=== PATIENT | male | born 1980 | race Caucasian/White ===

== ENCOUNTER 2020-01-06 05:14 | Observation (INO) | payer OTHER ==
[2020-01-06] MEDS ORDERED: Zofran 4 MG/2 ML VIAL IV ONE ×2 (05:24→06:33)
[2020-01-06] MEDS ORDERED: MORPHINE SULFATE 4 MG INJ IV ONE (05:24)
[2020-01-06] MEDS ORDERED: Sodium Chloride 0.9% 1000 ML 1,000 ML IV STA ×2 (05:24→07:45)
--- NOTE | 2020-01-06 05:29 | ERPHSYRPT ---
- History of Present Illness Historian: patient Exam Limitations: no limitations Timing/Duration: day(s) (2) Activities at Onset: rest Quality: cramping, dullness, sharpness Abdominal Pain Onset Location: RUQ, epigastric, periumbilical Pain Radiation: no radiation Severity of Pain-Max: moderate Severity of Pain-Current: moderate Modifying Factors: Improves With: movement Associated Symptoms: heartburn, nausea, vomiting, No diarrhea, No fever/chills Previous symptoms: no prior history <RICA DE GUZMAN - Last Filed: 01/06/20 07:03> <DRISS LOVETT - Last Filed: 01/06/20 08:53> - History of Present Illness Time Seen by Provider: 01/06/20 05:20 Physician History: 39 years old with history of diabetes mellitus, hypertension, hyperlipidemia presented in the ER with chief complaint of epigastric/upper abdominal pain for the last 2 days with multiple episodes of nonprojectile, nonbilious vomiting. He is not able to hold anything down. Patient reports moderate intensity dull to sharp cramping pain in the upper abdomen from umbilicus to epigastric area, aggravated with movements and partial relief with putting a fist and pressurizing epigastric area. Denies any fever or chills. No diarrhea. Denies any sick contact. Denies any history of gallstones. (RICA DE GUZMAN) Allergies/Adverse Reactions: codeine Allergy (Verified 01/06/20 06:10) diphenhydramine [From Benadryl] Allergy (Verified 01/06/20 06:10) pseudoephedrine [From Actifed] Allergy (Verified 01/06/20 06:10) triprolidine [From Actifed] Allergy (Verified 01/06/20 06:10) - Review of Systems Constitutional: Fatigue Eyes: No Symptoms Ears, Nose, & Throat: No Symptoms Respiratory: No Symptoms Cardiac: No Symptoms Abdominal/Gastrointestinal: Abdominal Pain, Nausea, Vomiting Genitourinary Symptoms: No Symptoms Musculoskeletal: No Symptoms Skin: No Symptoms Neurological: No Symptoms Psychological: No Symptoms Endocrine: No Symptoms Hematologic/Lymphatic: No Symptoms Immunological/Allergic: No Symptoms <RICA DE GUZMAN - Last Filed: 01/06/20 07:03> - Physical Exam General Appearance: no apparent distress, alert Eye Exam: eyes nml inspection Ears, Nose, Throat Exam: normal ENT inspection, pharyngeal erythema Neck Exam: normal inspection, non-tender, supple, full range of motion Respiratory Exam: normal breath sounds, lungs clear Cardiovascular Exam: normal heart sounds, tachycardia Gastrointestinal/Abdomen Exam: soft, tenderness (Epigastric and periumbilical area), guarding, No distention, No mass Extremity Exam: normal inspection Neurologic Exam: alert, oriented x 3, cooperative Skin Exam: normal color, warm SpO2 Interpretation: normal O2 Delivery: Room Air <RICA DE GUZMAN - Last Filed: 01/06/20 07:03> - Nursing Vital Signs Nursing Vital Signs: Initial Vital Signs Temperature 97.7 F 01/06/20 05:54 Pulse Rate 103 H 01/06/20 05:54 Respiratory Rate 20 01/06/20 05:54 Blood Pressure 150/107 01/06/20 05:54 O2 Sat by Pulse Oximetry 98 01/06/20 05:54 Pain Scale Pain Intensity 0 - Course Nursing assessment & vital signs reviewed: Yes EKG Interpreted by Me: RATE (rate 88), Sinus Rhythm, NORMAL AXIS, NORMAL INTERVALS - CT Exams Abdomen/Pelvis CT Interpretation: Tele-radiologist Report (CT scan reveals right lower lobe calcified granuloma, mild diffuse fatty liver, a few hepatic and splenic calcified granulomas, bilateral renal cortical cysts.) <DRISS LOVETT - Last Filed: 01/06/20 08:53> Ordered Tests: Active Orders 24 hr Category Date Time Status EKG-ER Only STAT Care 01/06/20 08:10 Active IV Insertion STAT Care 01/06/20 05:24 Active Isolation, Initiate & Maintain Q12H Care 01/06/20 06:08 Active ABDOMEN AND PELVIS W CONTRAST [CT] Stat Exams 01/06/20 05:25 Completed AMYLASE Stat Lab 01/06/20 05:56 Completed BLOOD CULTURE Stat Lab 01/06/20 08:18 Received CBC W DIFF Stat Lab 01/06/20 05:56 Completed CMP Stat Lab 01/06/20 05:56 Completed CULTURE,URINE Stat Lab 01/06/20 06:20 Received LIPASE Stat Lab 01/06/20 05:56 Completed MAGNESIUM Stat Lab 01/06/20 06:00 Completed TROPONIN Q3H Lab 01/06/20 07:30 Completed TROPONIN Q3H Lab 01/06/20 10:30 Ordered TROPONIN Q3H Lab 01/06/20 13:30 Ordered TROPONIN Q3H Lab 01/06/20 16:30 Ordered TROPONIN Q3H Lab 01/06/20 19:30 Ordered UA W/RFX UR CULTURE Stat Lab 01/06/20 06:20 Completed VENOUS BLOOD GAS Stat Lab 01/06/20 08:19 Completed Transfer Order Routine Transfer 01/06/20 Ordered Medication Summary Discontinued Medications Generic Name Dose Route Start Last Admin Trade Name Freq PRN Reason Stop Dose Admin Sodium Chloride 1,000 mls @ 999 mls/hr 01/06/20 05:24 01/06/20 07:59 Sodium Chloride 0.9% 1000 Ml IV 01/06/20 06:24 Infused .Q1H1M STA Infusion Sodium Chloride Confirm 01/06/20 06:19 Sodium Chloride 0.9% 1000 Ml Administered 01/06/20 06:20 Dose 1,000 mls @ ud .ROUTE .STK-MED ONE Ceftriaxone Sodium/Dextrose 1 g in 50 mls @ 100 mls/hr 01/06/20 07:35 08:43 Rocephin 1 Gm-D5w 50 Ml Bag IV 01/06/20 08:04 Infused STAT STA Infusion Sodium Chloride 1,000 mls @ 999 mls/hr 01/06/20 07:45 01/06/20 07:57 Sodium Chloride 0.9% 1000 Ml IV 01/06/20 08:45 999 mls/hr .Q1H1M STA Administration Sodium Chloride Confirm 01/06/20 07:56 Sodium Chloride 0.9% 1000 Ml Administered 01/06/20 07:57 Dose 1,000 mls @ ud .ROUTE .STK-MED ONE Ceftriaxone Sodium/Dextrose Confirm 01/06/20 07:57 Rocephin 1 Gm-D5w 50 Ml Bag Administered 01/06/20 07:58 Dose 1 g in 50 mls @ ud IV .STK-MED ONE Morphine Sulfate 4 mg 01/06/20 05:24 01/06/20 06:22 Morphine Sulfate 4 Mg Inj IV 01/06/20 05:25 4 mg STAT ONE Administration Morphine Sulfate Confirm 01/06/20 06:19 Morphine Sulfate 4 Mg Inj Administered 01/06/20 06:20 Dose 4 mg .ROUTE .STK-MED ONE Ondansetron HCl 4 mg 01/06/20 05:24 01/06/20 06:23 Zofran 4 Mg/2 Ml Vial IV 01/06/20 05:25 4 mg STAT ONE Administration Ondansetron HCl Confirm 01/06/20 06:19 Zofran 4 Mg/2 Ml Vial Administered 01/06/20 06:20 Dose 4 mg .ROUTE .STK-MED ONE Ondansetron HCl 4 mg 01/06/20 06:33 01/06/20 06:35 Zofran 4 Mg/2 Ml Vial IV 01/06/20 06:34 4 mg STAT ONE Administration Ondansetron HCl Confirm 01/06/20 06:34 Zofran 4 Mg/2 Ml Vial Administered 01/06/20 06:35 Dose 4 mg .ROUTE .STK-MED ONE Lab/Rad Data: Laboratory Result Diagrams 01/06/20 05:56 01/06/20 05:56 Laboratory Results 01/06/20 01/06/20 01/06/20 Range/Units 08:19 07:30 06:20 WBC (4.0-10.5) K/mm3 RBC (4.1-5.6) M/mm3 Hgb (12.5-18.0) gm/dl Hct (42-50) % MCV (78-100) fl MCH (26-32) pg MCHC (32-36) g/dl RDW (11.5-14.0) % Plt Count (150-450) K/mm3 MPV (7.5-11.0) fl Gran % (36.0-66.0) % Eos # (Auto) (0-0.5) Absolute Lymphs (auto) (1.0-4.6) Absolute Monos (auto) (0.0-1.3) Lymphocytes % (24.0-44.0) % Monocytes % (0.0-12.0) % Eosinophils % (0.00-5.0) % Basophils % (0.0-0.4) % Absolute Granulocytes (1.4-6.9) Basophils # (0-0.4) pO2/FiO2 Ratio 21.0 % VBG pH 7.41 (7.32-7.42) VBG pCO2 at Pat Temp 43 (42-55) mm/Hg VBG pO2 at Pat Temp 30 (25-40) mm/Hg VBG HCO3 27.3 (22-28) meq/L VBG O2 Sat (Alessandra) 59.1 L (95-100) VBG Base Excess 2.2 H (-2.0-2.0) VBG Hemoglobin 17.0 VBG Carboxyhemoglobin 1.9 (0.0-6.9) % T HGB POC Potassium 3.7 (3.5-5.1) Sodium (137-145) mmol/L Potassium (3.5-5.1) mmol/L Chloride (98-107) mmol/L Carbon Dioxide (22-30) mmol/L Anion Gap (5-15) MEQ/L BUN (9-20) mg/dL Creatinine (0.66-1.25) mg/dL Estimated GFR ML/MIN Glucose (74-106) mg/dL Calcium (8.4-10.2) mg/dL Magnesium (1.6-2.3) mg/dL Total Bilirubin (0.2-1.3) mg/dL AST (17-59) U/L ALT (0-50) U/L Alkaline Phosphatase (38-126) U/L Troponin I < 0.012 (0.000-0.034) ng/mL Serum Total Protein (6.3-8.2) g/dL Albumin (3.5-5.0) g/dL Amylase (30-110) U/L Lipase (23-300) U/L Urine Color YELLOW (YELLOW) Urine Appearance SLIGHTLY CLOUDY (CLEAR) Urine pH 5.0 (5-6) Ur Specific [place] 1.040 (1.005-1.025) Urine Protein 30 (Negative) Urine Ketones MODERATE (NEGATIVE) Urine Blood NEGATIVE (0-5) [place]/ul Urine Nitrite NEGATIVE (NEGATIVE) Urine Bilirubin NEGATIVE (NEGATIVE) Urine Urobilinogen NEGATIVE (0-1) mg/dL Ur Leukocyte Esterase MODERATE (NEGATIVE) Urine WBC (Auto) 51-100 (0-5) /HPF Urine RBC (Auto) 16-25 (0-2) /HPF U Epithel Cells (Auto) FEW (FEW) /HPF Urine Bacteria (Auto) NONE (NEGATIVE) /HPF Urine Mucus (Auto) SLIGHT (NEGATIVE) /HPF Urine Sperm (Auto) PRESENT (NEGATIVE) /HPF Urine Culture Reflexed YES (NO) Urine Glucose >=500 (NEGATIVE) mg/dL 01/06/20 01/06/20 01/06/20 Range/Units 06:00 05:56 05:56 WBC 13.5 H (4.0-10.5) K/mm3 RBC 5.88 H (4.1-5.6) M/mm3 Hgb 17.2 (12.5-18.0) gm/dl Hct 48.2 (42-50) % MCV 82.0 (78-100) fl MCH 29.3 (26-32) pg MCHC 35.7 (32-36) g/dl RDW 13.5 (11.5-14.0) % Plt Count 343 (150-450) K/mm3 MPV 10.9 (7.5-11.0) fl Gran % 56.4 (36.0-66.0) % Eos # (Auto) 0.10 (0-0.5) Absolute Lymphs (auto) 4.61 H (1.0-4.6) Absolute Monos (auto) 1.16 (0.0-1.3) Lymphocytes % 34.2 (24.0-44.0) % Monocytes % 8.6 (0.0-12.0) % Eosinophils % 0.7 (0.00-5.0) % Basophils % 0.1 (0.0-0.4) % Absolute Granulocytes 7.60 H (1.4-6.9) Basophils # 0.02 (0-0.4) pO2/FiO2 Ratio % VBG pH (7.32-7.42) VBG pCO2 at Pat Temp (42-55) mm/Hg VBG pO2 at Pat Temp (25-40) mm/Hg VBG HCO3 (22-28) meq/L VBG O2 Sat (Alessandra) (95-100) VBG Base Excess (-2.0-2.0) VBG Hemoglobin VBG Carboxyhemoglobin (0.0-6.9) % T HGB POC Potassium (3.5-5.1) Sodium 133 L (137-145) mmol/L Potassium 3.7 (3.5-5.1) mmol/L Chloride 95 L (98-107) mmol/L Carbon Dioxide 20 L (22-30) mmol/L Anion Gap 21.6 H (5-15) MEQ/L BUN 10 (9-20) mg/dL Creatinine 0.63 L (0.66-1.25) mg/dL Estimated GFR > 60.0 ML/MIN Glucose 311 H (74-106) mg/dL Calcium 9.6 (8.4-10.2) mg/dL Magnesium 1.9 (1.6-2.3) mg/dL Total Bilirubin 1.00 (0.2-1.3) mg/dL AST 27 (17-59) U/L ALT 34 (0-50) U/L Alkaline Phosphatase 150 H (38-126) U/L Troponin I (0.000-0.034) ng/mL Serum Total Protein 8.4 H (6.3-8.2) g/dL Albumin 4.7 (3.5-5.0) g/dL Amylase 56 (30-110) U/L Lipase 133 (23-300) U/L Urine Color (YELLOW) Urine Appearance (CLEAR) Urine pH (5-6) Ur Specific [place] (1.005-1.025) Urine Protein (Negative) Urine Ketones (NEGATIVE) Urine Blood (0-5) [place]/ul Urine Nitrite (NEGATIVE) Urine Bilirubin (NEGATIVE) Urine Urobilinogen (0-1) mg/dL Ur Leukocyte Esterase (NEGATIVE) Urine WBC (Auto) (0-5) /HPF Urine RBC (Auto) (0-2) /HPF U Epithel Cells (Auto) (FEW) /HPF Urine Bacteria (Auto) (NEGATIVE) /HPF Urine Mucus (Auto) (NEGATIVE) /HPF Urine Sperm (Auto) (NEGATIVE) /HPF Urine Culture Reflexed (NO) Urine Glucose (NEGATIVE) mg/dL <RICA DE GUZMAN - Last Filed: 01/06/20 07:03> - Progress Discussed with : Yesica Will see patient in: hospital (observation) Counseled pt/family regarding: lab results, diagnosis, rad results <DRISS LOVETT - Last Filed: 01/06/20 08:53> - Progress Progress Note: 01/06/20 07:03 Work-up is pending and care is transfer to Dr. Lovett due to shift change (RICA DE GUZMAN) 01/06/20 08:[address] Lovett at approximately [address] Lovett advised to follow- up on pending work-up. Labs resulted. UA resulted. Patient has a urinary tract infection. Patient also has hyperglycemia with an anion gap of 21. Diagnosis is DKA. Ketonuria present as well. CT abdomen pelvis resulted. No acute pathology. EKG was normal sinus rhythm. ABG revealed essentially within normal limits. Magnesium within normal limits. Case discussed with Dr. Carreon who accepts admission to observation. We will treat patient with IV fluid hydration and reassess glucose and anion gap. Patient does appear somewhat dehydrated on physical exam. Plan of care discussed with patient. He agrees to admission to [facility] for further evaluation and treatment. (DRISS LOVETT) <RICA DE GUZMAN - Last Filed: 01/06/20 07:03> - Departure Departure Disposition: In-patient Admission, Observation Critical Care Time: Yes Critical Care Time(excluding separately billable procedures): Critical 75-104 mins <DRISS LOVETT - Last Filed: 01/06/20 08:53> - Departure Clinical Impression: UTI (urinary tract infection), DKA (diabetic ketoacidoses), Leukocytosis, High anion gap metabolic acidosis, Hyperglycemia, Ketonuria, Abdominal pain, Lung granuloma, Fatty liver, Granuloma of liver, Renal cyst, Granulomatous disease, chronic Condition: Stable Referrals: BOBBY NEWTON [Primary Care Provider] -
[2020-01-06 06:08] LABS: BASOPHIL % 0.1 % (0.0-0.4); Basophil (Absolute #) 0.02 (0-0.4); Eosinophil % 0.7 % (0.00-5.0); Hematocrit 48.2 % (42-50); Hemoglobin 17.2 gm/dl (12.5-18.0); Lymphocyte (Absolute #) 4.61 (1.0-4.6); Lymphocytes % 34.2 % (24.0-44.0); Mean Corpuscular Hemoglobin 29.3 pg (26-32); Mean Corpuscular Hgb Concent. 35.7 g/dl (32-36); Mean Platelet Volume 10.9 fl (7.5-11.0); Monocyte (Absolute #) 1.16 (0.0-1.3); Monocytes % 8.6 % (0.0-12.0); Neutrophil % 56.4 % (36.0-66.0); Platelet Count 343 K/mm3 (150-450); Red Blood Count 5.88 M/mm3 (4.1-5.6); Red Cell Distribution Width 13.5 % (11.5-14.0); White Blood Count 13.5 K/mm3 (4.0-10.5)
[2020-01-06 06:13] LABS: ALBUMIN 4.7 g/dL (3.5-5.0); ALKALINE PHOSPHATASE 150 U/L (38-126); AMYLASE 56 U/L (30-110); ANION GAP 21.6 MEQ/L (5-15); BLOOD UREA NITROGEN 10 mg/dL (9-20); CHLORIDE 95 mmol/L (98-107); Calcium 9.6 mg/dL (8.4-10.2); Carbon Dioxide 20 mmol/L (22-30); Creatinine 1 0.63 mg/dL (0.66-1.25); Glucose 311 mg/dL (74-106); LIPASE 133 U/L (23-300); Potassium 3.7 mmol/L (3.5-5.1); SGOT/AST 27 U/L (17-59); SGPT/ALT 34 U/L (0-50); SODIUM 133 mmol/L (137-145); Total Protein 8.4 g/dL (6.3-8.2)
[2020-01-06] MEDS ORDERED: Zofran 4 MG/2 ML VIAL ONE ×2 (06:19→06:34)
[2020-01-06] MEDS ORDERED: MORPHINE SULFATE 4 MG INJ ONE (06:19)
[2020-01-06] MEDS ORDERED: Sodium Chloride 0.9% 1000 ML 1,000 ML ONE ×2 (06:19→07:56)
[2020-01-06 06:24] LABS: Appearance SLIGHTLY CLOUDY (CLEAR); Bilirubin NEGATIVE (NEGATIVE); Blood NEGATIVE Ery/ul (0-5); Epithelial Cells FEW /HPF (FEW); Glucose >=500 mg/dL (NEGATIVE); Ketones MODERATE (NEGATIVE); Leukocyte Esterase MODERATE (NEGATIVE); Mucus SLIGHT /HPF (NEGATIVE); Nitrite NEGATIVE (NEGATIVE); Protein,Urine Dip 30 (Negative); Urobilinogen NEGATIVE mg/dL (0-1); WBC 51-100 /HPF (0-5)
[2020-01-06 06:25] LABS: Sperm PRESENT /HPF (NEGATIVE)
[2020-01-06] MEDS ORDERED: ROCEPHIN 1 Gm-D5w 50 ml Bag** 1 G/50 ML IVPB IV STA (07:35)
[2020-01-06] MEDS ORDERED: ROCEPHIN 1 Gm-D5w 50 ml Bag** 1 G/50 ML IVPB IV ONE (07:57)
[2020-01-06 08:24] LABS: VBG BASE EXCESS 2.2 (-2.0-2.0); VBG CARBOXYHEMOGLOBIN 1.9 % T HGB (0.0-6.9); VBG HCO3- 27.3 meq/L (22-28); VBG O2 SATURATION 59.1 (95-100); VBG POTASSIUM 3.7 (3.5-5.1); VBG pH 7.41 (7.32-7.42)
--- NOTE | 2020-01-06 08:26 | XRAY ---
Indication: Epigastric pain. Multiple contiguous axial images obtained through the abdomen and pelvis using 80 cc Isovue 370 contrast only. Comparison: None Lung bases demonstrates right lower lobe calcified granuloma. No infiltrate or effusion. Heart is not enlarged. Noncontrasted stomach and bowel loops appear nonobstructed. Normal appendix. No free fluid/air. Mild diffuse fatty liver measuring 22.3 cm in greatest dimension. A few hepatic/splenic calcified granulomas. Both kidneys enhance and excrete with 1.2 cm left mid and 1.5 cm right mid renal cortical cysts. Remaining liver, gallbladder, pancreas, spleen, adrenal glands, kidneys, ureters, bladder, and aorta appear unremarkable. No pathologic retroperitoneal lymphadenopathy. Osseous structures intact with mild degenerative changes throughout the thoracolumbar spine. No ventral or inguinal hernias. Impression: 1. Bilateral renal cysts, fatty hepatomegaly, and evidence for old granulomatous disease. 2. Remaining CT abdomen/pelvis with contrast exam is negative.
[2020-01-06] MEDS ORDERED: MORPHINE SULFATE 2 MG INJ IV PRN (09:40)
[2020-01-06] MEDS: Sodium Chloride 0.9% 1000 ML 1,000 ML IV SCH ×2 (10:34→20:07)
[2020-01-06] MEDS: Zofran 4 MG/2 ML VIAL IV PRN ×2 (10:46→20:07)
--- NOTE | 2020-01-06 16:22 | PCM.BN ---
Brief Admission Note - Admission Note Brief Admisson Note: Patient admitted @ 01/06/20 09:22 to [facility] SURG. Medication List reviewed and reconciled.Patient is asking for a sleeper.He will have a full eval tomorrow morning but is comfortable for now.
[2020-01-06] MEDS: HUMALOG SQ SCH (18:19)
[2020-01-06] MEDS: HUMALOG SQ PRN (20:27)
[2020-01-06] MEDS: Lantus Insulin SQ SCH (21:21)
[2020-01-06] MEDS: Bactroban OINTMENT TOP SCH (21:22)
[2020-01-06] MEDS ORDERED: NON-FORMULARY ITEM (Insulin Lispro 18 UNIT) SQ SCH ×2 (22:00)
[2020-01-06] MEDS ORDERED: INSULIN GLARGINE HUM REC ANLOG 30 UNIT SQ SCH (22:00)
[2020-01-06] MEDS ORDERED: xanAX 0.25 MG PO SCH (22:00)
[2020-01-06] MEDS ORDERED: MUPIROCIN CALCIUM 15 GM TP SCH (22:00)
[2020-01-07] MEDS: HUMALOG SQ PRN (03:50)
[2020-01-07 05:16] LABS: Absolute Neutrophil Ct (ANC) 6.13 (1.4-6.9); BASOPHIL % 0.2 % (0.0-0.4); Basophil (Absolute #) 0.02 (0-0.4); Eosinophil % 1.1 % (0.00-5.0); Eosinophil (Absolute #) 0.13 (0-0.5); Hematocrit 47.4 % (42-50); Hemoglobin 16.4 gm/dl (12.5-18.0); Lymphocyte (Absolute #) 4.14 (1.0-4.6); Lymphocytes % 36.2 % (24.0-44.0); Mean Cell Volume 84.2 fl (78-100); Mean Corpuscular Hemoglobin 29.1 pg (26-32); Mean Corpuscular Hgb Concent. 34.6 g/dl (32-36); Mean Platelet Volume 10.2 fl (7.5-11.0); Monocyte (Absolute #) 1.02 (0.0-1.3); Monocytes % 8.9 % (0.0-12.0); Neutrophil % 53.6 % (36.0-66.0); Platelet Count 261 K/mm3 (150-450); Red Blood Count 5.63 M/mm3 (4.1-5.6); Red Cell Distribution Width 13.3 % (11.5-14.0); White Blood Count 11.4 K/mm3 (4.0-10.5)
[2020-01-07 05:33] LABS: AMYLASE 59 U/L (30-110); LIPASE 445 U/L (23-300)
[2020-01-07 05:41] LABS: ALBUMIN 4.3 g/dL (3.5-5.0); ALKALINE PHOSPHATASE 109 U/L (38-126); ANION GAP 15.4 MEQ/L (5-15); BLOOD UREA NITROGEN 6 mg/dL (9-20); CHLORIDE 100 mmol/L (98-107); Calcium 9.1 mg/dL (8.4-10.2); Carbon Dioxide 23 mmol/L (22-30); Creatinine 1 0.55 mg/dL (0.66-1.25); Glucose 242 mg/dL (74-106); Potassium 3.8 mmol/L (3.5-5.1); SGOT/AST 21 U/L (17-59); SGPT/ALT 28 U/L (0-50); SODIUM 134 mmol/L (137-145); Total Protein 7.4 g/dL (6.3-8.2)
[2020-01-07] MEDS: Sodium Chloride 0.9% 1000 ML 1,000 ML IV SCH (05:57)
[2020-01-07 06:08] LABS: TROPONIN < 0.012 ng/mL (0.000-0.034)
[2020-01-07] MEDS ORDERED: HUMALOG SQ ONE (07:30)
[2020-01-07 07:31] VITALS: O2SAT 98
[2020-01-07] MEDS ORDERED: ARIPIPRAZOLE 5 MG PO SCH (10:00)
[2020-01-07] MEDS ORDERED: Abilify 10 MG PO SCH (10:00)
[2020-01-07] MEDS ORDERED: NON-FORMULARY ITEM (Atorvastatin Calcium 10 MG) PO SCH (10:00)
[2020-01-07] MEDS ORDERED: Effexor XR 75 MG PO SCH (10:00)
[2020-01-07] MEDS ORDERED: Zestril 10 MG PO SCH (10:00)
[2020-01-07] MEDS: Zofran 4 MG/2 ML VIAL IV PRN (11:08)
[2020-01-07] MEDS: Lantus Insulin SQ SCH (11:10)
[2020-01-07] MEDS: Bactroban OINTMENT TOP SCH ×2 (11:24→15:33)
--- NOTE | 2020-01-07 11:27 | XRAY ---
Indication: Upper abdominal pain. Pancreatitis. Two-dimensional abdominal sonogram performed. Comparison: None Visualized portions of the liver demonstrates fatty echogenicity without focal solid/cystic mass or ascites. Gallbladder normally distended without gallstones, wall thickening, or pericholecystic fluid. Common bile duct measures 3 mm. Remaining visualized pancreas and spleen sonographically unremarkable. Visualized aorta and IVC normal in course and caliber. Right kidney measures 12.1 cm and the left measures 13.2 cm in length. No focal solid/cystic renal mass or hydronephrosis. Cortical medullary differentiation preserved without cortical thinning. Impression: 1. Fatty liver. 2. Remaining abdominal sonogram is negative.
[2020-01-07] MEDS: HUMALOG SQ SCH ×2 (12:39→17:30)
[2020-01-07 16:45] VITALS: BP 137/86; PULSE 83
--- NOTE | 2020-01-07 17:18 | PCM.SSS ---
History of Present Illness - Chief Complaint Chief Complaint: UTI History of Present Illness: Mr.LIFFORD MUELLER is a 39 year old male . He is feeling much better today. Had renal and liver/GB and pancreas Us today that were all wnl. Patients amylase and lipase have come down overnight and pain is gone except if he is reclining he starts with LUQ pain and vomits - 2 spells today with yellow liquid the green liquid. He has had jello and fluids today. No BM today. - Review of Systems Eyes: No Symptoms Ears, Nose, & Throat: No Symptoms Respiratory: No Symptoms Cardiac: No Symptoms Abdominal/Gastrointestinal: Abdominal Pain, Nausea, Vomiting Genitourinary Symptoms: No Symptoms Musculoskeletal: No Symptoms Skin: No Symptoms Neurological: No Symptoms Psychological: Anxiety (controlled on Effexor,sees Dr Newton for this) Endocrine: Other (DM2 followed by Dr Cruz,started Victoza about 6 months ago) Hematologic/Lymphatic: No Symptoms Medications & Allergies Home Medications: Home Medication List ARIPiprazole [Abilify Mycite] 5 mg PO DAILY 01/06/20 [History Confirmed 01/06/20 ] Atorvastatin Calcium [Lipitor 20MG Tablet] 10 mg PO DAILY 01/06/20 [History Confirmed 01/06/20] Fenofibrate,Micronized 145 mg* [Tricor 145 MG] 145 mg PO DAILY 01/06/20 [ History Confirmed 01/06/20] Insulin Glargine,Hum.rec.anlog [Basaglar Kwikpen U-100] 30 units SQ BID [History Confirmed 01/06/20] Insulin Lispro [Humalog] 18 unit SQ TID 01/06/20 [History Confirmed 01/06/20] Lisinopril 10 mg [Zestril 10 MG] 10 mg PO DAILY 01/06/20 [History Confirmed 01/06/20] Mupirocin Calcium [Mupirocin] 15 gm TP TID 01/06/20 [History Confirmed 01/06/20] Venlafaxine HCl ER 75 mg [Effexor XR 75 MG] 75 mg PO DAILY 01/06/20 [ History Confirmed 01/06/20] Allergies/Adverse Reactions: Allergies Allergy/AdvReac Type Severity Reaction Status Date / Time codeine Allergy Verified 01/06/20 06:10 diphenhydramine Allergy Verified 01/06/20 06:10 [From Benadryl] pseudoephedrine Allergy Verified 01/06/20 06:10 [From Actifed] triprolidine [From Actifed] Allergy Verified 01/06/20 06:10 - Past Medical History Past Medical History: Yes Neurological History: No Pertinent History ENT History: No Pertinent History Cardiac History: Coronary Artery Disease, High Cholesterol, Hypertension Respiratory History: No Pertinent History Endocrine Medical History: Diabetes Type II Musculoskelatal History: No Pertinent History GI Medical History: Hemorrhoids, Ulcer, Other History: No Pertinent History, Dialysis Pyscho-Social History: Anxiety, Depression Male Reproductive Disorders: No Pertinent History Comment: 2014 Gastritis - Past Surgical History Past Surgical History: Yes Neuro Surgical History: No Pertinent History Cardiac History: Cardiac Catheterization Respiratory Surgery: No Pertinent History GI Surgical History: Hemorrhoidectomy, Rectal Surgery Genitourinary Surgical Hx: No Pertinent History Musculskeletal Surgical Hx: No Pertinent History Male Surgical History: No Pertinent History Other Surgical History: 2020 Heart Cath (blockage x 2) - Social History Smoking Status: Current every day smoker How long have you smoked: 28 yrs Exposure to second hand smoke: Yes Alcohol: None Drug Use: none - Physical Exam Vital Signs: Vital Signs - 24 hr Temp Pulse Resp BP Pulse Ox 01/07/20 16:00 97.9 F 83 14 137/86 01/07/20 12:00 97.6 F 85 20 128/86 01/07/20 08:00 97.6 F 92 H 20 154/86 98 01/07/20 07:30 98 01/07/20 04:00 98.4 F 83 15 147/96 99 01/06/20 23:45 98.4 F 94 H 16 132/89 98 01/06/20 21:06 98 01/06/20 20:10 98.5 F 97 H 15 148/91 98 General Appearance: no apparent distress Neurologic Exam: alert, oriented x 3, cooperative, normal mood/affect Eye Exam: PERRL/EOMI Ears, Nose, Throat Exam: normal ENT inspection, moist mucous membranes Neck Exam: normal inspection, other (thyroid not tender or enlarged) Cardiovascular Exam: regular rate/rhythm Gastrointestinal/Abdomen Exam: soft, normal bowel sounds, tenderness (LUQ) Rectal Exam: deferred Back Exam: other (no CVA tenderness) Extremity Exam: normal inspection Skin Exam: normal color, warm, dry Results - Labs Lab/Micro Results: Accuchecks Date 01/07/20 Date 01/07/20 Date 01/06/20 Time 16:00 Time 12:00 Time 19:00 Accucheck Value: 205 Accucheck Value: 215 Accucheck Value: 244 Accucheck Value: 235 Accucheck Value: 176 Accucheck Value: 264 Lab Results-Last 24 Hours 01/06/20 01/07/20 01/07/20 Range/Units 19:35 04:40 04:40 WBC 11.4 H (4.0-10.5) K/mm3 RBC 5.63 H (4.1-5.6) M/mm3 Hgb 16.4 (12.5-18.0) gm/dl Hct 47.4 (42-50) % MCV 84.2 (78-100) fl MCH 29.1 (26-32) pg MCHC 34.6 (32-36) g/dl RDW 13.3 (11.5-14.0) % Plt Count 261 (150-450) K/mm3 MPV 10.2 (7.5-11.0) fl Gran % 53.6 (36.0-66.0) % Eos # (Auto) 0.13 (0-0.5) Absolute Lymphs (auto) 4.14 (1.0-4.6) Absolute Monos (auto) 1.02 (0.0-1.3) Lymphocytes % 36.2 (24.0-44.0) % Monocytes % 8.9 (0.0-12.0) % Eosinophils % 1.1 (0.00-5.0) % Basophils % 0.2 (0.0-0.4) % Absolute Granulocytes 6.13 (1.4-6.9) Basophils # 0.02 (0-0.4) Sodium 134 L (137-145) mmol/L Potassium 3.8 (3.5-5.1) mmol/L Chloride 100 (98-107) mmol/L Carbon Dioxide 23 (22-30) mmol/L Anion Gap 15.4 H (5-15) MEQ/L BUN 6 L (9-20) mg/dL Creatinine 0.55 L (0.66-1.25) mg/dL Estimated GFR > 60.0 ML/MIN Glucose 242 H (74-106) mg/dL Calcium 9.1 (8.4-10.2) mg/dL Total Bilirubin 1.10 (0.2-1.3) mg/dL AST 21 (17-59) U/L ALT 28 (0-50) U/L Alkaline Phosphatase 109 (38-126) U/L Troponin I < 0.012 < 0.012 (0.000-0.034) ng/mL Serum Total Protein 7.4 (6.3-8.2) g/dL Albumin 4.3 (3.5-5.0) g/dL Amylase (30-110) U/L Lipase (23-300) U/L 01/07/20 Range/Units 04:40 WBC (4.0-10.5) K/mm3 RBC (4.1-5.6) M/mm3 Hgb (12.5-18.0) gm/dl Hct (42-50) % MCV (78-100) fl MCH (26-32) pg MCHC (32-36) g/dl RDW (11.5-14.0) % Plt Count (150-450) K/mm3 MPV (7.5-11.0) fl Gran % (36.0-66.0) % Eos # (Auto) (0-0.5) Absolute Lymphs (auto) (1.0-4.6) Absolute Monos (auto) (0.0-1.3) Lymphocytes % (24.0-44.0) % Monocytes % (0.0-12.0) % Eosinophils % (0.00-5.0) % Basophils % (0.0-0.4) % Absolute Granulocytes (1.4-6.9) Basophils # (0-0.4) Sodium (137-145) mmol/L Potassium (3.5-5.1) mmol/L Chloride (98-107) mmol/L Carbon Dioxide (22-30) mmol/L Anion Gap (5-15) MEQ/L BUN (9-20) mg/dL Creatinine (0.66-1.25) mg/dL Estimated GFR ML/MIN Glucose (74-106) mg/dL Calcium (8.4-10.2) mg/dL Total Bilirubin (0.2-1.3) mg/dL AST (17-59) U/L ALT (0-50) U/L Alkaline Phosphatase (38-126) U/L Troponin I (0.000-0.034) ng/mL Serum Total Protein (6.3-8.2) g/dL Albumin (3.5-5.0) g/dL Amylase 59 (30-110) U/L Lipase 445 H (23-300) U/L Microbiology 01/06/20 06:20 Urine Culture - Final Clean Catch Midstream NO GROWTH Accuchecks Date 01/07/20 Date 01/07/20 Date 01/06/20 Time 16:00 Time 12:00 Time 19:00 Accucheck Value: 205 Accucheck Value: 215 Accucheck Value: 244 Accucheck Value: 235 Accucheck Value: 176 Accucheck Value: 264 - Radiology Impressions Radiology Exams & Impressions: Radiology Procedures Category Date Time Status ABDOMEN AND PELVIS W CONTRAST [CT] Stat Exams 01/06/20 05:25 Completed UPPER ABDOMEN [US] Routine Exams 01/07/20 11:04 Completed Assessment/Plan (1) Pancreatitis, acute Current Visit: Yes Status: Acute Assessment & Plan: GB liver and pancreas US were wnl,may be due to Victoza that has been discontinued and patient to see his [employer] about this. Code(s): K85.90 - ACUTE PANCREATITIS WITHOUT NECROSIS OR INFECTION, UNSP (2) High anion gap metabolic acidosis Current Visit: Yes Status: Resolved Code(s): E87.2 - ACIDOSIS (3) Leukocytosis Current Visit: Yes Status: Acute Assessment & Plan: improved,afebrile-follow with PCP Code(s): D72.829 - ELEVATED WHITE BLOOD CELL COUNT, UNSPECIFIED (4) UTI (urinary tract infection) Current Visit: Yes Status: Resolved Assessment & Plan: asymptomatic,follow with PCP Code(s): N39.0 - URINARY TRACT INFECTION, SITE NOT SPECIFIED (5) DM2 (diabetes mellitus, type 2) Current Visit: Yes Status: Chronic Qualifiers: Diabetes mellitus halfway insulin use: with contact person use Assessment & Plan: follow with [facility] Hospital Summary - Hospital Course Hospital Course: Patient is a 39 yr old male with IDDM2,HTN ,Hyperlipidemia and depression/ anxiety followed by Dr Newton PCP and Dr Cruz [employer]. He presented to ER with upper-mid abdominal pain and N/V. Diagnosed UTI and hyperglycemia with anion gap =21. CT abd pelvis showed fatty liver . He was admitted for IV hydration and IV Rocephin and clear liquid diet. His labs on the floor showed elevated amylase and lipase that improved overnight. US upper abd and kidneys was WNL -no Gallstones or biliary dilation. Patient will be discharged to follow up with his PCP and [employer] . He was told to stop Victoza and modify diet low fat,bland . - Vitals & Intake/Output Vital Signs: Vital Signs Temperature 97.9 F 01/07/20 16:00 Pulse Rate 83 01/07/20 16:00 Respiratory Rate 14 01/07/20 16:00 Blood Pressure 137/86 01/07/20 16:00 O2 Sat by Pulse Oximetry 98 01/07/20 08:00 Intake & Output: Intake & Output 01/05/20 01/06/20 01/07/20 01/08/20 11:59 11:59 11:59 11:59 Intake Total 3416 Output Total 800 600 Balance 2616 -600 Weight 110.9 kg - Lab Result Diagrams: 01/07/20 04:40 01/07/20 04:40 Lab Results-Last 24 Hrs: Accuchecks Date 01/07/20 Date 01/07/20 Date 01/06/20 Time 16:00 Time 12:00 Time 19:00 Accucheck Value: 205 Accucheck Value: 215 Accucheck Value: 244 Accucheck Value: 235 Accucheck Value: 176 Accucheck Value: 264 Lab Results-Last 24 Hours 01/06/20 01/07/20 01/07/20 Range/Units 19:35 04:40 04:40 WBC 11.4 H (4.0-10.5) K/mm3 RBC 5.63 H (4.1-5.6) M/mm3 Hgb 16.4 (12.5-18.0) gm/dl Hct 47.4 (42-50) % MCV 84.2 (78-100) fl MCH 29.1 (26-32) pg MCHC 34.6 (32-36) g/dl RDW 13.3 (11.5-14.0) % Plt Count 261 (150-450) K/mm3 MPV 10.2 (7.5-11.0) fl Gran % 53.6 (36.0-66.0) % Eos # (Auto) 0.13 (0-0.5) Absolute Lymphs (auto) 4.14 (1.0-4.6) Absolute Monos (auto) 1.02 (0.0-1.3) Lymphocytes % 36.2 (24.0-44.0) % Monocytes % 8.9 (0.0-12.0) % Eosinophils % 1.1 (0.00-5.0) % Basophils % 0.2 (0.0-0.4) % Absolute Granulocytes 6.13 (1.4-6.9) Basophils # 0.02 (0-0.4) Sodium 134 L (137-145) mmol/L Potassium 3.8 (3.5-5.1) mmol/L Chloride 100 (98-107) mmol/L Carbon Dioxide 23 (22-30) mmol/L Anion Gap 15.4 H (5-15) MEQ/L BUN 6 L (9-20) mg/dL Creatinine 0.55 L (0.66-1.25) mg/dL Estimated GFR > 60.0 ML/MIN Glucose 242 H (74-106) mg/dL Calcium 9.1 (8.4-10.2) mg/dL Total Bilirubin 1.10 (0.2-1.3) mg/dL AST 21 (17-59) U/L ALT 28 (0-50) U/L Alkaline Phosphatase 109 (38-126) U/L Troponin I < 0.012 < 0.012 (0.000-0.034) ng/mL Serum Total Protein 7.4 (6.3-8.2) g/dL Albumin 4.3 (3.5-5.0) g/dL Amylase (30-110) U/L Lipase (23-300) U/L 01/07/20 Range/Units 04:40 WBC (4.0-10.5) K/mm3 RBC (4.1-5.6) M/mm3 Hgb (12.5-18.0) gm/dl Hct (42-50) % MCV (78-100) fl MCH (26-32) pg MCHC (32-36) g/dl RDW (11.5-14.0) % Plt Count (150-450) K/mm3 MPV (7.5-11.0) fl Gran % (36.0-66.0) % Eos # (Auto) (0-0.5) Absolute Lymphs (auto) (1.0-4.6) Absolute Monos (auto) (0.0-1.3) Lymphocytes % (24.0-44.0) % Monocytes % (0.0-12.0) % Eosinophils % (0.00-5.0) % Basophils % (0.0-0.4) % Absolute Granulocytes (1.4-6.9) Basophils # (0-0.4) Sodium (137-145) mmol/L Potassium (3.5-5.1) mmol/L Chloride (98-107) mmol/L Carbon Dioxide (22-30) mmol/L Anion Gap (5-15) MEQ/L BUN (9-20) mg/dL Creatinine (0.66-1.25) mg/dL Estimated GFR ML/MIN Glucose (74-106) mg/dL Calcium (8.4-10.2) mg/dL Total Bilirubin (0.2-1.3) mg/dL AST (17-59) U/L ALT (0-50) U/L Alkaline Phosphatase (38-126) U/L Troponin I (0.000-0.034) ng/mL Serum Total Protein (6.3-8.2) g/dL Albumin (3.5-5.0) g/dL Amylase 59 (30-110) U/L Lipase 445 H (23-300) U/L Micro Results-Entire Visit: Microbiology 01/06/20 06:20 Urine Culture - Final Clean Catch Midstream NO GROWTH Accuchecks Date 01/07/20 Date 01/07/20 Date 01/06/20 Time 16:00 Time 12:00 Time 19:00 Accucheck Value: 205 Accucheck Value: 215 Accucheck Value: 244 Accucheck Value: 235 Accucheck Value: 176 Accucheck Value: 264 - Radiology Exams Ordered Rad Exams-Entire Visit: Radiology Procedures Category Date Time Status ABDOMEN AND PELVIS W CONTRAST [CT] Stat Exams 01/06/20 05:25 Completed UPPER ABDOMEN [US] Routine Exams 01/07/20 11:04 Completed - Procedures and Test Procedures and Tests throughout Hospitalization: Therapy Orders & Screens 01/06/20 11:46 Smoking Cessation Education ONCE Comment: Diagnosis: UTI Smoking Status: Current every day smoker How long have you smoked: 28 yrs Approximately how many cigarettes per day: 10 Do you dip or chew tobacco: No - Discharge Disposition: Home, Self-Care Condition: Stable Prescriptions: Continue Atorvastatin Calcium [Lipitor 20MG Tablet] 10 mg PO DAILY Insulin Lispro [Humalog] 18 unit SQ TID Fenofibrate,Micronized 145 mg* [Tricor 145 MG] 145 mg PO DAILY Mupirocin Calcium [Mupirocin] 15 gm TP TID Lisinopril 10 mg [Zestril 10 MG] 10 mg PO DAILY Venlafaxine HCl ER 75 mg [Effexor XR 75 MG] 75 mg PO DAILY ARIPiprazole [Abilify Mycite] 5 mg PO DAILY Insulin Glargine,Hum.rec.anlog [Basaglar Kwikpen U-100] 30 units SQ BID Discontinued Liraglutide [Victoza 2-Yamil] 0.1 ml SQ DAILY Instructions: Pancreatitis (DC), [place] Diet Additional Instructions: AVOID SPICY FOODS AND HEAVY MEATS AT THIS TIME DUE TO THE PANCREATITIS. EAT CLEAR LIQUIDS LIKE JELLO AND ADVANCE AT [employer] Follow up with: BOBBY NEWTON [Primary Care Provider] - 01/14/20 9:30 am SAI CRUZ [NON-STAFF PHY W/O PRIVILEGES] - 1 Week (call in a.m. for an appt.)
[2020-01-07] MEDS ORDERED: Zocor 10MG PO SCH (22:00)
== END 2020-01-07 18:15 | disposition home or self-care (01) ==
LOC: ED 05:14 → MED SURG 09:22
PROVIDERS: ADMIT Family Medicine; ATTEND Family Medicine
DX: K85.90 Acute pancreatitis without necrosis or infection, unspecified (principal); N39.0 Urinary tract infection, site not specified; E87.2 Acidosis; E11.65 Type 2 diabetes mellitus with hyperglycemia; I10 Essential (primary) hypertension; F41.9 Anxiety disorder, unspecified; I25.10 Atherosclerotic heart disease of native coronary artery without angina pectoris; D72.829 Elevated white blood cell count, unspecified; E78.5 Hyperlipidemia, unspecified; Z79.899 Other long term (current) drug therapy
CPT/HCPCS: 36415; 74177; 76700; 80053; 81001; 82150; 82805; 82962; 83036; 83690; 83735; 84484; 85025; 87040; 87086; 93005; 93268; 94762; 96360; 96365; 96374; 96375; 96376; 99291; 99292; G0378; 36000; 99285; J0696; J1817; J2270; J2405; A9270-GY

== ENCOUNTER 2020-02-26 08:58 | Emergency (ER) | payer OTHER ==
[2020-02-26] MEDS ORDERED: Sodium Chloride 0.9% 1000 ML 1,000 ML IV STA (09:11)
[2020-02-26] MEDS ORDERED: Zofran 4 MG/2 ML VIAL IV ONE ×2 (09:11→13:03)
[2020-02-26] MEDS ORDERED: TORAdol 30 mg Injection IV ONE (09:14)
[2020-02-26] MEDS ORDERED: Sodium Chloride 0.9% 1000 ML 1,000 ML ONE (09:20)
[2020-02-26] MEDS ORDERED: Zofran 4 MG/2 ML VIAL ONE (09:20)
[2020-02-26] MEDS ORDERED: TORAdol 30 mg Injection ONE (09:20)
--- NOTE | 2020-02-26 09:36 | ERPHSYRPT ---
- History of Present Illness Time Seen by Provider: 02/26/20 09:12 Historian: patient Patient Subjective Stated Complaint: pt to ER with complaints of epigastric pain x 2 days. pt states he isnt supposed to have greasy food, but ate [employer] 2 days ago. pt states he has been sick for 2 days and then felt better yesterday. pt states it started again this morning. N/V. denies fever. Triage Nursing Assessment: A&Ox4. ambulatory. appears to be in pain. pt skin pwd. pt dry heaving. Physician History: Patient is a 38-year-old male presents to our ED with epigastric pain started 2 days ago after eating [employer]. Patient states he has not supposed to eat greasy foods. Pain is been progressive. Patient has history of pancreatitis. Patient states his symptoms are similar. Pain is mild to moderate intensity. No specific worsening or improving factors. No associated fever. Patient admits to nausea vomiting. No diarrhea. No rash. No trauma. Patient still retains his gallbladder per patient. Patient is a diabetic. Patient states he has not been compliant with his diabetic regimen. Patient states he is scheduled to receive a insulin pump in the next week or so. Patient voices no other complaints at this time. Timing/Duration: day(s) (2 days ago) Activities at Onset: none Quality: aching Abdominal Pain Onset Location: epigastric Pain Radiation: no radiation Severity of Pain-Max: severe Severity of Pain-Current: moderate Modifying Factors: Improves With: palpation Associated Symptoms: nausea, vomiting, No chest pain, No diarrhea, No fever/chills Previous symptoms: same symptoms as today Allergies/Adverse Reactions: codeine Allergy (Verified 02/26/20 09:16) diphenhydramine [From Benadryl] Allergy (Verified 02/26/20 09:16) pseudoephedrine [From Actifed] Allergy (Verified 02/26/20 09:16) triprolidine [From Actifed] Allergy (Verified 02/26/20 09:16) Home Medications: ARIPiprazole [Abilify Mycite] 5 mg PO DAILY 01/06/20 [History] Atorvastatin Calcium [Lipitor 20MG Tablet] 10 mg PO DAILY 01/06/20 [History] Fenofibrate,Micronized 145 mg* [Tricor 145 MG] 145 mg PO DAILY 01/06/20 [History] Insulin Glargine,Hum.rec.anlog [Basaglar Kwikpen U-100] 30 units SQ BID 01/06/20 [History] Insulin Lispro [Humalog] 18 unit SQ TID 01/06/20 [History] Lisinopril 10 mg [Zestril 10 MG] 10 mg PO DAILY 01/06/20 [History] Mupirocin Calcium [Mupirocin] 15 gm TP TID 01/06/20 [History] Venlafaxine HCl ER 75 mg [Effexor XR 75 MG] 75 mg PO DAILY 01/06/20 [History] Hx Tetanus, Diphtheria Vaccination/Date Given: Yes Hx Influenza Vaccination/Date Given: Yes Hx Pneumococcal Vaccination/Date Given: No Immunizations Up to Date: Yes Travel Risk - International Travel Have you traveled outside of the country in past 3 weeks: No - Coronavirus Screening Are you exhibiting any of the following symptoms?: No Close contact with a COVID-19 positive Pt in past 14-21 Days: No - Review of Systems Constitutional: No Symptoms, No Fever, No Chills Eyes: No Symptoms Ears, Nose, & Throat: No Symptoms Respiratory: No Symptoms, No Cough, No Dyspnea Cardiac: No Symptoms, No Chest Pain, No Edema, No Syncope Abdominal/Gastrointestinal: No Symptoms, No Abdominal Pain, No Nausea, No Vomiting, No Diarrhea Genitourinary Symptoms: No Symptoms, No Dysuria Musculoskeletal: No Symptoms, No Back Pain, No Neck Pain Skin: No Symptoms, No Rash Neurological: No Symptoms, No Dizziness, No Focal Weakness, No Sensory Changes Psychological: No Symptoms Endocrine: No Symptoms Hematologic/Lymphatic: No Symptoms Immunological/Allergic: No Symptoms All Other Systems: Reviewed and Negative - Past Medical History Pertinent Past Medical History: Yes Neurological History: No Pertinent History ENT History: No Pertinent History Cardiac History: Coronary Artery Disease, High Cholesterol, Hypertension Respiratory History: No Pertinent History Endocrine Medical History: Diabetes Type II Musculoskeletal History: No Pertinent History GI Medical History: Hemorrhoids, Ulcer, Other History: No Pertinent History, Dialysis Psycho-Social History: Anxiety, Depression Male Reproductive Disorders: No Pertinent History Other Medical History: 2014 Gastritis - Past Surgical History Past Surgical History: Yes Neuro Surgical History: No Pertinent History Cardiac: Cardiac Catheterization Respiratory: No Pertinent History Gastrointestinal: Hemorrhoidectomy, Rectal Surgery Genitourinary: No Pertinent History Musculoskeletal: No Pertinent History Male Surgical History: No Pertinent History Other Surgical History: 2020 Heart Cath (blockage x 2) - Social History Smoking Status: Current every day smoker How long have you smoked: 28 yrs Exposure to second hand smoke: Yes Drug Use: none - Nursing Vital Signs Nursing Vital Signs: Initial Vital Signs Temperature 98.1 F 02/26/20 09:08 Pulse Rate 95 H 02/26/20 09:08 Respiratory Rate 18 02/26/20 09:08 Blood Pressure 159/110 02/26/20 09:08 O2 Sat by Pulse Oximetry 95 02/26/20 09:08 Pain Scale Pain Intensity 8 - Physical Exam General Appearance: no apparent distress, alert Eye Exam: PERRL/EOMI, eyes nml inspection Ears, Nose, Throat Exam: normal ENT inspection, pharynx normal, moist mucous membranes Neck Exam: normal inspection, non-tender, supple, full range of motion Respiratory Exam: normal breath sounds, lungs clear, airway intact, No respiratory distress Cardiovascular Exam: regular rate/rhythm, normal heart sounds, normal peripheral pulses Gastrointestinal/Abdomen Exam: soft, tenderness (Epigastric tenderness to palpation. Overlying soft tissue intact.), No mass, No hernia Rectal Exam: deferred Back Exam: normal inspection, normal range of motion, No CVA tenderness, No vertebral tenderness Extremity Exam: normal inspection, normal range of motion, pelvis stable Neurologic Exam: alert, oriented x 3, cooperative, normal mood/affect, nml cerebellar function, sensation nml, No motor deficits Skin Exam: normal color, warm, dry SpO2 Interpretation: normal SpO2: 95 O2 Delivery: Room Air - Course Nursing assessment & vital signs reviewed: Yes EKG Interpreted by Me: RATE - CT Exams Abdomen CT Interpretation: Tele-radiologist Report (Distal esophageal circumferential wall thickening. Rule out reflux/esophagitis. Stable bilateral renal cysts, fatty hepatomegaly and evidence of old granulomatous disease.) - Radiology Ultrasound Exam Gallbladder Ultrasound: negative (Negative gallbladder ultrasound per technologist verbal report.) Ordered Tests: Active Orders 24 hr Category Date Time Status ACCUCHECK [Accucheck] STAT Care 02/26/20 12:52 Active EKG-ER Only STAT Care 02/26/20 09:11 Active IV Insertion STAT Care 02/26/20 09:11 Active ABDOMEN AND PELVIS W CONTRAST [CT] Stat Exams 02/26/20 09:12 Completed GALLBLADDER [US] Stat Exams 02/26/20 09:12 Completed CBC W DIFF Stat Lab 02/26/20 09:30 Completed CMP Stat Lab 02/26/20 09:30 Completed CULTURE,URINE Stat Lab 02/26/20 12:37 Ordered LIPASE Stat Lab 02/26/20 09:30 Completed TROPONIN Q3H Lab 02/26/20 09:30 Completed TROPONIN Q3H Lab 02/26/20 12:30 Completed TROPONIN Q3H Lab 02/26/20 15:15 Ordered TROPONIN Q3H Lab 02/26/20 18:15 Ordered TROPONIN Q3H Lab 02/26/20 21:15 Ordered UA W/RFX UR CULTURE Stat Lab 02/26/20 12:52 Completed Medication Summary Discontinued Medications Generic Name Dose Route Start Last Admin Trade Name Freq PRN Reason Stop Dose Admin Al Hydrox/Mg Hydrox/Simethicone Confirm 02/26/20 12:46 Maalox Es 30 Ml Unit Dose Administered 02/26/20 12:47 Dose 30 ml .ROUTE .STK-MED ONE Sodium Chloride 1,000 mls @ 999 mls/hr 02/26/20 09:11 02/26/20 10:35 Sodium Chloride 0.9% 1000 Ml IV 02/26/20 10:11 Infused .Q1H1M STA Infusion Sodium Chloride Confirm 02/26/20 09:20 Sodium Chloride 0.9% 1000 Ml Administered 02/26/20 09:21 Dose 1,000 mls @ ud .ROUTE .STK-MED ONE Ketorolac Tromethamine 30 mg 02/26/20 09:14 02/26/20 09:34 Toradol 30 Mg Injection IV 02/26/20 09:15 30 mg STAT ONE Administration Ketorolac Tromethamine Confirm 02/26/20 09:20 Toradol 30 Mg Injection Administered 02/26/20 09:21 Dose 30 mg .ROUTE .STK-MED ONE Lidocaine HCl Confirm 02/26/20 12:45 Xylocaine Hcl Viscous * Administered 02/26/20 12:46 Dose 15 ml .ROUTE .STK-MED ONE Magnesium Hydroxide 45 ml 02/26/20 12:44 02/26/20 12:50 Gi Cocktail 45 Ml (Maalox/Lidocaine) PO 02/26/20 12:45 45 ml STAT ONE Administration Ondansetron HCl 4 mg 02/26/20 09:11 02/26/20 09:34 Zofran 4 Mg/2 Ml Vial IV 02/26/20 09:12 4 mg STAT ONE Administration Ondansetron HCl Confirm 02/26/20 09:20 Zofran 4 Mg/2 Ml Vial Administered 02/26/20 09:21 Dose 4 mg .ROUTE .STK-MED ONE Ondansetron HCl 4 mg 02/26/20 13:03 02/26/20 13:09 Zofran 4 Mg/2 Ml Vial IV 02/26/20 13:04 Not Given STAT ONE Pantoprazole Sodium 40 mg 02/26/20 13:09 Protonix 40 Mg Iv IV 02/26/20 13:10 STAT ONE Lab/Rad Data: Laboratory Result Diagrams 02/26/20 09:30 02/26/20 09:30 Laboratory Results 02/26/20 02/26/20 02/26/20 Range/Units 12:52 12:30 09:30 WBC (4.0-10.5) K/mm3 RBC (4.1-5.6) M/mm3 Hgb (12.5-18.0) gm/dl Hct (42-50) % MCV (78-100) fl MCH (26-32) pg MCHC (32-36) g/dl RDW (11.5-14.0) % Plt Count (150-450) K/mm3 MPV (7.5-11.0) fl Gran % (36.0-66.0) % Eos # (Auto) (0-0.5) Absolute Lymphs (auto) (1.0-4.6) Absolute Monos (auto) (0.0-1.3) Lymphocytes % (24.0-44.0) % Monocytes % (0.0-12.0) % Eosinophils % (0.00-5.0) % Basophils % (0.0-0.4) % Absolute Granulocytes (1.4-6.9) Basophils # (0-0.4) Sodium (137-145) mmol/L Potassium (3.5-5.1) mmol/L Chloride (98-107) mmol/L Carbon Dioxide (22-30) mmol/L Anion Gap (5-15) MEQ/L BUN (9-20) mg/dL Creatinine (0.66-1.25) mg/dL Estimated GFR ML/MIN Glucose (74-106) mg/dL Calcium (8.4-10.2) mg/dL Total Bilirubin (0.2-1.3) mg/dL AST (17-59) U/L ALT (0-50) U/L Alkaline Phosphatase (38-126) U/L Troponin I < 0.012 < 0.012 (0.000-0.034) ng/mL Serum Total Protein (6.3-8.2) g/dL Albumin (3.5-5.0) g/dL Lipase (23-300) U/L Urine Color STRAW (YELLOW) Urine Appearance CLEAR (CLEAR) Urine pH 7.0 (5-6) Ur Specific [place] 1.044 (1.005-1.025) Urine Protein NEGATIVE (Negative) Urine Ketones MODERATE (NEGATIVE) Urine Blood NEGATIVE (0-5) [place]/ul Urine Nitrite NEGATIVE (NEGATIVE) Urine Bilirubin NEGATIVE (NEGATIVE) Urine Urobilinogen NEGATIVE (0-1) mg/dL Ur Leukocyte Esterase NEGATIVE (NEGATIVE) Urine WBC (Auto) 3-5 (0-5) /HPF Urine RBC (Auto) NONE (0-2) /HPF U Epithel Cells (Auto) NONE (FEW) /HPF Urine Bacteria (Auto) NONE (NEGATIVE) /HPF Urine Culture Reflexed ORDERED SEPARATELY (NO) Urine Glucose >=500 (NEGATIVE) mg/dL 02/26/20 02/26/20 Range/Units 09:30 09:30 WBC 12.4 H (4.0-10.5) K/mm3 RBC 6.05 H (4.1-5.6) M/mm3 Hgb 17.4 (12.5-18.0) gm/dl Hct 49.8 (42-50) % MCV 82.3 (78-100) fl MCH 28.8 (26-32) pg MCHC 34.9 (32-36) g/dl RDW 13.2 (11.5-14.0) % Plt Count 298 (150-450) K/mm3 MPV 11.7 H (7.5-11.0) fl Gran % 75.9 H (36.0-66.0) % Eos # (Auto) 0.02 (0-0.5) Absolute Lymphs (auto) 2.36 (1.0-4.6) Absolute Monos (auto) 0.58 (0.0-1.3) Lymphocytes % 19.0 L (24.0-44.0) % Monocytes % 4.7 (0.0-12.0) % Eosinophils % 0.2 (0.00-5.0) % Basophils % 0.2 (0.0-0.4) % Absolute Granulocytes 9.46 H (1.4-6.9) Basophils # 0.02 (0-0.4) Sodium 131 L (137-145) mmol/L Potassium 4.1 (3.5-5.1) mmol/L Chloride 96 L (98-107) mmol/L Carbon Dioxide 21 L (22-30) mmol/L Anion Gap 18.3 H (5-15) MEQ/L BUN 13 (9-20) mg/dL Creatinine 0.67 (0.66-1.25) mg/dL Estimated GFR > 60.0 ML/MIN Glucose 496 H (74-106) mg/dL Calcium 9.8 (8.4-10.2) mg/dL Total Bilirubin 1.30 (0.2-1.3) mg/dL AST 18 (17-59) U/L ALT 26 (0-50) U/L Alkaline Phosphatase 143 H (38-126) U/L Troponin I (0.000-0.034) ng/mL Serum Total Protein 7.6 (6.3-8.2) g/dL Albumin 4.7 (3.5-5.0) g/dL Lipase 109 (23-300) U/L Urine Color (YELLOW) Urine Appearance (CLEAR) Urine pH (5-6) Ur Specific [place] (1.005-1.025) Urine Protein (Negative) Urine Ketones (NEGATIVE) Urine Blood (0-5) [place]/ul Urine Nitrite (NEGATIVE) Urine Bilirubin (NEGATIVE) Urine Urobilinogen (0-1) mg/dL Ur Leukocyte Esterase (NEGATIVE) Urine WBC (Auto) (0-5) /HPF Urine RBC (Auto) (0-2) /HPF U Epithel Cells (Auto) (FEW) /HPF Urine Bacteria (Auto) (NEGATIVE) /HPF Urine Culture Reflexed (NO) Urine Glucose (NEGATIVE) mg/dL - Progress Progress: improved Progress Note: 02/26/20 13:12 Patient reassessed. He feels much better. Pain essentially resolved. Work-up negative for pancreatitis. Lipase within normal limits. Pancreas on CT with contrast is also negative. CT reveals an esophagitis. Patient given a dose of Protonix in our ED. A Protonix prescription was transmitted to patient's pharmacy as well as [facility]. Patient tolerated p.o. Patient states he is ready for discharge. No chest pain or shortness of breath and discharge. Patient glucose elevated. Patient states that his sugars always run in 300 range and he declined further management of his glucose. Glucose was initially 400 and decreased with IV hydration. GI cocktail appears to significantly improve patient's symptoms. 02/26/20 13:14 Counseled pt/family regarding: lab results, diagnosis, need for follow-up, rad results - Departure Departure Disposition: Home Clinical Impression: Hyperglycemia, Lung granuloma, Reflux esophagitis, Fatty liver, Hepatomegaly, Renal cyst Condition: Stable Critical Care Time: No Referrals: BOBBY NEWTON [Primary Care Provider] - Additional Instructions: Discharge/Care Plan ZARINA FATIMA JR PINA was seen on 02/26/20 in the Emergency Room. The patient was counseled regarding Diagnosis,Lab results, Imaging studies, need for follow up and when to return to the Emergency Room. Prescriptions given: Discharge Note I have spoken with the patient and/or caregivers. I have explained the patient's condition, diagnosis and treatment plan based on the information available to me at this time. I have answered the patient's and/or caregiver's questions and addressed any concerns. The patient and/or caregivers have as good understanding of the patient's diagnosis, condition and treatment plan as can be expected at this point. The vital signs have been stable. The patient's condition is stable and appropriate for discharge from the emergency department. The patient will pursue further outpatient evaluation with the primary care physician or other designated or consulting physician as outlined in the discharge instructions. The patient and/or caregivers are agreeable to this plan of care and follow-up instructions have been explained in detail. The patient and/or caregivers have received these instruction. The patient/and or caregivers are aware that any significant change in condition or worsening of symptoms should prompt an immediate return to this or the closest emergency department or call 911. Prescriptions: Ondansetron ODT 4 MG [Zofran Odt 4 mg] 4 mg PO Q6H PRN PRN #10 tab.rapdis PRN Reason: Vomiting PANTOPRAZOLE 40 mg Tablet [Protonix 40MG Tablet] 40 mg PO QAM 14 Days #14 tab
[2020-02-26 10:12] LABS: Absolute Neutrophil Ct (ANC) 9.46 (1.4-6.9); BASOPHIL % 0.2 % (0.0-0.4); Basophil (Absolute #) 0.02 (0-0.4); Eosinophil % 0.2 % (0.00-5.0); Eosinophil (Absolute #) 0.02 (0-0.5); Hematocrit 49.8 % (42-50); Hemoglobin 17.4 gm/dl (12.5-18.0); Lymphocyte (Absolute #) 2.36 (1.0-4.6); Mean Cell Volume 82.3 fl (78-100); Mean Corpuscular Hemoglobin 28.8 pg (26-32); Mean Corpuscular Hgb Concent. 34.9 g/dl (32-36); Mean Platelet Volume 11.7 fl (7.5-11.0); Monocyte (Absolute #) 0.58 (0.0-1.3); Monocytes % 4.7 % (0.0-12.0); Neutrophil % 75.9 % (36.0-66.0); Platelet Count 298 K/mm3 (150-450); Red Blood Count 6.05 M/mm3 (4.1-5.6); Red Cell Distribution Width 13.2 % (11.5-14.0); White Blood Count 12.4 K/mm3 (4.0-10.5)
--- NOTE | 2020-02-26 10:12 | XRAY ---
Indication: Pain. Pancreatitis. Two-dimensional gallbladder sonogram performed. Comparison: January 07, 2020. Visualized portions of the liver remain fatty in echogenicity without focal solid/cystic mass without ascites. Gallbladder normally distended without gallstones, wall thickening, or pericholecystic fluid. Common bile duct measures 3.4 mm. Remaining visualized portions of the pancreas and right kidney appear sonographically unremarkable. Right kidney measures 12.8 cm in length. Impression: Stable fatty liver. Remaining gallbladder sonogram remains negative.
[2020-02-26 10:19] LABS: ALBUMIN 4.7 g/dL (3.5-5.0); ALKALINE PHOSPHATASE 143 U/L (38-126); ANION GAP 18.3 MEQ/L (5-15); BLOOD UREA NITROGEN 13 mg/dL (9-20); CHLORIDE 96 mmol/L (98-107); Calcium 9.8 mg/dL (8.4-10.2); Carbon Dioxide 21 mmol/L (22-30); Creatinine 1 0.67 mg/dL (0.66-1.25); Glucose 496 mg/dL (74-106); LIPASE 109 U/L (23-300); Potassium 4.1 mmol/L (3.5-5.1); SGOT/AST 18 U/L (17-59); SGPT/ALT 26 U/L (0-50); SODIUM 131 mmol/L (137-145); Total Protein 7.6 g/dL (6.3-8.2)
--- NOTE | 2020-02-26 11:20 | XRAY ---
Indication: Abdomen pain. Pancreatitis. Multiple contiguous axial images obtained through the abdomen and pelvis using 80 cc Isovue 370 contrast. Comparison: January 06, 2020. Lung bases demonstrate stable right lower lobe calcified granuloma without infiltrate or effusion. Heart is not enlarged. Distal esophagus again demonstrates mild circumferential wall thickening, possible reflux esophagitis. Noncontrasted stomach and bowel loops appear nonobstructed. Normal appendix. No free fluid/air. Stable 22 cm fatty hepatomegaly, hepatic/splenic calcified granulomas, and bilateral renal cysts. Remaining liver, gallbladder, pancreas, spleen, adrenal glands, kidneys, ureters, bladder, and aorta appear unremarkable. No pathologic retroperitoneal lymphadenopathy. Impression: 1. Distal esophageal circumferential wall thickening. Rule out reflux esophagitis. 2. Stable bilateral renal cysts, fatty hepatomegaly, and evidence for old granulomatous disease.
[2020-02-26] MEDS ORDERED: GI COCKTAIL 45 ML (Maalox/Lidocaine) PO ONE (12:44)
[2020-02-26] MEDS ORDERED: XYLOCAINE HCl Viscous ONE (12:45)
[2020-02-26] MEDS ORDERED: MAALOX ES 30 ML UNIT DOSE ONE (12:46)
[2020-02-26 12:52] LABS: Appearance CLEAR (CLEAR); Bilirubin NEGATIVE (NEGATIVE); Blood NEGATIVE Ery/ul (0-5); Glucose >=500 mg/dL (NEGATIVE); Ketones MODERATE (NEGATIVE); Leukocyte Esterase NEGATIVE (NEGATIVE); Nitrite NEGATIVE (NEGATIVE); Protein,Urine Dip NEGATIVE (Negative); Specific Gravity 1.044 (1.005-1.025); Urobilinogen NEGATIVE mg/dL (0-1)
[2020-02-26] MEDS ORDERED: PROTONIX 40 MG IV IV ONE ×2 (13:09→13:11)
[2020-02-26 13:34] VITALS: BP 152/98; PULSE 72; O2SAT 97
== END 2020-02-26 13:34 | disposition home or self-care (01) ==
LOC: ED 08:58
DX: I10 Essential (primary) hypertension (principal); E78.00 Pure hypercholesterolemia, unspecified; I25.10 Atherosclerotic heart disease of native coronary artery without angina pectoris; F41.9 Anxiety disorder, unspecified; F32.9 Major depressive disorder, single episode, unspecified; Z99.2 Dependence on renal dialysis; Z72.0 Tobacco use; J84.10 Pulmonary fibrosis, unspecified; K21.0 Gastro-esophageal reflux disease with esophagitis
CPT/HCPCS: 36000; 36415; 74177; 76705; 80053; 81001; 82962; 83690; 84484; 85025; 87086; 93005; 96374; 96375; 99284; J1885; J2405; A9270-GY

== ENCOUNTER 2020-03-27 09:57 | Observation (INO) | payer OTHER ==
[2020-03-27] MEDS ORDERED: Sodium Chloride 0.9% 1000 ML 1,000 ML IV STA (09:59)
[2020-03-27] MEDS ORDERED: Hydromorphone 1 mg/ml Ampule IV ONE (09:59)
[2020-03-27] MEDS ORDERED: Zofran 4 MG/2 ML VIAL IV ONE (09:59)
[2020-03-27] MEDS ORDERED: PROTONIX 40 MG IV IV ONE ×2 (09:59→10:03)
[2020-03-27] MEDS ORDERED: FENTANYL 500 MCG/10 ML VIAL IV STA (10:02)
[2020-03-27] MEDS ORDERED: Zofran 4 MG/2 ML VIAL ONE (10:03)
[2020-03-27] MEDS ORDERED: Sodium Chloride 0.9% 1000 ML 1,000 ML ONE (10:04)
[2020-03-27] MEDS ORDERED: Hydromorphone 1 mg/ml Ampule ONE (10:04)
[2020-03-27] MEDS ORDERED: SUBLIMAZE 100 MCG/2 ML ONE (10:08)
[2020-03-27 10:38] LABS: BASOPHIL % 0.2 % (0.0-0.4); Basophil (Absolute #) 0.03 (0-0.4); Eosinophil % 0.4 % (0.00-5.0); Eosinophil (Absolute #) 0.05 (0-0.5); Hematocrit 46.3 % (42-50); Hemoglobin 16.1 gm/dl (12.5-18.0); Lymphocyte (Absolute #) 1.92 (1.0-4.6); Lymphocytes % 14.2 % (24.0-44.0); Mean Cell Volume 82.5 fl (78-100); Mean Corpuscular Hemoglobin 28.7 pg (26-32); Mean Corpuscular Hgb Concent. 34.8 g/dl (32-36); Mean Platelet Volume 11.2 fl (7.5-11.0); Monocyte (Absolute #) 0.56 (0.0-1.3); Monocytes % 4.1 % (0.0-12.0); Neutrophil % 81.1 % (36.0-66.0); Platelet Count 244 K/mm3 (150-450); Red Blood Count 5.61 M/mm3 (4.1-5.6); Red Cell Distribution Width 13.1 % (11.5-14.0); White Blood Count 13.6 K/mm3 (4.0-10.5)
--- NOTE | 2020-03-27 10:47 | XRAY ---
Indication: Pain. Comparison: None Portable chest demonstrates small right lower lobe calcified granuloma. Remaining heart, lungs, and bony thorax normal.
[2020-03-27 10:48] LABS: INR 0.95 (0.8-3.0); PROTIME 10.7 SECONDS (8.83-12.87)
[2020-03-27 10:52] LABS: ALBUMIN 4.2 g/dL (3.5-5.0); ALKALINE PHOSPHATASE 143 U/L (38-126); AMYLASE 44 U/L (30-110); ANION GAP 14.4 MEQ/L (5-15); BLOOD UREA NITROGEN 12 mg/dL (9-20); CHLORIDE 104 mmol/L (98-107); Calcium 9.3 mg/dL (8.4-10.2); Carbon Dioxide 21 mmol/L (22-30); Glucose 388 mg/dL (74-106); LIPASE 128 U/L (23-300); Potassium 3.9 mmol/L (3.5-5.1); SGOT/AST 16 U/L (17-59); SGPT/ALT 22 U/L (0-50); SODIUM 136 mmol/L (137-145); Total Protein 6.9 g/dL (6.3-8.2)
[2020-03-27] MEDS ORDERED: TORAdol 30 mg Injection IV ONE (11:23)
[2020-03-27] MEDS ORDERED: Reglan 10 MG/2 ML IV ONE (11:23)
[2020-03-27] MEDS ORDERED: HUMALOG SQ ONE (11:24)
[2020-03-27] MEDS ORDERED: HUMALOG ONE (11:28)
[2020-03-27] MEDS ORDERED: Reglan 10 MG/2 ML ONE (11:29)
[2020-03-27] MEDS ORDERED: TORAdol 30 mg Injection ONE (11:29)
--- NOTE | 2020-03-27 12:48 | ERPHSYRPT ---
- History of Present Illness Time Seen by Provider: 03/27/20 10:10 Historian: patient Exam Limitations: no limitations Patient Subjective Stated Complaint: pt reports abdominal pain beginning this morning approx 0700. pt states he tried a hot shower with no relief. pt states he has a history of pancreatitis. pt also reports nausea and diaphoresis. Triage Nursing Assessment: pt presents in pain, pt tearful, unable to find position of comfort on cot, pt actively vomiting, emesis is clear, pt skin is diaphoretic, pt afebrile, pupils perrl, resps easy and non labored, radial pulses strong and equal, cap refill < 3 seconds, abd soft, tender to the mid- left upper abdomen, bowel sounds present, normoactivex4. Physician History: Is a insulin-dependent diabetic who has a history of pancreatitis who awoke this morning with epigastric pain unable to ascertain whether goes to the back or not he is had repeated nausea vomiting. He has had similar episodes before to this. He has had ultrasound of his gallbladder in the past and CT scans in the past. Activities at Onset: sleep Quality: sharpness Abdominal Pain Onset Location: epigastric Pain Radiation: epigastric Severity of Pain-Max: moderate Severity of Pain-Current: moderate Modifying Factors: Improves With: nothing Associated Symptoms: nausea, vomiting Previous symptoms: same symptoms as today Allergies/Adverse Reactions: codeine Allergy (Verified 03/27/20 10:08) diphenhydramine [From Benadryl] Allergy (Verified 03/27/20 10:08) pseudoephedrine [From Actifed] Allergy (Verified 03/27/20 10:08) triprolidine [From Actifed] Allergy (Verified 03/27/20 10:08) Home Medications: Atorvastatin Calcium [Lipitor 20MG Tablet] 10 mg PO DAILY 01/06/20 [History] Insulin Glargine,Hum.rec.anlog [Basaglar Kwikpen U-100] 30 units SQ BID 01/06/20 [History] Insulin Lispro [Humalog] 18 unit SQ TID 01/06/20 [History] Lisinopril 10 mg [Zestril 10 MG] 10 mg PO DAILY 01/06/20 [History] Venlafaxine HCl ER 75 mg [Effexor XR 75 MG] 75 mg PO DAILY 01/06/20 [History] Hx Tetanus, Diphtheria Vaccination/Date Given: Yes Hx Influenza Vaccination/Date Given: Yes Hx Pneumococcal Vaccination/Date Given: Yes Immunizations Up to Date: Yes Travel Risk - International Travel Have you traveled outside of the country in past 3 weeks: No - Coronavirus Screening Are you exhibiting any of the following symptoms?: No Close contact with a COVID-19 positive Pt in past 14-21 Days: No - Review of Systems Constitutional: No Fever, No Chills Eyes: No Symptoms Ears, Nose, & Throat: No Symptoms Respiratory: No Cough, No Dyspnea Cardiac: No Chest Pain, No Edema, No Syncope Abdominal/Gastrointestinal: Abdominal Pain, Nausea, Vomiting, No Diarrhea Genitourinary Symptoms: No Dysuria Musculoskeletal: No Back Pain, No Neck Pain Skin: No Rash Neurological: No Dizziness, No Focal Weakness, No Sensory Changes Psychological: No Symptoms Endocrine: No Symptoms All Other Systems: Reviewed and Negative - Past Medical History Pertinent Past Medical History: Yes Neurological History: No Pertinent History ENT History: No Pertinent History Cardiac History: Coronary Artery Disease, High Cholesterol, Hypertension Respiratory History: No Pertinent History Endocrine Medical History: Diabetes Type II Musculoskeletal History: No Pertinent History GI Medical History: Hemorrhoids, Ulcer, Other History: No Pertinent History, Dialysis Psycho-Social History: Anxiety, Depression Male Reproductive Disorders: No Pertinent History Other Medical History: 2015 Gastritis - Past Surgical History Past Surgical History: Yes Neuro Surgical History: No Pertinent History Cardiac: Cardiac Catheterization Respiratory: No Pertinent History Gastrointestinal: Hemorrhoidectomy, Rectal Surgery Genitourinary: No Pertinent History Musculoskeletal: No Pertinent History Male Surgical History: No Pertinent History Other Surgical History: 2020 Heart Cath (blockage x 2) - Social History Smoking Status: Current every day smoker How long have you smoked: 28 yrs Exposure to second hand smoke: No Drug Use: none Patient Lives Alone: No - Nursing Vital Signs Nursing Vital Signs: Initial Vital Signs Temperature 97.8 F 03/27/20 09:58 Pulse Rate 80 03/27/20 09:58 Respiratory Rate 16 03/27/20 09:58 Blood Pressure 164/112 03/27/20 09:58 O2 Sat by Pulse Oximetry 98 03/27/20 09:58 Pain Scale Pain Intensity 7 - Physical Exam General Appearance: moderate distress, alert Eye Exam: PERRL/EOMI, eyes nml inspection Ears, Nose, Throat Exam: normal ENT inspection, pharynx normal, moist mucous membranes Neck Exam: normal inspection, non-tender, supple, full range of motion Respiratory Exam: normal breath sounds, lungs clear, No respiratory distress Cardiovascular Exam: regular rate/rhythm, normal heart sounds Gastrointestinal/Abdomen Exam: soft, tenderness, guarding, No mass, No rebound Back Exam: normal inspection, normal range of motion, No CVA tenderness, No vertebral tenderness Extremity Exam: normal inspection, normal range of motion, pelvis stable Neurologic Exam: alert, oriented x 3, cooperative, normal mood/affect, nml cerebellar function, sensation nml, No motor deficits Skin Exam: normal color, warm, dry SpO2: 98 - Course Nursing assessment & vital signs reviewed: Yes EKG Interpreted by Me: RATE (64), Sinus Rhythm, NORMAL AXIS, NORMAL INTERVALS, NORMAL QRS, NORMAL ST-T Ordered Tests: Active Orders 24 hr Category Date Time Status ACCUCHECK [Accucheck] STAT Care 03/27/20 12:35 Active EKG-ER Only STAT Care 03/27/20 09:59 Active IV Insertion STAT Care 03/27/20 09:59 Active ABDOMEN AND PELVIS W CONTRAST [CT] Stat Exams 03/27/20 09:59 Ordered CHEST 1 VIEW (PORTABLE) Stat Exams 03/27/20 09:59 Completed AMYLASE Stat Lab 03/27/20 10:30 Completed CBC W DIFF Stat Lab 03/27/20 10:30 Completed CMP Stat Lab 03/27/20 10:30 Completed LIPASE Stat Lab 03/27/20 10:30 Completed Lactic Acid Stat Lab 03/27/20 09:59 Completed PROTIME WITH INR Stat Lab 03/27/20 10:30 Completed TROPONIN Q3H Lab 03/27/20 10:30 Completed TROPONIN Q3H Lab 03/27/20 13:00 Ordered TROPONIN Q3H Lab 03/27/20 16:00 Ordered TROPONIN Q3H Lab 03/27/20 19:00 Ordered TROPONIN Q3H Lab 03/27/20 22:00 Ordered UA W/RFX UR CULTURE Stat Lab 03/27/20 11:02 Ordered Medication Summary Discontinued Medications Generic Name Dose Route Start Last Admin Trade Name Freq PRN Reason Stop Dose Admin Fentanyl Citrate 100 mcg 03/27/20 10:02 03/27/20 10:13 Fentanyl 500 Mcg/10 Ml Vial IV 03/27/20 10:03 100 mcg ONCE STA Administration Fentanyl Citrate Confirm 03/27/20 10:08 Sublimaze 100 Mcg/2 Ml Administered 03/27/20 10:09 Dose 100 mcg .ROUTE .STK-MED ONE Hydromorphone HCl 1 mg 03/27/20 09:59 03/27/20 10:24 Hydromorphone 1 Mg/Ml Ampule IV 03/27/20 10:00 Not Given STAT ONE Hydromorphone HCl Confirm 03/27/20 10:04 Hydromorphone 1 Mg/Ml Ampule Administered 03/27/20 10:05 Dose 1 mg .ROUTE .STK-MED ONE Sodium Chloride 1,000 mls @ 999 mls/hr 03/27/20 09:59 03/27/20 11:15 Sodium Chloride 0.9% 1000 Ml IV 03/27/20 10:59 Infused .Q1H1M STA Infusion Sodium Chloride Confirm 03/27/20 10:04 Sodium Chloride 0.9% 1000 Ml Administered 03/27/20 10:05 Dose 1,000 mls @ ud .ROUTE .STK-MED ONE Insulin Human Lispro 10 unit 03/27/20 11:24 03/27/20 11:30 Humalog SQ 03/27/20 11:25 10 unit STAT ONE Administration Insulin Human Lispro Confirm 03/27/20 11:28 Humalog Administered 03/27/20 11:29 Dose 10 unit .ROUTE .STK-MED ONE Ketorolac Tromethamine 30 mg 03/27/20 11:23 03/27/20 11:29 Toradol 30 Mg Injection IV 03/27/20 11:24 30 mg STAT ONE Administration Ketorolac Tromethamine Confirm 03/27/20 11:29 Toradol 30 Mg Injection Administered 03/27/20 11:30 Dose 30 mg .ROUTE .STK-MED ONE Metoclopramide HCl 10 mg 03/27/20 11:23 03/27/20 11:30 Reglan 10 Mg/2 Ml IV 03/27/20 11:24 10 mg STAT ONE Administration Metoclopramide HCl Confirm 03/27/20 11:29 Reglan 10 Mg/2 Ml Administered 03/27/20 11:30 Dose 10 mg .ROUTE .STK-MED ONE Ondansetron HCl 4 mg 03/27/20 09:59 03/27/20 10:06 Zofran 4 Mg/2 Ml Vial IV 03/27/20 10:00 4 mg STAT ONE Administration Ondansetron HCl Confirm 03/27/20 10:03 Zofran 4 Mg/2 Ml Vial Administered 03/27/20 10:04 Dose 4 mg .ROUTE .STK-MED ONE Pantoprazole Sodium 40 mg 03/27/20 09:59 03/27/20 10:07 Protonix 40 Mg Iv IV 03/27/20 10:00 40 mg STAT ONE Administration Pantoprazole Sodium Confirm 03/27/20 10:03 Protonix 40 Mg Iv Administered 03/27/20 10:04 Dose 40 mg IV .STK-MED ONE Lab/Rad Data: Laboratory Result Diagrams 03/27/20 10:30 03/27/20 10:30 Laboratory Results 03/27/20 03/27/20 03/27/20 Range/Units 10:30 10:30 10:30 WBC (4.0-10.5) K/mm3 RBC (4.1-5.6) M/mm3 Hgb (12.5-18.0) gm/dl Hct (42-50) % MCV (78-100) fl MCH (26-32) pg MCHC (32-36) g/dl RDW (11.5-14.0) % Plt Count (150-450) K/mm3 MPV (7.5-11.0) fl Gran % (36.0-66.0) % Eos # (Auto) (0-0.5) Absolute Lymphs (auto) (1.0-4.6) Absolute Monos (auto) (0.0-1.3) Lymphocytes % (24.0-44.0) % Monocytes % (0.0-12.0) % Eosinophils % (0.00-5.0) % Basophils % (0.0-0.4) % Absolute Granulocytes (1.4-6.9) Basophils # (0-0.4) PT 10.7 (8.83-12.87) SECONDS INR 0.95 (0.8-3.0) Sodium 136 L (137-145) mmol/L Potassium 3.9 (3.5-5.1) mmol/L Chloride 104 (98-107) mmol/L Carbon Dioxide 21 L (22-30) mmol/L Anion Gap 14.4 (5-15) MEQ/L BUN 12 (9-20) mg/dL Creatinine 0.50 L (0.66-1.25) mg/dL Estimated GFR > 60.0 ML/MIN Glucose 388 H (74-106) mg/dL Lactic Acid (0.4-2.0) Calcium 9.3 (8.4-10.2) mg/dL Total Bilirubin 0.70 (0.2-1.3) mg/dL AST 16 L (17-59) U/L ALT 22 (0-50) U/L Alkaline Phosphatase 143 H (38-126) U/L Troponin I < 0.012 (0.000-0.034) ng/mL Serum Total Protein 6.9 (6.3-8.2) g/dL Albumin 4.2 (3.5-5.0) g/dL Amylase 44 (30-110) U/L Lipase 128 (23-300) U/L 03/27/20 03/27/20 Range/Units 10:30 09:59 WBC 13.6 H (4.0-10.5) K/mm3 RBC 5.61 H (4.1-5.6) M/mm3 Hgb 16.1 (12.5-18.0) gm/dl Hct 46.3 (42-50) % MCV 82.5 (78-100) fl MCH 28.7 (26-32) pg MCHC 34.8 (32-36) g/dl RDW 13.1 (11.5-14.0) % Plt Count 244 (150-450) K/mm3 MPV 11.2 H (7.5-11.0) fl Gran % 81.1 H (36.0-66.0) % Eos # (Auto) 0.05 (0-0.5) Absolute Lymphs (auto) 1.92 (1.0-4.6) Absolute Monos (auto) 0.56 (0.0-1.3) Lymphocytes % 14.2 L (24.0-44.0) % Monocytes % 4.1 (0.0-12.0) % Eosinophils % 0.4 (0.00-5.0) % Basophils % 0.2 (0.0-0.4) % Absolute Granulocytes 11.00 H (1.4-6.9) Basophils # 0.03 (0-0.4) PT (8.83-12.87) SECONDS INR (0.8-3.0) Sodium (137-145) mmol/L Potassium (3.5-5.1) mmol/L Chloride (98-107) mmol/L Carbon Dioxide (22-30) mmol/L Anion Gap (5-15) MEQ/L BUN (9-20) mg/dL Creatinine (0.66-1.25) mg/dL Estimated GFR ML/MIN Glucose (74-106) mg/dL Lactic Acid 1.4 (0.4-2.0) Calcium (8.4-10.2) mg/dL Total Bilirubin (0.2-1.3) mg/dL AST (17-59) U/L ALT (0-50) U/L Alkaline Phosphatase (38-126) U/L Troponin I (0.000-0.034) ng/mL Serum Total Protein (6.3-8.2) g/dL Albumin (3.5-5.0) g/dL Amylase (30-110) U/L Lipase (23-300) U/L - Progress Progress: improved - Departure Departure Disposition: Observation Clinical Impression: Abdominal pain Condition: Fair Critical Care Time: No Referrals: BOBBY NEWTON [Primary Care Provider] - Instructions: Acute Abdomen (Belly Pain)
[2020-03-27] MEDS ORDERED: Compazine 10 MG/2 ML IV PRN (12:55)
[2020-03-27] MEDS: Sodium Chloride 0.9% 1000 ML 1,000 ML IV SCH ×2 (13:24→21:09)
[2020-03-27 14:11] LABS: Appearance CLEAR (CLEAR); Bilirubin NEGATIVE (NEGATIVE); Blood NEGATIVE Ery/ul (0-5); Glucose >=500 mg/dL (NEGATIVE); Ketones MODERATE (NEGATIVE); Leukocyte Esterase NEGATIVE (NEGATIVE); Mucus SLIGHT /HPF (NEGATIVE); Nitrite NEGATIVE (NEGATIVE); Protein,Urine Dip NEGATIVE (Negative); Specific Gravity 1.035 (1.005-1.025); Urobilinogen NEGATIVE mg/dL (0-1)
[2020-03-27] MEDS: SUBLIMAZE 100 MCG/2 ML IV PRN ×3 (15:09→23:48)
[2020-03-27] MEDS ORDERED: ZOFRAN ODT 4 MG PO PRN (17:25)
[2020-03-27] MEDS: HUMALOG SQ SCH (19:17)
[2020-03-27] MEDS: Zestril 10 MG PO SCH (19:41)
[2020-03-27] MEDS: Effexor XR 75 MG PO SCH (19:42)
[2020-03-27] MEDS: Zocor 10MG PO SCH (19:42)
[2020-03-27] MEDS: Zofran 4 MG/2 ML VIAL IV PRN (19:44)
[2020-03-27] MEDS ORDERED: INSULIN GLARGINE HUM REC ANLOG 30 UNIT SQ SCH (22:00)
[2020-03-27] MEDS ORDERED: INSULIN LISPRO 20 UNIT SQ SCH (22:00)
[2020-03-27] MEDS: Lantus Insulin SQ SCH (23:49)
[2020-03-28] MEDS: Sodium Chloride 0.9% 1000 ML 1,000 ML IV SCH ×2 (05:14→10:06)
[2020-03-28] MEDS: SUBLIMAZE 100 MCG/2 ML IV PRN ×2 (05:52→10:50)
[2020-03-28] MEDS: Zofran 4 MG/2 ML VIAL IV PRN (06:23)
[2020-03-28 06:57] LABS: Absolute Neutrophil Ct (ANC) 6.16 (1.4-6.9); BASOPHIL % 0.2 % (0.0-0.4); Basophil (Absolute #) 0.02 (0-0.4); Hematocrit 43.2 % (42-50); Hemoglobin 14.7 gm/dl (12.5-18.0); Lymphocyte (Absolute #) 3.34 (1.0-4.6); Lymphocytes % 32.4 % (24.0-44.0); Mean Cell Volume 84.2 fl (78-100); Mean Corpuscular Hemoglobin 28.7 pg (26-32); Mean Platelet Volume 11.6 fl (7.5-11.0); Monocyte (Absolute #) 0.68 (0.0-1.3); Monocytes % 6.6 % (0.0-12.0); Neutrophil % 59.8 % (36.0-66.0); Platelet Count 232 K/mm3 (150-450); Red Blood Count 5.13 M/mm3 (4.1-5.6); Red Cell Distribution Width 13.2 % (11.5-14.0); White Blood Count 10.3 K/mm3 (4.0-10.5)
[2020-03-28 07:20] LABS: ALBUMIN 3.7 g/dL (3.5-5.0); ALKALINE PHOSPHATASE 107 U/L (38-126); AMYLASE 46 U/L (30-110); ANION GAP 10.4 MEQ/L (5-15); BLOOD UREA NITROGEN 8 mg/dL (9-20); CHLORIDE 102 mmol/L (98-107); Calcium 8.8 mg/dL (8.4-10.2); Carbon Dioxide 25 mmol/L (22-30); Glucose 241 mg/dL (74-106); LIPASE 82 U/L (23-300); Potassium 3.4 mmol/L (3.5-5.1); SGOT/AST 18 U/L (17-59); SGPT/ALT 19 U/L (0-50); SODIUM 134 mmol/L (137-145); Total Protein 6.4 g/dL (6.3-8.2)
[2020-03-28] MEDS: HUMALOG SQ SCH ×2 (07:55→12:29)
[2020-03-28] MEDS ORDERED: NON-FORMULARY ITEM (Atorvastatin Calcium 10 MG) PO SCH (10:00)
[2020-03-28] MEDS: Effexor XR 75 MG PO SCH (10:54)
[2020-03-28] MEDS: Zestril 10 MG PO SCH (10:55)
[2020-03-28] MEDS: Zocor 10MG PO SCH (10:55)
[2020-03-28] MEDS: Lantus Insulin SQ SCH (10:55)
[2020-03-28 12:14] VITALS: BP 129/78; PULSE 69; O2SAT 94
[2020-03-28] MEDS ORDERED: ROCEPHIN 1 Gm-D5w 50 ml Bag** 1 G/50 ML IVPB IV SCH (13:00)
[2020-03-28] MEDS ORDERED: K-LYTE 25 MEQ PO ONE (13:43)
--- NOTE | 2020-03-28 13:57 | PCM.SSS ---
History of Present Illness - Chief Complaint Chief Complaint: Abdominal Pain History of Present Illness: Mr.LIFFORD MUELLER is a 40 year old male IDDM2,CAD,HTN,Fatty liver,Hyperlipidemia who has Hx pancreatitis with episodic spells of nausea and vomiting and upper abdominal pain. He presented to ER when the pain was not going away. He denies fever. Was Covid tested 2-3 weeks ago and was negative. He is a daily smoker trying to quit because Fiance is . He has a chronic cough . - Review of Systems Constitutional: No Symptoms Eyes: No Symptoms Ears, Nose, & Throat: No Symptoms Respiratory: Cough, Wheezing (smoker ,uses Neb tx at home.) Cardiac: No Symptoms Abdominal/Gastrointestinal: Other (see HPI) Genitourinary Symptoms: No Symptoms Musculoskeletal: No Symptoms Skin: No Symptoms Neurological: No Symptoms Psychological: Depression (patient would like to see a Psychiatrist for mood issues,no suicidal thoughts.) Endocrine: Other (IDDM2 ) Hematologic/Lymphatic: No Symptoms Medications & Allergies Home Medications: Home Medication List Atorvastatin Calcium [Lipitor 20MG Tablet] 10 mg PO DAILY 01/06/20 [History Confirmed 03/27/20] Insulin Glargine,Hum.rec.anlog [Basaglar Kwikpen U-100] 30 units SQ BID 01/06/20 [History Confirmed 03/27/20] Insulin Lispro [Humalog] 20 unit SQ TID 01/06/20 [History Confirmed 03/27/20] Lisinopril 10 mg [Zestril 10 MG] 10 mg PO DAILY 01/06/20 [History Confirm ed 03/27/20] Venlafaxine HCl ER 75 mg [Effexor XR 75 MG] 75 mg PO DAILY 01/06/20 [History Confirmed 03/27/20] Ondansetron ODT 4 MG [Zofran Odt 4 mg] 4 mg PO Q6H PRN PRN #10 tab.rapdis 02/26/20 [Rx Confirmed 03/27/20] Ergocalciferol (Vitamin D2) [Vitamin D2] 50,000 unit PO Q7D 03/27/20 [History Confirmed 03/27/20] Cefdinir 300 mg PO BID #14 capsule 03/28/20 [Rx] Promethazine HCl 25 mg [Phenergan 25 mg] 25 mg PO Q6H #30 tablet 03/28/20 [Rx] Tramadol HCl 50 mg PO TID #20 tablet 03/28/20 [Rx] Allergies/Adverse Reactions: Allergies Allergy/AdvReac Type Severity Reaction Status Date / Time codeine Allergy Verified 03/27/20 10:08 diphenhydramine Allergy Verified 03/27/20 10:08 [From Benadryl] pseudoephedrine Allergy Verified 03/27/20 10:08 [From Actifed] triprolidine [From Actifed] Allergy Verified 03/27/20 10:08 pantoprazole [From Protonix] AdvReac Intermediate Nausea and Verified 03/27/20 15:14 Vomiting - Past Medical History Past Medical History: Yes Neurological History: No Pertinent History ENT History: No Pertinent History Cardiac History: Coronary Artery Disease, High Cholesterol, Hypertension Respiratory History: No Pertinent History Endocrine Medical History: Diabetes Type II Musculoskelatal History: No Pertinent History GI Medical History: Esophageal Disorder, Hemorrhoids, Pancreatitis, Ulcer History: No Pertinent History, Dialysis Pyscho-Social History: Anxiety, Depression Male Reproductive Disorders: No Pertinent History Comment: 2015 Gastritis - Past Surgical History Past Surgical History: Yes Neuro Surgical History: No Pertinent History Cardiac History: Cardiac Catheterization Respiratory Surgery: No Pertinent History GI Surgical History: Hemorrhoidectomy, Rectal Surgery Genitourinary Surgical Hx: No Pertinent History Musculskeletal Surgical Hx: No Pertinent History Male Surgical History: No Pertinent History Other Surgical History: 2020 Heart Cath (blockage x 2) - Social History Smoking Status: Current every day smoker How long have you smoked: "20 years" Exposure to second hand smoke: Yes Alcohol: Rarely Drug Use: none - Physical Exam Vital Signs: Vital Signs - 24 hr Temp Pulse Resp BP Pulse Ox 03/28/20 12:00 98.5 F 69 18 129/78 94 L 03/28/20 08:00 97.6 F 58 L 20 130/93 98 03/28/20 04:00 98.4 F 71 22 158/91 96 03/28/20 00:00 97.9 F 71 16 140/87 98 03/27/20 20:00 97.7 F 75 16 141/73 97 03/27/20 15:43 97.8 F 70 20 138/94 98 03/27/20 14:30 97.8 F 70 20 138/94 98 03/27/20 14:19 97.8 F 70 20 [id number] 98 General Appearance: no apparent distress Neurologic Exam: alert, oriented x 3, cooperative, normal mood/affect Eye Exam: PERRL/EOMI, eyes nml inspection Ears, Nose, Throat Exam: normal ENT inspection Neck Exam: normal inspection Respiratory Exam: rhonchi (scatered), wheezing, other (no dyspnea no productive cough during exam) Gastrointestinal/Abdomen Exam: soft, normal bowel sounds, tenderness (1-2+/4 RUQ and epigastum,no rebound no guarding.) Rectal Exam: not done Back Exam: other (no CVA tenderness) Results - Labs Lab/Micro Results: Accuchecks Date 03/28/20 Date 03/28/20 Date 03/27/20 Time 12:13 Time 07:41 Time 22:56 Accucheck Value: 196 Accucheck Value: 245 Accucheck Value: 283 Accucheck Value: 275 Accucheck Value: 291 Lab Results-Last 24 Hours 03/27/20 03/27/20 03/27/20 Range/Units 11:02 14:30 16:00 WBC (4.0-10.5) K/mm3 RBC (4.1-5.6) M/mm3 Hgb (12.5-18.0) gm/dl Hct (42-50) % MCV (78-100) fl MCH (26-32) pg MCHC (32-36) g/dl RDW (11.5-14.0) % Plt Count (150-450) K/mm3 MPV (7.5-11.0) fl Gran % (36.0-66.0) % Eos # (Auto) (0-0.5) Absolute Lymphs (auto) (1.0-4.6) Absolute Monos (auto) (0.0-1.3) Lymphocytes % (24.0-44.0) % Monocytes % (0.0-12.0) % Eosinophils % (0.00-5.0) % Basophils % (0.0-0.4) % Absolute Granulocytes (1.4-6.9) Basophils # (0-0.4) Sodium (137-145) mmol/L Potassium (3.5-5.1) mmol/L Chloride (98-107) mmol/L Carbon Dioxide (22-30) mmol/L Anion Gap (5-15) MEQ/L BUN (9-20) mg/dL Creatinine (0.66-1.25) mg/dL Estimated GFR ML/MIN Glucose (74-106) mg/dL Lactic Acid (0.4-2.0) Calcium (8.4-10.2) mg/dL Total Bilirubin (0.2-1.3) mg/dL AST (17-59) U/L ALT (0-50) U/L Alkaline Phosphatase (38-126) U/L Troponin I < 0.012 < 0.012 (0.000-0.034) ng/mL Serum Total Protein (6.3-8.2) g/dL Albumin (3.5-5.0) g/dL Amylase (30-110) U/L Lipase (23-300) U/L Urine Color STRAW (YELLOW) Urine Appearance CLEAR (CLEAR) Urine pH 5.0 (5-6) Ur Specific [place] 1.035 (1.005-1.025) Urine Protein NEGATIVE (Negative) Urine Ketones MODERATE (NEGATIVE) Urine Blood NEGATIVE (0-5) [place]/ul Urine Nitrite NEGATIVE (NEGATIVE) Urine Bilirubin NEGATIVE (NEGATIVE) Urine Urobilinogen NEGATIVE (0-1) mg/dL Ur Leukocyte Esterase NEGATIVE (NEGATIVE) Urine WBC (Auto) NONE (0-5) /HPF Urine RBC (Auto) NONE (0-2) /HPF U Epithel Cells (Auto) NONE (FEW) /HPF Urine Bacteria (Auto) NONE (NEGATIVE) /HPF Urine Mucus (Auto) SLIGHT (NEGATIVE) /HPF Urine Culture Reflexed NO (NO) Urine Glucose >=500 (NEGATIVE) mg/dL 03/27/20 03/27/20 03/28/20 Range/Units 19:50 23:03 05:30 WBC (4.0-10.5) K/mm3 RBC (4.1-5.6) M/mm3 Hgb (12.5-18.0) gm/dl Hct (42-50) % MCV (78-100) fl MCH (26-32) pg MCHC (32-36) g/dl RDW (11.5-14.0) % Plt Count (150-450) K/mm3 MPV (7.5-11.0) fl Gran % (36.0-66.0) % Eos # (Auto) (0-0.5) Absolute Lymphs (auto) (1.0-4.6) Absolute Monos (auto) (0.0-1.3) Lymphocytes % (24.0-44.0) % Monocytes % (0.0-12.0) % Eosinophils % (0.00-5.0) % Basophils % (0.0-0.4) % Absolute Granulocytes (1.4-6.9) Basophils # (0-0.4) Sodium (137-145) mmol/L Potassium (3.5-5.1) mmol/L Chloride (98-107) mmol/L Carbon Dioxide (22-30) mmol/L Anion Gap (5-15) MEQ/L BUN (9-20) mg/dL Creatinine (0.66-1.25) mg/dL Estimated GFR ML/MIN Glucose (74-106) mg/dL Lactic Acid 0.9 (0.4-2.0) Calcium (8.4-10.2) mg/dL Total Bilirubin (0.2-1.3) mg/dL AST (17-59) U/L ALT (0-50) U/L Alkaline Phosphatase (38-126) U/L Troponin I < 0.012 < 0.012 (0.000-0.034) ng/mL Serum Total Protein (6.3-8.2) g/dL Albumin (3.5-5.0) g/dL Amylase (30-110) U/L Lipase (23-300) U/L Urine Color (YELLOW) Urine Appearance (CLEAR) Urine pH (5-6) Ur Specific [place] (1.005-1.025) Urine Protein (Negative) Urine Ketones (NEGATIVE) Urine Blood (0-5) [place]/ul Urine Nitrite (NEGATIVE) Urine Bilirubin (NEGATIVE) Urine Urobilinogen (0-1) mg/dL Ur Leukocyte Esterase (NEGATIVE) Urine WBC (Auto) (0-5) /HPF Urine RBC (Auto) (0-2) /HPF U Epithel Cells (Auto) (FEW) /HPF Urine Bacteria (Auto) (NEGATIVE) /HPF Urine Mucus (Auto) (NEGATIVE) /HPF Urine Culture Reflexed (NO) Urine Glucose (NEGATIVE) mg/dL 03/28/20 03/28/20 Range/Units 05:37 05:37 WBC 10.3 (4.0-10.5) K/mm3 RBC 5.13 (4.1-5.6) M/mm3 Hgb 14.7 (12.5-18.0) gm/dl Hct 43.2 (42-50) % MCV 84.2 (78-100) fl MCH 28.7 (26-32) pg MCHC 34.0 (32-36) g/dl RDW 13.2 (11.5-14.0) % Plt Count 232 (150-450) K/mm3 MPV 11.6 H (7.5-11.0) fl Gran % 59.8 (36.0-66.0) % Eos # (Auto) 0.10 (0-0.5) Absolute Lymphs (auto) 3.34 (1.0-4.6) Absolute Monos (auto) 0.68 (0.0-1.3) Lymphocytes % 32.4 (24.0-44.0) % Monocytes % 6.6 (0.0-12.0) % Eosinophils % 1.0 (0.00-5.0) % Basophils % 0.2 (0.0-0.4) % Absolute Granulocytes 6.16 (1.4-6.9) Basophils # 0.02 (0-0.4) Sodium 134 L (137-145) mmol/L Potassium 3.4 L (3.5-5.1) mmol/L Chloride 102 (98-107) mmol/L Carbon Dioxide 25 (22-30) mmol/L Anion Gap 10.4 (5-15) MEQ/L BUN 8 L (9-20) mg/dL Creatinine 0.50 L (0.66-1.25) mg/dL Estimated GFR > 60.0 ML/MIN Glucose 241 H (74-106) mg/dL Lactic Acid (0.4-2.0) Calcium 8.8 (8.4-10.2) mg/dL Total Bilirubin 0.70 (0.2-1.3) mg/dL AST 18 (17-59) U/L ALT 19 (0-50) U/L Alkaline Phosphatase 107 (38-126) U/L Troponin I (0.000-0.034) ng/mL Serum Total Protein 6.4 (6.3-8.2) g/dL Albumin 3.7 (3.5-5.0) g/dL Amylase 46 (30-110) U/L Lipase 82 (23-300) U/L Urine Color (YELLOW) Urine Appearance (CLEAR) Urine pH (5-6) Ur Specific [place] (1.005-1.025) Urine Protein (Negative) Urine Ketones (NEGATIVE) Urine Blood (0-5) [place]/ul Urine Nitrite (NEGATIVE) Urine Bilirubin (NEGATIVE) Urine Urobilinogen (0-1) mg/dL Ur Leukocyte Esterase (NEGATIVE) Urine WBC (Auto) (0-5) /HPF Urine RBC (Auto) (0-2) /HPF U Epithel Cells (Auto) (FEW) /HPF Urine Bacteria (Auto) (NEGATIVE) /HPF Urine Mucus (Auto) (NEGATIVE) /HPF Urine Culture Reflexed (NO) Urine Glucose (NEGATIVE) mg/dL Accuchecks Date 03/28/20 Date 03/28/20 Date 03/27/20 Time 12:13 Time 07:41 Time 22:56 Accucheck Value: 196 Accucheck Value: 245 Accucheck Value: 283 Accucheck Value: 275 Accucheck Value: 291 - Radiology Impressions Radiology Exams & Impressions: Radiology Procedures Category Date Time Status ABDOMEN AND PELVIS W CONTRAST [CT] Urgent Exams 03/28/20 08:15 Taken CHEST 1 VIEW (PORTABLE) Stat Exams 03/27/20 09:59 Completed Assessment/Plan (1) Upper abdominal pain Status: Acute Assessment & Plan: suspect cholycystitis-patient will follow with Dr Newton and Dr Solano. GBUS and CTAbd/pelvis last admit ,reviewed. See all studies. 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 Code(s): Z87.19 - PERSONAL HISTORY OF OTHER DISEASES OF THE DIGESTIVE SYSTEM (5) Fatty liver Status: Chronic Code(s): K76.0 - FATTY (CHANGE OF) LIVER, NOT ELSEWHERE CLASSIFIED (6) CAD (coronary artery disease) Status: Chronic Qualifiers: Associated angina: without angina Assessment & Plan: Hx stent,troponin series negative this admit Code(s): I25.10 - ATHSCL HEART DISEASE OF [place] CORONARY ARTERY W/O [facility] Summary - Hospital Course Hospital Course: Patient was admitted through ER with N/V and upper abd pain which resolverd with IV fluids ,fentanyl and compazine and bowel rest overnight. He was hungry this morning and ate a full lunch without difficulty. His CT abd/pelvis with contrast was remarkable except for GB wall thickening but no cholesterol stones. He is also a daily smoker trying to quit and has a chronic cough .WBC elevated 13,000 on admission,given Rocephin IV. Neg Covid harleen 2-3 weeks ago. - Vitals & Intake/Output Vital Signs: Vital Signs Temperature 98.5 F 03/28/20 12:00 Pulse Rate 69 03/28/20 12:00 Respiratory Rate 18 03/28/20 12:00 Blood Pressure 129/78 03/28/20 12:00 O2 Sat by Pulse Oximetry 94 L 03/28/20 12:00 Intake & Output: Intake & Output 03/26/20 03/27/20 03/28/20 03/29/20 11:59 11:59 11:59 11:59 Intake Total 3203 240 Balance 3203 240 Weight 105.5 kg 104.8 kg - Lab Result Diagrams: 03/28/20 05:37 03/28/20 05:37 Lab Results-Last 24 Hrs: Accuchecks Date 03/28/20 Date 03/28/20 Date 03/27/20 Time 12:13 Time 07:41 Time 22:56 Accucheck Value: 196 Accucheck Value: 245 Accucheck Value: 283 Accucheck Value: 275 Accucheck Value: 291 Lab Results-Last 24 Hours 03/27/20 03/27/20 03/27/20 Range/Units 11:02 14:30 16:00 WBC (4.0-10.5) K/mm3 RBC (4.1-5.6) M/mm3 Hgb (12.5-18.0) gm/dl Hct (42-50) % MCV (78-100) fl MCH (26-32) pg MCHC (32-36) g/dl RDW (11.5-14.0) % Plt Count (150-450) K/mm3 MPV (7.5-11.0) fl Gran % (36.0-66.0) % Eos # (Auto) (0-0.5) Absolute Lymphs (auto) (1.0-4.6) Absolute Monos (auto) (0.0-1.3) Lymphocytes % (24.0-44.0) % Monocytes % (0.0-12.0) % Eosinophils % (0.00-5.0) % Basophils % (0.0-0.4) % Absolute Granulocytes (1.4-6.9) Basophils # (0-0.4) Sodium (137-145) mmol/L Potassium (3.5-5.1) mmol/L Chloride (98-107) mmol/L Carbon Dioxide (22-30) mmol/L Anion Gap (5-15) MEQ/L BUN (9-20) mg/dL Creatinine (0.66-1.25) mg/dL Estimated GFR ML/MIN Glucose (74-106) mg/dL Lactic Acid (0.4-2.0) Calcium (8.4-10.2) mg/dL Total Bilirubin (0.2-1.3) mg/dL AST (17-59) U/L ALT (0-50) U/L Alkaline Phosphatase (38-126) U/L Troponin I < 0.012 < 0.012 (0.000-0.034) ng/mL Serum Total Protein (6.3-8.2) g/dL Albumin (3.5-5.0) g/dL Amylase (30-110) U/L Lipase (23-300) U/L Urine Color STRAW (YELLOW) Urine Appearance CLEAR (CLEAR) Urine pH 5.0 (5-6) Ur Specific [place] 1.035 (1.005-1.025) Urine Protein NEGATIVE (Negative) Urine Ketones MODERATE (NEGATIVE) Urine Blood NEGATIVE (0-5) [place]/ul Urine Nitrite NEGATIVE (NEGATIVE) Urine Bilirubin NEGATIVE (NEGATIVE) Urine Urobilinogen NEGATIVE (0-1) mg/dL Ur Leukocyte Esterase NEGATIVE (NEGATIVE) Urine WBC (Auto) NONE (0-5) /HPF Urine RBC (Auto) NONE (0-2) /HPF U Epithel Cells (Auto) NONE (FEW) /HPF Urine Bacteria (Auto) NONE (NEGATIVE) /HPF Urine Mucus (Auto) SLIGHT (NEGATIVE) /HPF Urine Culture Reflexed NO (NO) Urine Glucose >=500 (NEGATIVE) mg/dL 03/27/20 03/27/20 03/28/20 Range/Units 19:50 23:03 05:30 WBC (4.0-10.5) K/mm3 RBC (4.1-5.6) M/mm3 Hgb (12.5-18.0) gm/dl Hct (42-50) % MCV (78-100) fl MCH (26-32) pg MCHC (32-36) g/dl RDW (11.5-14.0) % Plt Count (150-450) K/mm3 MPV (7.5-11.0) fl Gran % (36.0-66.0) % Eos # (Auto) (0-0.5) Absolute Lymphs (auto) (1.0-4.6) Absolute Monos (auto) (0.0-1.3) Lymphocytes % (24.0-44.0) % Monocytes % (0.0-12.0) % Eosinophils % (0.00-5.0) % Basophils % (0.0-0.4) % Absolute Granulocytes (1.4-6.9) Basophils # (0-0.4) Sodium (137-145) mmol/L Potassium (3.5-5.1) mmol/L Chloride (98-107) mmol/L Carbon Dioxide (22-30) mmol/L Anion Gap (5-15) MEQ/L BUN (9-20) mg/dL Creatinine (0.66-1.25) mg/dL Estimated GFR ML/MIN Glucose (74-106) mg/dL Lactic Acid 0.9 (0.4-2.0) Calcium (8.4-10.2) mg/dL Total Bilirubin (0.2-1.3) mg/dL AST (17-59) U/L ALT (0-50) U/L Alkaline Phosphatase (38-126) U/L Troponin I < 0.012 < 0.012 (0.000-0.034) ng/mL Serum Total Protein (6.3-8.2) g/dL Albumin (3.5-5.0) g/dL Amylase (30-110) U/L Lipase (23-300) U/L Urine Color (YELLOW) Urine Appearance (CLEAR) Urine pH (5-6) Ur Specific [place] (1.005-1.025) Urine Protein (Negative) Urine Ketones (NEGATIVE) Urine Blood (0-5) [place]/ul Urine Nitrite (NEGATIVE) Urine Bilirubin (NEGATIVE) Urine Urobilinogen (0-1) mg/dL Ur Leukocyte Esterase (NEGATIVE) Urine WBC (Auto) (0-5) /HPF Urine RBC (Auto) (0-2) /HPF U Epithel Cells (Auto) (FEW) /HPF Urine Bacteria (Auto) (NEGATIVE) /HPF Urine Mucus (Auto) (NEGATIVE) /HPF Urine Culture Reflexed (NO) Urine Glucose (NEGATIVE) mg/dL 03/28/20 03/28/20 Range/Units 05:37 05:37 WBC 10.3 (4.0-10.5) K/mm3 RBC 5.13 (4.1-5.6) M/mm3 Hgb 14.7 (12.5-18.0) gm/dl Hct 43.2 (42-50) % MCV 84.2 (78-100) fl MCH 28.7 (26-32) pg MCHC 34.0 (32-36) g/dl RDW 13.2 (11.5-14.0) % Plt Count 232 (150-450) K/mm3 MPV 11.6 H (7.5-11.0) fl Gran % 59.8 (36.0-66.0) % Eos # (Auto) 0.10 (0-0.5) Absolute Lymphs (auto) 3.34 (1.0-4.6) Absolute Monos (auto) 0.68 (0.0-1.3) Lymphocytes % 32.4 (24.0-44.0) % Monocytes % 6.6 (0.0-12.0) % Eosinophils % 1.0 (0.00-5.0) % Basophils % 0.2 (0.0-0.4) % Absolute Granulocytes 6.16 (1.4-6.9) Basophils # 0.02 (0-0.4) Sodium 134 L (137-145) mmol/L Potassium 3.4 L (3.5-5.1) mmol/L Chloride 102 (98-107) mmol/L Carbon Dioxide 25 (22-30) mmol/L Anion Gap 10.4 (5-15) MEQ/L BUN 8 L (9-20) mg/dL Creatinine 0.50 L (0.66-1.25) mg/dL Estimated GFR > 60.0 ML/MIN Glucose 241 H (74-106) mg/dL Lactic Acid (0.4-2.0) Calcium 8.8 (8.4-10.2) mg/dL Total Bilirubin 0.70 (0.2-1.3) mg/dL AST 18 (17-59) U/L ALT 19 (0-50) U/L Alkaline Phosphatase 107 (38-126) U/L Troponin I (0.000-0.034) ng/mL Serum Total Protein 6.4 (6.3-8.2) g/dL Albumin 3.7 (3.5-5.0) g/dL Amylase 46 (30-110) U/L Lipase 82 (23-300) U/L Urine Color (YELLOW) Urine Appearance (CLEAR) Urine pH (5-6) Ur Specific [place] (1.005-1.025) Urine Protein (Negative) Urine Ketones (NEGATIVE) Urine Blood (0-5) [place]/ul Urine Nitrite (NEGATIVE) Urine Bilirubin (NEGATIVE) Urine Urobilinogen (0-1) mg/dL Ur Leukocyte Esterase (NEGATIVE) Urine WBC (Auto) (0-5) /HPF Urine RBC (Auto) (0-2) /HPF U Epithel Cells (Auto) (FEW) /HPF Urine Bacteria (Auto) (NEGATIVE) /HPF Urine Mucus (Auto) (NEGATIVE) /HPF Urine Culture Reflexed (NO) Urine Glucose (NEGATIVE) mg/dL Micro Results-Entire Visit: Accuchecks Date 03/28/20 Date 03/28/20 Date 03/27/20 Time 12:13 Time 07:41 Time 22:56 Accucheck Value: 196 Accucheck Value: 245 Accucheck Value: 283 Accucheck Value: 275 Accucheck Value: 291 - Radiology Exams Ordered Rad Exams-Entire Visit: Radiology Procedures Category Date Time Status ABDOMEN AND PELVIS W CONTRAST [CT] Urgent Exams 03/28/20 08:15 Taken CHEST 1 VIEW (PORTABLE) Stat Exams 03/27/20 09:59 Completed - Procedures and Test Procedures and Tests throughout Hospitalization: Therapy Orders & Screens 03/27/20 15:06 Smoking Cessation Education ONCE Comment: Diagnosis: Abdominal Pain Smoking Status: Current every day smoker How long have you smoked: "20 years" Have you smoked in the past 12 months: Yes Approximately how many cigarettes per day: 10 Do you dip or chew tobacco: No - Discharge Disposition: Home, Self-Care Condition: Fair Prescriptions: New Cefdinir 300 mg PO BID #14 capsule Promethazine HCl 25 mg [Phenergan 25 mg] 25 mg PO Q6H #30 tablet Tramadol HCl 50 mg PO TID #20 tablet No Action Atorvastatin Calcium [Lipitor 20MG Tablet] 10 mg PO DAILY Insulin Lispro [Humalog] 20 unit SQ TID Lisinopril 10 mg [Zestril 10 MG] 10 mg PO DAILY Venlafaxine HCl ER 75 mg [Effexor XR 75 MG] 75 mg PO DAILY Insulin Glargine,Hum.rec.anlog [Basaglar Kwikpen U-100] 30 units SQ BID Ondansetron ODT 4 MG [Zofran Odt 4 mg] 4 mg PO Q6H PRN PRN #10 tab.rapd is PRN Reason: Vomiting Ergocalciferol (Vitamin D2) [Vitamin D2] 50,000 unit PO Q7D Follow up with: BOBBY NEWTON [Primary Care Provider] - Call for Appointment MARCELLE BLACKBURN [NON-STAFF PHY W/O PRIVILEGES] - Call for Appointment SHANTEL SOLANO MD [ASSOCIATE STAFF] - Call for Appointment JOSÉ LUIS BUENO MD [NON-STAFF PHY W/O PRIVILEGES] - Call for Appointment
--- NOTE | 2020-03-28 19:15 | XRAY ---
Indication: Right upper quadrant pain. Multiple contiguous axial images obtained through the abdomen and pelvis using 100 cc Isovue 370 contrast only. Comparison: February 26, 2020. Lung bases remain clear again with incidental right lower lobe calcified granuloma. Heart is not enlarged. Noncontrasted stomach and bowel loops appear nonobstructed. Normal appendix. No free fluid/air. Stable fatty 22 cm hepatomegaly, hepatic/splenic calcified granulomas, and bilateral renal cysts. Remaining liver, gallbladder, pancreas, spleen, adrenal glands, kidneys, ureters, bladder, and aorta appear unremarkable. No pathologic retroperitoneal lymphadenopathy. Osseous structures intact. No ventral or inguinal hernias. Impression: 1. Stable fatty hepatomegaly, bilateral renal cysts, and old granulomatous disease. 2. Remaining CT abdomen/pelvis with contrast exam is negative. Comment: Preliminary interpretation was made by [facility]. No critical discrepancy.
[2020-03-29] MEDS ORDERED: ROCEPHIN 1 Gm-D5w 50 ml Bag** 1 G/50 ML IVPB IV SCH (10:00)
[2020-03-30] MEDS ORDERED: VITAMIN D2 PO SCH (10:00)
== END 2020-03-28 14:50 | disposition home or self-care (01) ==
LOC: ED 09:57 → MED SURG 13:43
PROVIDERS: ADMIT Family Medicine; ATTEND Family Medicine
DX: R10.10 Upper abdominal pain, unspecified (principal); I10 Essential (primary) hypertension; E78.5 Hyperlipidemia, unspecified; K76.0 Fatty (change of) liver, not elsewhere classified; E11.9 Type 2 diabetes mellitus without complications; E78.00 Pure hypercholesterolemia, unspecified; R05 Cough; I25.10 Atherosclerotic heart disease of native coronary artery without angina pectoris; D72.829 Elevated white blood cell count, unspecified; Z87.19 Personal history of other diseases of the digestive system; Z79.899 Other long term (current) drug therapy; F17.200 Nicotine dependence, unspecified, uncomplicated
CPT/HCPCS: 36000; 36415; 71045; 74177; 80053; 81001; 82150; 82962; 83605; 83690; 84484; 85025; 85610; 93005; 96360; 96372; 96374; 96375; 99285; G0378; J0696; J1170; J1817; J1885; J2405; J3010; A9270-GY

== ENCOUNTER 2020-04-28 05:59 | Day surgery (SDC) | payer OTHER ==
[~2020-04-28 05:59] MED LIST: DIPRIVAN 200 MG/20 ML IV ONE; Ketamine HCl 50 MG/ML ONE
[2020-04-28] MEDS ORDERED: Lactated Ringers 1,000 ML IV SCH (06:30)
[2020-04-28] MEDS ORDERED: Lantus Insulin ONE (07:32)
[2020-04-28] MEDS ORDERED: Lantus Insulin SQ SCH (07:45)
--- NOTE | 2020-04-28 08:53 | OP ---
SURGERY DATE/TIME: 04/28/2020 08 PREOPERATIVE DIAGNOSIS: Epigastric pain and diabetes mellitus type I. POSTOPERATIVE DIAGNOSES: 1) Diabetic gastroparesis. 2) Mild to moderate gastritis. PROCEDURE: Esophagogastroduodenoscopy with cold forceps biopsy. SURGEON: Dr. Luna. ANESTHESIA: Medications were given by the anesthesia department. BRIEF HISTORY: The patient is a 40 year old white male patient who presents now for endoscopic evaluation. The patient reports that over the past several months he has been having epigastric pain which has been worse over the past couple of months. He has been taking proton pump inhibitor medication and Zofran for nausea. The patient is known to be a poorly controlled diabetic. He has not received his insulin pump and does not use his insulin properly. The patient was described the risks of the procedure including risk of perforation, phlebitis, untoward reaction to medication, bleeding and missed lesions. The patient verbalized his understanding and desired to have the procedure performed. DESCRIPTION OF PROCEDURE: The patient was given the medications by the anesthesia department. He had continuous pulse oximetry, ECG monitoring, intermittent blood pressure monitoring and tidal CO2 monitoring during the examination. He was placed in the left lateral decubitus position. A bite block was placed and the flexible Olympus gastroscope was used to intubate the oropharynx. A view of the larynx obtained and was normal. The scope was easily passed in the esophagus which was normal throughout its length. The stomach was entered where the stomach was approximately [facility] full of pasty material. The scope was passed along the greater curvature of the stomach to the antrum. The pylorus encountered and intubated. The duodenum inspected and found to be normal. The scope is withdrawn towards the stomach. A retroflex view was obtained of the lesser curvature, fundus and cardia regions of the stomach and these appeared to be essentially normal. The scope was then redirected towards the gastric antrum where biopsies were obtained to rule out the presence of Helicobacter pylori-type organisms. The scope was then removed from the patient who tolerated the procedure well and was sent back to outpatient recovery in good condition.
[2020-04-28 09:59] VITALS: PULSE 89; O2SAT 95
[2020-04-28 10:00] VITALS: BP 141/93
== END 2020-04-28 09:45 | disposition home or self-care (01) ==
LOC: SDC 05:59
PROVIDERS: ATTEND Family Medicine
DX: E10.43 Type 1 diabetes mellitus with diabetic autonomic (poly)neuropathy (principal); K31.84 Gastroparesis; K29.70 Gastritis, unspecified, without bleeding; Z79.899 Other long term (current) drug therapy
CPT/HCPCS: 82962; J2704; A9270-GY

== ENCOUNTER 2020-05-23 14:03 | Emergency (ER) | payer OTHER ==
[2020-05-23] MEDS ORDERED: SUBLIMAZE 100 MCG/2 ML IV ONE (14:16)
[2020-05-23] MEDS ORDERED: Reglan 10 MG/2 ML IV ONE (14:16)
[2020-05-23] MEDS ORDERED: Sodium Chloride 0.9% 1000 ML 1,000 ML IV STA (14:16)
[2020-05-23] MEDS ORDERED: Pepcid 20 MG VIAL IV ONE ×2 (14:16→14:21)
[2020-05-23] MEDS ORDERED: PROTONIX 40 MG IV IV ONE (14:16)
--- NOTE | 2020-05-23 14:20 | ERPHSYRPT ---
- History of Present Illness Time Seen by Provider: 05/23/20 14:18 Historian: patient Patient Subjective Stated Complaint: Pt began having RUQ pain yesterday and vomiting and has vomited approx 9 times today, severe abdominal pain Triage Nursing Assessment: Pt brought to the ER by EMS, vomiting, moaning in pain, cold, hypertensive, hx of pancreatitis, states that he has some abdominal infection and is taking medicine from it and Dr. Luna is his doctor Physician History: RUQ pain yesterday and vomiting and has vomited approx 9 times today, severe abdominal pain 40-year-old male came to the emergency room with complaining of right upper quadrant pain started yesterday associated with nausea vomiting today. Patient has a history of diabetes. Patient has abdominal pain off and on for last to 3 months patient has undergone extensive work-up which showed that patient has fatty liver with liver size is 22 cm as well as patient has mild to moderate gastritis and diabetic gastroparesis. Timing/Duration: week(s) Quality: burning, fullness Abdominal Pain Onset Location: RUQ, epigastric, periumbilical Pain Radiation: no radiation Severity of Pain-Max: moderate Severity of Pain-Current: moderate Modifying Factors: Improves With: nothing Previous symptoms: same symptoms as today Allergies/Adverse Reactions: codeine Allergy (Severe, Verified 05/23/20 14:14) Nausea and Vomiting "severe vomiting for hours" pseudoephedrine [From Actifed] Allergy (Severe, Verified 05/23/20 14:14) Fainting " almost . went out cold and really hard to wake me up" triprolidine [From Actifed] Allergy (Severe, Verified 05/23/20 14:14) Fainting "about " diphenhydramine [From Benadryl] Adverse Reaction (Severe, Verified 05/23/20 14:14) Fainting "knocked me out and couldn't get me awake hardly" pantoprazole [From Protonix] Adverse Reaction (Intermediate, Verified 05/23/20 14:14) Nausea and Vomiting Home Medications: Atorvastatin Calcium [Lipitor 20MG Tablet] 10 mg PO DAILY 01/06/20 [History] Insulin Glargine,Hum.rec.anlog [Basaglar Kwikpen U-100] 30 units SQ BID 01/06/20 [History] Insulin Lispro [Humalog] 20 unit SQ TID 01/06/20 [History] Lisinopril 10 mg [Zestril 10 MG] 10 mg PO DAILY 01/06/20 [History] Venlafaxine HCl ER 75 mg [Effexor XR 75 MG] 75 mg PO DAILY 01/06/20 [History] Ergocalciferol (Vitamin D2) [Vitamin D2] 50,000 unit PO Q7D 03/27/20 [History] Promethazine HCl 25 mg [Phenergan 25 mg] 25 mg PO BID 04/21/20 [History] Hx Tetanus, Diphtheria Vaccination/Date Given: Yes Hx Influenza Vaccination/Date Given: Yes Hx Pneumococcal Vaccination/Date Given: Yes Travel Risk - International Travel Have you traveled outside of the country in past 3 weeks: No - Coronavirus Screening Are you exhibiting any of the following symptoms?: No Close contact with a COVID-19 positive Pt in past 14-21 Days: No - Review of Systems Constitutional: No Fever, No Chills Eyes: No Symptoms Ears, Nose, & Throat: No Symptoms Respiratory: No Cough, No Dyspnea Cardiac: No Chest Pain, No Edema, No Syncope Abdominal/Gastrointestinal: Abdominal Pain, Vomiting, No Nausea, No Diarrhea Genitourinary Symptoms: No Dysuria Musculoskeletal: No Back Pain, No Neck Pain Skin: No Rash Neurological: No Dizziness, No Focal Weakness, No Sensory Changes Psychological: No Symptoms Endocrine: No Symptoms All Other Systems: Reviewed and Negative - Past Medical History Pertinent Past Medical History: Yes Neurological History: No Pertinent History ENT History: No Pertinent History Cardiac History: Coronary Artery Disease, High Cholesterol, Hypertension Respiratory History: No Pertinent History Endocrine Medical History: Diabetes Type II Musculoskeletal History: No Pertinent History GI Medical History: Esophageal Disorder, Hemorrhoids, Pancreatitis, Ulcer History: Other Psycho-Social History: Depression Male Reproductive Disorders: No Pertinent History Other Medical History: 2015 Gastritis, kidney infection - Past Surgical History Past Surgical History: Yes Neuro Surgical History: No Pertinent History Cardiac: Cardiac Catheterization Respiratory: No Pertinent History Gastrointestinal: Hemorrhoidectomy, Rectal Surgery Genitourinary: No Pertinent History Musculoskeletal: No Pertinent History Male Surgical History: No Pertinent History Other Surgical History: 2020 Heart Cath (blockage x 2) - Social History Smoking Status: Current every day smoker How long have you smoked: 29 years Exposure to second hand smoke: Yes Drug Use: none Patient Lives Alone: No - Nursing Vital Signs Nursing Vital Signs: Initial Vital Signs Temperature 96.2 F 05/23/20 14:04 Pulse Rate 77 05/23/20 14:04 Blood Pressure 148/84 05/23/20 14:04 O2 Sat by Pulse Oximetry 100 05/23/20 14:04 Pain Scale Pain Intensity 8 - Physical Exam General Appearance: no apparent distress, alert Eye Exam: PERRL/EOMI, eyes nml inspection Ears, Nose, Throat Exam: normal ENT inspection, pharynx normal, moist mucous membranes Neck Exam: normal inspection, non-tender, supple, full range of motion Respiratory Exam: normal breath sounds, lungs clear, No respiratory distress Cardiovascular Exam: regular rate/rhythm, normal heart sounds Gastrointestinal/Abdomen Exam: soft, No tenderness, No mass Back Exam: normal inspection, normal range of motion, No CVA tenderness, No vertebral tenderness Extremity Exam: normal inspection, normal range of motion, pelvis stable Neurologic Exam: alert, oriented x 3, cooperative, normal mood/affect, nml cerebellar function, sensation nml, No motor deficits Skin Exam: normal color, warm, dry SpO2: 100 - Course Nursing assessment & vital signs reviewed: Yes Ordered Tests: Active Orders 24 hr Category Date Time Status IV Insertion STAT Care 05/23/20 14:20 Active AMYLASE Stat Lab 05/23/20 14:16 Completed CBC W DIFF Stat Lab 05/23/20 14:16 Completed CMP Stat Lab 05/23/20 14:16 Completed LIPASE Stat Lab 05/23/20 14:16 Completed Lactic Acid Stat Lab 05/23/20 14:45 Completed Medication Summary Generic Name Dose Route Start Last Admin Trade Name Freq PRN Reason Stop Dose Admin Sodium Chloride 1,000 mls @ 999 mls/hr 05/23/20 14:16 05/23/20 14:27 Sodium Chloride 0.9% 1000 Ml IV 05/23/20 15:16 999 mls/hr .Q1H1M STA Administration Discontinued Medications Generic Name Dose Route Start Last Admin Trade Name Freq PRN Reason Stop Dose Admin Famotidine 20 mg 05/23/20 14:16 05/23/20 14:26 Pepcid 20 Mg Vial IV 05/23/20 14:17 20 mg STAT ONE Administration Famotidine Confirm 05/23/20 14:21 Pepcid 20 Mg Vial Administered 05/23/20 14:22 Dose 20 mg IV .STK-MED ONE Fentanyl Citrate 50 mcg 05/23/20 14:16 05/23/20 14:26 Sublimaze 100 Mcg/2 Ml IV 05/23/20 14:17 50 mcg STAT ONE Administration Fentanyl Citrate Confirm 05/23/20 14:22 Sublimaze 100 Mcg/2 Ml Administered 05/23/20 14:23 Dose 100 mcg .ROUTE .STK-MED ONE Sodium Chloride Confirm 05/23/20 14:23 Sodium Chloride 0.9% 1000 Ml Administered 05/23/20 14:24 Dose 1,000 mls @ ud .ROUTE .STK-MED ONE Metoclopramide HCl 10 mg 05/23/20 14:16 05/23/20 14:26 Reglan 10 Mg/2 Ml IV 05/23/20 14:17 10 mg STAT ONE Administration Metoclopramide HCl Confirm 05/23/20 14:23 Reglan 10 Mg/2 Ml Administered 05/23/20 14:24 Dose 10 mg .ROUTE .STK-MED ONE Pantoprazole Sodium 40 mg 05/23/20 14:16 05/23/20 14:21 Protonix 40 Mg Iv IV 05/23/20 14:17 Not Given STAT ONE Lab/Rad Data: Laboratory Result Diagrams 05/23/20 14:16 05/23/20 14:16 Laboratory Results 05/23/20 05/23/20 05/23/20 Range/Units 14:45 14:16 14:16 WBC 14.9 H (4.0-10.5) K/mm3 RBC 5.41 (4.1-5.6) M/mm3 Hgb 15.8 (12.5-18.0) gm/dl Hct 44.8 (42-50) % MCV 82.8 (78-100) fl MCH 29.2 (26-32) pg MCHC 35.3 (32-36) g/dl RDW 13.3 (11.5-14.0) % Plt Count 234 (150-450) K/mm3 MPV 11.2 H (7.5-11.0) fl Gran % 82.6 H (36.0-66.0) % Eos # (Auto) 0.05 (0-0.5) Absolute Lymphs (auto) 1.92 (1.0-4.6) Absolute Monos (auto) 0.59 (0.0-1.3) Lymphocytes % 12.9 L (24.0-44.0) % Monocytes % 4.0 (0.0-12.0) % Eosinophils % 0.3 (0.00-5.0) % Basophils % 0.2 (0.0-0.4) % Absolute Granulocytes 12.28 H (1.4-6.9) Basophils # 0.03 (0-0.4) Sodium 133 L (137-145) mmol/L Potassium 4.2 (3.5-5.1) mmol/L Chloride 98 (98-107) mmol/L Carbon Dioxide 23 (22-30) mmol/L Anion Gap 15.7 H (5-15) MEQ/L BUN 9 (9-20) mg/dL Creatinine 0.59 L (0.66-1.25) mg/dL Estimated GFR > 60.0 ML/MIN Glucose 389 H (74-106) mg/dL Lactic Acid 1.9 (0.4-2.0) Calcium 9.8 (8.4-10.2) mg/dL Total Bilirubin 1.10 (0.2-1.3) mg/dL AST 20 (17-59) U/L ALT 32 (0-50) U/L Alkaline Phosphatase 171 H (38-126) U/L Serum Total Protein 7.7 (6.3-8.2) g/dL Albumin 4.7 (3.5-5.0) g/dL Amylase 47 (30-110) U/L Lipase 98 (23-300) U/L - Progress Progress: improved Counseled pt/family regarding: lab results, diagnosis, need for follow-up - Departure Departure Disposition: Home Clinical Impression: Diabetic gastroparesis Abdominal pain Qualifiers: Abdominal location: upper abdomen, unspecified Qualified Code(s): R10.10 - Upper abdominal pain, unspecified Condition: Stable Critical Care Time: No Referrals: BOBBY LUNA [Primary Care Provider] - Instructions: Gastroparesis (Delayed Gastric Emptying) (DC) Additional Instructions: Discharge/Care Plan ZARINA FATIMA JR was seen on 05/23/20 in the Emergency Room. The patient was counseled regarding Diagnosis,Lab results, Imaging studies, need for follow up and when to return to the Emergency Room. Prescriptions given: Discharge Note I have spoken with the patient and/or caregivers. I have explained the patient's condition, diagnosis and treatment plan based on the information available to me at this time. I have answered the patient's and/or caregiver's questions and addressed any concerns. The patient and/or caregivers have as good understanding of the patient's diagnosis, condition and treatment plan as can be expected at this point. The vital signs have been stable. The patient's condition is stable and appropriate for discharge from the emergency department. The patient will pursue further outpatient evaluation with the primary care physician or other designated or consulting physician as outlined in the discharge instructions. The patient and/or caregivers are agreeable to this plan of care and follow-up instructions have been explained in detail. The patient and/or caregivers have received these instruction. The patient/and or caregivers are aware that any significant change in condition or worsening of symptoms should prompt an immediate return to this or the closest emergency department or call 911. Prescriptions: Metoclopramide HCl 10 mg [Reglan 10 MG] 10 mg PO ACHS #60 tablet
[2020-05-23] MEDS ORDERED: SUBLIMAZE 100 MCG/2 ML ONE (14:22)
[2020-05-23] MEDS ORDERED: Sodium Chloride 0.9% 1000 ML 1,000 ML ONE (14:23)
[2020-05-23] MEDS ORDERED: Reglan 10 MG/2 ML ONE (14:23)
[2020-05-23 14:32] LABS: Absolute Neutrophil Ct (ANC) 12.28 (1.4-6.9); BASOPHIL % 0.2 % (0.0-0.4); Basophil (Absolute #) 0.03 (0-0.4); Eosinophil % 0.3 % (0.00-5.0); Eosinophil (Absolute #) 0.05 (0-0.5); Hematocrit 44.8 % (42-50); Hemoglobin 15.8 gm/dl (12.5-18.0); Lymphocyte (Absolute #) 1.92 (1.0-4.6); Lymphocytes % 12.9 % (24.0-44.0); Mean Cell Volume 82.8 fl (78-100); Mean Corpuscular Hemoglobin 29.2 pg (26-32); Mean Corpuscular Hgb Concent. 35.3 g/dl (32-36); Mean Platelet Volume 11.2 fl (7.5-11.0); Monocyte (Absolute #) 0.59 (0.0-1.3); Neutrophil % 82.6 % (36.0-66.0); Platelet Count 234 K/mm3 (150-450); Red Blood Count 5.41 M/mm3 (4.1-5.6); Red Cell Distribution Width 13.3 % (11.5-14.0); White Blood Count 14.9 K/mm3 (4.0-10.5)
[2020-05-23 14:50] LABS: ALBUMIN 4.7 g/dL (3.5-5.0); ALKALINE PHOSPHATASE 171 U/L (38-126); AMYLASE 47 U/L (30-110); ANION GAP 15.7 MEQ/L (5-15); BLOOD UREA NITROGEN 9 mg/dL (9-20); CHLORIDE 98 mmol/L (98-107); Calcium 9.8 mg/dL (8.4-10.2); Carbon Dioxide 23 mmol/L (22-30); Creatinine 1 0.59 mg/dL (0.66-1.25); EST GLOMERULAR FILTRATION RATE > 60.0 ML/MIN; Glucose 389 mg/dL (74-106); LIPASE 98 U/L (23-300); Potassium 4.2 mmol/L (3.5-5.1); SGOT/AST 20 U/L (17-59); SGPT/ALT 32 U/L (0-50); SODIUM 133 mmol/L (137-145); Total Protein 7.7 g/dL (6.3-8.2)
[2020-05-23 15:11] VITALS: BP 127/93; PULSE 57; O2SAT 99
== END 2020-05-23 16:20 | disposition home or self-care (01) ==
LOC: ED 14:03
DX: E11.43 Type 2 diabetes mellitus with diabetic autonomic (poly)neuropathy (principal); K31.84 Gastroparesis; R10.10 Upper abdominal pain, unspecified; I10 Essential (primary) hypertension; I25.10 Atherosclerotic heart disease of native coronary artery without angina pectoris; E78.00 Pure hypercholesterolemia, unspecified
CPT/HCPCS: 36000; 36415; 80053; 82150; 83605; 83690; 85025; 96360; 96374; 96375; 99284; J3010

== ENCOUNTER 2020-05-25 09:28 | Observation (INO) | payer OTHER ==
--- NOTE | 2020-05-25 09:58 | ERPHSYRPT ---
- History of Present Illness Time Seen by Provider: 05/25/20 09:55 Historian: patient Exam Limitations: no limitations Patient Subjective Stated Complaint: Pt states "I was supposed to go to Dr. Viveros today. I have a rare infection in my abdomen and he has been trying to treat it and nothing is getting better. I cannot sleep and the pain is killing me." Triage Nursing Assessment: Pt presented alert and oriented X 3, skin pwd. pt ambulates with an upright steady gait, able to speak in clear full sentences pt in no apparent respiratory distress. pt stated he has had scopes and antibiotics and nothing is working. Physician History: This is a 40-year-old diabetic gentleman with history of pancreatitis and hypertension as well as smoker of cigarettes who presents with epigastric and right upper quadrant abdominal pain. Is been present for 2 to 3 weeks. Patient was seen approximately [address] Luna and underwent an upper endoscopy with biopsy. Patient was diagnosed with Heliobacter pylori. He was given prescriptions for amoxicillin and clarithromycin. Patient was approximately a week and a half into treatment when his pain suddenly worsened 2 days ago. Patient was seen in this emergency department and diagnosed with diabetic gastroparesis. He was given a prescription for Reglan. In the last 48 hours, the patient's nausea vomiting and pain have recurred. Patient had an appointment with Dr. Luna this morning. He called the office and told him that he was vomiting multiple times. They told him to come to the emergency department for evaluation. Timing/Duration: constant, worse Activities at Onset: none Quality: cramping, stabbing Abdominal Pain Onset Location: RUQ, epigastric Pain Radiation: no radiation Severity of Pain-Max: moderate Severity of Pain-Current: moderate Modifying Factors: Improves With: vomiting Associated Symptoms: nausea, vomiting, No chest pain, No shortness of breath Previous symptoms: same symptoms as today, recently seen, recently treated Allergies/Adverse Reactions: codeine Allergy (Severe, Verified 05/23/20 14:14) Nausea and Vomiting "severe vomiting for hours" pseudoephedrine [From Actifed] Allergy (Severe, Verified 05/23/20 14:14) Fainting " almost . went out cold and really hard to wake me up" triprolidine [From Actifed] Allergy (Severe, Verified 05/23/20 14:14) Fainting "about " diphenhydramine [From Benadryl] Adverse Reaction (Severe, Verified 05/23/20 14:14) Fainting "knocked me out and couldn't get me awake hardly" pantoprazole [From Protonix] Adverse Reaction (Intermediate, Verified 05/23/20 14:14) Nausea and Vomiting Home Medications: Atorvastatin Calcium [Lipitor 20MG Tablet] 10 mg PO DAILY 01/06/20 [History] Insulin Glargine,Hum.rec.anlog [Basaglar Kwikpen U-100] 30 units SQ BID 01/06/20 [History] Insulin Lispro [Humalog] 20 unit SQ TID 01/06/20 [History] Lisinopril 10 mg [Zestril 10 MG] 10 mg PO DAILY 01/06/20 [History] Venlafaxine HCl ER 75 mg [Effexor XR 75 MG] 75 mg PO DAILY 01/06/20 [History] Ergocalciferol (Vitamin D2) [Vitamin D2] 50,000 unit PO Q7D 03/27/20 [History] Promethazine HCl 25 mg [Phenergan 25 mg] 25 mg PO BID 04/21/20 [History] Hx Tetanus, Diphtheria Vaccination/Date Given: Yes Hx Influenza Vaccination/Date Given: Yes Hx Pneumococcal Vaccination/Date Given: Yes Immunizations Up to Date: Yes Travel Risk - International Travel Have you traveled outside of the country in past 3 weeks: No - Coronavirus Screening Are you exhibiting any of the following symptoms?: No Close contact with a COVID-19 positive Pt in past 14-21 Days: No - Review of Systems Constitutional: No Symptoms Eyes: No Symptoms Ears, Nose, & Throat: No Symptoms Respiratory: No Symptoms Cardiac: No Symptoms Abdominal/Gastrointestinal: Abdominal Pain, Nausea, Vomiting Genitourinary Symptoms: No Symptoms Musculoskeletal: No Symptoms Skin: No Symptoms Neurological: No Symptoms Psychological: No Symptoms Endocrine: No Symptoms Hematologic/Lymphatic: No Symptoms Immunological/Allergic: No Symptoms All Other Systems: Reviewed and Negative - Past Medical History Pertinent Past Medical History: Yes Neurological History: No Pertinent History ENT History: No Pertinent History Cardiac History: Coronary Artery Disease, High Cholesterol, Hypertension Respiratory History: No Pertinent History Endocrine Medical History: Diabetes Type II Musculoskeletal History: No Pertinent History GI Medical History: Esophageal Disorder, Hemorrhoids, Pancreatitis, Ulcer History: Other Psycho-Social History: Depression Male Reproductive Disorders: No Pertinent History Other Medical History: 2015 Gastritis, kidney infection - Past Surgical History Past Surgical History: Yes Neuro Surgical History: No Pertinent History Cardiac: Cardiac Catheterization Respiratory: No Pertinent History Gastrointestinal: Hemorrhoidectomy, Rectal Surgery Genitourinary: No Pertinent History Musculoskeletal: No Pertinent History Male Surgical History: No Pertinent History Other Surgical History: 2020 Heart Cath (blockage x 2) - Social History Smoking Status: Current every day smoker How long have you smoked: 29 years Exposure to second hand smoke: Yes Drug Use: none Patient Lives Alone: No - Nursing Vital Signs Nursing Vital Signs: Initial Vital Signs Temperature 98.5 F 05/25/20 09:38 Pulse Rate 84 05/25/20 09:38 Respiratory Rate 22 05/25/20 09:38 Blood Pressure 153/109 05/25/20 09:38 O2 Sat by Pulse Oximetry 98 05/25/20 09:38 Pain Scale Pain Intensity 6 - Physical Exam General Appearance: moderate distress, alert, anxiety Eye Exam: PERRL/EOMI, eyes nml inspection Ears, Nose, Throat Exam: normal ENT inspection, moist mucous membranes Neck Exam: normal inspection, non-tender, supple, full range of motion Respiratory Exam: normal breath sounds, lungs clear, airway intact, No chest tenderness, No respiratory distress Cardiovascular Exam: regular rate/rhythm, normal heart sounds, normal peripheral pulses Gastrointestinal/Abdomen Exam: soft, normal bowel sounds, tenderness (Right upper quadrant and epigastric), guarding, No rebound Rectal Exam: not done Back Exam: normal inspection, normal range of motion, No CVA tenderness, No vertebral tenderness Extremity Exam: normal inspection, normal range of motion, pelvis stable Neurologic Exam: alert, oriented x 3, 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, 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, normal mood/affect, nml cerebellar function, nml station & gait, sensation nml Skin Exam: normal color, warm, dry Lymphatic Exam: No adenopathy SpO2 Interpretation: normal SpO2: 98 O2 Delivery: Room Air - Course Nursing assessment & vital signs reviewed: Yes Ordered Tests: Active Orders 24 hr Category Date Time Status IV Insertion STAT Care 05/25/20 10:06 Active ABDOMEN AND PELVIS W/0 CONTRAS [CT] Stat Exams 05/25/20 10:07 Completed AMYLASE Stat Lab 05/25/20 10:06 Completed CBC W DIFF Stat Lab 05/25/20 10:06 Completed CMP Stat Lab 05/25/20 10:06 Completed LIPASE Stat Lab 05/25/20 10:06 Completed Lactic Acid Stat Lab 05/25/20 10:12 Completed UA W/RFX UR CULTURE Stat Lab 05/25/20 10:24 Completed Transfer Order Routine Transfer 05/25/20 Ordered Medication Summary Generic Name Dose Route Start Last Admin Trade Name Freq PRN Reason Stop Dose Admin Sodium Chloride 1,000 mls @ 999 mls/hr 05/25/20 11:12 Sodium Chloride 0.9% 1000 Ml IV 05/25/20 12:12 .Q1H1M STA Discontinued Medications Generic Name Dose Route Start Last Admin Trade Name Freq PRN Reason Stop Dose Admin Hydromorphone HCl 1 mg 05/25/20 10:06 05/25/20 10:12 Hydromorphone 1 Mg/Ml Injection IV 05/25/20 10:07 1 mg STAT ONE Administration Hydromorphone HCl Confirm 05/25/20 10:10 Hydromorphone 1 Mg/Ml Injection Administered 05/25/20 10:11 Dose 1 mg .ROUTE .STK-MED ONE Sodium Chloride 1,000 mls @ 999 mls/hr 05/25/20 10:06 05/25/20 10:12 Sodium Chloride 0.9% 1000 Ml IV 05/25/20 11:06 999 mls/hr .Q1H1M STA Administration Sodium Chloride Confirm 05/25/20 10:11 Sodium Chloride 0.9% 1000 Ml Administered 05/25/20 10:12 Dose 1,000 mls @ ud .ROUTE .STK-MED ONE Insulin Human Regular 6 unit 05/25/20 11:26 Humulin R IV 05/25/20 11:27 STAT ONE Ondansetron HCl 4 mg 05/25/20 10:06 05/25/20 10:12 Zofran 4 Mg/2 Ml Vial IV 05/25/20 10:07 4 mg STAT ONE Administration Ondansetron HCl Confirm 05/25/20 10:10 Zofran 4 Mg/2 Ml Vial Administered 05/25/20 10:11 Dose 4 mg .ROUTE .STK-MED ONE Pantoprazole Sodium 40 mg 05/25/20 10:06 05/25/20 10:11 Protonix 40 Mg Iv IV 05/25/20 10:07 Not Given STAT ONE Lab/Rad Data: Laboratory Result Diagrams 05/25/20 10:06 05/25/20 10:06 Laboratory Results 05/25/20 05/25/20 05/25/20 Range/Units 10:24 10:12 10:06 WBC (4.0-10.5) K/mm3 RBC (4.1-5.6) M/mm3 Hgb (12.5-18.0) gm/dl Hct (42-50) % MCV (78-100) fl MCH (26-32) pg MCHC (32-36) g/dl RDW (11.5-14.0) % Plt Count (150-450) K/mm3 MPV (7.5-11.0) fl Gran % (36.0-66.0) % Eos # (Auto) (0-0.5) Absolute Lymphs (auto) (1.0-4.6) Absolute Monos (auto) (0.0-1.3) Lymphocytes % (24.0-44.0) % Monocytes % (0.0-12.0) % Eosinophils % (0.00-5.0) % Basophils % (0.0-0.4) % Absolute Granulocytes (1.4-6.9) Basophils # (0-0.4) Sodium 132 L (137-145) mmol/L Potassium 4.0 (3.5-5.1) mmol/L Chloride 96 L (98-107) mmol/L Carbon Dioxide 20 L (22-30) mmol/L Anion Gap 19.4 H (5-15) MEQ/L BUN 9 (9-20) mg/dL Creatinine 0.51 L (0.66-1.25) mg/dL Estimated GFR > 60.0 ML/MIN Glucose 372 H (74-106) mg/dL Lactic Acid 1.5 (0.4-2.0) Calcium 9.8 (8.4-10.2) mg/dL Total Bilirubin 1.10 (0.2-1.3) mg/dL AST 19 (17-59) U/L ALT 27 (0-50) U/L Alkaline Phosphatase 156 H (38-126) U/L Serum Total Protein 7.8 (6.3-8.2) g/dL Albumin 4.8 (3.5-5.0) g/dL Amylase 54 (30-110) U/L Lipase 98 (23-300) U/L Urine Color YELLOW (YELLOW) Urine Appearance CLEAR (CLEAR) Urine pH 5.0 (5-6) Ur Specific [place] 1.037 (1.005-1.025) Urine Protein 30 (Negative) Urine Ketones MODERATE (NEGATIVE) Urine Blood NEGATIVE (0-5) [place]/ul Urine Nitrite NEGATIVE (NEGATIVE) Urine Bilirubin NEGATIVE (NEGATIVE) Urine Urobilinogen NEGATIVE (0-1) mg/dL Ur Leukocyte Esterase NEGATIVE (NEGATIVE) Urine WBC (Auto) 0-2 (0-5) /HPF Urine RBC (Auto) 0-2 (0-2) /HPF U Epithel Cells (Auto) FEW (FEW) /HPF Urine Bacteria (Auto) FEW (NEGATIVE) /HPF Urine Culture Reflexed NO (NO) Urine Glucose >=500 (NEGATIVE) mg/dL 05/25/20 Range/Units 10:06 WBC 15.6 H (4.0-10.5) K/mm3 RBC 5.45 (4.1-5.6) M/mm3 Hgb 15.9 (12.5-18.0) gm/dl Hct 45.5 (42-50) % MCV 83.5 (78-100) fl MCH 29.2 (26-32) pg MCHC 34.9 (32-36) g/dl RDW 13.4 (11.5-14.0) % Plt Count 266 (150-450) K/mm3 MPV 11.1 H (7.5-11.0) fl Gran % 84.6 H (36.0-66.0) % Eos # (Auto) 0.01 (0-0.5) Absolute Lymphs (auto) 1.77 (1.0-4.6) Absolute Monos (auto) 0.59 (0.0-1.3) Lymphocytes % 11.3 L (24.0-44.0) % Monocytes % 3.8 (0.0-12.0) % Eosinophils % 0.1 (0.00-5.0) % Basophils % 0.2 (0.0-0.4) % Absolute Granulocytes 13.23 H (1.4-6.9) Basophils # 0.03 (0-0.4) Sodium (137-145) mmol/L Potassium (3.5-5.1) mmol/L Chloride (98-107) mmol/L Carbon Dioxide (22-30) mmol/L Anion Gap (5-15) MEQ/L BUN (9-20) mg/dL Creatinine (0.66-1.25) mg/dL Estimated GFR ML/MIN Glucose (74-106) mg/dL Lactic Acid (0.4-2.0) Calcium (8.4-10.2) mg/dL Total Bilirubin (0.2-1.3) mg/dL AST (17-59) U/L ALT (0-50) U/L Alkaline Phosphatase (38-126) U/L Serum Total Protein (6.3-8.2) g/dL Albumin (3.5-5.0) g/dL Amylase (30-110) U/L Lipase (23-300) U/L Urine Color (YELLOW) Urine Appearance (CLEAR) Urine pH (5-6) Ur Specific [place] (1.005-1.025) Urine Protein (Negative) Urine Ketones (NEGATIVE) Urine Blood (0-5) [place]/ul Urine Nitrite (NEGATIVE) Urine Bilirubin (NEGATIVE) Urine Urobilinogen (0-1) mg/dL Ur Leukocyte Esterase (NEGATIVE) Urine WBC (Auto) (0-5) /HPF Urine RBC (Auto) (0-2) /HPF U Epithel Cells (Auto) (FEW) /HPF Urine Bacteria (Auto) (NEGATIVE) /HPF Urine Culture Reflexed (NO) Urine Glucose (NEGATIVE) mg/dL - Progress Progress: improved, pain not gone completely, re-examined Progress Note: 05/25/20 11:17 CAT scan of the abdomen and pelvis reveals no acute intra-abdominal abnormalities. Medical decision making: This patient has had intractable vomiting and intractable upper abdominal pain. Patient is dehydrated and has at least early DKA. We will bring him in the hospital give him IV hydration. We will monitor and control his blood sugar. I spoke with Dr. Luna, his primary care provider. He agrees with admitting this patient into the hospital. Discussed with : Tio Counseled pt/family regarding: lab results, diagnosis, rad results - Departure Departure Disposition: In-patient Admission Clinical Impression: DKA (diabetic ketoacidoses), Intractable vomiting, Intractable abdominal pain Condition: Stable Critical Care Time: Yes Critical Care Time(excluding separately billable procedures): Critical 30-74 mins Referrals: BOBBY LUNA [Primary Care Provider] -
[2020-05-25] MEDS ORDERED: Zofran 4 MG/2 ML VIAL IV ONE (10:06)
[2020-05-25] MEDS ORDERED: Sodium Chloride 0.9% 1000 ML 1,000 ML IV STA ×2 (10:06→11:12)
[2020-05-25] MEDS ORDERED: PROTONIX 40 MG IV IV ONE (10:06)
[2020-05-25] MEDS ORDERED: Hydromorphone 1 mg/ml Injection IV ONE (10:06)
[2020-05-25] MEDS ORDERED: Zofran 4 MG/2 ML VIAL ONE (10:10)
[2020-05-25] MEDS ORDERED: Hydromorphone 1 mg/ml Injection ONE (10:10)
[2020-05-25] MEDS ORDERED: Sodium Chloride 0.9% 1000 ML 1,000 ML ONE ×2 (10:11→11:43)
[2020-05-25 10:19] LABS: Absolute Neutrophil Ct (ANC) 13.23 (1.4-6.9); BASOPHIL % 0.2 % (0.0-0.4); Basophil (Absolute #) 0.03 (0-0.4); Eosinophil % 0.1 % (0.00-5.0); Eosinophil (Absolute #) 0.01 (0-0.5); Hematocrit 45.5 % (42-50); Hemoglobin 15.9 gm/dl (12.5-18.0); Lymphocyte (Absolute #) 1.77 (1.0-4.6); Lymphocytes % 11.3 % (24.0-44.0); Mean Cell Volume 83.5 fl (78-100); Mean Corpuscular Hemoglobin 29.2 pg (26-32); Mean Corpuscular Hgb Concent. 34.9 g/dl (32-36); Mean Platelet Volume 11.1 fl (7.5-11.0); Monocyte (Absolute #) 0.59 (0.0-1.3); Monocytes % 3.8 % (0.0-12.0); Neutrophil % 84.6 % (36.0-66.0); Platelet Count 266 K/mm3 (150-450); Red Blood Count 5.45 M/mm3 (4.1-5.6); Red Cell Distribution Width 13.4 % (11.5-14.0); White Blood Count 15.6 K/mm3 (4.0-10.5)
[2020-05-25 10:25] LABS: ALBUMIN 4.8 g/dL (3.5-5.0); ALKALINE PHOSPHATASE 156 U/L (38-126); AMYLASE 54 U/L (30-110); ANION GAP 19.4 MEQ/L (5-15); BLOOD UREA NITROGEN 9 mg/dL (9-20); CHLORIDE 96 mmol/L (98-107); Calcium 9.8 mg/dL (8.4-10.2); Carbon Dioxide 20 mmol/L (22-30); Creatinine 1 0.51 mg/dL (0.66-1.25); EST GLOMERULAR FILTRATION RATE > 60.0 ML/MIN; Glucose 372 mg/dL (74-106); LIPASE 98 U/L (23-300); SGOT/AST 19 U/L (17-59); SGPT/ALT 27 U/L (0-50); SODIUM 132 mmol/L (137-145); Total Protein 7.8 g/dL (6.3-8.2)
[2020-05-25 10:39] LABS: Appearance CLEAR (CLEAR); Bilirubin NEGATIVE (NEGATIVE); Blood NEGATIVE Ery/ul (0-5); Glucose >=500 mg/dL (NEGATIVE); Ketones MODERATE (NEGATIVE); Leukocyte Esterase NEGATIVE (NEGATIVE); Nitrite NEGATIVE (NEGATIVE); Protein,Urine Dip 30 (Negative); Specific Gravity 1.037 (1.005-1.025); Urobilinogen NEGATIVE mg/dL (0-1)
[2020-05-25 10:46] LABS: Bacteria FEW /HPF (NEGATIVE); Epithelial Cells FEW /HPF (FEW); RBC 0-2 /HPF (0-2); WBC 0-2 /HPF (0-5)
--- NOTE | 2020-05-25 10:57 | XRAY ---
Indication: Right upper quadrant/epigastric pain 3 months. Normal HIDA scan April 09, 2020. Multiple contiguous axial images obtained through the abdomen and pelvis without contrast as ordered. Comparison: March 28, 2020. Lung bases remain clear with again incidental right lower lobe calcified granuloma. Heart is not enlarged. Noncontrasted stomach and bowel loops remain nonobstructed. Normal appendix. No free fluid/air. Stable 21.6 cm fatty hepatomegaly, hepatic/splenic calcified granulomas, and small bilateral renal cysts. Remaining liver, gallbladder, pancreas, spleen, adrenal glands, kidneys, ureters, bladder, and aorta appear unremarkable for noncontrast exam. Osseous structures intact. Impression: 1. Stable fatty hepatomegaly, bilateral renal cysts, and old granulomatous disease. 2. Remaining CT abdomen/pelvis without contrast exam is negative.
[2020-05-25] MEDS ORDERED: HUMULIN R IV ONE (11:26)
[2020-05-25] MEDS ORDERED: HUMULIN R ONE (11:43)
[2020-05-25] MEDS ORDERED: TYLENOL 325 MG PO PRN (12:34)
[2020-05-25] MEDS ORDERED: Hydromorphone 1 mg/ml Injection IV PRN (12:34)
[2020-05-25] MEDS ORDERED: FLUZONE QUAD 2020-2021 SYRINGE IM ONE (12:46)
[2020-05-25] MEDS: Sodium Chloride 0.9% 1000 ML 1,000 ML IV SCH ×2 (13:33→20:21)
[2020-05-25] MEDS: HUMULIN R SQ PRN ×3 (14:13→20:22)
[2020-05-25] MEDS: Hydromorphone 1 mg/ml Injection IV PRN ×2 (15:51→20:42)
[2020-05-25] MEDS: Phenergan 25 MG INJ IV PRN ×2 (15:58→20:30)
[2020-05-25] MEDS ORDERED: ZOFRAN ODT 4 MG PO PRN (16:25)
[2020-05-25] MEDS: Pepcid 20 MG VIAL IV SCH (20:21)
[2020-05-26] MEDS: Phenergan 25 MG INJ IV PRN ×6 (01:35→23:09)
[2020-05-26] MEDS: Hydromorphone 1 mg/ml Injection IV PRN ×6 (01:35→23:05)
[2020-05-26] MEDS: Zofran 4 MG/2 ML VIAL IV PRN ×2 (04:09→19:47)
[2020-05-26] MEDS: HUMULIN R SQ PRN ×3 (04:09→21:01)
[2020-05-26 05:16] LABS: Absolute Neutrophil Ct (ANC) 12.78 (1.4-6.9); BASOPHIL % 0.1 % (0.0-0.4); Basophil (Absolute #) 0.02 (0-0.4); Eosinophil % 0.3 % (0.00-5.0); Eosinophil (Absolute #) 0.05 (0-0.5); Hematocrit 41.6 % (42-50); Hemoglobin 14.2 gm/dl (12.5-18.0); Lymphocyte (Absolute #) 2.38 (1.0-4.6); Lymphocytes % 14.7 % (24.0-44.0); Mean Corpuscular Hemoglobin 29.3 pg (26-32); Mean Corpuscular Hgb Concent. 34.1 g/dl (32-36); Mean Platelet Volume 10.8 fl (7.5-11.0); Monocyte (Absolute #) 0.94 (0.0-1.3); Monocytes % 5.8 % (0.0-12.0); Neutrophil % 79.1 % (36.0-66.0); Platelet Count 218 K/mm3 (150-450); Red Blood Count 4.84 M/mm3 (4.1-5.6); Red Cell Distribution Width 13.5 % (11.5-14.0); White Blood Count 16.2 K/mm3 (4.0-10.5)
[2020-05-26 05:30] LABS: ALBUMIN 3.8 g/dL (3.5-5.0); ALKALINE PHOSPHATASE 113 U/L (38-126); ANION GAP 11.9 MEQ/L (5-15); BLOOD UREA NITROGEN 7 mg/dL (9-20); CHLORIDE 100 mmol/L (98-107); Calcium 8.7 mg/dL (8.4-10.2); Carbon Dioxide 24 mmol/L (22-30); Creatinine 1 0.51 mg/dL (0.66-1.25); EST GLOMERULAR FILTRATION RATE > 60.0 ML/MIN; Glucose 271 mg/dL (74-106); Potassium 3.6 mmol/L (3.5-5.1); SGOT/AST 17 U/L (17-59); SGPT/ALT 20 U/L (0-50); SODIUM 132 mmol/L (137-145); Total Protein 6.2 g/dL (6.3-8.2)
[2020-05-26] MEDS: Sodium Chloride 0.9% 1000 ML 1,000 ML IV SCH ×3 (06:10→23:31)
[2020-05-26] MEDS: Pepcid 20 MG VIAL IV SCH ×2 (09:55→21:01)
[2020-05-26] MEDS ORDERED: Effexor XR 75 MG PO SCH (10:00)
[2020-05-26] MEDS ORDERED: FLUZONE QUAD 2020-2021 SYRINGE IM ONE (10:00)
[2020-05-26] MEDS ORDERED: NON-FORMULARY ITEM (Atorvastatin Calcium 10 MG) PO SCH (10:00)
[2020-05-26] MEDS ORDERED: Zestril 10 MG PO SCH (10:00)
--- NOTE | 2020-05-26 11:02 | HP ---
CHIEF COMPLAINT: Abdominal pain, nausea and vomiting. HISTORY OF PRESENT ILLNESS: The patient is a 40 year old white male patient who has been having problems with epigastric pain. He had upper scope done approximately two weeks ago at which time biopsies confirmed him to have Helicobacter pylori gastritis. The patient was started on amoxicillin and Biaxin as well as Protonix b.i.d. He reports initially over the first couple of days he felt great but then he began having problems afterwards. He reported the first day he took Biaxin without eating and had some abdominal crampy pains which is similar to what he is having now. The patient was seen in the emergency room and admitted to the hospital for control of the nausea and vomiting, IV rehydration and monitoring of his sugars. PAST MEDICAL/SURGICAL HISTORY: Significant for diabetes mellitus for which he is on insulin. MEDICATIONS: He takes insulin, atorvastatin 20 mg a day, vitamin D, Lisinopril 10 mg a day for hypertension, venlafaxine 75 mg daily for depression and anxiety. ALLERGIES: CODEINE. ACTOFED. BENADRYL. PROTONIX WHICH HE IS TAKING NOW. PHYSICAL EXAMINATION: The patient's vital signs on admission showed his temperature 98.5F, pulse 84, respiratory rate 22, blood pressure 153/109. O2 saturation 98%. HEENT: Normocephalic, atraumatic. Pupils equal round reactive to light. Extraocular movements intact. Oropharynx is pink and moist. NECK: Supple without lymphadenopathy, thyromegaly or JVD. CHEST: Clear to auscultation. HEART: Regular rate and rhythm. ABDOMEN: Tender diffusely. He is sitting up with emesis bag in hand. EXTREMITIES: Without cyanosis, clubbing or edema. NEUROLOGIC: The patient is alert and oriented x3, conversant and pleasant. LAB DATA AND TESTS: His urine shows glucose greater than 500 but was otherwise negative. His glucose was 372, BUN 9, creatinine 0.51, sodium 132, potassium normal. Liver enzymes were normal. Amylase and lipase were normal. White count was elevated at 15,600, hemoglobin 15.9, PLT count 266,000, granulocytes 84.6%. Lactic acid 1.5. CT scan abdomen and pelvis showed no acute findings. ASSESSMENT: A patient with nausea and vomiting concerning for reaction to Biaxin. He is also Helicobacter pylori positive as well and probable diabetic gastroparesis. The patient has been admitted for IV fluids, anti-emetics and pain management if needed. We will hold his Biaxin for the future and we will check his allergies to Protonix if indeed it is likely positive then we will put him on omeprazole which has been on as an outpatient and tolerated well.
[2020-05-26] MEDS ORDERED: Zocor 10MG PO SCH (22:00)
[2020-05-27] MEDS: Zofran 4 MG/2 ML VIAL IV PRN (03:54)
[2020-05-27] MEDS: Hydromorphone 1 mg/ml Injection IV PRN ×2 (03:54→08:38)
[2020-05-27 05:15] LABS: Absolute Neutrophil Ct (ANC) 5.26 (1.4-6.9); BASOPHIL % 0.2 % (0.0-0.4); Basophil (Absolute #) 0.02 (0-0.4); Eosinophil % 0.8 % (0.00-5.0); Eosinophil (Absolute #) 0.07 (0-0.5); Hematocrit 40.1 % (42-50); Hemoglobin 13.8 gm/dl (12.5-18.0); Lymphocytes % 30.5 % (24.0-44.0); Mean Cell Volume 85.3 fl (78-100); Mean Corpuscular Hemoglobin 29.4 pg (26-32); Mean Corpuscular Hgb Concent. 34.4 g/dl (32-36); Mean Platelet Volume 10.5 fl (7.5-11.0); Neutrophil % 59.5 % (36.0-66.0); Platelet Count 218 K/mm3 (150-450); White Blood Count 8.9 K/mm3 (4.0-10.5)
[2020-05-27] MEDS: Sodium Chloride 0.9% 1000 ML 1,000 ML IV SCH (05:39)
[2020-05-27 05:42] LABS: ALBUMIN 3.6 g/dL (3.5-5.0); ALKALINE PHOSPHATASE 107 U/L (38-126); ANION GAP 9.4 MEQ/L (5-15); BLOOD UREA NITROGEN 5 mg/dL (9-20); CHLORIDE 100 mmol/L (98-107); Calcium 8.9 mg/dL (8.4-10.2); Carbon Dioxide 27 mmol/L (22-30); EST GLOMERULAR FILTRATION RATE > 60.0 ML/MIN; Glucose 230 mg/dL (74-106); Potassium 3.4 mmol/L (3.5-5.1); SGOT/AST 13 U/L (17-59); SGPT/ALT 17 U/L (0-50); SODIUM 133 mmol/L (137-145)
[2020-05-27 07:35] VITALS: BP 137/85; PULSE 61; O2SAT 93
[2020-05-27] MEDS: Phenergan 25 MG INJ IV PRN (08:38)
--- NOTE | 2020-05-27 09:53 | DS ---
DISCHARGE DIAGNOSES: 1) NAUSEA, VOMITING, ABDOMINAL PAIN. 2) HELICOBACTER PYLORI GASTRITIS. 3) DIABETIC GASTROPARESIS. HOSPITAL COURSE: The patient is a 40 year old white male patient who presented to the emergency room with persistent nausea and vomiting. He was seen initially in the emergency room and admitted to the hospital for the above problems with intractable vomiting. He was given IV fluids, IV emetics with Zofran. He was given Dilaudid 1 mg for pain. This did not control the vomiting well enough so we changed therefore with Phenergan which did a better job for the patient over the next two days. The patient showed slow improvement. He last had a vomiting episode last evening. He is able to keep liquids down at this time. He is felt to be ready for discharge home. He was instructed to no longer take Biaxin as that was the thought for reason to have the problem although he was unable to complete his treatment for the Helicobacter pylori gastritis. The patient's sugar on the day of discharge was 230 fasting. BUN 5, creatinine 0.5. Electrolytes are somewhat low. Liver enzymes were normal. His CBC was normal. The patient had an A1C during his stay which was 12.10. The patient had previously had Tyler zaida but apparently his insurance would not refill it for him. He has been high on his sugars although he is taking insulin he has not been able to keep up with the sugars being elevated. The patient had CT scan abdomen and pelvis while he was here showed fatty hepatomegaly. Remainder of CT abdomen and pelvis was negative. DISCHARGE PLANS: The patient will discharge home with Dilaudid 2 mg tablet to take on every six hours PRN basis for pain and Phenergan 25 mg tablets also for nausea every four hours PRN. He will have a follow up appointment in the office next week. He is to return to the hospital if he has any further problems in the interim.
[2020-06-01] MEDS ORDERED: VITAMIN D2 PO SCH (10:00)
== END 2020-05-27 09:51 | disposition home or self-care (01) ==
LOC: ED 09:28 → MED SURG 12:22
PROVIDERS: ADMIT Family Medicine; ATTEND Family Medicine
DX: R10.9 Unspecified abdominal pain (principal); R11.2 Nausea with vomiting, unspecified; E86.0 Dehydration; K29.70 Gastritis, unspecified, without bleeding; E11.43 Type 2 diabetes mellitus with diabetic autonomic (poly)neuropathy; K31.84 Gastroparesis; Z79.899 Other long term (current) drug therapy
CPT/HCPCS: 36415; 74176; 80053; 81001; 82150; 82962; 83036; 83605; 83690; 85025; 96360; 96361; 96374; 96375; 99291; G0008; G0378; 90686; 99285; J1170; J1815; J2405; J2550; A9270-GY

== ENCOUNTER 2020-06-26 07:59 | Emergency (ER) | payer OTHER ==
[2020-06-26] MEDS ORDERED: Sodium Chloride 0.9% 1000 ML 1,000 ML IV STA ×3 (08:17→10:52)
[2020-06-26] MEDS ORDERED: Zofran 4 MG/2 ML VIAL IV ONE ×2 (08:17→10:16)
[2020-06-26] MEDS ORDERED: Zofran 4 MG/2 ML VIAL ONE ×2 (08:29→10:17)
[2020-06-26] MEDS ORDERED: Sodium Chloride 0.9% 1000 ML 1,000 ML ONE ×3 (08:29→10:54)
--- NOTE | 2020-06-26 08:49 | ERPHSYRPT ---
- History of Present Illness Time Seen by Provider: 06/26/20 08:10 Historian: patient Exam Limitations: no limitations Patient Subjective Stated Complaint: abd pain Triage Nursing Assessment: pt to ED c/o abd pain, NV chronically x 6 months that has gotten worse in last 2 days. reports mulitple episodes emesis but deneis diarrhea. also reports new contact with COVID + person who lives with him. deneis SOB or fevers. afebrile on arrival. pt rates 7/10 paihn and is thrashing in bed in pain. reports appt scheduled for Jul 07 with GI specialist for initial appt. Physician History: 40 yo wm w epigastric pain x 6 months. Pain is rated 7/10 on scale and is described as sharp. He has had N/V wo diarrhea/fever/melena/h ematochezia/dysuria/hematuria. Pt states that he has had EGD/Colonoscopy/US/HIDA scan but has had no surgeries on his abdomen. Timing/Duration: other (6 months) Activities at Onset: rest Quality: sharpness Abdominal Pain Onset Location: epigastric Pain Radiation: no radiation Severity of Pain-Max: severe Severity of Pain-Current: severe Modifying Factors: Improves With: nothing Associated Symptoms: loss of appetite, nausea, vomiting, No back, No chest pain, No diaphoresis, No diarrhea, No fever/chills, No fatigue, No headache, No heartburn, No neck pain, No rash, No shortness of breath, No syncope, No testicular pain, No weakness Previous symptoms: same symptoms as today Allergies/Adverse Reactions: codeine Allergy (Severe, Verified 06/26/20 08:11) Nausea and Vomiting "severe vomiting for hours" pseudoephedrine [From Actifed] Allergy (Severe, Verified 06/26/20 08:11) Fainting " almost . went out cold and really hard to wake me up" triprolidine [From Actifed] Allergy (Severe, Verified 06/26/20 08:11) Fainting "about " diphenhydramine [From Benadryl] Adverse Reaction (Severe, Verified 06/26/20 08:11) Fainting "knocked me out and couldn't get me awake hardly" pantoprazole [From Protonix] Adverse Reaction (Intermediate, Verified 06/26/20 08:11) Nausea and Vomiting Home Medications: Atorvastatin Calcium [Lipitor 20MG Tablet] 10 mg PO DAILY 01/06/20 [History] Insulin Glargine,Hum.rec.anlog [Basaglar Kwikpen U-100] 30 units SQ BID 01/06/20 [History] Insulin Lispro [Humalog] 20 unit SQ TID 01/06/20 [History] Lisinopril 10 mg [Zestril 10 MG] 10 mg PO DAILY 01/06/20 [History] Venlafaxine HCl ER 75 mg [Effexor XR 75 MG] 75 mg PO DAILY 01/06/20 [History] Ergocalciferol (Vitamin D2) [Vitamin D2] 50,000 unit PO Q7D 03/27/20 [History] Promethazine HCl 25 mg [Phenergan 25 mg] 25 mg PO BID 04/21/20 [History] Omeprazole 40 mg PO DAILY 05/25/20 [History] Hx Tetanus, Diphtheria Vaccination/Date Given: Yes Hx Influenza Vaccination/Date Given: Yes Hx Pneumococcal Vaccination/Date Given: No Immunizations Up to Date: Yes Travel Risk - International Travel Have you traveled outside of the country in past 3 weeks: No - Coronavirus Screening Are you exhibiting any of the following symptoms?: Yes Symptoms: Cough: New Onset, Vomiting/Diarrhea Close contact with a COVID-19 positive Pt in past 14-21 Days: Yes - Review of Systems Constitutional: No Symptoms Eyes: No Symptoms Ears, Nose, & Throat: No Symptoms Respiratory: No Symptoms Cardiac: No Symptoms Abdominal/Gastrointestinal: Abdominal Pain, Nausea, Vomiting, No Diarrhea, No Constipation, No Hematemesis, No Hematochezia, No Melena, No Dysphagia, No Appetite Changes Genitourinary Symptoms: No Symptoms Musculoskeletal: No Symptoms Skin: No Symptoms Neurological: No Symptoms Psychological: No Symptoms Endocrine: No Symptoms Hematologic/Lymphatic: No Symptoms Immunological/Allergic: No Symptoms - Past Medical History Pertinent Past Medical History: Yes Neurological History: No Pertinent History ENT History: No Pertinent History Cardiac History: Coronary Artery Disease, High Cholesterol, Hypertension Respiratory History: No Pertinent History Endocrine Medical History: Diabetes Type II Musculoskeletal History: No Pertinent History GI Medical History: Esophageal Disorder, Hemorrhoids, Pancreatitis, Ulcer History: Other Psycho-Social History: Depression Male Reproductive Disorders: No Pertinent History Other Medical History: 2015 Gastritis, kidney infection - Past Surgical History Past Surgical History: Yes Neuro Surgical History: No Pertinent History Cardiac: Cardiac Catheterization Respiratory: No Pertinent History Gastrointestinal: Hemorrhoidectomy, Rectal Surgery Genitourinary: No Pertinent History Musculoskeletal: No Pertinent History Male Surgical History: No Pertinent History Other Surgical History: 2019 Heart Cath (blockage x 2) - Social History Smoking Status: Current every day smoker How long have you smoked: years Exposure to second hand smoke: Yes Drug Use: none Patient Lives Alone: No Significant Family History: no pertinent family hx - Nursing Vital Signs Nursing Vital Signs: Initial Vital Signs Temperature 97.8 F 06/26/20 08:01 Pulse Rate 71 06/26/20 08:01 Respiratory Rate 20 06/26/20 08:01 Blood Pressure 156/117 06/26/20 08:01 O2 Sat by Pulse Oximetry 100 06/26/20 08:01 Pain Scale Pain Intensity 2 - Physical Exam General Appearance: no apparent distress Eye Exam: PERRL/EOMI, eyes nml inspection Ears, Nose, Throat Exam: normal ENT inspection, TMs normal, pharynx normal, marisabel st mucous membranes Neck Exam: normal inspection, non-tender, No meningismus, No mass, No Brudzinski, No Kernig's Respiratory Exam: normal breath sounds, lungs clear, airway intact, No chest tenderness, No respiratory distress Cardiovascular Exam: regular rate/rhythm, normal heart sounds, normal peripheral pulses, No murmur Gastrointestinal/Abdomen Exam: soft, normal bowel sounds, tenderness (Subxyphoid TTP w guarding) Extremity Exam: normal inspection, normal range of motion Neurologic Exam: alert, oriented x 3, cooperative, guard sergeant II-XII nml as tested, normal mood/affect, sensation nml, No motor deficits, No sensory deficit Skin Exam: normal color, warm, dry, No rash Lymphatic Exam: No adenopathy SpO2 Interpretation: normal SpO2: 100 O2 Delivery: Room Air - Course Nursing assessment & vital signs reviewed: Yes - CT Exams Abdomen/Pelvis CT Interpretation: Discussed w/radiologist (HERNANDEZ/Small hiatal hernia) Ordered Tests: Active Orders 24 hr Category Date Time Status ABDOMEN AND PELVIS W CONTRAST [CT] Stat Exams 06/26/20 09:09 Completed AMYLASE Stat Lab 06/26/20 08:05 Completed BMP Stat Lab 06/26/20 11:40 Completed CBC W DIFF Stat Lab 06/26/20 08:05 Completed CMP Stat Lab 06/26/20 08:05 Completed LIPASE Stat Lab 06/26/20 08:05 Completed POCT GLUCOSE Stat Lab 06/26/20 10:30 Completed TROPONIN Q3H Lab 06/26/20 08:45 Completed UA W/RFX UR CULTURE Stat Lab 06/26/20 10:07 Completed Urine Triage Profile Stat Lab 06/26/20 10:07 Completed Medication Summary Discontinued Medications Generic Name Dose Route Start Last Admin Trade Name Juan José PRN Reason Stop Dose Admin Sodium Chloride 1,000 mls @ 999 mls/hr 06/26/20 08:17 06/26/20 10:39 Sodium Chloride 0.9% 1000 Ml IV 06/26/20 09:17 Infused .Q1H1M STA Infusion Sodium Chloride Confirm 06/26/20 08:29 Sodium Chloride 0.9% 1000 Ml Administered 06/26/20 08:30 Dose 1,000 mls @ ud .ROUTE .STK-MED ONE Sodium Chloride 1,000 mls @ 999 mls/hr 06/26/20 09:08 06/26/20 10:53 Sodium Chloride 0.9% 1000 Ml IV 06/26/20 10:08 Infused .Q1H1M STA Infusion Sodium Chloride Confirm 06/26/20 09:42 Sodium Chloride 0.9% 1000 Ml Administered 06/26/20 09:43 Dose 1,000 mls @ ud .ROUTE .STK-MED ONE Sodium Chloride 1,000 mls @ 999 mls/hr 06/26/20 10:52 06/26/20 10:56 Sodium Chloride 0.9% 1000 Ml IV 06/26/20 11:52 999 mls/hr .Q1H1M STA Administration Sodium Chloride Confirm 06/26/20 10:54 Sodium Chloride 0.9% 1000 Ml Administered 06/26/20 10:55 Dose 1,000 mls @ ud .ROUTE .STK-MED ONE Insulin Human Regular 10 unit 06/26/20 09:08 06/26/20 10:10 Humulin R SQ 06/26/20 09:09 10 unit STAT ONE Administration Insulin Human Regular Confirm 06/26/20 09:42 Humulin R Administered 06/26/20 09:43 Dose 10 unit .ROUTE .STK-MED ONE Ketorolac Tromethamine 15 mg 06/26/20 09:10 06/26/20 09:40 Toradol 30 Mg Injection IV 06/26/20 09:11 15 mg STAT ONE Administration Ketorolac Tromethamine Confirm 06/26/20 09:37 Toradol 30 Mg Injection Administered 06/26/20 09:38 Dose 30 mg .ROUTE .STK-MED ONE Ondansetron HCl 4 mg 06/26/20 08:17 06/26/20 08:31 Zofran 4 Mg/2 Ml Vial IV 06/26/20 08:18 4 mg STAT ONE Administration Ondansetron HCl Confirm 06/26/20 08:29 Zofran 4 Mg/2 Ml Vial Administered 06/26/20 08:30 Dose 4 mg .ROUTE .STK-MED ONE Ondansetron HCl 4 mg 06/26/20 10:16 06/26/20 10:18 Zofran 4 Mg/2 Ml Vial IV 06/26/20 10:17 4 mg STAT ONE Administration Ondansetron HCl Confirm 06/26/20 10:17 Zofran 4 Mg/2 Ml Vial Administered 06/26/20 10:18 Dose 4 mg .ROUTE .STK-MED ONE Promethazine HCl 25 mg 06/26/20 11:58 06/26/20 12:02 Phenergan 25 Mg Inj IM 06/26/20 11:59 25 mg STAT ONE Administration Promethazine HCl Confirm 06/26/20 11:59 Phenergan 25 Mg Inj Administered 06/26/20 12:00 Dose 25 mg .ROUTE .STK-MED ONE Lab/Rad Data: Laboratory Result Diagrams 06/26/20 08:05 06/26/20 11:40 Laboratory Results 06/26/20 06/26/20 06/26/20 Range/Units 11:40 10:30 10:07 WBC (4.0-10.5) K/mm3 RBC (4.1-5.6) M/mm3 Hgb (12.5-18.0) gm/dl Hct (42-50) % MCV (78-100) fl MCH (26-32) pg MCHC (32-36) g/dl RDW (11.5-14.0) % Plt Count (150-450) K/mm3 MPV (7.5-11.0) fl Gran % (36.0-66.0) % Eos # (Auto) (0-0.5) Absolute Lymphs (auto) (1.0-4.6) Absolute Monos (auto) (0.0-1.3) Lymphocytes % (24.0-44.0) % Monocytes % (0.0-12.0) % Eosinophils % (0.00-5.0) % Basophils % (0.0-0.4) % Absolute Granulocytes (1.4-6.9) Basophils # (0-0.4) Sodium 134 L (137-145) mmol/L Potassium 3.9 (3.5-5.1) mmol/L Chloride 105 (98-107) mmol/L Carbon Dioxide 20 L (22-30) mmol/L Anion Gap 12.2 (5-15) MEQ/L BUN 6 L (9-20) mg/dL Creatinine 0.37 L (0.66-1.25) mg/dL Estimated GFR > 60.0 ML/MIN Glucose 253 H (74-106) mg/dL POC Glucometer 272 H (74 to 106) mg/dL Calcium 8.2 L D (8.4-10.2) mg/dL Total Bilirubin (0.2-1.3) mg/dL AST (17-59) U/L ALT (0-50) U/L Alkaline Phosphatase (38-126) U/L Troponin I (0.000-0.034) ng/mL Serum Total Protein (6.3-8.2) g/dL Albumin (3.5-5.0) g/dL Amylase (30-110) U/L Lipase (23-300) U/L Urine Color (YELLOW) Urine Appearance (CLEAR) Urine pH (5-6) Ur Specific [place] [facility] (1.005-1.025) Urine Protein (Negative) Urine Ketones (NEGATIVE) Urine Blood (0-5) [place]/ul Urine Nitrite (NEGATIVE) Urine Bilirubin (NEGATIVE) Urine Urobilinogen (0-1) mg/dL Ur Leukocyte Esterase (NEGATIVE) Urine WBC (Auto) (0-5) /HPF Urine RBC (Auto) (0-2) /HPF U Epithel Cells (Auto) (FEW) /HPF Urine Bacteria (Auto) (NEGATIVE) /HPF Urine Mucus (Auto) (NEGATIVE) /HPF Urine Culture Reflexed (NO) Urine Glucose (NEGATIVE) mg/dL Urine Opiates Level NEGATIVE (NEGATIVE) Ur Methadone NEGATIVE (NEGATIVE) Urine Barbiturates NEGATIVE (NEGATIVE) Ur Phencyclidine (PCP) NEGATIVE (NEGATIVE) Urine Amphetamine NEGATIVE (NEGATIVE) U Benzodiazepine Level NEGATIVE (NEGATIVE) Urine Cocaine NEGATIVE (NEGATIVE) Urine Marijuana (THC) NEGATIVE (NEGATIVE) 06/26/20 06/26/20 06/26/20 Range/Units 10:07 08:45 08:05 WBC (4.0-10.5) K/mm3 RBC (4.1-5.6) M/mm3 Hgb (12.5-18.0) gm/dl Hct (42-50) % MCV (78-100) fl MCH (26-32) pg MCHC (32-36) g/dl RDW (11.5-14.0) % Plt Count (150-450) K/mm3 MPV (7.5-11.0) fl Gran % (36.0-66.0) % Eos # (Auto) (0-0.5) Absolute Lymphs (auto) (1.0-4.6) Absolute Monos (auto) (0.0-1.3) Lymphocytes % (24.0-44.0) % Monocytes % (0.0-12.0) % Eosinophils % (0.00-5.0) % Basophils % (0.0-0.4) % Absolute Granulocytes (1.4-6.9) Basophils # (0-0.4) Sodium 134 L (137-145) mmol/L Potassium 4.0 (3.5-5.1) mmol/L Chloride 98 (98-107) mmol/L Carbon Dioxide 23 (22-30) mmol/L Anion Gap 16.3 H (5-15) MEQ/L BUN 7 L (9-20) mg/dL Creatinine 0.48 L (0.66-1.25) mg/dL Estimated GFR > 60.0 ML/MIN Glucose 401 H (74-106) mg/dL POC Glucometer (74 to 106) mg/dL Calcium 9.9 (8.4-10.2) mg/dL Total Bilirubin 0.80 (0.2-1.3) mg/dL AST 22 (17-59) U/L ALT 37 (0-50) U/L Alkaline Phosphatase 172 H (38-126) U/L Troponin I < 0.012 (0.000-0.034) ng/mL Serum Total Protein 7.7 (6.3-8.2) g/dL Albumin 4.7 (3.5-5.0) g/dL Amylase 54 (30-110) U/L Lipase 126 (23-300) U/L Urine Color STRAW (YELLOW) Urine Appearance CLEAR (CLEAR) Urine pH 6.0 (5-6) Ur Specific [facility] 1.044 (1.005-1.025) Urine Protein NEGATIVE (Negative) Urine Ketones MODERATE (NEGATIVE) Urine Blood NEGATIVE (0-5) [place]/ul Urine Nitrite NEGATIVE (NEGATIVE) Urine Bilirubin NEGATIVE (NEGATIVE) Urine Urobilinogen NEGATIVE (0-1) mg/dL Ur Leukocyte Esterase NEGATIVE (NEGATIVE) Urine WBC (Auto) 0-2 (0-5) /HPF Urine RBC (Auto) NONE (0-2) /HPF U Epithel Cells (Auto) NONE (FEW) /HPF Urine Bacteria (Auto) NONE SEEN (NEGATIVE) /HPF Urine Mucus (Auto) SLIGHT (NEGATIVE) /HPF Urine Culture Reflexed NO (NO) Urine Glucose >=500 (NEGATIVE) mg/dL Urine Opiates Level (NEGATIVE) Ur Methadone (NEGATIVE) Urine Barbiturates (NEGATIVE) Ur Phencyclidine (PCP) (NEGATIVE) Urine Amphetamine (NEGATIVE) U Benzodiazepine Level (NEGATIVE) Urine Cocaine (NEGATIVE) Urine Marijuana (THC) (NEGATIVE) 06/26/20 Range/Units 08:05 WBC 11.3 H (4.0-10.5) K/mm3 RBC 5.84 H (4.1-5.6) M/mm3 Hgb 17.0 (12.5-18.0) gm/dl Hct 48.6 (42-50) % MCV 83.2 (78-100) fl MCH 29.1 (26-32) pg MCHC 35.0 (32-36) g/dl RDW 13.0 (11.5-14.0) % Plt Count 262 (150-450) K/mm3 MPV 11.5 H (7.5-11.0) fl Gran % 80.8 H (36.0-66.0) % Eos # (Auto) 0.05 (0-0.5) Absolute Lymphs (auto) 1.57 (1.0-4.6) Absolute Monos (auto) 0.52 (0.0-1.3) Lymphocytes % 14.0 L (24.0-44.0) % Monocytes % 4.6 (0.0-12.0) % Eosinophils % 0.4 (0.00-5.0) % Basophils % 0.2 (0.0-0.4) % Absolute Granulocytes 9.09 H (1.4-6.9) Basophils # 0.02 (0-0.4) Sodium (137-145) mmol/L Potassium (3.5-5.1) mmol/L Chloride (98-107) mmol/L Carbon Dioxide (22-30) mmol/L Anion Gap (5-15) MEQ/L BUN (9-20) mg/dL Creatinine (0.66-1.25) mg/dL Estimated GFR ML/MIN Glucose (74-106) mg/dL POC Glucometer (74 to 106) mg/dL Calcium (8.4-10.2) mg/dL Total Bilirubin (0.2-1.3) mg/dL AST (17-59) U/L ALT (0-50) U/L Alkaline Phosphatase (38-126) U/L Troponin I (0.000-0.034) ng/mL Serum Total Protein (6.3-8.2) g/dL Albumin (3.5-5.0) g/dL Amylase (30-110) U/L Lipase (23-300) U/L Urine Color (YELLOW) Urine Appearance (CLEAR) Urine pH (5-6) Ur Specific [facility] (1.005-1.025) Urine Protein (Negative) Urine Ketones (NEGATIVE) Urine Blood (0-5) [place]/ul Urine Nitrite (NEGATIVE) Urine Bilirubin (NEGATIVE) Urine Urobilinogen (0-1) mg/dL Ur Leukocyte Esterase (NEGATIVE) Urine WBC (Auto) (0-5) /HPF Urine RBC (Auto) (0-2) /HPF U Epithel Cells (Auto) (FEW) /HPF Urine Bacteria (Auto) (NEGATIVE) /HPF Urine Mucus (Auto) (NEGATIVE) /HPF Urine Culture Reflexed (NO) Urine Glucose (NEGATIVE) mg/dL Urine Opiates Level (NEGATIVE) Ur Methadone (NEGATIVE) Urine Barbiturates (NEGATIVE) Ur Phencyclidine (PCP) (NEGATIVE) Urine Amphetamine (NEGATIVE) U Benzodiazepine Level (NEGATIVE) Urine Cocaine (NEGATIVE) Urine Marijuana (THC) (NEGATIVE) - Progress Progress: unchanged Progress Note: 06/26/20 09:41 1L NS bolus/4mg Zofran IV w improvement in nausea. Pain persists, so 15mg Toradol ordered. Glucose >400, so second liter NS ordered, along w 10units SQ Regular insulin 06/26/20 10:17 Pt states pain improved after Toradol, but nausea returning. 06/26/20 10:33 Reviewed US/HIDA scan-HERNANDEZ/EF82% 06/26/20 12:20 Pt given 3L NS bolus w improvement in anion gap/Decrease in glucose/Phenergan given for nausea before DC 06/26/20 12:26 - Departure Departure Disposition: Home Clinical Impression: Chronic abdominal pain, Nausea & vomiting Condition: Stable Critical Care Time: No Referrals: BOBBY NEWTON [Primary Care Provider] - Instructions: Acute Abdomen (Belly Pain), Adult (DC), Nausea and Vomiting, Adult (DC) Additional Instructions: Fluids Zofran for nausea/vomiting Bentyl for pain Follow up with your family MD in 1-2 days Return to ER for increasing pain or temperature greater than 100.5 Prescriptions: Dicyclomine HCl 20 mg [Bentyl 20 mg] 20 mg PO Q6HPRN PRN #15 tablet PRN Reason: Nausea/Vomiting Ondansetron ODT 4 MG [Zofran Odt 4 mg] 4 mg PO Q6H PRN PRN #10 tab.rapdis PRN Reason: Nausea/Vomiting
[2020-06-26 08:51] LABS: ALBUMIN 4.7 g/dL (3.5-5.0); ALKALINE PHOSPHATASE 172 U/L (38-126); AMYLASE 54 U/L (30-110); ANION GAP 16.3 MEQ/L (5-15); BLOOD UREA NITROGEN 7 mg/dL (9-20); CHLORIDE 98 mmol/L (98-107); Calcium 9.9 mg/dL (8.4-10.2); Carbon Dioxide 23 mmol/L (22-30); Creatinine 1 0.48 mg/dL (0.66-1.25); EST GLOMERULAR FILTRATION RATE > 60.0 ML/MIN; Glucose 401 mg/dL (74-106); LIPASE 126 U/L (23-300); SGOT/AST 22 U/L (17-59); SGPT/ALT 37 U/L (0-50); SODIUM 134 mmol/L (137-145); Total Protein 7.7 g/dL (6.3-8.2)
[2020-06-26 09:01] LABS: Absolute Neutrophil Ct (ANC) 9.09 (1.4-6.9); BASOPHIL % 0.2 % (0.0-0.4); Basophil (Absolute #) 0.02 (0-0.4); Eosinophil % 0.4 % (0.00-5.0); Eosinophil (Absolute #) 0.05 (0-0.5); Hematocrit 48.6 % (42-50); Lymphocyte (Absolute #) 1.57 (1.0-4.6); Mean Cell Volume 83.2 fl (78-100); Mean Corpuscular Hemoglobin 29.1 pg (26-32); Mean Platelet Volume 11.5 fl (7.5-11.0); Monocyte (Absolute #) 0.52 (0.0-1.3); Monocytes % 4.6 % (0.0-12.0); Neutrophil % 80.8 % (36.0-66.0); Platelet Count 262 K/mm3 (150-450); Red Blood Count 5.84 M/mm3 (4.1-5.6); White Blood Count 11.3 K/mm3 (4.0-10.5)
[2020-06-26] MEDS ORDERED: HUMULIN R SQ ONE (09:08)
[2020-06-26] MEDS ORDERED: TORAdol 30 mg Injection IV ONE (09:10)
[2020-06-26] MEDS ORDERED: TORAdol 30 mg Injection ONE (09:37)
[2020-06-26] MEDS ORDERED: HUMULIN R ONE (09:42)
--- NOTE | 2020-06-26 10:27 | XRAY ---
Indication: Abdomen pain 6 months. Nausea and vomiting. Suspect Covid 19. Multiple contiguous axial images obtained through the abdomen and pelvis using 80 cc Isovue 370 contrast. Comparison: May 25, 2020. Lung bases remain clear with again incidental right lower lobe calcified granuloma. Heart is not enlarged. New small hiatal hernia. Noncontrasted stomach and bowel loops remain nonobstructed again with normal appendix. No free fluid/air. Stable 21.6 cm fatty hepatomegaly, hepatic/splenic calcified granulomas, and small bilateral renal cysts. Remaining liver, gallbladder, pancreas, spleen, adrenal glands, kidneys, ureters, and bladder appear unremarkable. No pathologic retroperitoneal lymphadenopathy. Osseous structures intact. Impression: 1. New small hiatal hernia. 2. Stable fatty hepatomegaly, bilateral renal cysts, and old granulomas disease.
[2020-06-26 10:32] LABS: Appearance CLEAR (CLEAR); Bilirubin NEGATIVE (NEGATIVE); Blood NEGATIVE Ery/ul (0-5); Glucose >=500 mg/dL (NEGATIVE); Ketones MODERATE (NEGATIVE); Leukocyte Esterase NEGATIVE (NEGATIVE); Mucus SLIGHT /HPF (NEGATIVE); Nitrite NEGATIVE (NEGATIVE); Protein,Urine Dip NEGATIVE (Negative); Specific Gravity 1.044 (1.005-1.025); Urobilinogen NEGATIVE mg/dL (0-1); WBC 0-2 /HPF (0-5)
[2020-06-26 10:38] LABS: Bacteria NONE SEEN /HPF (NEGATIVE)
[2020-06-26 10:47] LABS: Amphetamine,Urine NEGATIVE (NEGATIVE); Barbiturate,Urine NEGATIVE (NEGATIVE); Benzodiazepine,Urine NEGATIVE (NEGATIVE); Cocaine,Urine NEGATIVE (NEGATIVE); Methadone,Urine NEGATIVE (NEGATIVE); Opiate,Urine NEGATIVE (NEGATIVE); PCP,Urine NEGATIVE (NEGATIVE); THC,Urine NEGATIVE (NEGATIVE)
[2020-06-26] MEDS ORDERED: Phenergan 25 MG INJ IM ONE (11:58)
[2020-06-26] MEDS ORDERED: Phenergan 25 MG INJ ONE (11:59)
[2020-06-26 12:00] LABS: ANION GAP 12.2 MEQ/L (5-15); BLOOD UREA NITROGEN 6 mg/dL (9-20); CHLORIDE 105 mmol/L (98-107); Calcium 8.2 mg/dL (8.4-10.2); Carbon Dioxide 20 mmol/L (22-30); Creatinine 1 0.37 mg/dL (0.66-1.25); EST GLOMERULAR FILTRATION RATE > 60.0 ML/MIN; Glucose 253 mg/dL (74-106); Potassium 3.9 mmol/L (3.5-5.1); SODIUM 134 mmol/L (137-145)
[2020-06-26 13:16] VITALS: BP 154/84; PULSE 96
[2020-06-26 19:04] VITALS: O2SAT 100
== END 2020-06-26 13:15 | disposition home or self-care (01) ==
LOC: ED 07:59
DX: R10.13 Epigastric pain (principal); R11.2 Nausea with vomiting, unspecified; R63.0 Anorexia; E11.9 Type 2 diabetes mellitus without complications; R19.7 Diarrhea, unspecified; I10 Essential (primary) hypertension; I25.10 Atherosclerotic heart disease of native coronary artery without angina pectoris; E78.00 Pure hypercholesterolemia, unspecified; Z79.899 Other long term (current) drug therapy; Z79.4 Long term (current) use of insulin; Z20.828 Contact with and (suspected) exposure to other viral communicable diseases
CPT/HCPCS: 36000; 36415; 74177; 80048; 80053; 80307; 81001; 82150; 82947; 83690; 84484; 85025; 96360; 96361; 96372; 96374; 96375; 96376; 99285; J1815; J1885; J2405; J2550

== ENCOUNTER 2020-07-20 09:15 | Emergency (ER) | payer OTHER ==
--- NOTE | 2020-07-20 09:25 | ERPHSYRPT ---
- History of Present Illness Time Seen by Provider: 07/20/20 09:24 Historian: patient Exam Limitations: no limitations Physician History: This is a 40-year-old diabetic white male patient of Dr. Luna and Dr. 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 Patient woke up roughly 4-5 o'clock this morning with pain in his left chest. He describes as sharp and radiating into his back. His chest pain has improved but not completely gone. He has no coronary artery disease history. There is some cardiac valve in the past. He has associated nausea. He has had upper stomach issues for the last several months. Patient states that he did not eat anything last night but did drink some water which gave him nausea. He did taste blood last night. However he did not have hematemesis or hemoptysis. He has not noticed any blood in his bowel movements or urine. Timing/Duration: today Activities at Onset: none Quality: sharpness, stabbing Location: other (Left anterior chest) Chest Pain Radiation: back Severity of Pain-Max: moderate Severity of Pain-Current: mild Modifying Factors: Improves With: nothing Associated Symptoms: nausea Nitro Today/Relief: no nitro taken today Aspirin Treatment Today: no aspirin today Allergies/Adverse Reactions: codeine Allergy (Severe, Verified 07/20/20 09:31) Nausea and Vomiting "severe vomiting for hours" pseudoephedrine [From Actifed] Allergy (Severe, Verified 07/20/20 09:31) Fainting " almost . went out cold and really hard to wake me up" triprolidine [From Actifed] Allergy (Severe, Verified 07/20/20 09:31) Fainting "about " diphenhydramine [From Benadryl] Adverse Reaction (Severe, Verified 07/20/20 09:31) Fainting "knocked me out and couldn't get me awake hardly" pantoprazole [From Protonix] Adverse Reaction (Intermediate, Verified 07/20/20 09:31) Nausea and Vomiting Home Medications: Atorvastatin Calcium [Lipitor 20MG Tablet] 10 mg PO DAILY 01/06/20 [History] Insulin Glargine,Hum.rec.anlog [Basaglar Kwikpen U-100] 30 units SQ BID 01/06/20 [History] Insulin Lispro [Humalog] 20 unit SQ TID 01/06/20 [History] Lisinopril 10 mg [Zestril 10 MG] 10 mg PO DAILY 01/06/20 [History] Venlafaxine HCl ER 75 mg [Effexor XR 75 MG] 75 mg PO DAILY 01/06/20 [History] Ergocalciferol (Vitamin D2) [Vitamin D2] 50,000 unit PO Q7D 03/27/20 [History] Hx Tetanus, Diphtheria Vaccination/Date Given: Yes Hx Influenza Vaccination/Date Given: Yes Hx Pneumococcal Vaccination/Date Given: No Travel Risk - International Travel Have you traveled outside of the country in past 3 weeks: No - Coronavirus Screening Are you exhibiting any of the following symptoms?: No Close contact with a COVID-19 positive Pt in past 14-21 Days: No - Review of Systems Constitutional: No Symptoms Eyes: No Symptoms Ears, Nose, & Throat: No Symptoms Respiratory: No Symptoms Cardiac: Chest Pain Abdominal/Gastrointestinal: Abdominal Pain (Epigastric), Nausea Genitourinary Symptoms: No Symptoms Musculoskeletal: No Symptoms Skin: No Symptoms Neurological: No Symptoms Psychological: No Symptoms Endocrine: No Symptoms Hematologic/Lymphatic: No Symptoms Immunological/Allergic: No Symptoms All Other Systems: Reviewed and Negative - Past Medical History Pertinent Past Medical History: Yes Neurological History: No Pertinent History ENT History: No Pertinent History Cardiac History: Coronary Artery Disease, High Cholesterol, Hypertension Respiratory History: No Pertinent History Endocrine Medical History: Diabetes Type II Musculoskeletal History: No Pertinent History GI Medical History: Esophageal Disorder, Hemorrhoids, Pancreatitis, Ulcer History: Other Psycho-Social History: Depression Male Reproductive Disorders: No Pertinent History Other Medical History: 2015 Gastritis, kidney infection - Past Surgical History Past Surgical History: Yes Neuro Surgical History: No Pertinent History Cardiac: Cardiac Catheterization Respiratory: No Pertinent History Gastrointestinal: Hemorrhoidectomy, Rectal Surgery Genitourinary: No Pertinent History Musculoskeletal: No Pertinent History Male Surgical History: No Pertinent History Other Surgical History: 2020 Heart Cath (blockage x 2) - Social History Smoking Status: Current every day smoker How long have you smoked: years Exposure to second hand smoke: Yes Drug Use: none Patient Lives Alone: No Significant Family History: no pertinent family hx - Nursing Vital Signs Nursing Vital Signs: Initial Vital Signs Temperature 98.4 F 07/20/20 09:19 Pulse Rate 92 H 07/20/20 09:19 Respiratory Rate 20 11/30/20 09:19 Blood Pressure 164/102 07/20/20 09:19 O2 Sat by Pulse Oximetry 99 07/20/20 09:19 Pain Scale Pain Intensity 4 - Physical Exam General Appearance: no apparent distress, alert, anxiety Eye Exam: PERRL/EOMI, eyes nml inspection Ears, Nose, Throat Exam: normal ENT inspection, moist mucous membranes Neck Exam: normal inspection, non-tender, supple, full range of motion Respiratory Exam: normal breath sounds, chest tenderness, lungs clear, airway intact, No respiratory distress Cardiovascular Exam: regular rate/rhythm, normal heart sounds, normal peripheral pulses Gastrointestinal/Abdomen Exam: soft, normal bowel sounds, tenderness (Epigastric), guarding (Mild), No rebound Rectal Exam: not done Back Exam: normal inspection, normal range of motion, CVA tenderness Extremity Exam: normal inspection, normal range of motion, pelvis stable Neurologic Exam: alert, oriented x 3, 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 There are no changes from a comparison EKG dated 03/27/2020) Ordered Tests: Active Orders 24 hr Category Date Time Status EKG-ER Only STAT Care 07/20/20 09:53 Active IV Insertion STAT Care 07/20/20 09:53 Active ABDOMEN AND PELVIS W/0 CONTRAS [CT] Stat Exams 07/20/20 09:54 Completed CHEST 1 VIEW (PORTABLE) Stat Exams 07/20/20 09:54 Completed AMYLASE Stat Lab 07/20/20 10:21 Completed CBC W DIFF Stat Lab 07/20/20 10:21 Completed CMP Stat Lab 07/20/20 10:21 Completed CULTURE,URINE Stat Lab 07/20/20 11:23 Received D-DIMER QUANTITATIVE Stat Lab 07/20/20 10:21 Completed LIPASE Stat Lab 07/20/20 10:21 Completed Lactic Acid Stat Lab 07/20/20 09:57 Completed TROPONIN Q3H Lab 07/20/20 10:21 Completed TROPONIN Q3H Lab 07/20/20 13:00 Ordered TROPONIN Q3H Lab 07/20/20 16:00 Ordered TROPONIN Q3H Lab 07/20/20 19:00 Ordered TROPONIN Q3H Lab 07/20/20 22:00 Ordered UA W/RFX UR CULTURE Stat Lab 07/20/20 11:23 Completed Medication Summary Discontinued Medications Generic Name Dose Route Start Last Admin Trade Name Freq PRN Reason Stop Dose Admin Famotidine 20 mg 07/20/20 09:53 07/20/20 10:01 Pepcid 20 Mg Vial IV 07/20/20 09:54 20 mg STAT ONE Administration Famotidine Confirm 07/20/20 09:58 Pepcid 20 Mg Vial Administered 07/20/20 09:59 Dose 20 mg IV .STK-MED ONE Sodium Chloride 1,000 mls @ 999 mls/hr 07/20/20 09:53 07/20/20 11:14 Sodium Chloride 0.9% 1000 Ml IV 07/20/20 10:53 Infused .Q1H1M STA Infusion Sodium Chloride Confirm 07/20/20 09:59 Sodium Chloride 0.9% 1000 Ml Administered 07/20/20 10:00 Dose 1,000 mls @ ud .ROUTE .STK-MED ONE Morphine Sulfate 4 mg 07/20/20 09:53 07/20/20 10:01 Morphine Sulfate 4 Mg Inj IV 07/20/20 09:54 4 mg STAT ONE Administration Morphine Sulfate Confirm 07/20/20 09:59 Morphine Sulfate 4 Mg Inj Administered 07/20/20 10:00 Dose 4 mg .ROUTE .STK-MED ONE Ondansetron HCl 4 mg 07/20/20 09:53 07/20/20 10:00 Zofran 4 Mg/2 Ml Vial IV 07/20/20 09:54 4 mg STAT ONE Administration Ondansetron HCl Confirm 07/20/20 09:58 Zofran 4 Mg/2 Ml Vial Administered 07/20/20 09:59 Dose 4 mg .ROUTE .STK-MED ONE Lab/Rad Data: Laboratory Result Diagrams 07/20/20 10:21 07/20/20 10:21 Laboratory Results 11/30/20 11/30/20 11/30/20 Range/Units 11:23 10:21 10:21 WBC (4.0-10.5) K/mm3 RBC (4.1-5.6) M/mm3 Hgb (12.5-18.0) gm/dl Hct (42-50) % MCV (78-100) fl MCH (26-32) pg MCHC (32-36) g/dl RDW (11.5-14.0) % Plt Count (150-450) K/mm3 MPV (7.5-11.0) fl Gran % (36.0-66.0) % Eos # (Auto) (0-0.5) Absolute Lymphs (auto) (1.0-4.6) Absolute Monos (auto) (0.0-1.3) Lymphocytes % (24.0-44.0) % Monocytes % (0.0-12.0) % Eosinophils % (0.00-5.0) % Basophils % (0.0-0.4) % Absolute Granulocytes (1.4-6.9) Basophils # (0-0.4) D-Dimer < 215 L (215-500) ng/mL Sodium (137-145) mmol/L Potassium (3.5-5.1) mmol/L Chloride (98-107) mmol/L Carbon Dioxide (22-30) mmol/L Anion Gap (5-15) MEQ/L BUN (9-20) mg/dL Creatinine (0.66-1.25) mg/dL Estimated GFR ML/MIN Glucose (74-106) mg/dL Lactic Acid (0.4-2.0) Calcium (8.4-10.2) mg/dL Total Bilirubin (0.2-1.3) mg/dL AST (17-59) U/L ALT (0-50) U/L Alkaline Phosphatase (38-126) U/L Troponin I < 0.012 (0.000-0.034) ng/mL Serum Total Protein (6.3-8.2) g/dL Albumin (3.5-5.0) g/dL Amylase (30-110) U/L Lipase (23-300) U/L Urine Color YELLOW (YELLOW) Urine Appearance SLIGHTLY CLOUDY (CLEAR) Urine pH 8.0 (5-6) Ur Specific [place] 1.035 (1.005-1.025) Urine Protein NEGATIVE (Negative) Urine Ketones SMALL (NEGATIVE) Urine Blood MODERATE (0-5) [place]/ul Urine Nitrite NEGATIVE (NEGATIVE) Urine Bilirubin NEGATIVE (NEGATIVE) Urine Urobilinogen NEGATIVE (0-1) mg/dL Ur Leukocyte Esterase NEGATIVE (NEGATIVE) Urine WBC (Auto) 6-10 (0-5) /HPF Urine RBC (Auto) 51-100 (0-2) /HPF U Epithel Cells (Auto) NONE (FEW) /HPF Urine Bacteria (Auto) FEW (NEGATIVE) /HPF Urine Mucus (Auto) SLIGHT (NEGATIVE) /HPF Urine Culture Reflexed YES (NO) Urine Glucose >=500 (NEGATIVE) mg/dL 07/20/20 07/20/20 07/20/20 Range/Units 10:21 10:21 09:57 WBC 10.0 (4.0-10.5) K/mm3 RBC 5.22 (4.1-5.6) M/mm3 Hgb 15.4 (12.5-18.0) gm/dl Hct 43.4 (42-50) % MCV 83.1 (78-100) fl MCH 29.5 (26-32) pg MCHC 35.5 (32-36) g/dl RDW 12.6 (11.5-14.0) % Plt Count 254 (150-450) K/mm3 MPV 11.2 H (7.5-11.0) fl Gran % 65.2 (36.0-66.0) % Eos # (Auto) 0.06 (0-0.5) Absolute Lymphs (auto) 2.75 (1.0-4.6) Absolute Monos (auto) 0.67 (0.0-1.3) Lymphocytes % 27.4 (24.0-44.0) % Monocytes % 6.7 (0.0-12.0) % Eosinophils % 0.6 (0.00-5.0) % Basophils % 0.1 (0.0-0.4) % Absolute Granulocytes 6.54 (1.4-6.9) Basophils # 0.01 (0-0.4) D-Dimer (215-500) ng/mL Sodium 134 L (137-145) mmol/L Potassium 3.7 (3.5-5.1) mmol/L Chloride 101 (98-107) mmol/L Carbon Dioxide 24 (22-30) mmol/L Anion Gap 12.9 (5-15) MEQ/L BUN 11 (9-20) mg/dL Creatinine 0.52 L (0.66-1.25) mg/dL Estimated GFR > 60.0 ML/MIN Glucose 330 H (74-106) mg/dL Lactic Acid 1.6 (0.4-2.0) Calcium 9.7 (8.4-10.2) mg/dL Total Bilirubin 0.70 (0.2-1.3) mg/dL AST 17 (17-59) U/L ALT 24 (0-50) U/L Alkaline Phosphatase 131 H (38-126) U/L Troponin I (0.000-0.034) ng/mL Serum Total Protein 7.3 (6.3-8.2) g/dL Albumin 4.4 (3.5-5.0) g/dL Amylase 49 (30-110) U/L Lipase 109 (23-300) U/L Urine Color (YELLOW) Urine Appearance (CLEAR) Urine pH (5-6) Ur Specific [place] (1.005-1.025) Urine Protein (Negative) Urine Ketones (NEGATIVE) Urine Blood (0-5) [place]/ul Urine Nitrite (NEGATIVE) Urine Bilirubin (NEGATIVE) Urine Urobilinogen (0-1) mg/dL Ur Leukocyte Esterase (NEGATIVE) Urine WBC (Auto) (0-5) /HPF Urine RBC (Auto) (0-2) /HPF U Epithel Cells (Auto) (FEW) /HPF Urine Bacteria (Auto) (NEGATIVE) /HPF Urine Mucus (Auto) (NEGATIVE) /HPF Urine Culture Reflexed (NO) Urine Glucose (NEGATIVE) mg/dL - Progress Progress: improved, re-examined Air Movement: good Progress Note: 07/20/20 10:36 Chest x-ray shows no acute cardiopulmonary process. Noncontrast CT scan of the abdomen and pelvis shows no new/acute intra-abdominal findings. 07/20/20 11:55 Medical decision making: This patient does not have chest pain at this time. His complaint is epigastric discomfort which has improved. His CAT scan does not have any acute emergent findings neither does his chest x-ray. The patient states Bentyl is helpful for him and he only has a few tablets left. He also states his Reglan helps him. Patient can take Pepcid and we will prescribe him Bentyl prescription as well as a prescription for Pepcid. He is to follow-up with his primary care physician and he will request a referral to a tool engineer. - Departure Departure Disposition: Home Clinical Impression: Non-cardiac chest pain, Epigastric abdominal pain Condition: Stable Critical Care Time: No Referrals: BOBBY LUNA [Primary Care Provider] - Additional Instructions: Avoid fatty greasy spicy foods. Call your primary care doctor today to make arrangements for follow-up appointment. Request a referral to a tool engineer if indicated. Request a further evaluation of your gallbladder if indicated. Continue your medication as prescribed. Prescriptions: Dicyclomine HCl 20 mg [Bentyl 20 mg] 20 mg PO QID #28 tablet Famotidine 20 mg [Pepcid 20 MG] 20 mg PO DAILY #10 tablet Ondansetron HCl [Zofran] 4 mg PO TID PRN #10 tablet PRN Reason: Nausea/Vomiting
[2020-07-20] MEDS ORDERED: Sodium Chloride 0.9% 1000 ML 1,000 ML IV STA (09:53)
[2020-07-20] MEDS ORDERED: MORPHINE SULFATE 4 MG INJ IV ONE (09:53)
[2020-07-20] MEDS ORDERED: Zofran 4 MG/2 ML VIAL IV ONE (09:53)
[2020-07-20] MEDS ORDERED: Pepcid 20 MG VIAL IV ONE ×2 (09:53→09:58)
[2020-07-20] MEDS ORDERED: Zofran 4 MG/2 ML VIAL ONE (09:58)
[2020-07-20] MEDS ORDERED: Sodium Chloride 0.9% 1000 ML 1,000 ML ONE (09:59)
[2020-07-20] MEDS ORDERED: MORPHINE SULFATE 4 MG INJ ONE (09:59)
[2020-07-20 10:26] LABS: Absolute Neutrophil Ct (ANC) 6.54 (1.4-6.9); BASOPHIL % 0.1 % (0.0-0.4); Basophil (Absolute #) 0.01 (0-0.4); Eosinophil % 0.6 % (0.00-5.0); Eosinophil (Absolute #) 0.06 (0-0.5); Hematocrit 43.4 % (42-50); Hemoglobin 15.4 gm/dl (12.5-18.0); Lymphocyte (Absolute #) 2.75 (1.0-4.6); Lymphocytes % 27.4 % (24.0-44.0); Mean Cell Volume 83.1 fl (78-100); Mean Corpuscular Hemoglobin 29.5 pg (26-32); Mean Corpuscular Hgb Concent. 35.5 g/dl (32-36); Mean Platelet Volume 11.2 fl (7.5-11.0); Monocyte (Absolute #) 0.67 (0.0-1.3); Monocytes % 6.7 % (0.0-12.0); Neutrophil % 65.2 % (36.0-66.0); Platelet Count 254 K/mm3 (150-450); Red Blood Count 5.22 M/mm3 (4.1-5.6); Red Cell Distribution Width 12.6 % (11.5-14.0)
--- NOTE | 2020-07-20 10:26 | XRAY ---
Indication: Chest pain. Comparison: March 27, 2020. Portable chest continues to demonstrate normal heart, lungs, and bony thorax with incidental right lower lobe calcified granuloma.
--- NOTE | 2020-07-20 10:30 | XRAY ---
Indication: Epigastric pain. Multiple contiguous axial images obtained through the abdomen and pelvis without contrast as ordered. Comparison: Multiple priors, most recent June 26, 2020. Lung bases remain clear with again incidental right lower lobe calcified granuloma. Heart is not enlarged. Stable small hiatal hernia. Noncontrasted stomach and bowel loops remain nonobstructed. Normal appendix. No free fluid/air. Stable 22.9 cm fatty hepatomegaly, hepatic/splenic calcified granulomas, and small bilateral renal cysts. Remaining liver, gallbladder, pancreas, spleen, adrenal glands, kidneys, ureters, bladder, and aorta appear unremarkable for noncontrast exam. Osseous structures intact. Impression: Stable small hiatal hernia, fatty hepatomegaly, bilateral renal cysts, and old granulomatous disease. No new/acute findings on this noncontrast exam.
[2020-07-20 10:36] LABS: ALBUMIN 4.4 g/dL (3.5-5.0); ALKALINE PHOSPHATASE 131 U/L (38-126); AMYLASE 49 U/L (30-110); ANION GAP 12.9 MEQ/L (5-15); BLOOD UREA NITROGEN 11 mg/dL (9-20); CHLORIDE 101 mmol/L (98-107); Calcium 9.7 mg/dL (8.4-10.2); Carbon Dioxide 24 mmol/L (22-30); Creatinine 1 0.52 mg/dL (0.66-1.25); EST GLOMERULAR FILTRATION RATE > 60.0 ML/MIN; Glucose 330 mg/dL (74-106); LIPASE 109 U/L (23-300); Potassium 3.7 mmol/L (3.5-5.1); SGOT/AST 17 U/L (17-59); SGPT/ALT 24 U/L (0-50); SODIUM 134 mmol/L (137-145); Total Protein 7.3 g/dL (6.3-8.2)
[2020-07-20 11:41] LABS: Appearance SLIGHTLY CLOUDY (CLEAR); Bacteria FEW /HPF (NEGATIVE); Bilirubin NEGATIVE (NEGATIVE); Blood MODERATE Ery/ul (0-5); Glucose >=500 mg/dL (NEGATIVE); Ketones SMALL (NEGATIVE); Leukocyte Esterase NEGATIVE (NEGATIVE); Mucus SLIGHT /HPF (NEGATIVE); Nitrite NEGATIVE (NEGATIVE); Protein,Urine Dip NEGATIVE (Negative); RBC 51-100 /HPF (0-2); Specific Gravity 1.035 (1.005-1.025); Urobilinogen NEGATIVE mg/dL (0-1)
[2020-07-20 12:05] VITALS: BP 133/90; PULSE 86; O2SAT 98
== END 2020-07-20 12:19 | disposition home or self-care (01) ==
LOC: ED 09:15
DX: R07.89 Other chest pain (principal); R10.13 Epigastric pain
CPT/HCPCS: 36000; 36415; 71045; 74176; 80053; 81001; 82150; 83605; 83690; 84484; 85025; 85379; 87086; 93005; 96374; 96375; 99284; U0003; J2270; J2405

== ENCOUNTER 2020-07-26 11:27 | Emergency (ER) | payer OTHER ==
[2020-07-26] MEDS ORDERED: Zofran 4 MG/2 ML VIAL ONE ×2 (11:53→14:32)
[2020-07-26] MEDS ORDERED: Zofran 4 MG/2 ML VIAL IV ONE ×3 (11:58→14:30)
[2020-07-26] MEDS ORDERED: Sodium Chloride 0.9% 1000 ML 1,000 ML IV STA (12:06)
[2020-07-26] MEDS ORDERED: MORPHINE SULFATE 4 MG INJ IV ONE (12:08)
[2020-07-26] MEDS ORDERED: Sodium Chloride 0.9% 1000 ML 1,000 ML ONE (12:12)
[2020-07-26] MEDS ORDERED: MORPHINE SULFATE 4 MG INJ ONE (12:12)
[2020-07-26 12:21] LABS: Lactic Acid 1.7 (0.4-2.0); VBG BASE EXCESS -0.9 (-2.0-2.0); VBG CARBOXYHEMOGLOBIN 3.6 % T HGB (0.0-6.9); VBG HCO3- 20.4 meq/L (22-28); VBG HEMOGLOBIN 16.3; VBG O2 SATURATION 97.7 (95-100); VBG POTASSIUM 4.4 (3.5-5.1); VBG pH 7.52 (7.32-7.42)
[2020-07-26 12:37] LABS: Absolute Neutrophil Ct (ANC) 12.38 (1.4-6.9); BASOPHIL % 0.1 % (0.0-0.4); Basophil (Absolute #) 0.02 (0-0.4); Eosinophil % 0.1 % (0.00-5.0); Eosinophil (Absolute #) 0.02 (0-0.5); Hematocrit 45.1 % (42-50); Hemoglobin 15.9 gm/dl (12.5-18.0); Lymphocyte (Absolute #) 1.43 (1.0-4.6); Lymphocytes % 10.1 % (24.0-44.0); Mean Cell Volume 83.4 fl (78-100); Mean Corpuscular Hemoglobin 29.4 pg (26-32); Mean Corpuscular Hgb Concent. 35.3 g/dl (32-36); Mean Platelet Volume 11.6 fl (7.5-11.0); Monocyte (Absolute #) 0.34 (0.0-1.3); Monocytes % 2.4 % (0.0-12.0); Neutrophil % 87.3 % (36.0-66.0); Platelet Count 268 K/mm3 (150-450); Red Blood Count 5.41 M/mm3 (4.1-5.6); Red Cell Distribution Width 12.7 % (11.5-14.0); White Blood Count 14.2 K/mm3 (4.0-10.5)
[2020-07-26 12:40] LABS: Appearance CLEAR (CLEAR); Bilirubin NEGATIVE (NEGATIVE); Blood NEGATIVE Ery/ul (0-5); Glucose >=500 mg/dL (NEGATIVE); Ketones MODERATE (NEGATIVE); Leukocyte Esterase NEGATIVE (NEGATIVE); Nitrite NEGATIVE (NEGATIVE); Protein,Urine Dip NEGATIVE (Negative); Specific Gravity 1.036 (1.005-1.025); Urobilinogen NEGATIVE mg/dL (0-1)
[2020-07-26 12:41] LABS: AMYLASE < 30 U/L (30-110); LIPASE 117 U/L (23-300)
[2020-07-26 13:23] LABS: ALBUMIN 4.6 g/dL (3.5-5.0); ALKALINE PHOSPHATASE 136 U/L (38-126); ANION GAP 15.5 MEQ/L (5-15); BLOOD UREA NITROGEN 12 mg/dL (9-20); CHLORIDE 104 mmol/L (98-107); Calcium 9.8 mg/dL (8.4-10.2); Carbon Dioxide 20 mmol/L (22-30); Creatinine 1 0.51 mg/dL (0.66-1.25); EST GLOMERULAR FILTRATION RATE > 60.0 ML/MIN; Glucose 388 mg/dL (74-106); Potassium 4.2 mmol/L (3.5-5.1); SGOT/AST 19 U/L (17-59); SGPT/ALT 24 U/L (0-50); SODIUM 136 mmol/L (137-145); Total Protein 7.4 g/dL (6.3-8.2)
--- NOTE | 2020-07-26 13:25 | ERPHSYRPT ---
- History of Present Illness Time Seen by Provider: 07/26/20 11:41 Historian: patient, EMS Exam Limitations: no limitations Patient Subjective Stated Complaint: Vomiting Triage Nursing Assessment: Patient brought back to ED via EMS and transferred to bed per self. Patient A+O X3. Patient's skin pale and diaphorectic. Patient states he is having abdominal pain constant, sharp pain 7/10 and N/V that has gotten worse this am. Patient states he has been dealing with abdominal pain, N/V for the past 8 months and comes to hospital when pain gets too bad. Abdomen soft and round with BS X 4. Physician History: 40 years old male with history of type 2 diabetes mellitus, chronic upper abdominal pain with recent endoscopy showing H. pylori presented in the ER with sudden onset upper abdominal pain upon waking up associated with nausea and multiple episodes of nonprojectile, nonbilious vomiting with no hematemesis. Pain is moderate to severe intensity sharp in nature, aggravated with cramping and vomiting and no significant relieving factors. Patient reports symptoms similar to previous episodes. Denies any fever or chills. He has been taking Reglan and Bentyl at home but his pain does not seem to very well controlled. Patient is diabetic with poorly controlled blood sugar which usually stays in 300s. Timing/Duration: today, sudden, worse Activities at Onset: rest Quality: sharpness Abdominal Pain Onset Location: RUQ, LUQ, epigastric Pain Radiation: no radiation Severity of Pain-Max: moderate Severity of Pain-Current: moderate Modifying Factors: Worsens With: palpation, vomiting Associated Symptoms: nausea, vomiting, No back, No chest pain, No fever/chills, No headache, No shortness of breath Previous symptoms: same symptoms as today Allergies/Adverse Reactions: codeine Allergy (Severe, Verified 07/26/20 11:32) Nausea and Vomiting "severe vomiting for hours" pseudoephedrine [From Actifed] Allergy (Severe, Verified 07/26/20 11:32) Fainting " almost . went out cold and really hard to wake me up" triprolidine [From Actifed] Allergy (Severe, Verified 07/26/20 11:32) Fainting "about " diphenhydramine [From Benadryl] Adverse Reaction (Severe, Verified 07/26/20 11:32) Fainting "knocked me out and couldn't get me awake hardly" Home Medications: Atorvastatin Calcium [Lipitor 20MG Tablet] 10 mg PO DAILY 01/06/20 [History] Insulin Glargine,Hum.rec.anlog [Basaglar Kwikpen U-100] 30 units SQ BID 01/06/20 [History] Insulin Lispro [Humalog] 20 unit SQ TID 01/06/20 [History] Lisinopril 10 mg [Zestril 10 MG] 10 mg PO DAILY 01/06/20 [History] Venlafaxine HCl ER 75 mg [Effexor XR 75 MG] 75 mg PO DAILY 01/06/20 [History] Ergocalciferol (Vitamin D2) [Vitamin D] 50,000 unit PO SA 07/26/20 [History] Metoclopramide HCl 10 mg PO ACHS 07/26/20 [History] Ondansetron HCl [Zofran] 4 mg PO TIDPRN PRN 07/26/20 [History] Hx Tetanus, Diphtheria Vaccination/Date Given: Yes Hx Influenza Vaccination/Date Given: Yes Hx Pneumococcal Vaccination/Date Given: No Immunizations Up to Date: Yes Travel Risk - International Travel Have you traveled outside of the country in past 3 weeks: No - Coronavirus Screening Are you exhibiting any of the following symptoms?: No Symptoms: Vomiting/Diarrhea Close contact with a COVID-19 positive Pt in past 14-21 Days: No - Review of Systems Constitutional: Fatigue Eyes: No Symptoms Ears, Nose, & Throat: No Symptoms Respiratory: No Symptoms Cardiac: No Symptoms Abdominal/Gastrointestinal: Abdominal Pain, Nausea, Vomiting Genitourinary Symptoms: No Symptoms Musculoskeletal: No Symptoms Skin: No Symptoms Neurological: No Symptoms Psychological: No Symptoms Endocrine: No Symptoms Hematologic/Lymphatic: No Symptoms Immunological/Allergic: No Symptoms - Past Medical History Pertinent Past Medical History: Yes Neurological History: No Pertinent History ENT History: No Pertinent History Cardiac History: Coronary Artery Disease, High Cholesterol, Hypertension Respiratory History: No Pertinent History Endocrine Medical History: Diabetes Type II Musculoskeletal History: No Pertinent History GI Medical History: Esophageal Disorder, Hemorrhoids, Pancreatitis, Ulcer History: Other Psycho-Social History: Depression Male Reproductive Disorders: No Pertinent History Other Medical History: 2015 Gastritis, kidney infection - Past Surgical History Past Surgical History: Yes Neuro Surgical History: No Pertinent History Cardiac: Cardiac Catheterization Respiratory: No Pertinent History Gastrointestinal: Hemorrhoidectomy, Rectal Surgery Genitourinary: No Pertinent History Musculoskeletal: No Pertinent History Male Surgical History: No Pertinent History Other Surgical History: 2020 Heart Cath (blockage x 2) - Social History Smoking Status: Current every day smoker How long have you smoked: years Exposure to second hand smoke: Yes Drug Use: none Patient Lives Alone: No Significant Family History: no pertinent family hx - Nursing Vital Signs Nursing Vital Signs: Initial Vital Signs Temperature 98.3 F 07/26/20 11:32 Pulse Rate 61 07/26/20 11:32 Respiratory Rate 18 07/26/20 11:32 Blood Pressure 176/98 07/26/20 11:32 O2 Sat by Pulse Oximetry 100 07/26/20 11:32 Pain Scale Pain Intensity 0 - Physical Exam General Appearance: no apparent distress, alert Eye Exam: PERRL/EOMI, eyes nml inspection Ears, Nose, Throat Exam: normal ENT inspection, TMs normal, pharyngeal erythema Neck Exam: normal inspection, supple, full range of motion Respiratory Exam: normal breath sounds, lungs clear Cardiovascular Exam: regular rate/rhythm, normal heart sounds Gastrointestinal/Abdomen Exam: soft, normal bowel sounds, tenderness (Upper abdomen. 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 Skin Exam: normal color SpO2 Interpretation: normal SpO2: 96 O2 Delivery: Room Air - Course EKG Interpreted by Me: RATE (57), Sinus Pete, NORMAL AXIS, NORMAL INTERVALS, NORMAL QRS Ordered Tests: Medication Summary Discontinued Medications Generic Name Dose Route Start Last Admin Trade Name Freq PRN Reason Stop Dose Admin Amoxicillin 1,000 mg 07/27/20 10:00 07/27/20 21:00 Amoxil 500 Mg PO 08/05/20 22:01 1,000 mg BID NARESH Administration Dicyclomine HCl 20 mg 07/26/20 19:41 Bentyl 20 Mg PO 08/25/20 19:40 QID PRN PRN spasms Famotidine 20 mg 07/27/20 10:00 07/27/20 08:37 Pepcid 20 Mg PO 08/26/20 09:59 20 mg DAILY NARESH Administration Gabapentin 300 mg 07/27/20 10:30 07/27/20 21:00 Neurontin 300 Mg PO 08/26/20 10:29 300 mg TID NARESH Administration Sodium Chloride 1,000 mls @ 999 mls/hr 07/26/20 12:06 07/26/20 13:29 Sodium Chloride 0.9% 1000 Ml IV 07/26/20 13:06 Infused .Q1H1M STA Infusion Sodium Chloride Confirm 07/26/20 12:12 Sodium Chloride 0.9% 1000 Ml Administered 07/26/20 12:13 Dose 1,000 mls @ ud .ROUTE .STK-MED ONE Sodium Chloride 1,000 mls @ 125 mls/hr 07/26/20 17:12 07/28/20 02:02 Sodium Chloride 0.9% 1000 Ml IV 08/25/20 17:11 125 mls/hr .Q8H NARESH Administration Levofloxacin/Dextrose 500 mg in 100 mls @ 100 mls/hr 07/27/20 11:00 07/27/20 12:57 Levofloxacin 500mg/100ml D5w IV 08/05/20 10:59 100 mls/hr DAILY NARESH Administration Insulin Glargine 33 unit 07/26/20 22:00 07/27/20 21:01 Lantus Insulin SQ 08/25/20 21:59 Not Given BID NARESH Insulin Human Lispro 0 unit 07/26/20 17:12 Humalog SQ 08/25/20 17:11 UD PRN HYPERGLYCEMIA Insulin Human Lispro 0 unit 07/26/20 19:36 07/27/20 17:04 Humalog SQ 08/25/20 19:35 3 unit UD PRN Administration HYPERGLYCEMIA Insulin Human Lispro 10 unit 07/27/20 08:00 07/28/20 08:46 Humalog SQ 08/26/20 07:59 10 unit TIDWM NARESH Administration Insulin Human Regular 8 unit 07/26/20 13:42 07/26/20 14:04 Humulin R IV 07/26/20 13:43 8 unit STAT ONE Administration Insulin Human Regular Confirm 07/26/20 14:03 Humulin R Administered 07/26/20 14:04 Dose 8 unit .ROUTE .STK-MED ONE Lisinopril 10 mg 07/27/20 10:00 07/27/20 08:37 Zestril 10 Mg PO 08/26/20 09:59 10 mg DAILY NARESH Administration Metoclopramide HCl 10 mg 07/26/20 14:29 07/26/20 14:34 Reglan 10 Mg/2 Ml IV 07/26/20 14:30 10 mg STAT ONE Administration Metoclopramide HCl Confirm 07/26/20 14:32 Reglan 10 Mg/2 Ml Administered 07/26/20 14:33 Dose 10 mg .ROUTE .STK-MED ONE Morphine Sulfate 4 mg 07/26/20 12:08 07/26/20 12:13 Morphine Sulfate 4 Mg Inj IV 07/26/20 12:09 4 mg STAT ONE Administration Morphine Sulfate Confirm 07/26/20 12:12 Morphine Sulfate 4 Mg Inj Administered 07/26/20 12:13 Dose 4 mg .ROUTE .STK-MED ONE Ondansetron HCl Confirm 07/26/20 11:53 Zofran 4 Mg/2 Ml Vial Administered 07/26/20 11:54 Dose 4 mg .ROUTE .STK-MED ONE Ondansetron HCl 4 mg 07/26/20 11:58 07/26/20 11:59 Zofran 4 Mg/2 Ml Vial IV 07/26/20 11:59 4 mg STAT ONE Administration Ondansetron HCl 4 mg 07/26/20 12:06 07/26/20 12:12 Zofran 4 Mg/2 Ml Vial IV 07/26/20 12:07 Not Given STAT ONE Ondansetron HCl 4 mg 07/26/20 14:30 07/26/20 14:33 Zofran 4 Mg/2 Ml Vial IV 07/26/20 14:31 4 mg STAT ONE Administration Ondansetron HCl Confirm 07/26/20 14:32 Zofran 4 Mg/2 Ml Vial Administered 07/26/20 14:33 Dose 4 mg .ROUTE .STK-MED ONE Ondansetron HCl 4 mg 07/26/20 17:12 07/27/20 08:48 Zofran 4 Mg/2 Ml Vial IV 08/25/20 17:11 4 mg Q6H PRN PRN Administration NAUSEA/VOMITING Ondansetron HCl 4 mg 07/27/20 10:15 07/28/20 05:13 Zofran 4 Mg/2 Ml Vial IV 08/25/20 17:11 4 mg Q4H/PRN PRN Administration NAUSEA/VOMITING Pantoprazole Sodium 40 mg 07/27/20 10:00 07/27/20 08:38 Protonix 40 Mg Iv IV 08/26/20 09:59 40 mg Q24H10 NARESH Administration Pantoprazole Sodium 40 mg 07/27/20 22:00 07/27/20 21:00 Protonix 40 Mg Iv IV 08/05/20 22:01 40 mg BID NARESH Administration Simvastatin 10 mg 07/27/20 10:00 07/27/20 08:37 Zocor 10mg PO 08/26/20 09:59 10 mg DAILY NARESH Administration Venlafaxine HCl 75 mg 07/27/20 10:00 07/27/20 08:37 Effexor Xr 75 Mg PO 08/26/20 09:59 75 mg DAILY NARESH Administration Lab/Rad Data: Laboratory Result Diagrams 07/26/20 12:15 07/26/20 12:15 Laboratory Results 07/26/20 07/26/20 07/26/20 Range/Units 16:43 15:28 12:15 WBC (4.0-10.5) K/mm3 RBC (4.1-5.6) M/mm3 Hgb (12.5-18.0) gm/dl Hct (42-50) % MCV (78-100) fl MCH (26-32) pg MCHC (32-36) g/dl RDW (11.5-14.0) % Plt Count (150-450) K/mm3 MPV (7.5-11.0) fl Gran % (36.0-66.0) % Eos # (Auto) (0-0.5) Absolute Lymphs (auto) (1.0-4.6) Absolute Monos (auto) (0.0-1.3) Lymphocytes % (24.0-44.0) % Monocytes % (0.0-12.0) % Eosinophils % (0.00-5.0) % Basophils % (0.0-0.4) % Absolute Granulocytes (1.4-6.9) Basophils # (0-0.4) pO2/FiO2 Ratio % VBG pH (7.32-7.42) VBG pCO2 at Pat Temp (42-55) mm/Hg VBG pO2 at Pat Temp (25-40) mm/Hg VBG HCO3 (22-28) meq/L VBG O2 Sat (Alessandra) (95-100) VBG Base Excess (-2.0-2.0) VBG Hemoglobin VBG Carboxyhemoglobin (0.0-6.9) % T HGB POC Potassium (3.5-5.1) Sodium (137-145) mmol/L Potassium (3.5-5.1) mmol/L Chloride (98-107) mmol/L Carbon Dioxide (22-30) mmol/L Anion Gap (5-15) MEQ/L BUN (9-20) mg/dL Creatinine (0.66-1.25) mg/dL Estimated GFR ML/MIN Glucose (74-106) mg/dL POC Glucometer 280 H (74 to 106) mg/dL Lactic Acid (0.4-2.0) Calcium (8.4-10.2) mg/dL Magnesium (1.6-2.3) mg/dL Total Bilirubin (0.2-1.3) mg/dL AST (17-59) U/L ALT (0-50) U/L Alkaline Phosphatase (38-126) U/L Serum Total Protein (6.3-8.2) g/dL Albumin (3.5-5.0) g/dL Amylase < 30 L (30-110) U/L Lipase 117 (23-300) U/L 25-OH Vitamin D Total (30-100) ng/mL Urine Color (YELLOW) Urine Appearance (CLEAR) Urine pH (5-6) Ur Specific [place]ph[place] (1.005-1.025) Urine Protein (Negative) Urine Ketones (NEGATIVE) Urine Blood (0-5) [place]/ul Urine Nitrite (NEGATIVE) Urine Bilirubin (NEGATIVE) Urine Urobilinogen (0-1) mg/dL Ur Leukocyte Esterase (NEGATIVE) Urine WBC (Auto) (0-5) /HPF Urine RBC (Auto) (0-2) /HPF U Epithel Cells (Auto) (FEW) /HPF Urine Bacteria (Auto) (NEGATIVE) /HPF Urine Culture Reflexed (NO) Urine Glucose (NEGATIVE) mg/dL SARS-CoV-2 (PCR) NEGATIVE (NEGATIVE) Group A Strep Antibody (NEGATIVE) 07/26/20 07/26/20 07/26/20 Range/Units 12:15 12:15 12:15 WBC (4.0-10.5) K/mm3 RBC (4.1-5.6) M/mm3 Hgb (12.5-18.0) gm/dl Hct (42-50) % MCV (78-100) fl MCH (26-32) pg MCHC (32-36) g/dl RDW (11.5-14.0) % Plt Count (150-450) K/mm3 MPV (7.5-11.0) fl Gran % (36.0-66.0) % Eos # (Auto) (0-0.5) Absolute Lymphs (auto) (1.0-4.6) Absolute Monos (auto) (0.0-1.3) Lymphocytes % (24.0-44.0) % Monocytes % (0.0-12.0) % Eosinophils % (0.00-5.0) % Basophils % (0.0-0.4) % Absolute Granulocytes (1.4-6.9) Basophils # (0-0.4) pO2/FiO2 Ratio % VBG pH (7.32-7.42) VBG pCO2 at Pat Temp (42-55) mm/Hg VBG pO2 at Pat Temp (25-40) mm/Hg VBG HCO3 (22-28) meq/L VBG O2 Sat (Alessandra) (95-100) VBG Base Excess (-2.0-2.0) VBG Hemoglobin VBG Carboxyhemoglobin (0.0-6.9) % T HGB POC Potassium (3.5-5.1) Sodium 136 L (137-145) mmol/L Potassium 4.2 (3.5-5.1) mmol/L Chloride 104 (98-107) mmol/L Carbon Dioxide 20 L (22-30) mmol/L Anion Gap 15.5 H (5-15) MEQ/L BUN 12 (9-20) mg/dL Creatinine 0.51 L (0.66-1.25) mg/dL Estimated GFR > 60.0 ML/MIN Glucose 388 H (74-106) mg/dL POC Glucometer (74 to 106) mg/dL Lactic Acid (0.4-2.0) Calcium 9.8 (8.4-10.2) mg/dL Magnesium 2.0 (1.6-2.3) mg/dL Total Bilirubin 0.80 (0.2-1.3) mg/dL AST 19 (17-59) U/L ALT 24 (0-50) U/L Alkaline Phosphatase 136 H (38-126) U/L Serum Total Protein 7.4 (6.3-8.2) g/dL Albumin 4.6 (3.5-5.0) g/dL Amylase (30-110) U/L Lipase (23-300) U/L 25-OH Vitamin D Total (30-100) ng/mL Urine Color YELLOW (YELLOW) Urine Appearance CLEAR (CLEAR) Urine pH 7.0 (5-6) Ur Specific [place] 1.036 (1.005-1.025) Urine Protein NEGATIVE (Negative) Urine Ketones MODERATE (NEGATIVE) Urine Blood NEGATIVE (0-5) [place]/ul Urine Nitrite NEGATIVE (NEGATIVE) Urine Bilirubin NEGATIVE (NEGATIVE) Urine Urobilinogen NEGATIVE (0-1) mg/dL Ur Leukocyte Esterase NEGATIVE (NEGATIVE) Urine WBC (Auto) NONE (0-5) /HPF Urine RBC (Auto) NONE (0-2) /HPF U Epithel Cells (Auto) NONE (FEW) /HPF Urine Bacteria (Auto) NONE (NEGATIVE) /HPF Urine Culture Reflexed NO (NO) Urine Glucose >=500 (NEGATIVE) mg/dL SARS-CoV-2 (PCR) (NEGATIVE) Group A Strep Antibody NOT DETECTED (NEGATIVE) 07/26/20 07/26/20 07/26/20 Range/Units 12:15 12:06 11:31 WBC 14.2 H (4.0-10.5) K/mm3 RBC 5.41 (4.1-5.6) M/mm3 Hgb 15.9 (12.5-18.0) gm/dl Hct 45.1 (42-50) % MCV 83.4 (78-100) fl MCH 29.4 (26-32) pg MCHC 35.3 (32-36) g/dl RDW 12.7 (11.5-14.0) % Plt Count 268 (150-450) K/mm3 MPV 11.6 H (7.5-11.0) fl Gran % 87.3 H (36.0-66.0) % Eos # (Auto) 0.02 (0-0.5) Absolute Lymphs (auto) 1.43 (1.0-4.6) Absolute Monos (auto) 0.34 (0.0-1.3) Lymphocytes % 10.1 L (24.0-44.0) % Monocytes % 2.4 (0.0-12.0) % Eosinophils % 0.1 (0.00-5.0) % Basophils % 0.1 (0.0-0.4) % Absolute Granulocytes 12.38 H (1.4-6.9) Basophils # 0.02 (0-0.4) pO2/FiO2 Ratio 21.0 % VBG pH 7.52 H (7.32-7.42) VBG pCO2 at Pat Temp 25 L (42-55) mm/Hg VBG pO2 at Pat Temp 81 H (25-40) mm/Hg VBG HCO3 20.4 L (22-28) meq/L VBG O2 Sat (Alessandra) 97.7 (95-100) VBG Base Excess -0.9 (-2.0-2.0) VBG Hemoglobin 16.3 VBG Carboxyhemoglobin 3.6 (0.0-6.9) % T HGB POC Potassium 4.4 (3.5-5.1) Sodium (137-145) mmol/L Potassium (3.5-5.1) mmol/L Chloride (98-107) mmol/L Carbon Dioxide (22-30) mmol/L Anion Gap (5-15) MEQ/L BUN (9-20) mg/dL Creatinine (0.66-1.25) mg/dL Estimated GFR ML/MIN Glucose (74-106) mg/dL POC Glucometer 352 H (74 to 106) mg/dL Lactic Acid 1.7 (0.4-2.0) Calcium (8.4-10.2) mg/dL Magnesium (1.6-2.3) mg/dL Total Bilirubin (0.2-1.3) mg/dL AST (17-59) U/L ALT (0-50) U/L Alkaline Phosphatase (38-126) U/L Serum Total Protein (6.3-8.2) g/dL Albumin (3.5-5.0) g/dL Amylase (30-110) U/L Lipase (23-300) U/L 25-OH Vitamin D Total (30-100) ng/mL Urine Color (YELLOW) Urine Appearance (CLEAR) Urine pH (5-6) Ur Specific [place] (1.005-1.025) Urine Protein (Negative) Urine Ketones (NEGATIVE) Urine Blood (0-5) [place]/ul Urine Nitrite (NEGATIVE) Urine Bilirubin (NEGATIVE) Urine Urobilinogen (0-1) mg/dL Ur Leukocyte Esterase (NEGATIVE) Urine WBC (Auto) (0-5) /HPF Urine RBC (Auto) (0-2) /HPF U Epithel Cells (Auto) (FEW) /HPF Urine Bacteria (Auto) (NEGATIVE) /HPF Urine Culture Reflexed (NO) Urine Glucose (NEGATIVE) mg/dL SARS-CoV-2 (PCR) (NEGATIVE) Group A Strep Antibody (NEGATIVE) 07/26/20 Range/Units 04:30 WBC (4.0-10.5) K/mm3 RBC (4.1-5.6) M/mm3 Hgb (12.5-18.0) gm/dl Hct (42-50) % MCV (78-100) fl MCH (26-32) pg MCHC (32-36) g/dl RDW (11.5-14.0) % Plt Count (150-450) K/mm3 MPV (7.5-11.0) fl Gran % (36.0-66.0) % Eos # (Auto) (0-0.5) Absolute Lymphs (auto) (1.0-4.6) Absolute Monos (auto) (0.0-1.3) Lymphocytes % (24.0-44.0) % Monocytes % (0.0-12.0) % Eosinophils % (0.00-5.0) % Basophils % (0.0-0.4) % Absolute Granulocytes (1.4-6.9) Basophils # (0-0.4) pO2/FiO2 Ratio % VBG pH (7.32-7.42) VBG pCO2 at Pat Temp (42-55) mm/Hg VBG pO2 at Pat Temp (25-40) mm/Hg VBG HCO3 (22-28) meq/L VBG O2 Sat (Alessandra) (95-100) VBG Base Excess (-2.0-2.0) VBG Hemoglobin VBG Carboxyhemoglobin (0.0-6.9) % T HGB POC Potassium (3.5-5.1) Sodium (137-145) mmol/L Potassium (3.5-5.1) mmol/L Chloride (98-107) mmol/L Carbon Dioxide (22-30) mmol/L Anion Gap (5-15) MEQ/L BUN (9-20) mg/dL Creatinine (0.66-1.25) mg/dL Estimated GFR ML/MIN Glucose (74-106) mg/dL POC Glucometer (74 to 106) mg/dL Lactic Acid (0.4-2.0) Calcium (8.4-10.2) mg/dL Magnesium (1.6-2.3) mg/dL Total Bilirubin (0.2-1.3) mg/dL AST (17-59) U/L ALT (0-50) U/L Alkaline Phosphatase (38-126) U/L Serum Total Protein (6.3-8.2) g/dL Albumin (3.5-5.0) g/dL Amylase (30-110) U/L Lipase (23-300) U/L 25-OH Vitamin D Total 24.1 L (30-100) ng/mL Urine Color (YELLOW) Urine Appearance (CLEAR) Urine pH (5-6) Ur Specific [place] (1.005-1.025) Urine Protein (Negative) Urine Ketones (NEGATIVE) Urine Blood (0-5) [place]/ul Urine Nitrite (NEGATIVE) Urine Bilirubin (NEGATIVE) Urine Urobilinogen (0-1) mg/dL Ur Leukocyte Esterase (NEGATIVE) Urine WBC (Auto) (0-5) /HPF Urine RBC (Auto) (0-2) /HPF U Epithel Cells (Auto) (FEW) /HPF Urine Bacteria (Auto) (NEGATIVE) /HPF Urine Culture Reflexed (NO) Urine Glucose (NEGATIVE) mg/dL SARS-CoV-2 (PCR) (NEGATIVE) Group A Strep Antibody (NEGATIVE) - Progress Progress: improved, pain not gone completely, re-examined Progress Note: 07/26/20 40 years old type II diabetic is evaluated for wanting an upper abdominal pain. Patient does have history of type 2 diabetes mellitus with chronic abdominal pain and occasional vomiting. I believe patient has some element of gastroparesis. Work-up showed white count of 14, normal lactate and pH of 7.5/alkalosis with some dehydration with a gap of 15.5 and bicarb of 20 and some ketones in urine. I believe patient is not in DKA and his symptoms are more secondary to intractable nausea vomiting causing dehydration. He is given fluid bolus along with antiemetics and pain medication, on reevaluation feeling better but still have multiple episodes of vomiting while in the ER. I have given him insulin here and I have obtained CT abdomen pelvis with contrast which is negative for any acute findings. Patient discussed with Dr. Carreon and is being admitted for observation for hydration and better control of blood sugar Discussed with Dr.: Yesica Will see patient in: hospital (observation) Counseled pt/family regarding: lab results, diagnosis, rad results - Departure Departure Disposition: Observation Clinical Impression: Intractable nausea and vomiting, Upper abdominal pain, Hyperglycemia Condition: Stable Critical Care Time: Yes Critical Care Time(excluding separately billable procedures): Critical 30-74 mins
[2020-07-26] MEDS ORDERED: HUMULIN R IV ONE (13:42)
[2020-07-26] MEDS ORDERED: HUMULIN R ONE (14:03)
[2020-07-26] MEDS ORDERED: Reglan 10 MG/2 ML IV ONE (14:29)
[2020-07-26] MEDS ORDERED: Reglan 10 MG/2 ML ONE (14:32)
[2020-07-26] MEDS ORDERED: HUMALOG SQ PRN (17:12)
--- NOTE | 2020-07-26 19:02 | XRAY ---
Indication: Upper abdomen pain and vomiting. History of pancreatitis. Multiple contiguous axial images obtained through the abdomen and pelvis using 80 cc Isovue 370 contrast only. Comparison: Numerous priors, most recent July 20, 2020. Lung bases remain clear with stable right lower lobe calcified granuloma. Heart is not enlarged. Noncontrasted stomach and bowel loops remain nonobstructed. Normal appendix. No free fluid/air. There is now mild diffuse scattered colonic fecal debris throughout. No free fluid/air. Stable 22 cm fatty hepatomegaly, hepatic/splenic calcified granulomas, and small bilateral renal cysts. Remaining liver, gallbladder, pancreas, spleen, adrenal glands, kidneys, ureters, bladder, and aorta are unremarkable. Impression: 1. New diffuse fecal stasis. 2. Stable fatty hepatomegaly, bilateral renal cysts, and old granulomatous disease. Comment: Preliminary interpretation was made by [facility]. No critical discrepancy.
[2020-07-26] MEDS ORDERED: BENTYL 20 MG PO PRN (19:41)
[2020-07-26] MEDS: Zofran 4 MG/2 ML VIAL IV PRN (20:11)
[2020-07-26] MEDS: HUMALOG SQ PRN (21:50)
[2020-07-26] MEDS: Lantus Insulin SQ SCH (21:51)
[2020-07-27] MEDS: Zofran 4 MG/2 ML VIAL IV PRN ×5 (01:40→23:57)
[2020-07-27] MEDS: Sodium Chloride 0.9% 1000 ML 1,000 ML IV SCH ×2 (04:05→18:14)
[2020-07-27 05:20] LABS: Absolute Neutrophil Ct (ANC) 10.07 (1.4-6.9); BASOPHIL % 0.2 % (0.0-0.4); Basophil (Absolute #) 0.03 (0-0.4); Eosinophil % 0.4 % (0.00-5.0); Eosinophil (Absolute #) 0.05 (0-0.5); Hematocrit 40.8 % (42-50); Hemoglobin 13.9 gm/dl (12.5-18.0); Lymphocyte (Absolute #) 2.69 (1.0-4.6); Lymphocytes % 19.6 % (24.0-44.0); Mean Cell Volume 86.1 fl (78-100); Mean Corpuscular Hemoglobin 29.3 pg (26-32); Mean Corpuscular Hgb Concent. 34.1 g/dl (32-36); Mean Platelet Volume 10.9 fl (7.5-11.0); Monocytes % 6.6 % (0.0-12.0); Neutrophil % 73.2 % (36.0-66.0); Platelet Count 239 K/mm3 (150-450); Red Blood Count 4.74 M/mm3 (4.1-5.6); Red Cell Distribution Width 12.9 % (11.5-14.0); White Blood Count 13.7 K/mm3 (4.0-10.5)
[2020-07-27 05:43] LABS: ALKALINE PHOSPHATASE 108 U/L (38-126); ANION GAP 12.8 MEQ/L (5-15); BLOOD UREA NITROGEN 13 mg/dL (9-20); CHLORIDE 103 mmol/L (98-107); Carbon Dioxide 24 mmol/L (22-30); Creatinine 1 0.59 mg/dL (0.66-1.25); EST GLOMERULAR FILTRATION RATE > 60.0 ML/MIN; Glucose 301 mg/dL (74-106); Potassium 3.6 mmol/L (3.5-5.1); SGOT/AST 16 U/L (17-59); SGPT/ALT 20 U/L (0-50); SODIUM 136 mmol/L (137-145); Total Protein 6.6 g/dL (6.3-8.2)
[2020-07-27] MEDS: HUMALOG SQ SCH ×3 (08:38→17:03)
[2020-07-27] MEDS: Lantus Insulin SQ SCH ×2 (08:41→21:01)
[2020-07-27] MEDS ORDERED: Zocor 10MG PO SCH (10:00)
[2020-07-27] MEDS ORDERED: Zestril 10 MG PO SCH (10:00)
[2020-07-27] MEDS ORDERED: NON-FORMULARY ITEM (Atorvastatin Calcium 10 MG) PO SCH (10:00)
[2020-07-27] MEDS ORDERED: Pepcid 20 MG PO SCH (10:00)
[2020-07-27] MEDS ORDERED: Effexor XR 75 MG PO SCH (10:00)
[2020-07-27] MEDS ORDERED: PROTONIX 40 MG IV IV SCH ×2 (10:00→22:00)
[2020-07-27] MEDS: NEURONTIN 300 MG PO SCH ×3 (10:13→21:00)
[2020-07-27] MEDS: AMOXIL 500 MG PO SCH ×2 (10:13→21:00)
[2020-07-27] MEDS ORDERED: Levofloxacin 500MG/100ML D5W 500 MG/100 ML BAG IV SCH (11:00)
[2020-07-27] MEDS: HUMALOG SQ PRN ×2 (12:57→17:04)
--- NOTE | 2020-07-27 15:14 | CONS ---
CONSULT DATE: 07/27/2020 HISTORY: The patient is a 40 year old gentleman with prior history of pancreatitis in the past. He has epigastric pain, nauseas and vomiting. He basically told me that he had an upper endoscopy a week ago and had Helicobacter pylori and treated with some antibiotics but did not help. He had prior gastric emptying the stomach was normal. HIDA scan normal. Ejection fraction 82%. He had ultrasound previously that did not show any stones. PAST MEDICAL HISTORY: He has got diabetes, heart disease, hypertension and pancreatitis. He had kidney attacks in the past. PAST SURGICAL HISTORY: He denied any prior upper abdominal surgery. Hemorrhoid procedure in the past. Cardiac cath in the past. Endoscopy in the past. HOME MEDICATIONS: Lipitor, insulin Glargine, insulin Lispro, Lisinopril, venlafaxine, metoclopramide. ALLERGIES: CODEINE. PSEUDOEPHEDRINE. TRIPROLIDINE. DIPHENHYDRAMINE. FAMILY HISTORY: Diabetes. He denies any family history of inflammatory bowel disease. SOCIAL HISTORY: History of smoking. REVIEW OF SYSTEMS: Fourteen systems reviewed per admission assessment. No chest pain or palpitations other systems negative or noncontributory as above and per preadmission questionnaire. PHYSICAL EXAMINATION: GENERAL: He is afebrile, yesterday temperature 98.3F, pulse 61 and blood pressure 176/98. No acute distress. HEENT: Sclera nonicteric. NECK: No JVD. CHEST: Equal excursion, nonlabored breathing. CVS: Regular rate and rhythm. ABDOMEN: Soft, some tenderness in epigastrium. No peritoneal signs. No palpable hernia in the upper abdomen. EXTREMITIES: No cyanosis. NEURO: Alert, moving extremities symmetrically. SKIN: Tattoos. PSYCH: Appropriate mood and affect. LAB DATA AND TESTS: His COVID test was negative. His liver function tests were unremarkable. Amylase and lipase were okay. IMPRESSION: Epigastric upper abdominal pain unclear etiology. He had a normal gallbladder ultrasound in the recent past. He had HIDA scan 82%, normal. He had a normal gastric emptying. He said he had endoscopy by Dr. Luna a week ago with Helicobacter pylori according to the records back in April. CT scan showed fecal stasis otherwise no acute findings. Epigastric pain, nausea and vomiting unclear etiology. Again as above, he had normal HIDA. Normal gallbladder ultrasound. He did have history of Helicobacter pylori in the past. He claimed to have upper endoscopy a week ago but later it looks like that was back in April. Unclear whether the etiology of his symptoms could be related to gastritis, ulcer disease, could be related to some chronic pancreatitis disease versus biliary colic. Will check with Dr. Luna if he needs to be scoped and if he wants re-evaluate the patient with upper endoscopy to see if he has got worsening gastritis or peptic ulcer disease. If not, then he would need consideration of endoscopic ultrasound evaluation to look at his pancreas more closely to see if truly does have some chronic pancreas changes and to evaluate his gallbladder to see if there is any wall thickening or other etiology that might account for some of his pain. He understands. The nursing staff will check with Dr. Luna as this is his patient. If he thinks he does need to have upper endoscopy later today I could do it if needed. Otherwise, will await nursing staff to check on him. If he does not need another endoscopy then would recommend endoscopic ultrasound at some point.
[2020-07-28] MEDS: Sodium Chloride 0.9% 1000 ML 1,000 ML IV SCH (02:02)
[2020-07-28] MEDS: Zofran 4 MG/2 ML VIAL IV PRN (05:13)
[2020-07-28] MEDS: HUMALOG SQ SCH (08:46)
[2020-07-28 09:09] VITALS: BP 144/87; PULSE 81
--- NOTE | 2020-07-31 14:59 | SSS ---
DISCHARGE DIAGNOSES: 1) ABDOMINAL PAIN. 2) DIABETIC NEUROPATHY. 3) VOMITING. 4) DEHYDRATION. HISTORY: The patient is a 41 year old white male patient with long history of diabetes. He had seen Dr. Calhoun in [place] but had a falling out with him due to his not listening to the patient's complaints of trouble with his insulin pump. The patient at times would get quite low and feels sick on it and reports that at times it would not even work properly. The patient developed issues with epigastric pain, nausea, vomiting. He was seen in the emergency room and admitted to the hospital. He did previously have upper endoscopy and more remotely had been treated for Helicobacter pylori infection. The patient also had a HIDA scan which was normal and gastric swallowing study which was normal as well. PAST MEDICAL HISTORY: Significant for coronary artery disease, hypertension, pancreatitis and diabetes. PAST SURGICAL HISTORY: Heart cath. Hemorrhoidectomy. Endoscopies. HOME MEDICATIONS: Atorvastatin 10 mg q.d., insulin 30 units daily with long acting Basaglar and Humalog 20 units t.i.d., Zestril 10 mg, venlafaxine 75 mg a day, metoclopramide q.i.d. ALLERGIES: CODEINE. SUDAFED. ACTIFED. BENADRYL. PANTOPRAZOLE ALTHOUGH HE HAS BEEN TAKING PANTOPRAZOLE SINCE ADMISSION WITHOUT ANY PROBLEMS. PHYSICAL EXAMINATION: His blood pressure on admission was 176/98, temperature 98.3F, pulse 61, respiratory rate 18. The patient's blood pressure since then has been under reasonable control with the most recent one was 137/86. The patient's physical examination reveals a well-nourished, well developed 40 year old white male who is having abdominal pain on my initial evaluation and holding onto an emesis basin. HEENT: Normocephalic, atraumatic. Pupils equal round reactive to light. Oropharynx is dry. NECK: Supple without lymphadenopathy, thyromegaly or JVD. CHEST: Clear to auscultation. HEART: Regular rate and rhythm. ABDOMEN: Diffusely tender. No masses were felt. EXTREMITIES: Without cyanosis, clubbing or edema. NEUROLOGIC: The patient is alert and oriented x3. LAB DATA AND TESTS: The patient's laboratory studies revealed hemoglobin A1C 11.66. His white count 13,700, hemoglobin 13.9, PLT count 239,000. Vitamin D level was slightly low at 24.1 with 30 to 100 is normal in our lab. His metabolic panel showed a sugar of 301, BUN 13, creatinine 0.59. Electrolytes were essentially normal. Liver enzymes were normal. Amylase and lipase were not elevated. Urine showed greater than 500 glucose but otherwise was normal other than specific gravity 1.036. The patient tested negative for COVID. His previous studies are on the chart in regards to his HIDA scan and gastric emptying study. He had CT scan performed in the emergency room that showed no bowel obstruction, colitis or diverticulitis and normal appendix. HOSPITAL COURSE: The patient was admitted to the medicine [facility] and given IV fluids, covered with insulin. Major difference for him when we added Neurontin 300 mg t.i.d. and by the next morning he was feeling much better. He wished to see Dr. Brent Chou in [place] for his follow up on his diabetes mellitus as he currently does not have a diabetic specialist. We will see him in the office in the next couple of weeks. We will continue his Neurontin at 300 mg t.i.d. and increase it if needed to keep his neuropathy pain under control. Other than his abdominal pain, the patient also does have peripheral neuropathy pain as well but this seemed to make the most difference on his care in regards to the abdominal pain.
[2020-08-01 11:57] VITALS: O2SAT 96
== END 2020-07-28 09:27 | disposition home or self-care (01) ==
LOC: ED 11:27 → MED SURG 17:05
PROVIDERS: ADMIT Family Medicine; ATTEND Family Medicine
DX: R11.2 Nausea with vomiting, unspecified (principal); R10.10 Upper abdominal pain, unspecified; E11.65 Type 2 diabetes mellitus with hyperglycemia; I10 Essential (primary) hypertension; I25.10 Atherosclerotic heart disease of native coronary artery without angina pectoris; E78.00 Pure hypercholesterolemia, unspecified; Z79.899 Other long term (current) drug therapy
CPT/HCPCS: 36000; 36415; 74177; 80053; 81001; 82150; 82306; 82805; 82947; 83036; 83605; 83690; 83735; 85025; 86677; 87651; 93005; 96360; 96374; 96375; 96376; 99285; 99291; G0378; J1815; J1817; J1956; J2270; J2405; U0003; A9270-GY

== ENCOUNTER 2020-08-29 15:28 | Emergency (ER) | payer OTHER ==
--- NOTE | 2020-08-29 15:39 | ERPHSYRPT ---
- History of Present Illness Time Seen by Provider: 08/29/20 15:38 Historian: patient Exam Limitations: no limitations Physician History: This is a 40-year-old diabetic white male who has chronic recurrent intractable vomiting and abdominal pain and presents with recurrent symptoms of the same. Patient states that his symptoms are worse in the last week and he is unable to hold any food or liquid down. Patient has prescriptions for both Zofran and Phenergan but has been unable to hold the medication down. He also takes Reglan on a daily basis. He also takes Pepcid on a daily basis orally but has also been unable to take that medication patient's primary care doctor is Dr. Luna. This patient has a diabetic specialist but has not seen a databases computer consultant in the past. Patient has no chest pain and only vague epigastric discomfort. He does have a history of hypertension. He is a chronic daily smoker of cigarettes but does not consume marijuana. He has had history of pancreatitis in the past. He denies consumption of alcohol Timing/Duration: week(s) (Intermittent), intermittent, worse Abdominal Pain Onset Location: epigastric Pain Radiation: no radiation Severity of Pain-Max: mild Severity of Pain-Current: mild Modifying Factors: Improves With: vomiting Associated Symptoms: nausea, vomiting, No chest pain, No fever/chills, No shortness of breath Previous symptoms: same symptoms as today Allergies/Adverse Reactions: codeine Allergy (Severe, Verified 08/29/20 15:50) Nausea and Vomiting "severe vomiting for hours" pseudoephedrine [From Actifed] Allergy (Severe, Verified 08/29/20 15:50) Fainting " almost . went out cold and really hard to wake me up" triprolidine [From Actifed] Allergy (Severe, Verified 08/29/20 15:50) Fainting "about " diphenhydramine [From Benadryl] Adverse Reaction (Severe, Verified 08/29/20 15:50) Fainting "knocked me out and couldn't get me awake hardly" Home Medications: Atorvastatin Calcium [Lipitor 20MG Tablet] 10 mg PO DAILY 01/06/20 [History] Insulin Glargine,Hum.rec.anlog [Basaglar Kwikpen U-100] 30 units SQ BID 01/06/20 [History] Insulin Lispro [Humalog] 20 unit SQ TID 01/06/20 [History] Lisinopril 10 mg [Zestril 10 MG] 10 mg PO DAILY 01/06/20 [History] Venlafaxine HCl ER 75 mg [Effexor XR 75 MG] 75 mg PO DAILY 01/06/20 [History] Ergocalciferol (Vitamin D2) [Vitamin D] 50,000 unit PO SA 07/26/20 [History] Metoclopramide HCl 10 mg PO ACHS 07/26/20 [History] Ondansetron HCl [Zofran] 4 mg PO TIDPRN PRN 07/26/20 [History] Gabapentin [Neurontin] 600 mg PO TID 08/29/20 [History] Hx Tetanus, Diphtheria Vaccination/Date Given: Yes Hx Influenza Vaccination/Date Given: Yes Hx Pneumococcal Vaccination/Date Given: No Travel Risk - International Travel Have you traveled outside of the country in past 3 weeks: No - Coronavirus Screening Are you exhibiting any of the following symptoms?: No Close contact with a COVID-19 positive Pt in past 14-21 Days: No - Review of Systems Constitutional: No Symptoms Eyes: No Symptoms Ears, Nose, & Throat: No Symptoms Respiratory: No Symptoms Cardiac: No Symptoms Abdominal/Gastrointestinal: Abdominal Pain (Mild epigastric), Nausea, Vomiting Genitourinary Symptoms: No Symptoms Musculoskeletal: No Symptoms Skin: No Symptoms Neurological: No Symptoms Psychological: No Symptoms Endocrine: No Symptoms Hematologic/Lymphatic: No Symptoms Immunological/Allergic: No Symptoms All Other Systems: Reviewed and Negative - Past Medical History Pertinent Past Medical History: Yes Neurological History: No Pertinent History ENT History: No Pertinent History Cardiac History: Coronary Artery Disease, High Cholesterol, Hypertension Respiratory History: No Pertinent History Endocrine Medical History: Diabetes Type II Musculoskeletal History: No Pertinent History GI Medical History: Esophageal Disorder, Hemorrhoids, Pancreatitis, Ulcer History: Other Psycho-Social History: Depression Male Reproductive Disorders: No Pertinent History Other Medical History: 2015 Gastritis, kidney infection - Past Surgical History Past Surgical History: Yes Neuro Surgical History: No Pertinent History Cardiac: Cardiac Catheterization Respiratory: No Pertinent History Gastrointestinal: Hemorrhoidectomy, Rectal Surgery Genitourinary: No Pertinent History Musculoskeletal: No Pertinent History Male Surgical History: No Pertinent History Other Surgical History: 2020 Heart Cath (blockage x 2) - Social History Smoking Status: Current every day smoker How long have you smoked: years Exposure to second hand smoke: Yes Drug Use: none Patient Lives Alone: No Significant Family History: no pertinent family hx - Nursing Vital Signs Nursing Vital Signs: Initial Vital Signs Temperature 99.0 F 08/29/20 15:33 Pulse Rate 89 08/29/20 15:33 Respiratory Rate 20 08/29/20 15:33 Blood Pressure 134/89 08/29/20 15:33 O2 Sat by Pulse Oximetry 97 08/29/20 15:33 Pain Scale Pain Intensity 7 - Physical Exam General Appearance: mild distress, alert, anxiety Eye Exam: PERRL/EOMI, eyes nml inspection Ears, Nose, Throat Exam: normal ENT inspection, moist mucous membranes Neck Exam: normal inspection, non-tender, supple, full range of motion Respiratory Exam: normal breath sounds, lungs clear, airway intact, No chest tenderness, No respiratory distress Cardiovascular Exam: regular rate/rhythm, normal heart sounds, normal peripheral pulses, murmur Gastrointestinal/Abdomen Exam: soft, normal bowel sounds, tenderness (Mild epigastric) Rectal Exam: not done Back Exam: normal inspection, normal range of motion, No CVA tenderness, No vertebral tenderness Extremity Exam: normal inspection, normal range of motion, pelvis stable Neurologic Exam: alert, oriented x 3, cooperative, manager of case management II-XII nml as tested, normal mood/affect, nml cerebellar function, nml station & gait, sensation nml Skin Exam: normal color, warm, dry Lymphatic Exam: No adenopathy SpO2 Interpretation: normal O2 Delivery: Room Air - Course Nursing assessment & vital signs reviewed: Yes EKG Interpreted by Me: RATE (92), Sinus Rhythm, NORMAL AXIS, NORMAL INTERVALS, NORMAL QRS, NORMAL ST-T, Other (Cute ischemic changes on today's EKG. The comparison EKG dated 07/26/2020 shows no changes and is a normal EKG as well.) Ordered Tests: Active Orders 24 hr Category Date Time Status EKG-ER Only STAT Care 08/29/20 15:46 Active IV Insertion STAT Care 08/29/20 15:46 Active AMYLASE Stat Lab 08/29/20 15:35 Completed AMYLASE Stat Lab 08/29/20 16:11 Completed CBC W DIFF Stat Lab 08/29/20 16:11 Completed CMP Stat Lab 08/29/20 16:11 Completed LIPASE Stat Lab 08/29/20 16:11 Completed Lactic Acid Stat Lab 08/29/20 15:46 Completed TROPONIN Q3H Lab 08/29/20 16:11 Completed TROPONIN Q3H Lab 08/29/20 19:00 Ordered TROPONIN Q3H Lab 08/29/20 22:00 Ordered TROPONIN Q3H Lab 08/30/20 01:00 Ordered TROPONIN Q3H Lab 08/30/20 04:00 Ordered UA W/RFX UR CULTURE Stat Lab 08/29/20 17:57 Completed Urine Triage Profile Stat Lab 08/29/20 17:57 Received Medication Summary Generic Name Dose Route Start Last Admin Trade Name Freq PRN Reason Stop Dose Admin Sodium Chloride 1,000 mls @ 999 mls/hr 08/29/20 17:53 08/29/20 17:56 Sodium Chloride 0.9% 1000 Ml IV 08/29/20 18:53 999 mls/hr .Q1H1M STA Administration Discontinued Medications Generic Name Dose Route Start Last Admin Trade Name Freq PRN Reason Stop Dose Admin Famotidine 40 mg 08/29/20 15:48 08/29/20 16:03 Pepcid 20 Mg Vial IV 08/29/20 15:49 40 mg STAT ONE Administration Famotidine Confirm 08/29/20 15:57 Pepcid 20 Mg Vial Administered 08/29/20 15:58 Dose 40 mg IV .STK-MED ONE Sodium Chloride 1,000 mls @ 999 mls/hr 08/29/20 15:46 08/29/20 17:21 Sodium Chloride 0.9% 1000 Ml IV 08/29/20 16:46 Infused .Q1H1M STA Infusion Sodium Chloride Confirm 08/29/20 15:57 Sodium Chloride 0.9% 1000 Ml Administered 08/29/20 15:58 Dose 1,000 mls @ ud .ROUTE .STK-MED ONE Sodium Chloride Confirm 08/29/20 17:54 Sodium Chloride 0.9% 1000 Ml Administered 08/29/20 17:55 Dose 1,000 mls @ ud .ROUTE .STK-MED ONE Ondansetron HCl 4 mg 08/29/20 15:46 08/29/20 16:02 Zofran 4 Mg/2 Ml Vial IV 08/29/20 15:47 4 mg STAT ONE Administration Ondansetron HCl Confirm 08/29/20 15:57 Zofran 4 Mg/2 Ml Vial Administered 08/29/20 15:58 Dose 4 mg .ROUTE .STK-MED ONE Lab/Rad Data: Laboratory Result Diagrams 08/29/20 16:11 08/29/20 16:11 Laboratory Results 08/29/20 08/29/20 08/29/20 Range/Units 17:57 16:11 16:11 WBC (4.0-10.5) K/mm3 RBC (4.1-5.6) M/mm3 Hgb (12.5-18.0) gm/dl Hct (42-50) % MCV (78-100) fl MCH (26-32) pg MCHC (32-36) g/dl RDW (11.5-14.0) % Plt Count (150-450) K/mm3 MPV (7.5-11.0) fl Gran % (36.0-66.0) % Eos # (Auto) (0-0.5) Absolute Lymphs (auto) (1.0-4.6) Absolute Monos (auto) (0.0-1.3) Lymphocytes % (24.0-44.0) % Monocytes % (0.0-12.0) % Eosinophils % (0.00-5.0) % Basophils % (0.0-0.4) % Absolute Granulocytes (1.4-6.9) Basophils # (0-0.4) Sodium 133 L (137-145) mmol/L Potassium 3.4 L (3.5-5.1) mmol/L Chloride 96 L (98-107) mmol/L Carbon Dioxide 29 (22-30) mmol/L Anion Gap 11.9 (5-15) MEQ/L BUN 12 (9-20) mg/dL Creatinine 0.64 L (0.66-1.25) mg/dL Estimated GFR > 60.0 ML/MIN Glucose 285 H (74-106) mg/dL Lactic Acid (0.4-2.0) Calcium 9.6 (8.4-10.2) mg/dL Total Bilirubin 0.80 (0.2-1.3) mg/dL AST 14 L (17-59) U/L ALT 14 (0-50) U/L Alkaline Phosphatase 86 (38-126) U/L Troponin I < 0.012 (0.000-0.034) ng/mL Serum Total Protein 7.1 (6.3-8.2) g/dL Albumin 4.5 (3.5-5.0) g/dL Amylase 33 (30-110) U/L Lipase 70 (23-300) U/L Urine Color STRAW (YELLOW) Urine Appearance CLEAR (CLEAR) Urine pH 7.0 (5-6) Ur Specific [place] 1.004 (1.005-1.025) Urine Protein NEGATIVE (Negative) Urine Ketones NEGATIVE (NEGATIVE) Urine Blood NEGATIVE (0-5) [place]/ul Urine Nitrite NEGATIVE (NEGATIVE) Urine Bilirubin NEGATIVE (NEGATIVE) Urine Urobilinogen NEGATIVE (0-1) mg/dL Ur Leukocyte Esterase TRACE (NEGATIVE) Urine WBC (Auto) 3-5 (0-5) /HPF Urine RBC (Auto) NONE (0-2) /HPF U Epithel Cells (Auto) NONE (FEW) /HPF Urine Bacteria (Auto) NONE SEEN (NEGATIVE) /HPF Urine Culture Reflexed NO (NO) Urine Glucose 150 (NEGATIVE) mg/dL 08/29/20 08/29/20 08/29/20 Range/Units 16:11 15:46 15:35 WBC 12.3 H (4.0-10.5) K/mm3 RBC 5.13 (4.1-5.6) M/mm3 Hgb 15.9 (12.5-18.0) gm/dl Hct 43.4 (42-50) % MCV 84.6 (78-100) fl MCH 31.0 (26-32) pg MCHC 36.6 H (32-36) g/dl RDW 12.8 (11.5-14.0) % Plt Count 287 (150-450) K/mm3 MPV 11.1 H (7.5-11.0) fl Gran % 64.7 (36.0-66.0) % Eos # (Auto) 0.11 (0-0.5) Absolute Lymphs (auto) 3.07 (1.0-4.6) Absolute Monos (auto) 1.14 (0.0-1.3) Lymphocytes % 24.9 (24.0-44.0) % Monocytes % 9.2 (0.0-12.0) % Eosinophils % 0.9 (0.00-5.0) % Basophils % 0.3 (0.0-0.4) % Absolute Granulocytes 7.97 H (1.4-6.9) Basophils # 0.04 (0-0.4) Sodium (137-145) mmol/L Potassium (3.5-5.1) mmol/L Chloride (98-107) mmol/L Carbon Dioxide (22-30) mmol/L Anion Gap (5-15) MEQ/L BUN (9-20) mg/dL Creatinine (0.66-1.25) mg/dL Estimated GFR ML/MIN Glucose (74-106) mg/dL Lactic Acid 1.1 (0.4-2.0) Calcium (8.4-10.2) mg/dL Total Bilirubin (0.2-1.3) mg/dL AST (17-59) U/L ALT (0-50) U/L Alkaline Phosphatase (38-126) U/L Troponin I (0.000-0.034) ng/mL Serum Total Protein (6.3-8.2) g/dL Albumin (3.5-5.0) g/dL Amylase 33 (30-110) U/L Lipase (23-300) U/L Urine Color (YELLOW) Urine Appearance (CLEAR) Urine pH (5-6) Ur Specific [place] (1.005-1.025) Urine Protein (Negative) Urine Ketones (NEGATIVE) Urine Blood (0-5) [place]/ul Urine Nitrite (NEGATIVE) Urine Bilirubin (NEGATIVE) Urine Urobilinogen (0-1) mg/dL Ur Leukocyte Esterase (NEGATIVE) Urine WBC (Auto) (0-5) /HPF Urine RBC (Auto) (0-2) /HPF U Epithel Cells (Auto) (FEW) /HPF Urine Bacteria (Auto) (NEGATIVE) /HPF Urine Culture Reflexed (NO) Urine Glucose (NEGATIVE) mg/dL - Progress Progress: improved, re-examined Progress Note: 08/29/20 18:26 Medical decision making: This patient has recurrent vomiting issues. He might have a gastroparesis. He is significantly diabetic. His blood sugar is is elevated but not at the level that I would be treating this in the emergency room. He has no ketones in his urine. Patient received 2 L of normal saline. We will discharge him to home. He has Phenergan and Zofran medication at home he can take. It was recommended that he follow-up with his primary care physician on Monday and to make arrangements for an evaluation by a databases computer consultant if indicated. Counseled pt/family regarding: lab results, diagnosis, need for follow-up - Departure Departure Disposition: Home Clinical Impression: Recurrent vomiting Condition: Stable Critical Care Time: No Referrals: BOBBY LUNA [Primary Care Provider] - Additional Instructions: Drink plenty of fluids. Use your Zofran and Phenergan as prescribed for control of nausea and vomiting. Call your prescribing physician on Monday, August 31, 2020 to make arranges for follow-up appointment and, if indicated, and evaluation by a databases computer consultant. Return to the emergency department if your symptoms recur.
[2020-08-29] MEDS ORDERED: Zofran 4 MG/2 ML VIAL IV ONE (15:46)
[2020-08-29] MEDS ORDERED: Sodium Chloride 0.9% 1000 ML 1,000 ML IV STA ×2 (15:46→17:53)
[2020-08-29] MEDS ORDERED: Pepcid 20 MG VIAL IV ONE ×2 (15:48→15:57)
[2020-08-29] MEDS ORDERED: Zofran 4 MG/2 ML VIAL ONE (15:57)
[2020-08-29] MEDS ORDERED: Sodium Chloride 0.9% 1000 ML 1,000 ML ONE ×2 (15:57→17:54)
[2020-08-29 16:13] LABS: Absolute Neutrophil Ct (ANC) 7.97 (1.4-6.9); BASOPHIL % 0.3 % (0.0-0.4); Basophil (Absolute #) 0.04 (0-0.4); Eosinophil % 0.9 % (0.00-5.0); Eosinophil (Absolute #) 0.11 (0-0.5); Hematocrit 43.4 % (42-50); Hemoglobin 15.9 gm/dl (12.5-18.0); Lymphocyte (Absolute #) 3.07 (1.0-4.6); Lymphocytes % 24.9 % (24.0-44.0); Mean Cell Volume 84.6 fl (78-100); Mean Corpuscular Hgb Concent. 36.6 g/dl (32-36); Mean Platelet Volume 11.1 fl (7.5-11.0); Monocyte (Absolute #) 1.14 (0.0-1.3); Monocytes % 9.2 % (0.0-12.0); Neutrophil % 64.7 % (36.0-66.0); Platelet Count 287 K/mm3 (150-450); Red Blood Count 5.13 M/mm3 (4.1-5.6); Red Cell Distribution Width 12.8 % (11.5-14.0); White Blood Count 12.3 K/mm3 (4.0-10.5)
[2020-08-29 16:25] LABS: ALBUMIN 4.5 g/dL (3.5-5.0); ALKALINE PHOSPHATASE 86 U/L (38-126); AMYLASE 33 U/L (30-110); ANION GAP 11.9 MEQ/L (5-15); BLOOD UREA NITROGEN 12 mg/dL (9-20); CHLORIDE 96 mmol/L (98-107); Calcium 9.6 mg/dL (8.4-10.2); Carbon Dioxide 29 mmol/L (22-30); Creatinine 1 0.64 mg/dL (0.66-1.25); EST GLOMERULAR FILTRATION RATE > 60.0 ML/MIN; Glucose 285 mg/dL (74-106); LIPASE 70 U/L (23-300); Potassium 3.4 mmol/L (3.5-5.1); SGOT/AST 14 U/L (17-59); SGPT/ALT 14 U/L (0-50); SODIUM 133 mmol/L (137-145); Total Protein 7.1 g/dL (6.3-8.2)
[2020-08-29 17:22] VITALS: BP 134/87
[2020-08-29 18:05] VITALS: PULSE 77; O2SAT 97
[2020-08-29 18:14] LABS: Appearance CLEAR (CLEAR); Bilirubin NEGATIVE (NEGATIVE); Blood NEGATIVE Ery/ul (0-5); Glucose 150 mg/dL (NEGATIVE); Ketones NEGATIVE (NEGATIVE); Leukocyte Esterase TRACE (NEGATIVE); Nitrite NEGATIVE (NEGATIVE); Protein,Urine Dip NEGATIVE (Negative); Specific Gravity 1.004 (1.005-1.025); Urobilinogen NEGATIVE mg/dL (0-1)
[2020-08-29 18:22] LABS: Bacteria NONE SEEN /HPF (NEGATIVE)
[2020-08-29 18:28] LABS: Amphetamine,Urine NEGATIVE (NEGATIVE); Barbiturate,Urine NEGATIVE (NEGATIVE); Benzodiazepine,Urine NEGATIVE (NEGATIVE); Cocaine,Urine NEGATIVE (NEGATIVE); Methadone,Urine NEGATIVE (NEGATIVE); Opiate,Urine NEGATIVE (NEGATIVE); PCP,Urine NEGATIVE (NEGATIVE); THC,Urine NEGATIVE (NEGATIVE)
== END 2020-08-29 18:49 | disposition home or self-care (01) ==
LOC: ED 15:28
DX: R11.2 Nausea with vomiting, unspecified (principal); R10.13 Epigastric pain; I10 Essential (primary) hypertension; I25.10 Atherosclerotic heart disease of native coronary artery without angina pectoris; E78.00 Pure hypercholesterolemia, unspecified; E11.9 Type 2 diabetes mellitus without complications; Z79.899 Other long term (current) drug therapy; Z79.4 Long term (current) use of insulin
CPT/HCPCS: 36415; 80053; 80307; 81001; 82150; 83605; 83690; 84484; 85025; 93005; 96360; 96361; 96374; 96375; 99284; J2405

== ENCOUNTER 2020-10-03 09:15 | Emergency (ER) | payer OTHER ==
[2020-10-03] MEDS ORDERED: Sodium Chloride 0.9% 1000 ML 1,000 ML IV STA (09:30)
[2020-10-03] MEDS ORDERED: Zofran 4 MG/2 ML VIAL IV ONE (09:30)
[2020-10-03] MEDS ORDERED: MORPHINE SULFATE 4 MG INJ IV ONE (09:30)
[2020-10-03] MEDS ORDERED: Zofran 4 MG/2 ML VIAL ONE (09:33)
[2020-10-03] MEDS ORDERED: Sodium Chloride 0.9% 1000 ML 1,000 ML ONE (09:34)
[2020-10-03] MEDS ORDERED: MORPHINE SULFATE 4 MG INJ ONE (09:34)
[2020-10-03 09:57] LABS: Absolute Neutrophil Ct (ANC) 6.53 (1.4-6.9); Basophil (Absolute #) 0 (0-0.4); Eosinophil % 0.7 % (0.00-5.0); Eosinophil (Absolute #) 0.07 (0-0.5); Hematocrit 43.8 % (42-50); Hemoglobin 14.9 gm/dl (12.5-18.0); Lymphocyte (Absolute #) 2.92 (1.0-4.6); Lymphocytes % 28.6 % (24.0-44.0); Mean Cell Volume 84.7 fl (78-100); Mean Corpuscular Hemoglobin 28.8 pg (26-32); Mean Platelet Volume 10.3 fl (7.5-11.0); Monocyte (Absolute #) 0.69 (0.0-1.3); Monocytes % 6.8 % (0.0-12.0); Neutrophil % 63.9 % (36.0-66.0); Platelet Count 290 K/mm3 (150-450); Red Blood Count 5.17 M/mm3 (4.1-5.6); White Blood Count 10.2 K/mm3 (4.0-10.5)
[2020-10-03 10:12] LABS: ALBUMIN 4.4 g/dL (3.5-5.0); ALKALINE PHOSPHATASE 85 U/L (38-126); ANION GAP 11.5 MEQ/L (5-15); BLOOD UREA NITROGEN 8 mg/dL (9-20); CHLORIDE 102 mmol/L (98-107); Carbon Dioxide 26 mmol/L (22-30); Creatinine 1 0.54 mg/dL (0.66-1.25); EST GLOMERULAR FILTRATION RATE > 60.0 ML/MIN; Glucose 168 mg/dL (74-106); LIPASE 94 U/L (23-300); Potassium 3.8 mmol/L (3.5-5.1); SGOT/AST 14 U/L (17-59); SGPT/ALT 17 U/L (0-50); SODIUM 136 mmol/L (137-145); Total Protein 7.3 g/dL (6.3-8.2)
[2020-10-03 10:55] LABS: Appearance SLIGHTLY CLOUDY (CLEAR); Bilirubin NEGATIVE (NEGATIVE); Blood NEGATIVE Ery/ul (0-5); Glucose NEGATIVE (NEGATIVE); Ketones TRACE (NEGATIVE); Leukocyte Esterase TRACE (NEGATIVE); Mucus MANY /HPF (NEGATIVE); Nitrite NEGATIVE (NEGATIVE); Protein,Urine Dip 100 (Negative); Specific Gravity 1.026 (1.005-1.025); Urobilinogen 4 mg/dL (0-1)
[2020-10-03 12:10] VITALS: BP 148/100
[2020-10-03 13:05] VITALS: PULSE 68; O2SAT 98
--- NOTE | 2020-10-03 13:09 | ERPHSYRPT ---
- History of Present Illness Time Seen by Provider: 10/03/20 09:47 Historian: patient Exam Limitations: no limitations Patient Subjective Stated Complaint: Abdominal pain Triage Nursing Assessment: Patient brought into ED via w/c and transferred to bed per self. Patient A+O X3. Patient's skin pink, warm and dry. Patient complains of abdominal pain constant sharp pain 8/10 that started at 0430 this am. Patient has vomitted X2. Abdomen soft and round with BS X 4. Physician History: 40 years old male with history of poorly controlled diabetes mellitus, recurrent abdominal pains presented in the ER with sudden onset right-sided/epigastric abdominal pain waking him up from sleep around 4 AM today moderate to severe i ntensity, sharp in nature, associated with multiple episodes of nonprojectile, nonbilious vomiting with no hematemesis. Denies any fever chills or shortness of breath. Timing/Duration: today, sudden, worse Activities at Onset: rest, sleep Quality: sharpness Abdominal Pain Onset Location: RUQ, RLQ, epigastric Pain Radiation: no radiation Severity of Pain-Max: severe Severity of Pain-Current: severe Modifying Factors: Worsens With: movement, palpation Associated Symptoms: nausea, vomiting Previous symptoms: same symptoms as today Allergies/Adverse Reactions: codeine Allergy (Severe, Verified 10/03/20 09:16) Nausea and Vomiting "severe vomiting for hours" pseudoephedrine [From Actifed] Allergy (Severe, Verified 10/03/20 09:16) Fainting " almost . went out cold and really hard to wake me up" triprolidine [From Actifed] Allergy (Severe, Verified 10/03/20 09:16) Fainting "about " diphenhydramine [From Benadryl] Adverse Reaction (Severe, Verified 10/03/20 09:16) Fainting "knocked me out and couldn't get me awake hardly" Home Medications: Atorvastatin Calcium [Lipitor 20MG Tablet] 10 mg PO DAILY 01/06/20 [History] Insulin Glargine,Hum.rec.anlog [Basaglar Kwikpen U-100] 30 units SQ BID 01/06/20 [History] Insulin Lispro [Humalog] 20 unit SQ TID 01/06/20 [History] Lisinopril 10 mg [Zestril 10 MG] 10 mg PO DAILY 01/06/20 [History] Venlafaxine HCl ER 75 mg [Effexor XR 75 MG] 75 mg PO DAILY 01/06/20 [History] Ergocalciferol (Vitamin D2) [Vitamin D] 50,000 unit PO SA 07/26/20 [History] Metoclopramide HCl 10 mg PO ACHS 07/26/20 [History] Ondansetron HCl [Zofran] 4 mg PO TIDPRN PRN 07/26/20 [History] Gabapentin [Neurontin] 600 mg PO TID 08/29/20 [History] Hx Tetanus, Diphtheria Vaccination/Date Given: Yes Hx Influenza Vaccination/Date Given: Yes Hx Pneumococcal Vaccination/Date Given: No Immunizations Up to Date: Yes Travel Risk - International Travel Have you traveled outside of the country in past 3 weeks: No - Coronavirus Screening Are you exhibiting any of the following symptoms?: No Close contact with a COVID-19 positive Pt in past 14-21 Days: No - Review of Systems Constitutional: Fatigue Eyes: No Symptoms Ears, Nose, & Throat: No Symptoms Respiratory: No Symptoms Cardiac: No Symptoms Abdominal/Gastrointestinal: Abdominal Pain, Nausea, Vomiting Genitourinary Symptoms: No Symptoms Musculoskeletal: No Symptoms Skin: No Symptoms Neurological: No Symptoms Psychological: Anxiety Endocrine: No Symptoms Hematologic/Lymphatic: No Symptoms Immunological/Allergic: No Symptoms - Past Medical History Pertinent Past Medical History: Yes Neurological History: No Pertinent History ENT History: No Pertinent History Cardiac History: Coronary Artery Disease, High Cholesterol, Hypertension Respiratory History: No Pertinent History Endocrine Medical History: Diabetes Type II Musculoskeletal History: No Pertinent History GI Medical History: Esophageal Disorder, Hemorrhoids, Pancreatitis, Ulcer History: Other Psycho-Social History: Depression Male Reproductive Disorders: No Pertinent History Other Medical History: 2015 Gastritis, kidney infection - Past Surgical History Past Surgical History: Yes Neuro Surgical History: No Pertinent History Cardiac: Cardiac Catheterization Respiratory: No Pertinent History Gastrointestinal: Hemorrhoidectomy, Rectal Surgery Genitourinary: No Pertinent History Musculoskeletal: No Pertinent History Male Surgical History: No Pertinent History Other Surgical History: 2020 Heart Cath (blockage x 2) - Social History Smoking Status: Current every day smoker How long have you smoked: years Exposure to second hand smoke: Yes Drug Use: none Patient Lives Alone: No Significant Family History: no pertinent family hx - Nursing Vital Signs Nursing Vital Signs: Initial Vital Signs Temperature 98.5 F 10/03/20 09:17 Pulse Rate 104 H 10/03/20 09:17 Respiratory Rate 18 10/03/20 09:17 Blood Pressure 166/147 10/03/20 09:17 O2 Sat by Pulse Oximetry 98 10/03/20 09:17 Pain Scale Pain Intensity 3 - Physical Exam General Appearance: no apparent distress Eye Exam: PERRL/EOMI Ears, Nose, Throat Exam: pharyngeal erythema Neck Exam: normal inspection, supple, full range of motion Respiratory Exam: normal breath sounds, lungs clear Cardiovascular Exam: regular rate/rhythm, normal heart sounds Gastrointestinal/Abdomen Exam: soft, normal bowel sounds, tenderness (Right up per and lower abdomen/epigastric area) Back Exam: normal inspection, normal range of motion Extremity Exam: normal inspection, normal range of motion Neurologic Exam: alert, oriented x 3, cooperative Skin Exam: normal color SpO2 Interpretation: normal SpO2: 98 O2 Delivery: Room Air Ordered Tests: Active Orders 24 hr Category Date Time Status ABDOMEN AND PELVIS W CONTRAST [CT] Stat Exams 10/03/20 09:44 Taken CBC W DIFF Stat Lab 10/03/20 09:30 Completed CMP Stat Lab 10/03/20 09:30 Completed CULTURE,URINE Stat Lab 10/03/20 10:28 Received LIPASE Stat Lab 10/03/20 09:30 Completed UA W/RFX UR CULTURE Stat Lab 10/03/20 10:28 Completed Medication Summary Discontinued Medications Generic Name Dose Route Start Last Admin Trade Name Freq PRN Reason Stop Dose Admin Sodium Chloride 1,000 mls @ 999 mls/hr 10/03/20 09:30 10/03/20 10:40 Sodium Chloride 0.9% 1000 Ml IV 10/03/20 10:30 Infused .Q1H1M STA Infusion Sodium Chloride Confirm 10/03/20 09:34 Sodium Chloride 0.9% 1000 Ml Administered 10/03/20 09:35 Dose 1,000 mls @ ud .ROUTE .STK-MED ONE Morphine Sulfate 4 mg 10/03/20 09:30 10/03/20 09:37 Morphine Sulfate 4 Mg Inj IV 10/03/20 09:31 4 mg STAT ONE Administration Morphine Sulfate Confirm 10/03/20 09:34 Morphine Sulfate 4 Mg Inj Administered 10/03/20 09:35 Dose 4 mg .ROUTE .STK-MED ONE Ondansetron HCl 4 mg 10/03/20 09:30 10/03/20 09:37 Zofran 4 Mg/2 Ml Vial IV 10/03/20 09:31 4 mg STAT ONE Administration Ondansetron HCl Confirm 10/03/20 09:33 Zofran 4 Mg/2 Ml Vial Administered 10/03/20 09:34 Dose 4 mg .ROUTE .STK-MED ONE Lab/Rad Data: Laboratory Result Diagrams 10/03/20 09:30 10/03/20 09:30 Laboratory Results 10/03/20 10/03/20 10/03/20 Range/Units 10:28 09:30 09:30 WBC 10.2 (4.0-10.5) K/mm3 RBC 5.17 (4.1-5.6) M/mm3 Hgb 14.9 (12.5-18.0) gm/dl Hct 43.8 (42-50) % MCV 84.7 (78-100) fl MCH 28.8 (26-32) pg MCHC 34.0 (32-36) g/dl RDW 13.0 (11.5-14.0) % Plt Count 290 (150-450) K/mm3 MPV 10.3 (7.5-11.0) fl Gran % 63.9 (36.0-66.0) % Eos # (Auto) 0.07 (0-0.5) Absolute Lymphs (auto) 2.92 (1.0-4.6) Absolute Monos (auto) 0.69 (0.0-1.3) Lymphocytes % 28.6 (24.0-44.0) % Monocytes % 6.8 (0.0-12.0) % Eosinophils % 0.7 (0.00-5.0) % Basophils % 0.0 (0.0-0.4) % Absolute Granulocytes 6.53 (1.4-6.9) Basophils # 0 (0-0.4) Sodium 136 L (137-145) mmol/L Potassium 3.8 (3.5-5.1) mmol/L Chloride 102 (98-107) mmol/L Carbon Dioxide 26 (22-30) mmol/L Anion Gap 11.5 (5-15) MEQ/L BUN 8 L (9-20) mg/dL Creatinine 0.54 L (0.66-1.25) mg/dL Estimated GFR > 60.0 ML/MIN Glucose 168 H (74-106) mg/dL Calcium 10.0 (8.4-10.2) mg/dL Total Bilirubin 0.70 (0.2-1.3) mg/dL AST 14 L (17-59) U/L ALT 17 (0-50) U/L Alkaline Phosphatase 85 (38-126) U/L Serum Total Protein 7.3 (6.3-8.2) g/dL Albumin 4.4 (3.5-5.0) g/dL Lipase 94 (23-300) U/L Urine Color [place]EL[place] (YELLOW) Urine Appearance SLIGHTLY CLOUDY (CLEAR) Urine pH 6.0 (5-6) Ur Specific [place] 1.026 (1.005-1.025) Urine Protein 100 (Negative) Urine Ketones TRACE (NEGATIVE) Urine Blood NEGATIVE (0-5) [place]/ul Urine Nitrite NEGATIVE (NEGATIVE) Urine Bilirubin NEGATIVE (NEGATIVE) Urine Urobilinogen 4 (0-1) mg/dL Ur Leukocyte Esterase TRACE (NEGATIVE) Urine WBC (Auto) 3-5 (0-5) /HPF Urine RBC (Auto) 3-5 (0-2) /HPF U Epithel Cells (Auto) NONE (FEW) /HPF Urine Bacteria (Auto) NONE (NEGATIVE) /HPF Urine Mucus (Auto) MANY (NEGATIVE) /HPF Urine Culture Reflexed YES (NO) Urine Glucose NEGATIVE (NEGATIVE) mg/dL - Progress Progress: improved Progress Note: 10/03/20 13:07 He is given fluid bolus along with morphine, on reevaluation his pain is better. Acute abdomen work-up including CT with contrast is negative for any acute findings. I believe patient is having symptoms secondary to gastroparesis from his poorly controlled diabetes mellitus but does not have any established diagn osis. Patient does have appointment with gastroenterology at [facility] for further evaluation. On repeated evaluation he does not have any peritoneal signs. He does have multiple antiemetics including Reglan, advised to take it as needed and drink plenty of fluids. Discussed signs symptoms of worsening needing return to ER which he seems understanding. At this point I do not think patient needs any further work-up and is stable for discharge Counseled pt/family regarding: lab results, diagnosis, need for follow-up, rad results - Departure Departure Disposition: Home Clinical Impression: Right sided abdominal pain Condition: Stable Critical Care Time: No Referrals: BOBBY NEWTON [Primary Care Provider] - Follow Up with PCP/3 days Instructions: Acute Abdomen (Belly Pain) Additional Instructions: Take nausea medication and pain medications as needed. Monitor your blood sugar regularly. 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 Follow-up with primary care for reevaluation. Return to ER for intractable pain/vomiting/fever chills/dehydration etc.
--- NOTE | 2020-10-03 18:20 | XRAY ---
Indication: Right upper quadrant pain. Nausea and vomiting. History gastroparesis and pancreatitis. Multiple contiguous axial images obtained through the abdomen and pelvis using 80 cc Isovue-370 contrast. Comparison: July 26, 2020. Lung bases remain clear with stable incidental right lower lobe calcified granuloma. Heart is not enlarged. Noncontrasted stomach and bowel loops remain nonobstructed. Normal appendix. No free fluid/air. Stable 21 cm fatty hepatomegaly, hepatic/splenic calcified granulomas, and a few bilateral renal cysts. Remaining liver, gallbladder, pancreas, spleen, adrenal glands, kidneys, ureters, bladder, and aorta appear unremarkable. No pathological retroperitoneal lymphadenopathy. Osseous structures intact again with minimal degenerative changes. No ventral or inguinal hernias. Impression: 1. Stable fatty hepatomegaly, bilateral renal cysts, and old granulomatous disease. 2. Remaining CT abdomen/pelvis with contrast exam is negative. Common: Preliminary interpretation was made by [facility]. No critical discrepancy.
== END 2020-10-03 13:14 | disposition home or self-care (01) ==
LOC: ED 09:15
DX: R10.31 Right lower quadrant pain (principal); R10.11 Right upper quadrant pain; R11.2 Nausea with vomiting, unspecified; E11.9 Type 2 diabetes mellitus without complications; R53.83 Other fatigue; I10 Essential (primary) hypertension; Z79.899 Other long term (current) drug therapy; F17.210 Nicotine dependence, cigarettes, uncomplicated
CPT/HCPCS: 36000; 36415; 74177; 80053; 81001; 83690; 85025; 87086; 96360; 96374; 96375; 99284; J2270; J2405

== ENCOUNTER 2020-11-08 11:20 | Emergency (ER) | payer OTHER ==
[2020-11-08] MEDS ORDERED: Sodium Chloride 0.9% 1000 ML 1,000 ML IV STA (11:42)
--- NOTE | 2020-11-08 11:43 | ERPHSYRPT ---
- History of Present Illness Historian: patient Exam Limitations: no limitations Patient Subjective Stated Complaint: pt here for chronic abd pain for 16 months now, he is to see a specialist on monday, he states he has lost over 100 lbs, Triage Nursing Assessment: face msk in place.pt alert, resp easy, skin w/d/p.abd soft soft and tender, takes zofran at home and states it helps, Physician History: Patient is a 40-year-old male with history of diabetes and chronic stomach issues that presents with abdominal pain and nausea. Patient mainly in the upper abdomen epigastric area. Patient have a longstanding history of abdominal issues. He apparently has had endoscopy in the past which showed H. pylori infection. This was treated. Patient has had gastric emptying study to diagnose for gastroparesis which apparently is inconclusive. Patient does have history of pancreatitis as well. He is unsure when his last bout was. Patient was seen here about a month ago and had some elevated lipase he states. This has been ongoing for about 16 months. He states that it started with Victoza medicine that caused his pancreatitis. He feels he lost about 100 pounds in that timeframe. He does have an appointment with GI specialist in 2 to 3 days. Denies fever or any URI symptoms. Timing/Duration: today Activities at Onset: none Quality: sharpness, stabbing Abdominal Pain Onset Location: RUQ, LUQ, epigastric Pain Radiation: no radiation Severity of Pain-Max: severe Severity of Pain-Current: moderate Modifying Factors: Improves With: eating Associated Symptoms: nausea, vomiting Previous symptoms: same symptoms as today Allergies/Adverse Reactions: codeine Allergy (Severe, Verified 11/08/20 11:34) Nausea and Vomiting "severe vomiting for hours" pseudoephedrine [From Actifed] Allergy (Severe, Verified 11/08/20 11:34) Fainting " almost . went out cold and really hard to wake me up" triprolidine [From Actifed] Allergy (Severe, Verified 11/08/20 11:34) Fainting "about " diphenhydramine [From Benadryl] Adverse Reaction (Severe, Verified 11/08/20 11:34) Fainting "knocked me out and couldn't get me awake hardly" Home Medications: Atorvastatin Calcium [Lipitor 20MG Tablet] 10 mg PO DAILY 01/06/20 [History] Insulin Glargine,Hum.rec.anlog [Basaglar Kwikpen U-100] 30 units SQ BID 01/06/20 [History] Insulin Lispro [Humalog] 20 unit SQ TID 01/06/20 [History] Lisinopril 10 mg [Zestril 10 MG] 10 mg PO DAILY 01/06/20 [History] Venlafaxine HCl ER 75 mg [Effexor XR 75 MG] 75 mg PO DAILY 01/06/20 [History] Ergocalciferol (Vitamin D2) [Vitamin D] 50,000 unit PO SA 07/26/20 [History] Metoclopramide HCl 10 mg PO ACHS 07/26/20 [History] Ondansetron HCl [Zofran] 4 mg PO TIDPRN PRN 07/26/20 [History] Gabapentin [Neurontin] 600 mg PO TID 08/29/20 [History] Hx Tetanus, Diphtheria Vaccination/Date Given: Yes Hx Influenza Vaccination/Date Given: Yes Hx Pneumococcal Vaccination/Date Given: No Immunizations Up to Date: Yes Travel Risk - International Travel Have you traveled outside of the country in past 3 weeks: No - Coronavirus Screening Are you exhibiting any of the following symptoms?: No Close contact with a COVID-19 positive Pt in past 14-21 Days: No - Review of Systems Constitutional: Malaise, No Fever, No Chills Eyes: No Symptoms Ears, Nose, & Throat: No Symptoms Respiratory: No Cough, No Dyspnea Cardiac: No Chest Pain, No Edema, No Syncope Abdominal/Gastrointestinal: Abdominal Pain, Nausea, Vomiting, No Diarrhea Genitourinary Symptoms: No Dysuria Musculoskeletal: No Back Pain, No Neck Pain Skin: No Rash Neurological: No Dizziness, No Focal Weakness, No Sensory Changes Psychological: No Symptoms Endocrine: No Symptoms All Other Systems: Reviewed and Negative - Past Medical History Pertinent Past Medical History: Yes Neurological History: No Pertinent History ENT History: No Pertinent History Cardiac History: Coronary Artery Disease, High Cholesterol, Hypertension Respiratory History: No Pertinent History Endocrine Medical History: Diabetes Type II Musculoskeletal History: No Pertinent History GI Medical History: Esophageal Disorder, Hemorrhoids, Pancreatitis, Ulcer History: Other Psycho-Social History: Depression Male Reproductive Disorders: No Pertinent History Other Medical History: 2015 Gastritis, kidney infection - Past Surgical History Past Surgical History: Yes Neuro Surgical History: No Pertinent History Cardiac: Cardiac Catheterization Respiratory: No Pertinent History Gastrointestinal: Hemorrhoidectomy, Rectal Surgery Genitourinary: No Pertinent History Musculoskeletal: No Pertinent History Male Surgical History: No Pertinent History Other Surgical History: 2019 Heart Cath (blockage x 2) - Social History Smoking Status: Current every day smoker How long have you smoked: years Exposure to second hand smoke: Yes Drug Use: none Patient Lives Alone: No Significant Family History: no pertinent family hx - Nursing Vital Signs Nursing Vital Signs: Initial Vital Signs Pulse Rate 72 11/08/20 12:23 Respiratory Rate 18 11/08/20 12:23 Blood Pressure 125/85 11/08/20 12:23 O2 Sat by Pulse Oximetry 99 11/08/20 12:23 Pain Scale Pain Intensity 4 - Physical Exam General Appearance: no apparent distress, alert Eye Exam: PERRL/EOMI, eyes nml inspection Ears, Nose, Throat Exam: normal ENT inspection, pharynx normal, moist mucous membranes Neck Exam: normal inspection, non-tender, supple, full range of motion Respiratory Exam: normal breath sounds, lungs clear, No respiratory distress Cardiovascular Exam: regular rate/rhythm, normal heart sounds Gastrointestinal/Abdomen Exam: soft, normal bowel sounds, tenderness, mass Rectal Exam: deferred Back Exam: normal inspection, normal range of motion, No CVA tenderness, No vertebral tenderness Extremity Exam: normal inspection, normal range of motion, pelvis stable Neurologic Exam: alert, oriented x 3, cooperative, normal mood/affect, nml cerebellar function, sensation nml, No motor deficits Skin Exam: normal color, warm, dry SpO2 Interpretation: normal - Course Nursing assessment & vital signs reviewed: Yes Ordered Tests: Active Orders 24 hr Category Date Time Status IV Insertion STAT Care 11/08/20 11:42 Active ABDOMEN AND PELVIS W CONTRAST [CT] Stat Exams 11/08/20 11:55 Taken AMYLASE Stat Lab 11/08/20 11:40 Completed BMP Stat Lab 11/08/20 11:40 Completed CBC W DIFF Stat Lab 11/08/20 11:40 Completed Hepatic Function Panel Stat Lab 11/08/20 11:40 Completed LIPASE Stat Lab 11/08/20 11:40 Completed UA W/RFX UR CULTURE Stat Lab 11/08/20 13:27 Completed Medication Summary Discontinued Medications Generic Name Dose Route Start Last Admin Trade Name Freq PRN Reason Stop Dose Admin Sodium Chloride 1,000 mls @ 999 mls/hr 11/08/20 11:42 11/08/20 13:44 Sodium Chloride 0.9% 1000 Ml IV 11/08/20 12:42 Infused .Q1H1M STA Infusion Sodium Chloride Confirm 11/08/20 11:50 Sodium Chloride 0.9% 1000 Ml Administered 11/08/20 11:51 Dose 1,000 mls @ ud .ROUTE .STK-MED ONE Morphine Sulfate 4 mg 11/08/20 11:53 11/08/20 11:57 Morphine Sulfate 4 Mg Inj IV 11/08/20 11:54 4 mg STAT ONE Administration Morphine Sulfate Confirm 11/08/20 11:56 Morphine Sulfate 4 Mg Inj Administered 11/08/20 11:57 Dose 4 mg .ROUTE .STK-MED ONE Ondansetron HCl 4 mg 11/08/20 11:53 11/08/20 11:57 Zofran 4 Mg/2 Ml Vial IV 11/08/20 11:54 4 mg STAT ONE Administration Ondansetron HCl Confirm 11/08/20 11:56 Zofran 4 Mg/2 Ml Vial Administered 11/08/20 11:57 Dose 4 mg .ROUTE .STK-MED ONE Lab/Rad Data: Laboratory Result Diagrams 11/08/20 11:40 11/08/20 11:40 Laboratory Results 11/08/20 11/08/20 11/08/20 Range/Units 13:27 11:40 11:40 WBC 9.4 (4.0-10.5) K/mm3 RBC 4.92 (4.1-5.6) M/mm3 Hgb 14.4 (12.5-18.0) gm/dl Hct 41.9 L (42-50) % MCV 85.2 (78-100) fl MCH 29.3 (26-32) pg MCHC 34.4 (32-36) g/dl RDW 12.9 (11.5-14.0) % Plt Count 267 (150-450) K/mm3 MPV 10.4 (7.5-11.0) fl Gran % 62.1 (36.0-66.0) % Eos # (Auto) 0.11 (0-0.5) Absolute Lymphs (auto) 2.83 (1.0-4.6) Absolute Monos (auto) 0.60 (0.0-1.3) Lymphocytes % 30.2 (24.0-44.0) % Monocytes % 6.4 (0.0-12.0) % Eosinophils % 1.2 (0.00-5.0) % Basophils % 0.1 (0.0-0.4) % Absolute Granulocytes 5.82 (1.4-6.9) Basophils # 0.01 (0-0.4) Sodium 138 (137-145) mmol/L Potassium 4.0 (3.5-5.1) mmol/L Chloride 100 (98-107) mmol/L Carbon Dioxide 28 (22-30) mmol/L Anion Gap 13.7 (5-15) MEQ/L BUN 8 L (9-20) mg/dL Creatinine 0.57 L (0.66-1.25) mg/dL Estimated GFR > 60.0 ML/MIN Glucose 231 H (74-106) mg/dL Calcium 9.7 (8.4-10.2) mg/dL Total Bilirubin 0.40 (0.2-1.3) mg/dL Direct Bilirubin 0 (0.0-0.4) mg/dL AST 16 L (17-59) U/L ALT 18 (0-50) U/L Alkaline Phosphatase 67 (38-126) U/L Serum Total Protein 7.0 (6.3-8.2) g/dL Albumin 4.3 (3.5-5.0) g/dL Amylase 59 (30-110) U/L Lipase 396 H (23-300) U/L Urine Color YELLOW (YELLOW) Urine Appearance CLEAR (CLEAR) Urine pH 6.0 (5-6) Ur Specific [place] 1.045 (1.005-1.025) Urine Protein 30 (Negative) Urine Ketones NEGATIVE (NEGATIVE) Urine Blood NEGATIVE (0-5) [place]/ul Urine Nitrite NEGATIVE (NEGATIVE) Urine Bilirubin NEGATIVE (NEGATIVE) Urine Urobilinogen 2 (0-1) mg/dL Ur Leukocyte Esterase TRACE (NEGATIVE) Urine WBC (Auto) 3-5 (0-5) /HPF Urine RBC (Auto) NONE (0-2) /HPF U Epithel Cells (Auto) NONE (FEW) /HPF Urine Bacteria (Auto) NONE (NEGATIVE) /HPF Urine Mucus (Auto) MODERATE (NEGATIVE) /HPF Urine Culture Reflexed NO (NO) Urine Glucose NEGATIVE (NEGATIVE) mg/dL - Progress Progress: improved Progress Note: 11/08/20 14:29 Abdominal pain work-up. Morphine and Zofran and IV fluids started. Lipase slightly elevated about 390 while other labs are normal. CT scan shows an irregularity of the aorto mesenteric region where there is a narrowed aortomesenteric distance of 8 mm. There is also mention a distended duodenum to the level of the SMA. 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 Discussed with GI specialist at [facility] at [address] Simpson is the on-call physician. Advised vascular consultation I did not feel this was a GI issue. Discussed with vascular surgery at [facility] at 2:[address] Lowery upon discussion of the case thought that it might be more medical GI issue instead. He did recommend possibly transferring patient to where they have interventional radiology. He declined transfer. Will call for possible transfer. 11/08/20 14:51 Last with hospitalist and GI over at [id number]. They have accepted patient for transfer. Discussed with patient who is in agreement with disposition. Counseled pt/family regarding: lab results, diagnosis, rad results - Departure Departure Disposition: Transfer Clinical Impression: Duodenal obstruction Condition: Stable Critical Care Time: No Referrals: BOBBY NEWTON [Primary Care Provider] -
[2020-11-08] MEDS ORDERED: Sodium Chloride 0.9% 1000 ML 1,000 ML ONE (11:50)
[2020-11-08] MEDS ORDERED: Zofran 4 MG/2 ML VIAL IV ONE (11:53)
[2020-11-08] MEDS ORDERED: MORPHINE SULFATE 4 MG INJ IV ONE (11:53)
[2020-11-08] MEDS ORDERED: Zofran 4 MG/2 ML VIAL ONE (11:56)
[2020-11-08] MEDS ORDERED: MORPHINE SULFATE 4 MG INJ ONE (11:56)
[2020-11-08 12:10] LABS: Absolute Neutrophil Ct (ANC) 5.82 (1.4-6.9); BASOPHIL % 0.1 % (0.0-0.4); Basophil (Absolute #) 0.01 (0-0.4); Eosinophil % 1.2 % (0.00-5.0); Eosinophil (Absolute #) 0.11 (0-0.5); Hematocrit 41.9 % (42-50); Hemoglobin 14.4 gm/dl (12.5-18.0); Lymphocyte (Absolute #) 2.83 (1.0-4.6); Lymphocytes % 30.2 % (24.0-44.0); Mean Cell Volume 85.2 fl (78-100); Mean Corpuscular Hemoglobin 29.3 pg (26-32); Mean Corpuscular Hgb Concent. 34.4 g/dl (32-36); Mean Platelet Volume 10.4 fl (7.5-11.0); Monocytes % 6.4 % (0.0-12.0); Neutrophil % 62.1 % (36.0-66.0); Platelet Count 267 K/mm3 (150-450); Red Blood Count 4.92 M/mm3 (4.1-5.6); Red Cell Distribution Width 12.9 % (11.5-14.0); White Blood Count 9.4 K/mm3 (4.0-10.5)
[2020-11-08 12:16] LABS: ALBUMIN 4.3 g/dL (3.5-5.0); ALKALINE PHOSPHATASE 67 U/L (38-126); AMYLASE 59 U/L (30-110); ANION GAP 13.7 MEQ/L (5-15); BLOOD UREA NITROGEN 8 mg/dL (9-20); CHLORIDE 100 mmol/L (98-107); Calcium 9.7 mg/dL (8.4-10.2); Carbon Dioxide 28 mmol/L (22-30); Creatinine 1 0.57 mg/dL (0.66-1.25); EST GLOMERULAR FILTRATION RATE > 60.0 ML/MIN; Glucose 231 mg/dL (74-106); LIPASE 396 U/L (23-300); SGOT/AST 16 U/L (17-59); SGPT/ALT 18 U/L (0-50); SODIUM 138 mmol/L (137-145)
[2020-11-08 12:18] LABS: Direct Bilirubin 0 mg/dL (0.0-0.4)
[2020-11-08 14:35] LABS: Appearance CLEAR (CLEAR); Bilirubin NEGATIVE (NEGATIVE); Blood NEGATIVE Ery/ul (0-5); Glucose NEGATIVE (NEGATIVE); Ketones NEGATIVE (NEGATIVE); Leukocyte Esterase TRACE (NEGATIVE); Mucus MODERATE /HPF (NEGATIVE); Nitrite NEGATIVE (NEGATIVE); Protein,Urine Dip 30 (Negative); Specific Gravity 1.045 (1.005-1.025); Urobilinogen 2 mg/dL (0-1)
[2020-11-08 16:17] VITALS: PULSE 70
[2020-11-08 16:30] VITALS: BP 149/106; O2SAT 96
--- NOTE | 2020-11-08 20:30 | XRAY ---
Indication: Chronic epigastric and right upper quadrant pain. Nausea and vomiting. Unintentional weight loss. Multiple contiguous axial images obtained through the abdomen and pelvis using 80 cc Isovue 370 contrast. Comparison: October 03, 2020. Lung bases remain clear with again incidental right lower lobe cost for granuloma. Heart is not enlarged. Noncontrasted stomach and bowel loops remain nonobstructed. No free fluid/air. Stable hepatic/splenic calcified granulomas, 21 cm hepatomegaly, and a few bilateral renal cysts. Remaining liver, gallbladder, pancreas, spleen, adrenal glands, kidneys, ureters, bladder, and aorta are unremarkable. No pathologic retroperitoneal lymphadenopathy. Osseous structures intact. Impression: 1. Stable hepatomegaly, bilateral renal cysts, and old granulomatous disease. 2. Remaining CT abdomen/pelvis with contrast exam is negative. Comment: Preliminary interpretation was made by [facility] who reports distention of 1st/2nd portion of duodenum to the level of the superior mesenteric artery and offers Gagan Syndrome, also known as superior mesenteric artery syndrome, for clinical consideration. Of note, similar duodenal distention seen on comparison study but is not seen on multiple CT abdomen/pelvis exams prior to that.
== END 2020-11-08 16:31 | disposition short-term general hospital (02) ==
LOC: ED 11:20
DX: K31.5 Obstruction of duodenum (principal)
CPT/HCPCS: 36000; 36415; 74177; 80048; 80076; 81001; 82150; 83690; 85025; 96360; 96374; 96375; 99285; J2270; J2405

== ENCOUNTER 2021-02-15 14:47 | Emergency (ER) | payer OTHER ==
--- NOTE | 2021-02-15 14:52 | ERPHSYRPT ---
- History of Present Illness Time Seen by Provider: 02/15/21 14:52 Historian: patient, family Exam Limitations: no limitations Physician History: This is a 40-year-old white male who is a patient of Dr. Luna and has a history of diabetes and hypertension as well as recurrent upper abdominal pain with associated vomiting. Patient is seen in the emergency department today for the same symptom of upper abdominal pain and recurrent vomiting. He has had the same symptoms intermittently for over 18 months. He has longstanding abdominal complaints. He has had several evaluations here in this emergency department as well as outpatient evaluations including evaluations by hospital cook. Patient denies chest pain. He denies shortness of breath. He has no diarrhea. In fact, he states his bowel movements are at times large. He has had no fevers or chills. Timing/Duration: other (Chronic, recurrent over 18 months) Quality: aching Abdominal Pain Onset Location: generalized abdomen Pain Radiation: no radiation Severity of Pain-Max: moderate Severity of Pain-Current: moderate Associated Symptoms: loss of appetite, nausea, vomiting, weakness Previous symptoms: same symptoms as today Allergies/Adverse Reactions: codeine Allergy (Severe, Verified 11/08/20 11:34) Nausea and Vomiting "severe vomiting for hours" pseudoephedrine [From Actifed] Allergy (Severe, Verified 11/08/20 11:34) Fainting " almost . went out cold and really hard to wake me up" triprolidine [From Actifed] Allergy (Severe, Verified 11/08/20 11:34) Fainting "about " diphenhydramine [From Benadryl] Adverse Reaction (Severe, Verified 11/08/20 11:34) Fainting "knocked me out and couldn't get me awake hardly" Home Medications: Atorvastatin Calcium [Lipitor 20MG Tablet] 10 mg PO DAILY 01/06/20 [History] Insulin Glargine,Hum.rec.anlog [Basaglar Kwikpen U-100] 30 units SQ BID 01/06/20 [History] Insulin Lispro [Humalog] 20 unit SQ TID 01/06/20 [History] Lisinopril 10 mg [Zestril 10 MG] 10 mg PO DAILY 01/06/20 [History] Venlafaxine HCl ER 75 mg [Effexor XR 75 MG] 75 mg PO DAILY 01/06/20 [Hist ory] Ergocalciferol (Vitamin D2) [Vitamin D] 50,000 unit PO SA 07/26/20 [History] Metoclopramide HCl 10 mg PO ACHS 07/26/20 [History] Ondansetron HCl [Zofran] 4 mg PO TIDPRN PRN 07/26/20 [History] Gabapentin [Neurontin] 600 mg PO TID 08/29/20 [History] Hx Tetanus, Diphtheria Vaccination/Date Given: Yes Hx Influenza Vaccination/Date Given: Yes Hx Pneumococcal Vaccination/Date Given: No Travel Risk - International Travel Have you traveled outside of the country in past 3 weeks: No - Coronavirus Screening Are you exhibiting any of the following symptoms?: No Close contact with a COVID-19 positive Pt in past 14-21 Days: No - Review of Systems Constitutional: Weakness Eyes: No Symptoms Ears, Nose, & Throat: No Symptoms Respiratory: No Symptoms Cardiac: No Symptoms Abdominal/Gastrointestinal: Abdominal Pain, Nausea, Vomiting, No Diarrhea Genitourinary Symptoms: No Symptoms Musculoskeletal: No Symptoms Skin: No Symptoms Neurological: No Symptoms Psychological: No Symptoms Endocrine: No Symptoms Hematologic/Lymphatic: No Symptoms Immunological/Allergic: No Symptoms All Other Systems: Reviewed and Negative - Past Medical History Pertinent Past Medical History: Yes Neurological History: No Pertinent History ENT History: No Pertinent History Cardiac History: Coronary Artery Disease, High Cholesterol, Hypertension Respiratory History: No Pertinent History Endocrine Medical History: Diabetes Type II Musculoskeletal History: No Pertinent History GI Medical History: Esophageal Disorder, Hemorrhoids, Pancreatitis, Ulcer History: Other Psycho-Social History: Depression Male Reproductive Disorders: No Pertinent History Other Medical History: 2015 Gastritis, kidney infection - Past Surgical History Past Surgical History: Yes Neuro Surgical History: No Pertinent History Cardiac: Cardiac Catheterization Respiratory: No Pertinent History Gastrointestinal: Hemorrhoidectomy, Rectal Surgery Genitourinary: No Pertinent History Musculoskeletal: No Pertinent History Male Surgical History: No Pertinent History Other Surgical History: 2020 Heart Cath (blockage x 2) - Social History Smoking Status: Current every day smoker How long have you smoked: years Exposure to second hand smoke: Yes Drug Use: none Patient Lives Alone: No Significant Family History: no pertinent family hx - Nursing Vital Signs Nursing Vital Signs: Initial Vital Signs Temperature 97.8 F 06/28/21 14:53 Pulse Rate 109 H 02/15/21 14:53 Respiratory Rate 20 02/15/21 14:53 Blood Pressure 142/107 02/15/21 14:53 O2 Sat by Pulse Oximetry 99 02/15/21 14:53 Pain Scale Pain Intensity 4 - Physical Exam General Appearance: mild distress, alert, anxiety Eye Exam: PERRL/EOMI, eyes nml inspection Ears, Nose, Throat Exam: normal ENT inspection, moist mucous membranes Neck Exam: normal inspection, non-tender, supple, full range of motion Respiratory Exam: normal breath sounds, lungs clear, airway intact, No chest tenderness, No respiratory distress Cardiovascular Exam: tachycardia (Mild tachycardia) Gastrointestinal/Abdomen Exam: soft, normal bowel sounds, tenderness, guarding, No mass, No rebound Rectal Exam: not done Back Exam: normal inspection, normal range of motion, No CVA tenderness, No vertebral tenderness Extremity Exam: normal inspection, normal range of motion, pelvis stable Neurologic Exam: alert, oriented x 3, cooperative, 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 nml as tested, normal mood/affect, nml cerebellar function, nml station & gait, sensation nml Skin Exam: normal color, warm, dry Lymphatic Exam: No adenopathy SpO2 Interpretation: normal O2 Delivery: Room Air - Course Nursing assessment & vital signs reviewed: Yes Ordered Tests: Active Orders 24 hr Category Date Time Status IV Insertion STAT Care 02/15/21 15:13 Active ABDOMEN AND PELVIS W/0 CONTRAS [CT] Stat Exams 02/15/21 15:26 Completed AMYLASE Stat Lab 02/15/21 15:00 Completed CBC W DIFF Stat Lab 02/15/21 15:00 Completed CMP Stat Lab 02/15/21 15:00 Completed LIPASE Stat Lab 02/15/21 15:00 Completed Lactic Acid Stat Lab 02/15/21 15:13 Completed UA W/RFX UR CULTURE Stat Lab 02/15/21 15:13 Completed Urine Triage Profile Stat Lab 02/15/21 16:59 Completed Medication Summary Generic Name Dose Route Start Last Admin Trade Name Freq PRN Reason Stop Dose Admin Sodium Chloride 1,000 mls @ 999 mls/hr 02/15/21 17:03 02/15/21 17:10 Sodium Chloride 0.9% 1000 Ml IV 02/15/21 18:03 Not Given .Q1H1M STA Discontinued Medications Generic Name Dose Route Start Last Admin Trade Name Freq PRN Reason Stop Dose Admin Hydromorphone HCl 1 mg 02/15/21 15:36 02/15/21 15:40 Hydromorphone 1 Mg/Ml Injection IV 02/15/21 15:37 1 mg STAT ONE Administration Hydromorphone HCl Confirm 02/15/21 15:39 Hydromorphone 1 Mg/Ml Injection Administered 02/15/21 15:40 Dose 1 mg .ROUTE .STK-MED ONE Sodium Chloride 1,000 mls @ 999 mls/hr 02/15/21 15:13 02/15/21 17:00 Sodium Chloride 0.9% 1000 Ml IV 02/15/21 16:13 Infused .Q1H1M STA Infusion Sodium Chloride Confirm 02/15/21 15:32 Sodium Chloride 0.9% 1000 Ml Administered 02/15/21 15:33 Dose 1,000 mls @ ud .ROUTE .STK-MED ONE Ondansetron HCl 4 mg 02/15/21 15:13 02/15/21 15:34 Zofran 4 Mg/2 Ml Vial IV 02/15/21 15:14 4 mg STAT ONE Administration Ondansetron HCl Confirm 02/15/21 15:32 Zofran 4 Mg/2 Ml Vial Administered 02/15/21 15:33 Dose 4 mg .ROUTE .STK-MED ONE Lab/Rad Data: Laboratory Result Diagrams 02/15/21 15:00 02/15/21 15:00 Laboratory Results 02/15/21 02/15/21 02/15/21 Range/Units 16:59 15:13 15:13 WBC (4.0-10.5) K/mm3 RBC (4.1-5.6) M/mm3 Hgb (12.5-18.0) gm/dl Hct (42-50) % MCV (78-100) fl MCH (26-32) pg MCHC (32-36) g/dl RDW (11.5-14.0) % Plt Count (150-450) K/mm3 MPV (7.5-11.0) fl Gran % (36.0-66.0) % Eos # (Auto) (0-0.5) Absolute Lymphs (auto) (1.0-4.6) Absolute Monos (auto) (0.0-1.3) Lymphocytes % (24.0-44.0) % Monocytes % (0.0-12.0) % Eosinophils % (0.00-5.0) % Basophils % (0.0-0.4) % Absolute Granulocytes (1.4-6.9) Basophils # (0-0.4) Sodium (137-145) mmol/L Potassium (3.5-5.1) mmol/L Chloride (98-107) mmol/L Carbon Dioxide (22-30) mmol/L Anion Gap (5-15) MEQ/L BUN (9-20) mg/dL Creatinine (0.66-1.25) mg/dL Estimated GFR ML/MIN Glucose (74-106) mg/dL Lactic Acid 1.0 (0.4-2.0) Calcium (8.4-10.2) mg/dL Total Bilirubin (0.2-1.3) mg/dL AST (17-59) U/L ALT (0-50) U/L Alkaline Phosphatase (38-126) U/L Serum Total Protein (6.3-8.2) g/dL Albumin (3.5-5.0) g/dL Amylase (30-110) U/L Lipase (23-300) U/L Urine Color ABELINO (YELLOW) Urine Appearance SLIGHTLY CLOUDY (CLEAR) Urine pH 5.0 (5-6) Ur Specific [employer] 1.029 (1.005-1.025) Urine Protein 30 (Negative) Urine Ketones MODERATE (NEGATIVE) Urine Blood NEGATIVE (0-5) [place]/ul Urine Nitrite NEGATIVE (NEGATIVE) Urine Bilirubin SMALL (NEGATIVE) Urine Urobilinogen 4 (0-1) mg/dL Ur Leukocyte Esterase NEGATIVE (NEGATIVE) Urine WBC (Auto) NONE (0-5) /HPF Urine RBC (Auto) 3-5 (0-2) /HPF U Epithel Cells (Auto) NONE (FEW) /HPF Urine Bacteria (Auto) RARE (NEGATIVE) /HPF Urine Mucus (Auto) MANY (NEGATIVE) /HPF Urine Culture Reflexed NO (NO) Urine Glucose NEGATIVE (NEGATIVE) mg/dL Urine Opiates Level POSITIVE (NEGATIVE) Ur Methadone NEGATIVE (NEGATIVE) Urine Barbiturates NEGATIVE (NEGATIVE) Ur Phencyclidine (PCP) NEGATIVE (NEGATIVE) Urine Amphetamine NEGATIVE (NEGATIVE) U Benzodiazepine Level NEGATIVE (NEGATIVE) Urine Cocaine NEGATIVE (NEGATIVE) Urine Marijuana (THC) NEGATIVE (NEGATIVE) 02/15/21 02/15/21 Range/Units 15:00 15:00 WBC 12.5 H (4.0-10.5) K/mm3 RBC 5.31 (4.1-5.6) M/mm3 Hgb 15.8 (12.5-18.0) gm/dl Hct 45.6 (42-50) % MCV 85.9 (78-100) fl MCH 29.8 (26-32) pg MCHC 34.6 (32-36) g/dl RDW 12.9 (11.5-14.0) % Plt Count 294 (150-450) K/mm3 MPV 10.2 (7.5-11.0) fl Gran % 68.6 H (36.0-66.0) % Eos # (Auto) 0.06 (0-0.5) Absolute Lymphs (auto) 2.90 (1.0-4.6) Absolute Monos (auto) 0.98 (0.0-1.3) Lymphocytes % 23.1 L (24.0-44.0) % Monocytes % 7.8 (0.0-12.0) % Eosinophils % 0.5 (0.00-5.0) % Basophils % 0.0 (0.0-0.4) % Absolute Granulocytes 8.59 H (1.4-6.9) Basophils # 0 (0-0.4) Sodium 136 L (137-145) mmol/L Potassium 3.9 (3.5-5.1) mmol/L Chloride 101 (98-107) mmol/L Carbon Dioxide 23 (22-30) mmol/L Anion Gap 16.1 H (5-15) MEQ/L BUN 11 (9-20) mg/dL Creatinine 0.53 L (0.66-1.25) mg/dL Estimated GFR > 60.0 ML/MIN Glucose 118 H (74-106) mg/dL Lactic Acid (0.4-2.0) Calcium 10.1 (8.4-10.2) mg/dL Total Bilirubin 0.90 (0.2-1.3) mg/dL AST 37 (17-59) U/L ALT 22 (0-50) U/L Alkaline Phosphatase 79 (38-126) U/L Serum Total Protein 7.7 (6.3-8.2) g/dL Albumin 4.8 (3.5-5.0) g/dL Amylase 40 (30-110) U/L Lipase 32 (23-300) U/L Urine Color (YELLOW) Urine Appearance (CLEAR) Urine pH (5-6) Ur Specific [employer] (1.005-1.025) Urine Protein (Negative) Urine Ketones (NEGATIVE) Urine Blood (0-5) [place]/ul Urine Nitrite (NEGATIVE) Urine Bilirubin (NEGATIVE) Urine Urobilinogen (0-1) mg/dL Ur Leukocyte Esterase (NEGATIVE) Urine WBC (Auto) (0-5) /HPF Urine RBC (Auto) (0-2) /HPF U Epithel Cells (Auto) (FEW) /HPF Urine Bacteria (Auto) (NEGATIVE) /HPF Urine Mucus (Auto) (NEGATIVE) /HPF Urine Culture Reflexed (NO) Urine Glucose (NEGATIVE) mg/dL Urine Opiates Level (NEGATIVE) Ur Methadone (NEGATIVE) Urine Barbiturates (NEGATIVE) Ur Phencyclidine (PCP) (NEGATIVE) Urine Amphetamine (NEGATIVE) U Benzodiazepine Level (NEGATIVE) Urine Cocaine (NEGATIVE) Urine Marijuana (THC) (NEGATIVE) - Progress Progress: improved, pain not gone completely Progress Note: 02/15/21 16:47 CAT scan of the abdomen and pelvis without contrast shows no acute intra-abdominal or intrapelvic process or pathology. 02/15/21 17:19 Medical decision making: This patient does not have any acute abdominal process. He is dehydrated. He does not want a second liter of fluid. He states he is feeling better. He has a chronic condition that needs readdressing by his primary care physician and hospital cook. Counseled pt/family regarding: lab results, diagnosis, need for follow-up, rad results - Departure Departure Disposition: Home Clinical Impression: Recurrent abdominal pain, Recurrent vomiting Condition: Stable Critical Care Time: No Referrals: BOBBY LUNA [Primary Care Provider] - Additional Instructions: Take your medication as prescribed. Follow-up with your primary care physician and hospital cook for further management of these chronic recurring sympto ms. Prescriptions: Ondansetron ODT 4 MG [Zofran Odt 4 mg] 4 mg PO Q6H PRN PRN #10 tab.rapdis PRN Reason: Vomiting
[2021-02-15] MEDS ORDERED: Zofran 4 MG/2 ML VIAL IV ONE (15:13)
[2021-02-15] MEDS ORDERED: Sodium Chloride 0.9% 1000 ML 1,000 ML IV STA ×2 (15:13→17:03)
[2021-02-15 15:29] LABS: Absolute Neutrophil Ct (ANC) 8.59 (1.4-6.9); Basophil (Absolute #) 0 (0-0.4); Eosinophil % 0.5 % (0.00-5.0); Eosinophil (Absolute #) 0.06 (0-0.5); Hematocrit 45.6 % (42-50); Hemoglobin 15.8 gm/dl (12.5-18.0); Lymphocytes % 23.1 % (24.0-44.0); Mean Cell Volume 85.9 fl (78-100); Mean Corpuscular Hemoglobin 29.8 pg (26-32); Mean Corpuscular Hgb Concent. 34.6 g/dl (32-36); Mean Platelet Volume 10.2 fl (7.5-11.0); Monocyte (Absolute #) 0.98 (0.0-1.3); Monocytes % 7.8 % (0.0-12.0); Neutrophil % 68.6 % (36.0-66.0); Platelet Count 294 K/mm3 (150-450); Red Blood Count 5.31 M/mm3 (4.1-5.6); Red Cell Distribution Width 12.9 % (11.5-14.0); White Blood Count 12.5 K/mm3 (4.0-10.5)
[2021-02-15] MEDS ORDERED: Zofran 4 MG/2 ML VIAL ONE (15:32)
[2021-02-15] MEDS ORDERED: Sodium Chloride 0.9% 1000 ML 1,000 ML ONE (15:32)
[2021-02-15] MEDS ORDERED: Hydromorphone 1 mg/ml Injection IV ONE (15:36)
[2021-02-15] MEDS ORDERED: Hydromorphone 1 mg/ml Injection ONE (15:39)
[2021-02-15 15:43] LABS: ALBUMIN 4.8 g/dL (3.5-5.0); ALKALINE PHOSPHATASE 79 U/L (38-126); AMYLASE 40 U/L (30-110); ANION GAP 16.1 MEQ/L (5-15); BLOOD UREA NITROGEN 11 mg/dL (9-20); CHLORIDE 101 mmol/L (98-107); Calcium 10.1 mg/dL (8.4-10.2); Carbon Dioxide 23 mmol/L (22-30); Creatinine 1 0.53 mg/dL (0.66-1.25); EST GLOMERULAR FILTRATION RATE > 60.0 ML/MIN; Glucose 118 mg/dL (74-106); LIPASE 32 U/L (23-300); Potassium 3.9 mmol/L (3.5-5.1); SGOT/AST 37 U/L (17-59); SGPT/ALT 22 U/L (0-50); SODIUM 136 mmol/L (137-145); Total Protein 7.7 g/dL (6.3-8.2)
[2021-02-15 16:10] VITALS: O2SAT 98
--- NOTE | 2021-02-15 16:28 | XRAY ---
Indication: Abdomen/pelvic pain. Nausea and vomiting. Multiple contiguous axial images obtained through the abdomen and pelvis without contrast. Comparison: November 08, 2020. Lung bases remain clear again with incidental right lower lobe calcified granuloma. Heart not enlarged. Noncontrasted stomach and bowel loops nonobstructed. Appendix not seen. No free fluid/air. Stable hepatic/splenic calcified granulomas and a few bilateral renal cysts. Remaining liver, gallbladder, pancreas, spleen, adrenal glands, kidneys, ureters, bladder, and aorta are unremarkable for noncontrast exam. Osseous structures intact. Impression: 1. Stable bilateral renal cysts and old granulomatous disease. 2. Remaining CT abdomen/pelvis without contrast exam is negative.
[2021-02-15 16:50] LABS: Appearance SLIGHTLY CLOUDY (CLEAR); Bacteria RARE /HPF (NEGATIVE); Bilirubin SMALL (NEGATIVE); Blood NEGATIVE Ery/ul (0-5); Glucose NEGATIVE (NEGATIVE); Ketones MODERATE (NEGATIVE); Leukocyte Esterase NEGATIVE (NEGATIVE); Mucus MANY /HPF (NEGATIVE); Nitrite NEGATIVE (NEGATIVE); Protein,Urine Dip 30 (Negative); Specific Gravity 1.029 (1.005-1.025); Urobilinogen 4 mg/dL (0-1)
[2021-02-15 17:03] LABS: Amphetamine,Urine NEGATIVE (NEGATIVE); Barbiturate,Urine NEGATIVE (NEGATIVE); Benzodiazepine,Urine NEGATIVE (NEGATIVE); Cocaine,Urine NEGATIVE (NEGATIVE); Methadone,Urine NEGATIVE (NEGATIVE); Opiate,Urine POSITIVE (NEGATIVE); PCP,Urine NEGATIVE (NEGATIVE); THC,Urine NEGATIVE (NEGATIVE)
[2021-02-15 17:22] VITALS: BP 121/75; PULSE 83
== END 2021-02-15 17:55 | disposition home or self-care (01) ==
LOC: ED 14:47
DX: R10.9 Unspecified abdominal pain (principal); R11.10 Vomiting, unspecified; I10 Essential (primary) hypertension; Z79.899 Other long term (current) drug therapy; E22.9 Hyperfunction of pituitary gland, unspecified; E78.00 Pure hypercholesterolemia, unspecified; Z71.3 Dietary counseling and surveillance
CPT/HCPCS: 36000; 36415; 74176; 80053; 80307; 81001; 82150; 83605; 83690; 85025; 96360; 96361; 96374; 96375; 99284; J1170; J2405

== ENCOUNTER 2021-03-24 15:05 | Emergency (ER) | payer OTHER ==
--- NOTE | 2021-03-24 15:25 | ERPHSYRPT ---
- History of Present Illness Time Seen by Provider: 03/24/21 15:14 Historian: patient Exam Limitations: no limitations Physician History: This is a 41-year-old white male whose primary care physician is Dr. Luna and he is diabetic and has history of hypertension, coronary disease and elevated cholesterol levels. He has a history of recurrent upper abdominal pain as sociated with vomiting. This is the reason why he is here today. On 02/15/2021 patient underwent a CAT scan of the abdomen pelvis which showed no acute intra- abdominal intrapelvic pathology or process. He has had several CAT scans of the abdomen pelvis in the past. He has had multiple episodes in similar symptoms over the last 20 months. He has seen gastroenterology several times. He did not like the associate financial analyst he seen between 02/15 and today and now has an appointment to see a different associate financial analyst mid March 2021 Timing/Duration: other (Chronic recurrent) Quality: aching, cramping Abdominal Pain Onset Location: RUQ, LUQ, epigastric Pain Radiation: no radiation Severity of Pain-Max: moderate Severity of Pain-Current: moderate Modifying Factors: Improves With: vomiting Associated Symptoms: nausea, vomiting Previous symptoms: same symptoms as today, recently seen Allergies/Adverse Reactions: codeine Allergy (Severe, Verified 11/08/20 11:34) Nausea and Vomiting "severe vomiting for hours" pseudoephedrine [From Actifed] Allergy (Severe, Verified 11/08/20 11:34) Fainting " almost . went out cold and really hard to wake me up" triprolidine [From Actifed] Allergy (Severe, Verified 11/08/20 11:34) Fainting "about " diphenhydramine [From Benadryl] Adverse Reaction (Severe, Verified 11/08/20 11:34) Fainting "knocked me out and couldn't get me awake hardly" Home Medications: Atorvastatin Calcium [Lipitor 20MG Tablet] 10 mg PO DAILY 01/06/20 [History] Insulin Glargine,Hum.rec.anlog [Basaglar Kwikpen U-100] 30 units SQ BID 01/06/20 [History] Insulin Lispro [Humalog] 20 unit SQ TID 01/06/20 [History] Lisinopril 10 mg [Zestril 10 MG] 10 mg PO DAILY 01/06/20 [History] Venlafaxine HCl ER 75 mg [Effexor XR 75 MG] 75 mg PO DAILY 01/06/20 [History] Ergocalciferol (Vitamin D2) [Vitamin D] 50,000 unit PO SA 07/26/20 [History] Metoclopramide HCl 10 mg PO ACHS 07/26/20 [History] Ondansetron HCl [Zofran] 4 mg PO TIDPRN PRN 07/26/20 [History] Gabapentin [Neurontin] 600 mg PO TID 08/29/20 [History] Oxycodone / APAP 10/325 mg [Oxycodone-Acetaminophen 10-325] 1 tab PO DAILY 03/24/21 [History] Hx Tetanus, Diphtheria Vaccination/Date Given: Yes Hx Influenza Vaccination/Date Given: Yes Hx Pneumococcal Vaccination/Date Given: No Travel Risk - International Travel Have you traveled outside of the country in past 3 weeks: No - Coronavirus Screening Are you exhibiting any of the following symptoms?: No Close contact with a COVID-19 positive Pt in past 14-21 Days: No - Vaccine Status Have you recieved a Covid-19 vaccination: No - Review of Systems Constitutional: No Symptoms Eyes: No Symptoms Ears, Nose, & Throat: No Symptoms Respiratory: No Symptoms Cardiac: No Symptoms Abdominal/Gastrointestinal: Abdominal Pain, Nausea, Vomiting Genitourinary Symptoms: No Symptoms Musculoskeletal: No Symptoms Skin: No Symptoms Neurological: No Symptoms Psychological: No Symptoms Endocrine: No Symptoms Hematologic/Lymphatic: No Symptoms Immunological/Allergic: No Symptoms All Other Systems: Reviewed and Negative - Past Medical History Pertinent Past Medical History: Yes Neurological History: No Pertinent History ENT History: No Pertinent History Cardiac History: Coronary Artery Disease, High Cholesterol, Hypertension Respiratory History: No Pertinent History Endocrine Medical History: Diabetes Type II Musculoskeletal History: No Pertinent History GI Medical History: Esophageal Disorder, Hemorrhoids, Pancreatitis, Ulcer History: Other Psycho-Social History: Depression Male Reproductive Disorders: No Pertinent History Other Medical History: 2015 Gastritis, kidney infection - Past Surgical History Past Surgical History: Yes Neuro Surgical History: No Pertinent History Cardiac: Cardiac Catheterization Respiratory: No Pertinent History Gastrointestinal: Hemorrhoidectomy, Rectal Surgery Genitourinary: No Pertinent History Musculoskeletal: No Pertinent History Male Surgical History: No Pertinent History Other Surgical History: 2020 Heart Cath (blockage x 2) - Social History Smoking Status: Current every day smoker How long have you smoked: years Exposure to second hand smoke: Yes Drug Use: none Patient Lives Alone: No Significant Family History: no pertinent family hx - Nursing Vital Signs Nursing Vital Signs: Initial Vital Signs Temperature 97.9 F 03/24/21 15:10 Pulse Rate 90 03/24/21 15:10 Respiratory Rate 20 03/24/21 15:10 Blood Pressure 129/94 03/24/21 15:10 O2 Sat by Pulse Oximetry 99 03/24/21 15:10 Pain Scale Pain Intensity 10 - Physical Exam General Appearance: no apparent distress, alert, anxiety Eye Exam: PERRL/EOMI, eyes nml inspection Ears, Nose, Throat Exam: normal ENT inspection, moist mucous membranes Neck Exam: normal inspection, non-tender, supple, full range of motion Respiratory Exam: normal breath sounds, lungs clear, airway intact, No chest tenderness, No respiratory distress Cardiovascular Exam: regular rate/rhythm, normal heart sounds, normal peripheral pulses Gastrointestinal/Abdomen Exam: soft, normal bowel sounds, tenderness, No guarding (Gastric), No rebound Rectal Exam: not done Back Exam: normal inspection, normal range of motion, No CVA tenderness, No vertebral tenderness Extremity Exam: normal inspection, normal range of motion, pelvis stable Neurologic Exam: alert, oriented x 3, cooperative, plastics scientist II-XII nml as tested, normal mood/affect, nml cerebellar function, nml station & gait, sensation nml Skin Exam: normal color, warm, dry Lymphatic Exam: No adenopathy SpO2 Interpretation: normal O2 Delivery: Room Air - Course Nursing assessment & vital signs reviewed: Yes Ordered Tests: Active Orders 24 hr Category Date Time Status IV Insertion STAT Care 03/24/21 15:56 Active AMYLASE Stat Lab 03/24/21 15:56 Completed CBC W DIFF Stat Lab 03/24/21 15:56 Completed CMP Stat Lab 03/24/21 15:56 Completed LIPASE Stat Lab 03/24/21 15:56 Completed Lactic Acid Stat Lab 03/24/21 15:56 Completed UA W/RFX UR CULTURE Stat Lab 03/24/21 15:59 Completed Medication Summary Generic Name Dose Route Start Last Admin Trade Name Freq PRN Reason Stop Dose Admin Sodium Chloride 1,000 mls @ 999 mls/hr 03/24/21 15:56 03/24/21 16:05 Sodium Chloride 0.9% 1000 Ml IV 03/24/21 16:56 999 mls/hr .Q1H1M STA Administration Discontinued Medications Generic Name Dose Route Start Last Admin Trade Name Juan José PRN Reason Stop Dose Admin Hydromorphone HCl 1 mg 03/24/21 15:56 03/24/21 16:06 Hydromorphone 1 Mg/Ml Injection IV 03/24/21 15:57 1 mg STAT ONE Administration Hydromorphone HCl Confirm 03/24/21 15:57 Hydromorphone 1 Mg/Ml Injection Administered 03/24/21 15:58 Dose 1 mg .ROUTE .STK-MED ONE Sodium Chloride Confirm 03/24/21 15:58 Sodium Chloride 0.9% 1000 Ml Administered 03/24/21 15:59 Dose 1,000 mls @ ud .ROUTE .STK-MED ONE Ondansetron HCl 4 mg 03/24/21 15:56 03/24/21 16:05 Zofran 4 Mg/2 Ml Vial IV 03/24/21 15:57 4 mg STAT ONE Administration Ondansetron HCl Confirm 03/24/21 15:57 Zofran 4 Mg/2 Ml Vial Administered 03/24/21 15:58 Dose 4 mg .ROUTE .STK-MED ONE Lab/Rad Data: Laboratory Result Diagrams 03/24/21 15:56 03/24/21 15:56 Laboratory Results 03/24/21 03/24/21 03/24/21 Range/Units 15:59 15:56 15:56 WBC (4.0-10.5) K/mm3 RBC (4.1-5.6) M/mm3 Hgb (12.5-18.0) gm/dl Hct (42-50) % MCV (78-100) fl MCH (26-32) pg MCHC (32-36) g/dl RDW (11.5-14.0) % Plt Count (150-450) K/mm3 MPV (7.5-11.0) fl Gran % (36.0-66.0) % Eos # (Auto) (0-0.5) Absolute Lymphs (auto) (1.0-4.6) Absolute Monos (auto) (0.0-1.3) Lymphocytes % (24.0-44.0) % Monocytes % (0.0-12.0) % Eosinophils % (0.00-5.0) % Basophils % (0.0-0.4) % Absolute Granulocytes (1.4-6.9) Basophils # (0-0.4) Sodium 137 (137-145) mmol/L Potassium 3.9 (3.5-5.1) mmol/L Chloride 102 (98-107) mmol/L Carbon Dioxide 26 (22-30) mmol/L Anion Gap 14.0 (5-15) MEQ/L BUN 11 (9-20) mg/dL Creatinine 0.65 L (0.66-1.25) mg/dL Estimated GFR > 60.0 ML/MIN Glucose 140 H (74-106) mg/dL Lactic Acid 1.2 (0.4-2.0) Calcium 9.6 (8.4-10.2) mg/dL Total Bilirubin 0.40 (0.2-1.3) mg/dL AST 22 (17-59) U/L ALT 31 (0-50) U/L Alkaline Phosphatase 86 (38-126) U/L Serum Total Protein 7.4 (6.3-8.2) g/dL Albumin 4.4 (3.5-5.0) g/dL Amylase 48 (30-110) U/L Lipase 76 (23-300) U/L Urine Color YELLOW (YELLOW) Urine Appearance CLOUDY (CLEAR) Urine pH 7.0 (5-6) Ur Specific [place] 1.016 (1.005-1.025) Urine Protein NEGATIVE (Negative) Urine Ketones NEGATIVE (NEGATIVE) Urine Blood NEGATIVE (0-5) [place]/ul Urine Nitrite NEGATIVE (NEGATIVE) Urine Bilirubin NEGATIVE (NEGATIVE) Urine Urobilinogen 2 (0-1) mg/dL Ur Leukocyte Esterase NEGATIVE (NEGATIVE) Urine WBC (Auto) NONE (0-5) /HPF Urine RBC (Auto) NONE (0-2) /HPF U Epithel Cells (Auto) NONE (FEW) /HPF Urine Bacteria (Auto) NONE (NEGATIVE) /HPF Urine Mucus (Auto) SLIGHT (NEGATIVE) /HPF Urine Culture Reflexed NO (NO) Urine Glucose NEGATIVE (NEGATIVE) mg/dL 03/24/21 Range/Units 15:56 WBC 13.5 H (4.0-10.5) K/mm3 RBC 4.91 (4.1-5.6) M/mm3 Hgb 14.5 (12.5-18.0) gm/dl Hct 42.4 (42-50) % MCV 86.4 (78-100) fl MCH 29.5 (26-32) pg MCHC 34.2 (32-36) g/dl RDW 12.9 (11.5-14.0) % Plt Count 370 (150-450) K/mm3 MPV 9.9 (7.5-11.0) fl Gran % 65.3 (36.0-66.0) % Eos # (Auto) 0.03 (0-0.5) Absolute Lymphs (auto) 3.77 (1.0-4.6) Absolute Monos (auto) 0.88 (0.0-1.3) Lymphocytes % 27.9 (24.0-44.0) % Monocytes % 6.5 (0.0-12.0) % Eosinophils % 0.2 (0.00-5.0) % Basophils % 0.1 (0.0-0.4) % Absolute Granulocytes 8.79 H (1.4-6.9) Basophils # 0.02 (0-0.4) Sodium (137-145) mmol/L Potassium (3.5-5.1) mmol/L Chloride (98-107) mmol/L Carbon Dioxide (22-30) mmol/L Anion Gap (5-15) MEQ/L BUN (9-20) mg/dL Creatinine (0.66-1.25) mg/dL Estimated GFR ML/MIN Glucose (74-106) mg/dL Lactic Acid (0.4-2.0) Calcium (8.4-10.2) mg/dL Total Bilirubin (0.2-1.3) mg/dL AST (17-59) U/L ALT (0-50) U/L Alkaline Phosphatase (38-126) U/L Serum Total Protein (6.3-8.2) g/dL Albumin (3.5-5.0) g/dL Amylase (30-110) U/L Lipase (23-300) U/L Urine Color (YELLOW) Urine Appearance (CLEAR) Urine pH (5-6) Ur Specific [place] (1.005-1.025) Urine Protein (Negative) Urine Ketones (NEGATIVE) Urine Blood (0-5) [place]/ul Urine Nitrite (NEGATIVE) Urine Bilirubin (NEGATIVE) Urine Urobilinogen (0-1) mg/dL Ur Leukocyte Esterase (NEGATIVE) Urine WBC (Auto) (0-5) /HPF Urine RBC (Auto) (0-2) /HPF U Epithel Cells (Auto) (FEW) /HPF Urine Bacteria (Auto) (NEGATIVE) /HPF Urine Mucus (Auto) (NEGATIVE) /HPF Urine Culture Reflexed (NO) Urine Glucose (NEGATIVE) mg/dL - Progress Progress: improved, pain not gone completely Counseled pt/family regarding: lab results, diagnosis, need for follow-up - Departure Departure Disposition: Home Clinical Impression: Chronic abdominal pain, Chronic vomiting Condition: Stable Critical Care Time: No Referrals: BOBBY LUNA [Primary Care Provider] - Additional Instructions: Call your new associate financial analyst and your primary care physician tomorrow for further instructions and management of these chronic issues
[2021-03-24] MEDS ORDERED: Zofran 4 MG/2 ML VIAL IV ONE (15:56)
[2021-03-24] MEDS ORDERED: Sodium Chloride 0.9% 1000 ML 1,000 ML IV STA (15:56)
[2021-03-24] MEDS ORDERED: Hydromorphone 1 mg/ml Injection IV ONE (15:56)
[2021-03-24] MEDS ORDERED: Hydromorphone 1 mg/ml Injection ONE (15:57)
[2021-03-24] MEDS ORDERED: Zofran 4 MG/2 ML VIAL ONE (15:57)
[2021-03-24] MEDS ORDERED: Sodium Chloride 0.9% 1000 ML 1,000 ML ONE (15:58)
[2021-03-24 16:07] LABS: Absolute Neutrophil Ct (ANC) 8.79 (1.4-6.9); BASOPHIL % 0.1 % (0.0-0.4); Basophil (Absolute #) 0.02 (0-0.4); Eosinophil % 0.2 % (0.00-5.0); Eosinophil (Absolute #) 0.03 (0-0.5); Hematocrit 42.4 % (42-50); Hemoglobin 14.5 gm/dl (12.5-18.0); Lymphocyte (Absolute #) 3.77 (1.0-4.6); Lymphocytes % 27.9 % (24.0-44.0); Mean Cell Volume 86.4 fl (78-100); Mean Corpuscular Hemoglobin 29.5 pg (26-32); Mean Corpuscular Hgb Concent. 34.2 g/dl (32-36); Mean Platelet Volume 9.9 fl (7.5-11.0); Monocyte (Absolute #) 0.88 (0.0-1.3); Monocytes % 6.5 % (0.0-12.0); Neutrophil % 65.3 % (36.0-66.0); Platelet Count 370 K/mm3 (150-450); Red Blood Count 4.91 M/mm3 (4.1-5.6); Red Cell Distribution Width 12.9 % (11.5-14.0); White Blood Count 13.5 K/mm3 (4.0-10.5)
[2021-03-24 16:10] VITALS: BP 140/99; PULSE 75; O2SAT 98
[2021-03-24 16:14] LABS: ALBUMIN 4.4 g/dL (3.5-5.0); ALKALINE PHOSPHATASE 86 U/L (38-126); AMYLASE 48 U/L (30-110); BLOOD UREA NITROGEN 11 mg/dL (9-20); CHLORIDE 102 mmol/L (98-107); Calcium 9.6 mg/dL (8.4-10.2); Carbon Dioxide 26 mmol/L (22-30); Creatinine 1 0.65 mg/dL (0.66-1.25); EST GLOMERULAR FILTRATION RATE > 60.0 ML/MIN; Glucose 140 mg/dL (74-106); LIPASE 76 U/L (23-300); Potassium 3.9 mmol/L (3.5-5.1); SGOT/AST 22 U/L (17-59); SGPT/ALT 31 U/L (0-50); SODIUM 137 mmol/L (137-145); Total Protein 7.4 g/dL (6.3-8.2)
[2021-03-24 16:40] LABS: Appearance CLOUDY (CLEAR); Bilirubin NEGATIVE (NEGATIVE); Blood NEGATIVE Ery/ul (0-5); Glucose NEGATIVE (NEGATIVE); Ketones NEGATIVE (NEGATIVE); Leukocyte Esterase NEGATIVE (NEGATIVE); Mucus SLIGHT /HPF (NEGATIVE); Nitrite NEGATIVE (NEGATIVE); Protein,Urine Dip NEGATIVE (Negative); Specific Gravity 1.016 (1.005-1.025); Urobilinogen 2 mg/dL (0-1)
== END 2021-03-24 17:03 | disposition home or self-care (01) ==
LOC: ED 15:05
DX: R10.9 Unspecified abdominal pain (principal); R11.10 Vomiting, unspecified
CPT/HCPCS: 36000; 36415; 80053; 81001; 82150; 83605; 83690; 85025; 96360; 96374; 96375; 99284; J1170; J2405

== ENCOUNTER 2024-08-08 16:43 | Emergency (ER) | payer OTHER ==
--- NOTE | 2024-08-08 17:12 | ERPHSYRPT ---
- History of Present Illness Time Seen by Provider: 08/08/24 17:11 Source: patient, family Exam Limitations: no limitations Physician History: This is a 44-year-old white male patient of Dr. Luna who arrives by private vehicle accompanied by his spouse with the complaint of 3 days of vomiting and now associated weakness. He denies chest pain. He denies shortness of breath. He has not had fevers. Patient's complaint is headache, body aches, vomiting and fatigue. Patient has been out of his medications except for his lisinopril for several days. Patient has a history of insulin-dependent Beatties, hypertension, depression, questionable coronary artery disease, hyperlipidemia. He is a daily smoker of tobacco cigarettes. Patient has a history of pancreat itis and gastritis in the past. Patient is scheduled for outpatient echocardiogram and an outpatient gallbladder ultrasound after the first of the year. Patient's spouse provided additional, independent history she states that he has had a "collapsed bowel" in the past. Patient underwent gastric bypass surgery and lost a lot of weight. He has no significant abdominal pain. He has had no diarrhea. Timing/Duration: day(s) (3) Severity: moderate Associated Symptoms: nausea, vomiting, headaches, malaise, weakness, No a bdominal pain, No shortness of breath, No chest pain Allergies/Adverse Reactions: codeine Allergy (Severe, Verified 08/08/24 17:06) Nausea and Vomiting "severe vomiting for hours" pseudoephedrine [From Actifed] Allergy (Severe, Verified 08/08/24 17:06) Fainting " almost . went out cold and really hard to wake me up" triprolidine [From Actifed] Allergy (Severe, Verified 08/08/24 17:06) Fainting "about " diphenhydramine [From Benadryl] Adverse Reaction (Severe, Verified 08/08/24 17:06) Fainting "knocked me out and couldn't get me awake hardly" Home Medications: Atorvastatin Calcium [Lipitor 20MG Tablet] 10 mg PO DAILY 01/06/20 [History] Insulin Glargine,Hum.rec.anlog [Basaglar Kwikpen U-100] 30 units SQ BID 01/06/20 [History] Insulin Lispro [Humalog] 20 unit SQ TID 05/18/20 [History] Lisinopril 10 mg [Zestril 10 MG] 10 mg PO DAILY 01/06/20 [History] Venlafaxine HCl ER 75 mg [Effexor XR 75 MG] 75 mg PO DAILY 01/06/20 [History] Ergocalciferol (Vitamin D2) [Vitamin D] 50,000 unit PO SA 07/26/20 [History] Metoclopramide HCl 10 mg PO ACHS 07/26/20 [History] ondansetron HCL [Zofran] 4 mg PO TIDPRN PRN 07/26/20 [History] Gabapentin [Neurontin] 600 mg PO TID 08/29/20 [History] Oxycodone / APAP 10/325 mg [Oxycodone-Acetaminophen 10-325] 1 tab PO DAILY 03/24/21 [History] Hx Tetanus, Diphtheria Vaccination/Date Given: Yes Hx Influenza Vaccination/Date Given: Yes Hx Pneumococcal Vaccination/Date Given: No Travel Risk - International Travel Have you traveled outside of the country in past 3 weeks: No - Emerging Infectious Disease Are you exhibiting symptoms associated with any current EIDs: Yes Symptoms: Headaches/Body Aches/, Vomitting - Review of Systems Constitutional: Fatigue, Weakness Eyes: No Symptoms Ears, Nose, & Throat: No Symptoms Respiratory: No Symptoms Cardiac: No Symptoms Abdominal/Gastrointestinal: Nausea, Vomiting, Appetite Changes Genitourinary Symptoms: No Symptoms Musculoskeletal: Arthralgias, Myalgias Skin: No Symptoms Neurological: No Symptoms Psychological: No Symptoms Endocrine: No Symptoms Hematologic/Lymphatic: No Symptoms Immunological/Allergic: No Symptoms All Other Systems: Reviewed and Negative - Past Medical History Pertinent Past Medical History: Yes Neurological History: No Pertinent History ENT History: No Pertinent History Cardiac History: Coronary Artery Disease, High Cholesterol, Hypertension Respiratory History: No Pertinent History Endocrine Medical History: Diabetes Type II Musculoskeletal History: No Pertinent History GI Medical History: Esophageal Disorder, Hemorrhoids, Pancreatitis, Ulcer History: Other Psycho-Social History: Depression Male Reproductive Disorders: No Pertinent History Other Medical History: 2015 Gastritis, kidney infection - Past Surgical History Past Surgical History: Yes Neuro Surgical History: No Pertinent History Cardiac: Cardiac Catheterization Respiratory: No Pertinent History Gastrointestinal: Hemorrhoidectomy, Rectal Surgery Genitourinary: No Pertinent History Musculoskeletal: No Pertinent History Male Surgical History: No Pertinent History Other Surgical History: 2020 Heart Cath (blockage x 2) Significant Family History: no pertinent family hx - Social History Smoking Status: Current every day smoker How long have you smoked: years Exposure to second hand smoke: Yes Drug Use: none Patient Lives Alone: No - Nursing Vital Signs Nursing Vital Signs: Initial Vital Signs Temperature 98.4 F 08/08/24 17:07 Pulse Rate 102 H 08/08/24 17:07 Respiratory Rate 20 08/08/24 17:07 Blood Pressure 168/113 08/08/24 17:07 O2 Sat by Pulse Oximetry 98 08/08/24 17:07 Pain Scale Pain Intensity 2 - Physical Exam General Appearance: no apparent distress, alert, anxiety, thin Eye Exam: PERRL/EOMI, eyes nml inspection Ears, Nose, Throat Exam: normal ENT inspection, moist mucous membranes Neck Exam: normal inspection, non-tender, supple, full range of motion Respiratory Exam: normal breath sounds, lungs clear, airway intact, No chest tenderness, No respiratory distress Cardiovascular Exam: regular rate/rhythm, normal heart sounds, normal peripheral pulses Gastrointestinal/Abdomen Exam: soft, normal bowel sounds, No tenderness, No guarding Rectal Exam: not done Back Exam: normal inspection, normal range of motion, No CVA tenderness, No vertebral tenderness Extremity Exam: normal inspection, normal range of motion, pelvis stable Neurologic Exam: alert, oriented x 3, cooperative, nml cerebellar function, nml station & gait, sensation nml Skin Exam: normal color, warm, dry Lymphatic Exam: No adenopathy SpO2 Interpretation: normal O2 Delivery: Room Air - Course Nursing assessment & vital signs reviewed: Yes Ordered Tests: Active Orders 24 hr Category Date Time Status Clarifier STAT Care 08/08/24 17:30 Active EKG-ER Only STAT Care 08/08/24 17:29 Active IV Insertion STAT Care 08/08/24 17:29 Active Pulse Oximetry (ED) STAT Care 08/08/24 17:29 Active ACO SDOH Referral ONCE Cons 08/08/24 17:19 Active ABDOMEN AND PELVIS W/0 CONTRAS [CT] Stat Exams 08/08/24 17:55 Taken CHEST 1 VIEW (PORTABLE) Stat Exams 08/08/24 17:29 Taken AMYLASE Stat Lab 08/08/24 17:02 Completed BLOOD CULTURE Stat Lab 08/08/24 17:52 Received CBC W DIFF Stat Lab 08/08/24 17:02 Completed CMP Stat Lab 08/08/24 17:02 Completed LIPASE Stat Lab 08/08/24 17:02 Completed Lactic Acid Stat Lab 08/08/24 17:35 Completed MONO SCREEN Stat Lab 08/08/24 17:02 Completed PROTIME WITH INR Stat Lab 08/08/24 17:02 Completed TROPONIN Q4H Lab 08/08/24 17:02 Completed TROPONIN Q4H Lab 08/08/24 21:30 Ordered TROPONIN Q4H Lab 08/09/24 01:30 Ordered UA W/RFX UR CULTURE Stat Lab 08/08/24 17:59 Completed Medication Summary Discontinued Medications Generic Name Dose Route Start Last Admin Trade Name Freq PRN Reason Stop Dose Admin Sodium Chloride 1,000 mls @ 999 mls/hr 08/08/24 17:29 08/08/24 18:47 Sodium Chloride 0.9% 1000 Ml IV 08/08/24 18:29 Infused .Q1H1M STA Infusion Sodium Chloride Confirm 08/08/24 17:38 Sodium Chloride 0.9% 1000 Ml Administered 08/08/24 17:39 Dose 1,000 mls @ ud .ROUTE .STK-MED ONE Insulin Human Regular 8 unit 08/08/24 19:37 08/08/24 19:50 Insulin Regular, Human 1 Unit IV 08/08/24 19:38 8 unit STAT ONE Administration Insulin Human Regular Confirm 08/08/24 19:48 Insulin Regular, Human 1 Unit Administered 08/08/24 19:49 Dose 8 unit .ROUTE .STK-MED ONE Morphine Sulfate 4 mg 08/08/24 18:53 08/08/24 18:59 Morphine Sulfate 4 Mg/Ml Injection IV 08/08/24 18:54 4 mg STAT ONE Administration Morphine Sulfate Confirm 08/08/24 18:58 Morphine Sulfate 4 Mg/Ml Injection Administered 08/08/24 18:59 Dose 4 mg .ROUTE .STK-MED ONE Ondansetron HCl 4 mg 08/08/24 17:29 08/08/24 17:45 Ondansetron Hcl 4 Mg/2 Ml Vial IV 08/08/24 17:30 4 mg STAT ONE Administration Ondansetron HCl Confirm 08/08/24 17:37 Ondansetron Hcl 4 Mg/2 Ml Vial Administered 08/08/24 17:38 Dose 4 mg .ROUTE .STK-MED ONE Pantoprazole Sodium 40 mg 08/08/24 17:29 08/08/24 17:45 Pantoprazole 40 Mg Vial IV 08/08/24 17:30 40 mg STAT ONE Administration Pantoprazole Sodium Confirm 08/08/24 17:38 Pantoprazole 40 Mg Vial Administered 08/08/24 17:39 Dose 40 mg IV .STK-MED ONE Lab/Rad Data: Laboratory Result Diagrams 08/08/24 17:02 08/08/24 17:02 Laboratory Results 08/08/24 08/08/24 08/08/24 Range/Units 17:59 17:45 17:35 WBC (4.23-9.07) x10^3/uL RBC (4.63-6.08) x10^6/uL Hgb (13.7-17.5) g/dL Hct (40.1-51.0) % MCV (79.0-92.2) fL MCH (25.7-32.2) pg MCHC (32.3-36.5) g/dL RDW (11.6-14.4) % Plt Count (163-337) x10^3/uL MPV (9.4-12.4) fL Gran % (34.0-67.9) % Immature Gran % (Auto) (0.001-0.429) % Nucleat RBC Rel Count (0.00-0.2) % Eos # (Auto) (0.04-0.54) x10^3/uL Immature Gran # (Auto) (0.001-0.031) x10^3u/L Absolute Lymphs (auto) (1.32-3.57) x10^3/uL Absolute Monos (auto) (0.30-0.82) x10^3/uL Absolute Nucleated RBC (0.00-0.012) x10^3u/L Lymphocytes % (21.8-53.1) % Monocytes % (5.3-12.2) % Eosinophils % (0.8-7.0) % Basophils % (0.2-1.2) % Absolute Granulocytes (1.78-5.38) x10^3/uL Basophils # (0.01-0.08) x10^3/uL PT (9.4-12.5) SECONDS INR (0.8-3.0) Sodium (135-145) mmol/L Potassium (3.5-5.1) mmol/L Chloride (98-107) mmol/L Carbon Dioxide (22-30) mmol/L Anion Gap (5-15) MEQ/L BUN (9-20) mg/dL Creatinine (0.66-1.25) mg/dL Estimated GFR ML/MIN Glucose (74-106) mg/dL Lactic Acid 1.8 (0.4-2.0) Calcium (8.4-10.2) mg/dL Total Bilirubin (0.2-1.3) mg/dL AST (17-59) U/L ALT (0-50) U/L Alkaline Phosphatase (38-126) U/L Troponin I (0.000-0.033) ng/mL Serum Total Protein (6.3-8.2) g/dL Albumin (3.5-5.0) g/dL Amylase (30-110) U/L Lipase (23-300) U/L Urine Color Yellow (Yellow) Urine Appearance Clear (Clear) Urine pH 5.5 (4.6-8.0) Ur Specific [place] >=1.030 A (1.005-1.030) Urine Protein Negative (Negative) Urine Glucose (UA) >=1000 A (Negative) mg/dL Urine Ketones 15 A (Negative) Urine Blood Negative (Negative) Urine Nitrite Negative (Negative) Urine Bilirubin Negative (Negative) Urine Urobilinogen 0.2 (0.2) mg/dL Ur Leukocyte Esterase Negative (Negative) U Hyaline Cast (Auto) NONE SEEN (0-2) /LPF Urine Microscopic RBC 0-2 (0-5) /HPF Urine Microscopic WBC 0-2 (0-5) /HPF Ur Epithelial Cells None Seen (None Seen) /HPF Urine Bacteria None Seen (None Seen) /HPF Urine Culture Reflexed NO (NO) Monoscreen (NEGATIVE) Influenza Type A Ag NEGATIVE (NEGATIVE) Influenza Type B Ag NEGATIVE (NEGATIVE) RSV (PCR) NEGATIVE (NEGATIVE) SARS-CoV-2 (PCR) NEGATIVE (NEGATIVE) 08/08/24 08/08/24 08/08/24 Range/Units 17:02 17:02 17:02 WBC (4.23-9.07) x10^3/uL RBC (4.63-6.08) x10^6/uL Hgb (13.7-17.5) g/dL Hct (40.1-51.0) % MCV (79.0-92.2) fL MCH (25.7-32.2) pg MCHC (32.3-36.5) g/dL RDW (11.6-14.4) % Plt Count (163-337) x10^3/uL MPV (9.4-12.4) fL Gran % (34.0-67.9) % Immature Gran % (Auto) (0.001-0.429) % Nucleat RBC Rel Count (0.00-0.2) % Eos # (Auto) (0.04-0.54) x10^3/uL Immature Gran # (Auto) (0.001-0.031) x10^3u/L Absolute Lymphs (auto) (1.32-3.57) x10^3/uL Absolute Monos (auto) (0.30-0.82) x10^3/uL Absolute Nucleated RBC (0.00-0.012) x10^3u/L Lymphocytes % (21.8-53.1) % Monocytes % (5.3-12.2) % Eosinophils % (0.8-7.0) % Basophils % (0.2-1.2) % Absolute Granulocytes (1.78-5.38) x10^3/uL Basophils # (0.01-0.08) x10^3/uL PT 10.3 (9.4-12.5) SECONDS INR 0.94 (0.8-3.0) Sodium (135-145) mmol/L Potassium (3.5-5.1) mmol/L Chloride (98-107) mmol/L Carbon Dioxide (22-30) mmol/L Anion Gap (5-15) MEQ/L BUN (9-20) mg/dL Creatinine (0.66-1.25) mg/dL Estimated GFR ML/MIN Glucose (74-106) mg/dL Lactic Acid (0.4-2.0) Calcium (8.4-10.2) mg/dL Total Bilirubin (0.2-1.3) mg/dL AST (17-59) U/L ALT (0-50) U/L Alkaline Phosphatase (38-126) U/L Troponin I < 0.012 (0.000-0.033) ng/mL Serum Total Protein (6.3-8.2) g/dL Albumin (3.5-5.0) g/dL Amylase (30-110) U/L Lipase (23-300) U/L Urine Color (Yellow) Urine Appearance (Clear) Urine pH (4.6-8.0) Ur Specific [place] (1.005-1.030) Urine Protein (Negative) Urine Glucose (UA) (Negative) mg/dL Urine Ketones (Negative) Urine Blood (Negative) Urine Nitrite (Negative) Urine Bilirubin (Negative) Urine Urobilinogen (0.2) mg/dL Ur Leukocyte Esterase (Negative) U Hyaline Cast (Auto) (0-2) /LPF Urine Microscopic RBC (0-5) /HPF Urine Microscopic WBC (0-5) /HPF Ur Epithelial Cells (None Seen) /HPF Urine Bacteria (None Seen) /HPF Urine Culture Reflexed (NO) Monoscreen NEGATIVE (NEGATIVE) Influenza Type A Ag (NEGATIVE) Influenza Type B Ag (NEGATIVE) RSV (PCR) (NEGATIVE) SARS-CoV-2 (PCR) (NEGATIVE) 08/08/24 08/08/24 Range/Units 17:02 17:02 WBC 9.0 (4.23-9.07) x10^3/uL RBC 5.88 (4.63-6.08) x10^6/uL Hgb 16.9 (13.7-17.5) g/dL Hct 48.5 (40.1-51.0) % MCV 82.5 (79.0-92.2) fL MCH 28.7 (25.7-32.2) pg MCHC 34.8 (32.3-36.5) g/dL RDW 12.5 (11.6-14.4) % Plt Count 288 (163-337) x10^3/uL MPV 10.8 (9.4-12.4) fL Gran % 61.9 (34.0-67.9) % Immature Gran % (Auto) 0.6 H (0.001-0.429) % Nucleat RBC Rel Count 0.0 (0.00-0.2) % Eos # (Auto) 0.08 (0.04-0.54) x10^3/uL Immature Gran # (Auto) 0.05 H (0.001-0.031) x10^3u/L Absolute Lymphs (auto) 2.57 (1.32-3.57) x10^3/uL Absolute Monos (auto) 0.71 (0.30-0.82) x10^3/uL Absolute Nucleated RBC 0.00 (0.00-0.012) x10^3u/L Lymphocytes % 28.4 (21.8-53.1) % Monocytes % 7.9 (5.3-12.2) % Eosinophils % 0.9 (0.8-7.0) % Basophils % 0.3 (0.2-1.2) % Absolute Granulocytes 5.60 H (1.78-5.38) x10^3/uL Basophils # 0.03 (0.01-0.08) x10^3/uL PT (9.4-12.5) SECONDS INR (0.8-3.0) Sodium 131 L (135-145) mmol/L Potassium 4.0 (3.5-5.1) mmol/L Chloride 97 L (98-107) mmol/L Carbon Dioxide 23 (22-30) mmol/L Anion Gap 14.9 (5-15) MEQ/L BUN 13 (9-20) mg/dL Creatinine 0.78 (0.66-1.25) mg/dL Estimated GFR 111.4 ML/MIN Glucose 420 H (74-106) mg/dL Lactic Acid (0.4-2.0) Calcium 10.1 (8.4-10.2) mg/dL Total Bilirubin 0.80 (0.2-1.3) mg/dL AST 23 (17-59) U/L ALT 28 (0-50) U/L Alkaline Phosphatase 137 H (38-126) U/L Troponin I (0.000-0.033) ng/mL Serum Total Protein 7.2 (6.3-8.2) g/dL Albumin 4.7 (3.5-5.0) g/dL Amylase 43 (30-110) U/L Lipase 181 (23-300) U/L Urine Color (Yellow) Urine Appearance (Clear) Urine pH (4.6-8.0) Ur Specific [place] (1.005-1.030) Urine Protein (Negative) Urine Glucose (UA) (Negative) mg/dL Urine Ketones (Negative) Urine Blood (Negative) Urine Nitrite (Negative) Urine Bilirubin (Negative) Urine Urobilinogen (0.2) mg/dL Ur Leukocyte Esterase (Negative) U Hyaline Cast (Auto) (0-2) /LPF Urine Microscopic RBC (0-5) /HPF Urine Microscopic WBC (0-5) /HPF Ur Epithelial Cells (None Seen) /HPF Urine Bacteria (None Seen) /HPF Urine Culture Reflexed (NO) Monoscreen (NEGATIVE) Influenza Type A Ag (NEGATIVE) Influenza Type B Ag (NEGATIVE) RSV (PCR) (NEGATIVE) SARS-CoV-2 (PCR) (NEGATIVE) - Progress Progress: improved, re-examined Progress Note: 08/08/24 17:53 My medical decision making and the assignment of moderate complexity to this patient's medical issue today is based on review of the patient's past medical history, review of the patient's medication list, reviewed patient drug allergy list, history present illness and physical findings on examination. The workup in this patient includes placement of an intravenous line, CBC, CMP, amylase, lipase, urinalysis, twelve-lead EKG, troponin level, viral swabs, monotest, CT scan of the abdomen pelvis. We will infuse Zofran 4 mg intravenously and a liter of crystalloid intravenously. Differential diagnosis includes but is not limited to pancreatitis, gastritis, colitis, bowel obstruction, viral illness, mononucleosis, electrolyte abnormal ities, DKA, dehydration, urinary tract infection 08/08/24 19:45 I interpreted the patient's laboratory data results. Based on the laboratory data results, the patient does have an elevated blood sugar, mild dehydration with a normal CO2, normal anion gap, normal white blood cell count and normal el ectrolytes. I do not feel this patient has DKA. It is very mild if it is even present. 08/08/24 19:59 Patient had received 1 L of normal saline crystalloid. His vital signs are stable. He has no chest pain. He has no shortness of breath and he has no abdominal pain. CT scan of the abdomen pelvis without contrast was interpreted by the radiologist and I reviewed the impression. The impression states new mild diffuse fecal stasis. Nothing acute Counseled pt/family regarding: lab results, diagnosis, rad results Medical Desision Making - Independent Historian Additional History obtained from: Spouse - Diagnostic Testing Diagnostic test were ordered, analyzed, and reviewed by me: Yes Radiological Interpretation: Reviewed by me, Teleradiologist Report - Risk of complications The pt has a mod risk of morbidity or mortality based on: Need for prescription drug management - Departure Departure Disposition: Home Clinical Impression: Hyperglycemia, Mild dehydration, Vomiting Condition: Stable Critical Care Time: No Referrals: BOBBY LUNA [Primary Care Provider] - Follow up/PCP as directed Additional Instructions: Drink plenty of fluids. Call your primary care doctor's office tomorrow, Dr. Luna, to be seen right away to have your medications refilled. Monitor your blood sugar closely. Take your medications as prescribed. Prescriptions: Ondansetron ODT 4 MG [Zofran Odt 4 mg] 4 mg PO Q6H PRN PRN #10 tablet PRN Reason: Vomiting
[2024-08-08 17:19] VITALS: TEMP 98.4
[2024-08-08] MEDS ORDERED: Zofran 4 MG/2 ML VIAL ONE (17:37)
[2024-08-08] MEDS ORDERED: Sodium Chloride 0.9% 1000 ML 1,000 ML ONE (17:38)
[2024-08-08] MEDS ORDERED: PROTONIX 40 MG IV IV ONE (17:38)
[2024-08-08 17:42] LABS: BASOPHIL % 0.3 % (0.2-1.2); Basophil (Absolute #) 0.03 x10^3/uL (0.01-0.08); Eosinophil % 0.9 % (0.8-7.0); Eosinophil (Absolute #) 0.08 x10^3/uL (0.04-0.54); Hematocrit 48.5 % (40.1-51.0); Hemoglobin 16.9 g/dL (13.7-17.5); IMMATURE GRAN # 0.05 x10^3u/L (0.001-0.031); IMMATURE GRAN % 0.6 % (0.001-0.429); Lymphocyte (Absolute #) 2.57 x10^3/uL (1.32-3.57); Lymphocytes % 28.4 % (21.8-53.1); Mean Cell Volume 82.5 fL (79.0-92.2); Mean Corpuscular Hemoglobin 28.7 pg (25.7-32.2); Mean Corpuscular Hgb Concent. 34.8 g/dL (32.3-36.5); Mean Platelet Volume 10.8 fL (9.4-12.4); Monocyte (Absolute #) 0.71 x10^3/uL (0.30-0.82); Monocytes % 7.9 % (5.3-12.2); Neutrophil % 61.9 % (34.0-67.9); Platelet Count 288 x10^3/uL (163-337); Red Blood Count 5.88 x10^6/uL (4.63-6.08); Red Cell Distribution Width 12.5 % (11.6-14.4)
[2024-08-08] MEDS: Sodium Chloride 0.9% 1000 ML 1,000 ML IV STA (17:45)
[2024-08-08] MEDS: Zofran 4 MG/2 ML VIAL IV ONE (17:45)
[2024-08-08] MEDS: PROTONIX 40 MG IV IV ONE (17:45)
[2024-08-08 17:54] LABS: ALBUMIN 4.7 g/dL (3.5-5.0); ANION GAP 14.9 MEQ/L (5-15); BILIRUBIN,TOTAL 0.8 mg/dL (0.2-1.3); Calcium 10.1 mg/dL (8.4-10.2); Creatinine 1 0.78 mg/dL (0.66-1.25); EST GLOMERULAR FILTRATION RATE 111.4 ML/MIN; Total Protein 7.2 g/dL (6.3-8.2)
[2024-08-08 18:03] LABS: INR 0.94 (0.8-3.0); PROTIME 10.3 SECONDS (9.4-12.5)
[2024-08-08 18:13] LABS: Appearance Clear (Clear); Bacteria None Seen /HPF (None Seen); Bilirubin Negative (Negative); Blood Negative (Negative); Epithelial Cells None Seen /HPF (None Seen); Glucose, Urine >=1000 mg/dL (Negative); Hyaline Casts NONE SEEN /LPF (0-2); Ketones 15 (Negative); Leukocyte Esterase Negative (Negative); Nitrite Negative (Negative); Ph 5.5 (4.6-8.0); Protein,Urine Dip Negative (Negative); RBC 0-2 /HPF (0-5); Specific Gravity >=1.030 (1.005-1.030); Urobilinogen 0.2 mg/dL (0.2); WBC 0-2 /HPF (0-5)
[2024-08-08 18:37] LABS: INFLUENZA A NEGATIVE (NEGATIVE); INFLUENZA B NEGATIVE (NEGATIVE); RESPIRATORY SYNCTIAL VIRUS NEGATIVE (NEGATIVE); SARS-CoV-2 Xpert Express NEGATIVE (NEGATIVE)
[2024-08-08] MEDS ORDERED: MORPHINE SULFATE 4 MG INJ ONE (18:58)
[2024-08-08] MEDS: MORPHINE SULFATE 4 MG INJ IV ONE (18:59)
[2024-08-08 19:22] VITALS: O2SAT 97
[2024-08-08] MEDS ORDERED: HUMULIN R ONE (19:48)
[2024-08-08] MEDS: HUMULIN R IV ONE (19:50)
[2024-08-08] MEDS ORDERED: PERCOCET TABLET 5/325MG ONE (20:21)
[2024-08-08] MEDS: PERCOCET TABLET 5/325MG PO STA (20:22)
[2024-08-08 20:35] VITALS: BP 140/94; PULSE 90; RESP 14
--- NOTE | 2024-08-09 08:40 | XRAY ---
Indication: Vomiting. Bodyache. Multiple contiguous axial images obtained through the abdomen and pelvis without contrast. Comparison: February 15, 2021 Lung bases clear again with incidental right lower lobe and right infrahilar calcified granulomas. Heart is not enlarged. Noncontrasted stomach and bowel loops appear nonobstructed. There is now mild diffuse scattered colonic fecal debris. Again a few tiny hepatic/splenic calcified granulomas. No free fluid/air. Remaining liver, gallbladder, pancreas, spleen, adrenal glands, kidneys, ureters, bladder, and aorta are unremarkable for noncontrast exam. Osseous structures intact again with minimal degenerative changes throughout spine and minimal levoscoliosis centered at L3. Impression: New mild diffuse fecal stasis. Again chronic findings including degenerative spondylosis, levoscoliosis, and old granulomatous disease. No new/acute findings on this noncontrast exam.
--- NOTE | 2024-08-09 08:42 | XRAY ---
Indication: Cough. Comparison: October 08, 2021 Portable chest again demonstrates normal heart, lungs, and bony thorax with incidental right lower lobe calcified granuloma. No new/acute findings.
== END 2024-08-08 20:40 | disposition home or self-care (01) ==
LOC: ED 16:43
DX: E11.65 Type 2 diabetes mellitus with hyperglycemia (principal); R11.10 Vomiting, unspecified; E86.0 Dehydration; R51.9 Headache, unspecified; R53.83 Other fatigue; Z79.4 Long term (current) use of insulin; Z79.899 Other long term (current) drug therapy
CPT/HCPCS: 0241U; 36415; 71045; 74176; 80053; 81001; 82150; 82947; 83605; 83690; 84484; 85025; 85610; 86308; 87040; 93005; 93041; 94760; 96360; 96374; 96375; 96376; 99285; J1815; J2270; J2405; A9270-GY

== ENCOUNTER 2024-09-26 07:29 | Observation (INO) | payer OTHER ==
--- NOTE | 2024-09-26 08:05 | ERPHSYRPT ---
- History of Present Illness Time Seen by Provider: 09/26/24 07:57 Historian: patient Exam Limitations: no limitations Patient Subjective Stated Complaint: pt here for chest pain to center of chest since yesterday, worse today, has chronic cough Triage Nursing Assessment: pt alert, walked in, moaning at times, resp easy, occ cough, skin w/d/p Physician History: 44 years old male with history of coronary artery disease, hypertension, hyperlipidemia, insulin-dependent diabetes mellitus, tobacco abuse presented in the ER with substernal chest pain since morning, moderate intensity, radiating to the back and hurts to take a deep breath. Does have dyspnea on exertion for quite some time which is lately getting worse. Has chronic smoker's cough which is not any worse than usual. Denies any fever or chills. Does have right shoulder arthritis which is worsening and having difficulty raising right arm above the head. Allergies/Adverse Reactions: codeine Allergy (Severe, Verified 09/26/24 07:35) Nausea and Vomiting "severe vomiting for hours" pseudoephedrine [From Actifed] Allergy (Severe, Verified 09/26/24 07:35) Fainting " almost . went out cold and really hard to wake me up" triprolidine [From Actifed] Allergy (Severe, Verified 09/26/24 07:35) Fainting "about " diphenhydramine [From Benadryl] Adverse Reaction (Severe, Verified 09/26/24 07:35) Fainting "knocked me out and couldn't get me awake hardly" Home Medications: Atorvastatin Calcium [Lipitor 20MG Tablet] 20 mg PO DAILY 01/06/20 [History] Insulin Lispro [Humalog] 20 unit SQ TID 01/06/20 [History] Lisinopril 10 mg [Zestril 10 MG] 10 mg PO DAILY 01/06/20 [History] Ergocalciferol (Vitamin D2) [Vitamin D] 50,000 unit PO SA 07/26/20 [History] Gabapentin [Neurontin] 600 mg PO TID 08/29/20 [History] Benztropine Mesylate 1 mg PO HS 09/26/24 [History] Buspirone HCl 5 mg [Buspar 5 mg] 15 mg PO TID 09/26/24 [History] Carvedilol 12.5 mg [Coreg 12.5 mg] 12.5 mg PO BID 09/26/24 [History] Fenofibrate Nanocrystallized [Fenofibrate] 1 ea DAILY 09/26/24 [History] Lurasidone HCl [Latuda] 80 mg PO DAILY 09/26/24 [History] Omeprazole 40 mg PO DAILY 09/26/24 [History] Prazosin HCl 1 mg TID 09/26/24 [History] Hx Tetanus, Diphtheria Vaccination/Date Given: Yes Hx Influenza Vaccination/Date Given: Yes Hx Pneumococcal Vaccination/Date Given: No Immunizations Up to Date: Yes Travel Risk - International Travel Have you traveled outside of the country in past 3 weeks: No - Emerging Infectious Disease Are you exhibiting symptoms associated with any current EIDs: No Symptoms: Headaches/Body Aches/, Vomitting Comment: Fatigue - Review of Systems Constitutional: No Symptoms Eyes: No Symptoms Ears, Nose, & Throat: No Symptoms Respiratory: Cough, Dyspnea, Dyspnea on Exertion (DOWELL) Cardiac: Chest Pain Abdominal/Gastrointestinal: No Symptoms Genitourinary Symptoms: No Symptoms Musculoskeletal: Arthralgias, Joint Pain Skin: No Symptoms Neurological: No Symptoms Psychological: No Symptoms Hematologic/Lymphatic: No Symptoms Immunological/Allergic: No Symptoms - Past Medical History Pertinent Past Medical History: Yes Neurological History: No Pertinent History ENT History: No Pertinent History Cardiac History: Coronary Artery Disease, High Cholesterol, Hypertension Respiratory History: No Pertinent History Endocrine Medical History: Diabetes Type II Musculoskeletal History: No Pertinent History GI Medical History: Esophageal Disorder, Hemorrhoids, Pancreatitis, Ulcer History: Other Psycho-Social History: Depression Male Reproductive Disorders: No Pertinent History Other Medical History: 2015 Gastritis, kidney infection - Past Surgical History Past Surgical History: Yes Neuro Surgical History: No Pertinent History Cardiac: Cardiac Catheterization Respiratory: No Pertinent History Gastrointestinal: Hemorrhoidectomy, Rectal Surgery Genitourinary: No Pertinent History Musculoskeletal: No Pertinent History Male Surgical History: No Pertinent History Other Surgical History: 2020 Heart Cath (blockage x 2) Significant Family History: no pertinent family hx - Social History Smoking Status: Current every day smoker How long have you smoked: years Exposure to second hand smoke: Yes Drug Use: none Patient Lives Alone: No - Social Determinants of Health Will the patient participate in the screening: Yes Do you worry about a steady place to live?: Yes Do you have any problems with any of the following?: No known problems In the past 12 months,have you had to go without utilities?: No Transportation Issues: Yes Has anyone in your support network made you feel unsafe?: No Have you or anyone in your house had to go without enough: Yes - Nursing Vital Signs Nursing Vital Signs: Initial Vital Signs Temperature 98.4 F 09/26/24 07:30 Pulse Rate 85 09/26/24 07:30 Respiratory Rate 14 09/26/24 07:30 Blood Pressure 138/102 09/26/24 07:30 O2 Sat by Pulse Oximetry 99 09/26/24 07:30 Pain Scale Pain Intensity 4 - Physical Exam General Appearance: no apparent distress, alert Eye Exam: PERRL/EOMI Ears, Nose, Throat Exam: normal ENT inspection Neck Exam: normal inspection Respiratory Exam: normal breath sounds, chest tenderness, lungs clear Cardiovascular Exam: regular rate/rhythm, normal heart sounds, normal peripheral pulses Gastrointestinal/Abdomen Exam: soft, normal bowel sounds, tenderness Back Exam: normal inspection, normal range of motion Extremity Exam: normal inspection Neurologic Exam: alert, oriented x 3, cooperative Skin Exam: normal color SpO2 Interpretation: normal SpO2: 99 O2 Delivery: Room Air - Course EKG Interpreted by Me: RATE, Sinus Rhythm, NORMAL AXIS, NORMAL INTERVALS, Non- specific ST Changes Ordered Tests: Active Orders 24 hr Category Date Time Status Lead Custodian STAT Care 09/26/24 08:02 Active EKG-ER Only STAT Care 09/26/24 07:59 Active IV Insertion STAT Care 09/26/24 07:59 Active ACO SDOH Referral ONCE Cons 09/26/24 07:39 Active CHEST 1 VIEW (PORTABLE) Stat Exams 09/26/24 08:00 Completed CBC W DIFF Stat Lab 09/26/24 08:13 Completed CMP Stat Lab 09/26/24 08:13 Completed D-DIMER QUANTITATIVE Stat Lab 09/26/24 08:13 Completed NT PRO BNPII Stat Lab 09/26/24 08:13 Completed TROPONIN Q4H Lab 09/26/24 08:13 Completed TROPONIN Q4H Lab 09/26/24 12:00 Ordered TROPONIN Q4H Lab 09/26/24 16:00 Ordered Medication Summary Discontinued Medications Generic Name Dose Route Start Last Admin Trade Name Freq PRN Reason Stop Dose Admin Aspirin 324 mg 09/26/24 07:59 02/06/25 08:17 Aspirin 81 Mg Tab.Chew PO 09/26/24 08:00 324 mg STAT ONE Administration Aspirin Confirm 09/26/24 08:11 Aspirin 81 Mg Tab.Chew Administered 09/26/24 08:12 Dose 324 mg .ROUTE .STK-MED ONE Morphine Sulfate 4 mg 09/26/24 07:59 09/26/24 08:18 Morphine Sulfate 4 Mg/Ml Injection IV 09/26/24 08:00 4 mg STAT ONE Administration Morphine Sulfate Confirm 09/26/24 08:12 Morphine Sulfate 4 Mg/Ml Injection Administered 09/26/24 08:13 Dose 4 mg .ROUTE .STK-MED ONE Ondansetron HCl 4 mg 09/26/24 07:59 09/26/24 08:18 Ondansetron Hcl 4 Mg/2 Ml Vial IV 09/26/24 08:00 4 mg STAT ONE Administration Ondansetron HCl Confirm 09/26/24 08:12 Ondansetron Hcl 4 Mg/2 Ml Vial Administered 09/26/24 08:13 Dose 4 mg .ROUTE .STK-MED ONE Lab/Rad Data: Laboratory Result Diagrams 09/26/24 08:13 09/26/24 08:13 Laboratory Results 09/26/24 09/26/24 09/26/24 Range/Units 08:13 08:13 08:13 WBC (4.23-9.07) x10^3/uL RBC (4.63-6.08) x10^6/uL Hgb (13.7-17.5) g/dL Hct (40.1-51.0) % MCV (79.0-92.2) fL MCH (25.7-32.2) pg MCHC (32.3-36.5) g/dL RDW (11.6-14.4) % Plt Count (163-337) x10^3/uL MPV (9.4-12.4) fL Gran % (34.0-67.9) % Immature Gran % (Auto) (0.001-0.429) % Nucleat RBC Rel Count (0.00-0.2) % Eos # (Auto) (0.04-0.54) x10^3/uL Immature Gran # (Auto) (0.001-0.031) x10^3u/L Absolute Lymphs (auto) (1.32-3.57) x10^3/uL Absolute Monos (auto) (0.30-0.82) x10^3/uL Absolute Nucleated RBC (0.00-0.012) x10^3u/L Lymphocytes % (21.8-53.1) % Monocytes % (5.3-12.2) % Eosinophils % (0.8-7.0) % Basophils % (0.2-1.2) % Absolute Granulocytes (1.78-5.38) x10^3/uL Basophils # (0.01-0.08) x10^3/uL D-Dimer < 0.19 (0.0-0.50) mg/L Sodium 130 L (135-145) mmol/L Potassium 4.5 (3.5-5.1) mmol/L Chloride 97 L (98-107) mmol/L Carbon Dioxide 23 (22-30) mmol/L Anion Gap 14.7 (5-15) MEQ/L BUN 14 (9-20) mg/dL Creatinine 0.61 L (0.66-1.25) mg/dL Estimated GFR 120.0 ML/MIN Glucose 466 H (74-106) mg/dL Calcium 9.3 (8.4-10.2) mg/dL Total Bilirubin 0.60 (0.2-1.3) mg/dL AST 21 (17-59) U/L ALT 56 H (0-50) U/L Alkaline Phosphatase 139 H (38-126) U/L Troponin I < 0.012 (0.000-0.033) ng/mL NT-Pro-B Natriuret Pep 72.0 (<300) pg/mL Serum Total Protein 6.7 (6.3-8.2) g/dL Albumin 4.3 (3.5-5.0) g/dL 09/26/24 Range/Units 08:13 WBC 12.0 H (4.23-9.07) x10^3/uL RBC 5.16 (4.63-6.08) x10^6/uL Hgb 14.9 (13.7-17.5) g/dL Hct 42.8 (40.1-51.0) % MCV 82.9 (79.0-92.2) fL MCH 28.9 (25.7-32.2) pg MCHC 34.8 (32.3-36.5) g/dL RDW 12.2 (11.6-14.4) % Plt Count 231 (163-337) x10^3/uL MPV 11.4 (9.4-12.4) fL Gran % 69.5 H (34.0-67.9) % Immature Gran % (Auto) 0.5 H (0.001-0.429) % Nucleat RBC Rel Count 0.0 (0.00-0.2) % Eos # (Auto) 0.08 (0.04-0.54) x10^3/uL Immature Gran # (Auto) 0.06 H (0.001-0.031) x10^3u/L Absolute Lymphs (auto) 2.47 (1.32-3.57) x10^3/uL Absolute Monos (auto) 1.03 H (0.30-0.82) x10^3/uL Absolute Nucleated RBC 0.00 (0.00-0.012) x10^3u/L Lymphocytes % 20.6 L (21.8-53.1) % Monocytes % 8.6 (5.3-12.2) % Eosinophils % 0.7 L (0.8-7.0) % Basophils % 0.1 L (0.2-1.2) % Absolute Granulocytes 8.36 H (1.78-5.38) x10^3/uL Basophils # 0.01 (0.01-0.08) x10^3/uL D-Dimer (0.0-0.50) mg/L Sodium (135-145) mmol/L Potassium (3.5-5.1) mmol/L Chloride (98-107) mmol/L Carbon Dioxide (22-30) mmol/L Anion Gap (5-15) MEQ/L BUN (9-20) mg/dL Creatinine (0.66-1.25) mg/dL Estimated GFR ML/MIN Glucose (74-106) mg/dL Calcium (8.4-10.2) mg/dL Total Bilirubin (0.2-1.3) mg/dL AST (17-59) U/L ALT (0-50) U/L Alkaline Phosphatase (38-126) U/L Troponin I (0.000-0.033) ng/mL NT-Pro-B Natriuret Pep (<300) pg/mL Serum Total Protein (6.3-8.2) g/dL Albumin (3.5-5.0) g/dL - Progress Progress: re-examined Air Movement: good Progress Note: 09/26/24 09:42 44 years old with history of CAD, hypertension, diabetes mellitus, tobacco use is evaluated in the ER for substernal chest pain with radiation to the back since morning. EKG did not show any acute ST elevations, chest x-ray is negative for any acute cardiopulmonary findings, Is given aspirin and morphine for symptomatic relief, feeling better on reevaluation but pain has not completely resolved. Workup showed white count of 12, chemistries with negative initial troponin and D-dimers. Patient has a glucose of 466 with normal bicarb. Patient has insulin pump which is not working lately. He will give him insulin. Patient has multiple risk factors for CAD, heart score of 4, I believe patient would benefit with observation admission. Discussed with Dr. Mabry patient is being admitted. Blood Culture(s) Obtained: No Antibiotics given: No Discussed with Dr.: Other ( ) Counseled pt/family regarding: lab results, diagnosis, rad results, smoking cessation Medical Desision Making - Independent Historian Additional History obtained from: Spouse - Discussion of managment Care discussed with:: hospitalist Reviewed:: Test results Agreed on:: Treatment plan, place in obs Will see patient: in hospital - Diagnostic Testing Diagnostic test were ordered, analyzed, and reviewed by me: Yes Radiological Interpretation: Reviewed by me - Risk of complications The pt has a mod risk of morbidity or mortality based on: Need for prescription drug management The pt has a high risk of morbidity or mortality based on: Decision regarding hospitilization or escalation of hosp level of care - Departure Departure Disposition: Observation Clinical Impression: Chest pain, rule out acute myocardial infarction, Hyperglycemia Condition: Stable Critical Care Time: No Referrals: BOBBY NEWTON [Primary Care Provider] - Follow up/PCP as directed
[2024-09-26] MEDS ORDERED: BABY ASPIRIN 81 MG CHEW ONE (08:11)
[2024-09-26] MEDS ORDERED: Zofran 4 MG/2 ML VIAL ONE (08:12)
[2024-09-26] MEDS ORDERED: MORPHINE SULFATE 4 MG INJ ONE (08:12)
[2024-09-26 08:17] LABS: Absolute Neutrophil Ct (ANC) 8.36 x10^3/uL (1.78-5.38); BASOPHIL % 0.1 % (0.2-1.2); Basophil (Absolute #) 0.01 x10^3/uL (0.01-0.08); Eosinophil % 0.7 % (0.8-7.0); Eosinophil (Absolute #) 0.08 x10^3/uL (0.04-0.54); Hematocrit 42.8 % (40.1-51.0); Hemoglobin 14.9 g/dL (13.7-17.5); IMMATURE GRAN # 0.06 x10^3u/L (0.001-0.031); IMMATURE GRAN % 0.5 % (0.001-0.429); Lymphocyte (Absolute #) 2.47 x10^3/uL (1.32-3.57); Lymphocytes % 20.6 % (21.8-53.1); Mean Cell Volume 82.9 fL (79.0-92.2); Mean Corpuscular Hemoglobin 28.9 pg (25.7-32.2); Mean Corpuscular Hgb Concent. 34.8 g/dL (32.3-36.5); Mean Platelet Volume 11.4 fL (9.4-12.4); Monocyte (Absolute #) 1.03 x10^3/uL (0.30-0.82); Monocytes % 8.6 % (5.3-12.2); Neutrophil % 69.5 % (34.0-67.9); Platelet Count 231 x10^3/uL (163-337); Red Blood Count 5.16 x10^6/uL (4.63-6.08); Red Cell Distribution Width 12.2 % (11.6-14.4)
[2024-09-26] MEDS: BABY ASPIRIN 81 MG CHEW PO ONE (08:17)
[2024-09-26] MEDS: Zofran 4 MG/2 ML VIAL IV ONE (08:18)
[2024-09-26] MEDS: MORPHINE SULFATE 4 MG INJ IV ONE (08:18)
[2024-09-26 08:28] LABS: ALBUMIN 4.3 g/dL (3.5-5.0); ANION GAP 14.7 MEQ/L (5-15); BILIRUBIN,TOTAL 0.6 mg/dL (0.2-1.3); Calcium 9.3 mg/dL (8.4-10.2); Creatinine 1 0.61 mg/dL (0.66-1.25); Potassium 4.5 mmol/L (3.5-5.1); Total Protein 6.7 g/dL (6.3-8.2)
[2024-09-26 08:39] LABS: TROPONIN < 0.012 ng/mL (0.000-0.033)
--- NOTE | 2024-09-26 08:48 | XRAY ---
Indication: Chest pain. Comparison: August 08, 2024 Portable chest again demonstrates normal heart, lungs, and bony thorax with incidental right lung calcified granuloma. No new/acute findings.
[2024-09-26] MEDS ORDERED: HUMULIN R ONE (09:59)
[2024-09-26] MEDS: HUMULIN R IV ONE (10:00)
[2024-09-26] MEDS: HUMALOG SQ PRN (12:00)
--- NOTE | 2024-09-26 13:01 | PCM.HP ---
History of Present Illness - Chief Complaint Chief Complaint: Chest pain rule out acute NE Date: 09/26/24 History of Present Illness: is a 44 year old male with a pmhx of tobacco abuse, CAD, DMII, HTN, HLD, pancreatitis, and neuropathy who presented to ED 09/26/24 for evaluation of chest pain. Patient reports the chest pain initially started yesterday but resolved. The pain returned this morning and woke him from sleep. He describes the pain as substernal with radiation to the back and shoulder. Pain is dull/aching in characteristic, similar to previous chest pain experienced in the past. Pain is aggravating with deep inhalation. Relieved when he raises his arms up. He has associated shortness of breath. Denies fever,cough, WHITE, dizziness, V/D. Patient states he has been non-compliant with diabetes medications as his machine is not working resulting in hyperglycemia. Upon arrival to ED, patient hypertensive otherwise stable vitals. EKG NS NORMAL AXIS, NORMAL INTERVALS, Non-specific ST Changes. CXR with no acute findings. Lab findings with leukocytosis, hyponatremia, and hyperglycemia. AST and Alk phos mildly elevated. Trops x 1 WNL. BNP at 72. Patient given aspirin, insulin, and morphine in ED. Admit patient for chest pain and hyperglycemia. - Review of Systems Constitutional: No Symptoms Eyes: No Symptoms Ears, Nose, & Throat: No Symptoms Respiratory: Short Of Breath Cardiac: Chest Pain Abdominal/Gastrointestinal: No Symptoms Genitourinary Symptoms: No Symptoms Musculoskeletal: Back Pain, Joint Pain (shoulder) Skin: No Symptoms Neurological: Other (neruopathy) Psychological: No Symptoms Endocrine: No Symptoms Hematologic/Lymphatic: No Symptoms Immunological/Allergic: No Symptoms Medications & Allergies Home Medications: Home Medication List RX: Insulin Lispro [Humalog] 1 unit SQ UD 01/06/20 [History Confirmed 09/26/24] RX: Lisinopril 10 mg [Zestril 10 MG] 10 mg PO DAILY 01/06/20 [History Confirmed 09/26/24] RX: Ergocalciferol (Vitamin D2) [Vitamin D] 50,000 unit PO WEEKLY 07/26/20 [History Confirmed 09/26/24] Gabapentin [Neurontin] 600 mg PO TID 08/29/20 [History Confirmed 09/26/24] Aspirin EC 81 mg [Ecotrin 81 mg] 81 mg PO DAILY 09/26/24 [History Confirmed 09/26/24] Buspirone HCl 5 mg [Buspar 5 mg] 15 mg PO BID 09/26/24 [History Confirmed 09/26/24] Carvedilol 12.5 mg [Coreg 12.5 mg] 12.5 mg PO BID 09/26/24 [History Confirmed 09/26/24] Fenofibrate Nanocrystallized [Fenofibrate] 1 ea PO DAILY 09/26/24 [History Confirmed 09/26/24] Lurasidone HCl [Latuda] 80 mg PO HS 09/26/24 [History Confirmed 09/26/24] RX: Benztropine Mesylate 1 mg PO HS 09/26/24 [History Confirmed 09/26/24] RX: Omeprazole 40 mg PO DAILY 09/26/24 [History Confirmed 09/26/24] RX: Prazosin HCl 1 mg PO TID 09/26/24 [History Confirmed 09/26/24] RX: Rosuvastatin Calcium 20 mg PO DAILY 09/26/24 [History Confirmed 09/26/24] Allergies/Adverse Reactions: Allergies Allergy/AdvReac Type Severity Reaction Status Date / Time codeine Allergy Severe Nausea and Verified 09/26/24 07:35 Vomiting pseudoephedrine Allergy Severe Fainting Verified 09/26/24 07:35 [From Actifed] triprolidine [From Actifed] Allergy Severe Fainting Verified 09/26/24 07:35 diphenhydramine AdvReac Severe Fainting Verified 09/26/24 07:35 [From Benadryl] - Past Medical History Past Medical History: Yes Neurological History: No Pertinent History ENT History: No Pertinent History Cardiac History: Coronary Artery Disease, High Cholesterol, Hypertension Respiratory History: No Pertinent History Endocrine Medical History: Diabetes Type II Musculoskelatal History: No Pertinent History GI Medical History: Esophageal Disorder, Hemorrhoids, Pancreatitis, Ulcer History: Other Pyscho-Social History: Depression Male Reproductive Disorders: No Pertinent History Comment: 2015 Gastritis, kidney infection - Past Surgical History Past Surgical History: Yes Neuro Surgical History: No Pertinent History Cardiac History: Cardiac Catheterization Respiratory Surgery: No Pertinent History GI Surgical History: Hemorrhoidectomy, Rectal Surgery Genitourinary Surgical Hx: No Pertinent History Musculskeletal Surgical Hx: No Pertinent History Male Surgical History: No Pertinent History Other Surgical History: 2020 Heart Cath (blockage x 2) Significant Family History: heart disease, cancer, diabetes, stroke - Social History Smoking Status: Current every day smoker How long have you smoked: years Exposure to second hand smoke: Yes Alcohol: None Drug Use: none - Social Determinants of Health Will the patient participate in the screening: Yes Do you worry about a steady place to live?: Yes Do you have any problems with any of the following?: Pest (bugs,ants,or mice) In the past 12 months,have you had to go without utilities?: No Have you or anyone in your house had to go without enough: No Transportation Issues: No Has anyone in your support network made you feel unsafe?: No Does the patient want assistance with any of the above?: No - Physical Exam Vital Signs: Vital Signs - 24 hr Temp Pulse Pulse Resp BP BP Pulse Ox 09/26/24 10:45 97.9 F 73 16 127/85 98 09/26/24 09:46 99 09/26/24 09:30 75 12 135/95 97 09/26/24 09:00 73 13 153/100 97 09/26/24 08:30 74 15 131/72 98 09/26/24 08:00 80 14 157/102 99 09/26/24 07:41 81 09/26/24 07:35 86 18 138/102 99 09/26/24 07:30 98.4 F 85 14 138/102 99 General Appearance: no apparent distress Neurologic Exam: alert, oriented x 3, cooperative Eye Exam: PERRL/EOMI Ears, Nose, Throat Exam: normal ENT inspection Neck Exam: normal inspection Respiratory Exam: normal breath sounds, lungs clear Cardiovascular Exam: regular rate/rhythm, normal heart sounds Gastrointestinal/Abdomen Exam: soft, normal bowel sounds Rectal Exam: deferred Back Exam: normal inspection Extremity Exam: normal inspection Skin Exam: normal color Results - Labs Lab/Micro Results: Lab Results-Last 24 Hours 09/26/24 09/26/24 09/26/24 Range/Units 08:13 08:13 08:13 WBC 12.0 H (4.23-9.07) x10^3/uL RBC 5.16 (4.63-6.08) x10^6/uL Hgb 14.9 (13.7-17.5) g/dL Hct 42.8 (40.1-51.0) % MCV 82.9 (79.0-92.2) fL MCH 28.9 (25.7-32.2) pg MCHC 34.8 (32.3-36.5) g/dL RDW 12.2 (11.6-14.4) % Plt Count 231 (163-337) x10^3/uL MPV 11.4 (9.4-12.4) fL Gran % 69.5 H (34.0-67.9) % Immature Gran % (Auto) 0.5 H (0.001-0.429) % Nucleat RBC Rel Count 0.0 (0.00-0.2) % Eos # (Auto) 0.08 (0.04-0.54) x10^3/uL Immature Gran # (Auto) 0.06 H (0.001-0.031) x10^3u/L Absolute Lymphs (auto) 2.47 (1.32-3.57) x10^3/uL Absolute Monos (auto) 1.03 H (0.30-0.82) x10^3/uL Absolute Nucleated RBC 0.00 (0.00-0.012) x10^3u/L Lymphocytes % 20.6 L (21.8-53.1) % Monocytes % 8.6 (5.3-12.2) % Eosinophils % 0.7 L (0.8-7.0) % Basophils % 0.1 L (0.2-1.2) % Absolute Granulocytes 8.36 H (1.78-5.38) x10^3/uL Basophils # 0.01 (0.01-0.08) x10^3/uL D-Dimer < 0.19 (0.0-0.50) mg/L Sodium 130 L (135-145) mmol/L Potassium 4.5 (3.5-5.1) mmol/L Chloride 97 L (98-107) mmol/L Carbon Dioxide 23 (22-30) mmol/L Anion Gap 14.7 (5-15) MEQ/L BUN 14 (9-20) mg/dL Creatinine 0.61 L (0.66-1.25) mg/dL Estimated GFR 120.0 ML/MIN Glucose 466 H (74-106) mg/dL POC Glucometer (74 to 106) mg/dL Calcium 9.3 (8.4-10.2) mg/dL Total Bilirubin 0.60 (0.2-1.3) mg/dL AST 21 (17-59) U/L ALT 56 H (0-50) U/L Alkaline Phosphatase 139 H (38-126) U/L Troponin I (0.000-0.033) ng/mL NT-Pro-B Natriuret Pep (<300) pg/mL Serum Total Protein 6.7 (6.3-8.2) g/dL Albumin 4.3 (3.5-5.0) g/dL 09/26/24 09/26/24 Range/Units 08:13 11:27 WBC (4.23-9.07) x10^3/uL RBC (4.63-6.08) x10^6/uL Hgb (13.7-17.5) g/dL Hct (40.1-51.0) % MCV (79.0-92.2) fL MCH (25.7-32.2) pg MCHC (32.3-36.5) g/dL RDW (11.6-14.4) % Plt Count (163-337) x10^3/uL MPV (9.4-12.4) fL Gran % (34.0-67.9) % Immature Gran % (Auto) (0.001-0.429) % Nucleat RBC Rel Count (0.00-0.2) % Eos # (Auto) (0.04-0.54) x10^3/uL Immature Gran # (Auto) (0.001-0.031) x10^3u/L Absolute Lymphs (auto) (1.32-3.57) x10^3/uL Absolute Monos (auto) (0.30-0.82) x10^3/uL Absolute Nucleated RBC (0.00-0.012) x10^3u/L Lymphocytes % (21.8-53.1) % Monocytes % (5.3-12.2) % Eosinophils % (0.8-7.0) % Basophils % (0.2-1.2) % Absolute Granulocytes (1.78-5.38) x10^3/uL Basophils # (0.01-0.08) x10^3/uL D-Dimer (0.0-0.50) mg/L Sodium (135-145) mmol/L Potassium (3.5-5.1) mmol/L Chloride (98-107) mmol/L Carbon Dioxide (22-30) mmol/L Anion Gap (5-15) MEQ/L BUN (9-20) mg/dL Creatinine (0.66-1.25) mg/dL Estimated GFR ML/MIN Glucose (74-106) mg/dL POC Glucometer 401 H (74 to 106) mg/dL Calcium (8.4-10.2) mg/dL Total Bilirubin (0.2-1.3) mg/dL AST (17-59) U/L ALT (0-50) U/L Alkaline Phosphatase (38-126) U/L Troponin I < 0.012 (0.000-0.033) ng/mL NT-Pro-B Natriuret Pep 72.0 (<300) pg/mL Serum Total Protein (6.3-8.2) g/dL Albumin (3.5-5.0) g/dL Accuchecks Date 09/26/24 Time 12:36 - Radiology Impressions Radiology Exams & Impressions: Radiology Procedures Category Date Time Status CHEST 1 VIEW (PORTABLE) Stat Exams 09/26/24 08:00 Completed Assessment/Plan (1) Chest pain, rule out acute myocardial infarction Current Visit: Yes Status: Acute Assessment & Plan: -EKG with NS-NORMAL AXIS, NORMAL INTERVALS, Non-specific ST Changes. -CXR with no acute findings. -Trop neg x 1- continue series -Echo- most recent from 2021: EF 53% IMPRESSION: 1) MILD CONCENTRIC LEFT VENTRICULAR HYPERTROPHY WITH NORMAL LEFT VENTRICULAR SYSTOLIC FUNCTION. 2) MILD MITRAL VALVE PROLAPSE. 3) MILD MITRAL REGURGITATION. 4) MILD TRICUSPID REGURGITATION. -Obtain new echo -Patient states he has had recent stress test with Dr. Vance - will obtain -ASA given in ED -Nitro -tele -Cardiology consult Code(s): R07.9 - CHEST PAIN, UNSPECIFIED (2) Type 2 diabetes mellitus with hyperglycemia Current Visit: Yes Status: Acute Assessment & Plan: -Patient states he has been non-compliant with home meds -SSI HD -ADA diet -A1c Code(s): E11.65 - TYPE 2 DIABETES MELLITUS WITH HYPERGLYCEMIA (3) HTN (hypertension) Current Visit: Yes Status: Acute Assessment & Plan: -continue home meds -monitor closely Code(s): I10 - ESSENTIAL (PRIMARY) HYPERTENSION (4) HLD (hyperlipidemia) Current Visit: Yes Status: Acute Assessment & Plan: -continue home statin Code(s): E78.5 - HYPERLIPIDEMIA, UNSPECIFIED (5) Neuropathy Current Visit: Yes Status: Acute Assessment & Plan: -continue gabapentin Code(s): G62.9 - POLYNEUROPATHY, UNSPECIFIED (6) Hyponatremia Current Visit: Yes Status: Acute Assessment & Plan: -Most likely secondary to hyperglycemia -IVF Code(s): E87.1 - HYPO-OSMOLALITY AND HYPONATREMIA (7) CAD (coronary artery disease) Current Visit: No Status: Chronic Qualifiers: Associated angina: without angina Assessment & Plan: -continue home meds -Pt follow with Dr. Vance Code(s): I25.10 - ATHSCL HEART DISEASE OF [place] CORONARY ARTERY W/O ANG PCTRS (8) Hx of pancreatitis Current Visit: No Status: Chronic Code(s): Z87.19 - PERSONAL HISTORY OF OTHER DISEASES OF THE DIGESTIVE SYSTEM (9) Leukocytosis Current Visit: No Status: Resolved Assessment & Plan: -No fever or obvious source of infection -UA -CXR with no acute findings -may be reactive- trend VTE: Lovenox PPI: omeprazole Dispo: 1-2 days Code(s): D72.829 - ELEVATED WHITE BLOOD CELL COUNT, UNSPECIFIED Telemedicine Encounter - Telemedicine Encounter Telemedicine Encounter: "The entirety of this encounter was performed via Telemedicine" This visit was performed using real-time audio and video connection between my location and thepatients locationwith the assistance of a surrogateat the patients location. Written or verbal consent was obtained from the patient/guardian to perform this visit [facility] technology. Any patient questions regarding the telemedicine interaction were answered.
[2024-09-26] MEDS ORDERED: Nitrostat 0.4 MG Tablet SL PRN (13:12)
[2024-09-26] MEDS ORDERED: Zofran 4 MG/2 ML VIAL IV PRN (13:12)
[2024-09-26] MEDS ORDERED: TYLENOL 325 MG PO PRN (13:12)
[2024-09-26] MEDS ORDERED: HUMALOG SQ PRN (13:12)
[2024-09-26] MEDS ORDERED: NORCO 5/325 MG PO PRN (13:15)
[2024-09-26] MEDS ORDERED: MEDICATION INTERVENTION MC SCH (13:30)
[2024-09-26] MEDS: NON-FORMULARY ITEM PO SCH (14:45)
[2024-09-26] MEDS: ENOXAPARIN SODIUM SQ SCH (14:45)
[2024-09-26] MEDS: Tricor 145 MG PO SCH (14:46)
[2024-09-26] MEDS: ZOCOR 20MG PO SCH (14:46)
[2024-09-26] MEDS: NEURONTIN PO SCH (14:47)
[2024-09-26] MEDS: Zestril 10 MG PO SCH (14:47)
[2024-09-26] MEDS: Protonix 40MG Tablet PO SCH (14:47)
[2024-09-26] MEDS: Nicoderm CQ 21 MG TOP SCH (14:48)
[2024-09-26] MEDS ORDERED: PRAZOSIN HCL PO SCH (15:00)
--- NOTE | 2024-09-26 15:24 | PCM.CONS ---
History of Present Illness - Date of Consult Date of Encounter: 09/26/24 Consulting Solar Energy Systems Engineer: FLAKITA FITZPATRICK MD Requesting Provider: Attending Provider: YANIQUE STACY MD Primary Care Provider: PCP: BOBBY NEWTON - Consult Narrative Reason for Consult: Chest Pain HPI: Patient is a 44M with PMHX Tobacco use, Systemic HTN, CAD, Hyperlipidemia, DM2 with neuropathy, Hx pancreatitis, who comes in with one day of chest pain. Tells me that he woke up this morning and chest pain had started out of the blue. Lasted about 25 minutes until he was at the hospital. Not clearly exertional. Tells me that he has similar episodes a few times a month. He follows with a childbirth and infant care teacher as an outpatient; about 2 years ago had an abnormal stress test and invasive angiography revealed non-obstructive disease at that point. He tells me that he does continue to follow with this childbirth and infant care teacher. Not checking BP at home. He does use tobacco. Was smoking 2 packs a day but has been working on quitting, now down to 8-9 cigarettes a day. No alcohol or illicit drug use. Lives with . Stopped working due to complications from DM2. Workup in the ER included troponins which were negative x 2, EKG without ischemic changes, and unremarkable CXR. He has been mildly hypertensive since he has been here. Labs also with some hyperglycemia and mild transaminitis. An echocardiogram was ordered. cc:: The requesting physician will be sent a copy of the consult. Review of Systems - Review of Systems All systems: all other systems reviewed and were unremarkable (14 point ROS performed and negative except as mentioned in HPI) - Past Medical History Past Medical History: Yes Neurological History: No Pertinent History ENT History: No Pertinent History Cardiac History: Coronary Artery Disease, High Cholesterol, Hypertension Respiratory History: No Pertinent History Endocrine Medical History: Diabetes Type II Musculoskelatal History: No Pertinent History GI Medical History: Esophageal Disorder, Hemorrhoids, Pancreatitis, Ulcer History: Other Pyscho-Social History: Depression Male Reproductive Disorders: No Pertinent History Comment: 2015 Gastritis, kidney infection - Past Surgical History Past Surgical History: Yes Neuro Surgical History: No Pertinent History Cardiac History: Cardiac Catheterization Respiratory Surgery: No Pertinent History GI Surgical History: Hemorrhoidectomy, Rectal Surgery Genitourinary Surgical Hx: No Pertinent History Musculskeletal Surgical Hx: No Pertinent History Male Surgical History: No Pertinent History Other Surgical History: 2019 Heart Cath (blockage x 2) Significant Family History: heart disease, cancer, diabetes, stroke - Social History Smoking Status: Current every day smoker How long have you smoked: years Exposure to second hand smoke: Yes Alcohol: None Drug Use: none - Social Determinants of Health Will the patient participate in the screening: Yes Do you worry about a steady place to live?: Yes Do you have any problems with any of the following?: Pest (bugs,ants,or mice) In the past 12 months,have you had to go without utilities?: No Have you or anyone in your house had to go without enough: No Transportation Issues: No Has anyone in your support network made you feel unsafe?: No Does the patient want assistance with any of the above?: No Medications & Allergies Home Medications: Home Medication List Insulin Lispro [Humalog] 1 unit SQ UD 01/06/20 [History Confirmed 09/26/24] Lisinopril 10 mg [Zestril 10 MG] 10 mg PO DAILY 01/06/20 [History Confirmed 09/26/24] Ergocalciferol (Vitamin D2) [Vitamin D] 50,000 unit PO WEEKLY 07/26/20 [History Confirmed 09/26/24] Gabapentin [Neurontin] 600 mg PO TID 08/29/20 [History Confirmed 09/26/24] Aspirin EC 81 mg [Ecotrin 81 mg] 81 mg PO DAILY 09/26/24 [History Confirmed 09/26/24] Benztropine Mesylate 1 mg PO HS 09/26/24 [History Confirmed 09/26/24] Buspirone HCl 5 mg [Buspar 5 mg] 15 mg PO BID 09/26/24 [History Confirmed 09/26/24] Carvedilol 12.5 mg [Coreg 12.5 mg] 12.5 mg PO BID 09/26/24 [History Confirmed 09/26/24] Fenofibrate Nanocrystallized [Fenofibrate] 1 ea PO DAILY 09/26/24 [History Confirmed 09/26/24] Lurasidone HCl [Latuda] 80 mg PO HS 09/26/24 [History Confirmed 09/26/24] Omeprazole 40 mg PO DAILY 09/26/24 [History Confirmed 09/26/24] Prazosin HCl 1 mg PO TID 09/26/24 [History Confirmed 09/26/24] Rosuvastatin Calcium 20 mg PO DAILY 09/26/24 [History Confirmed 09/26/24] Allergies/Adverse Reactions: Allergies Allergy/AdvReac Type Severity Reaction Status Date / Time codeine Allergy Severe Nausea and Verified 09/26/24 07:35 Vomiting pseudoephedrine Allergy Severe Fainting Verified 09/26/24 07:35 [From Actifed] triprolidine [From Actifed] Allergy Severe Fainting Verified 09/26/24 07:35 diphenhydramine AdvReac Severe Fainting Verified 09/26/24 07:35 [From Benadryl] Exam - Vitals Vital Signs: Vital Signs - 24 hr Temp Pulse Pulse Resp BP BP Pulse Ox 09/26/24 10:45 97.9 F 73 16 127/85 98 09/26/24 09:46 99 09/26/24 09:30 75 12 135/95 97 09/26/24 09:00 73 13 153/100 97 09/26/24 08:30 74 15 131/72 98 09/26/24 08:00 80 14 157/102 99 09/26/24 07:41 81 09/26/24 07:35 86 18 138/102 99 09/26/24 07:30 98.4 F 85 14 138/102 99 General:: alert and oriented x 4, no acute distress, other (Looks older than stated age) HEENT: EOMI, No thyromegaly, No JVD Cardiovascular Exam: regular rate/rhythm, normal heart sounds, normal peripheral pulses, capillary refill <2 sec, No murmur, No gallop Respiratory Exam: normal breath sounds, lungs clear, No respiratory distress SpO2: 98 Gastrointestinal/Abdomen Exam: soft, normal bowel sounds Skin Exam: normal color, warm, dry, No rash Extremity Exam: warm, well perfused, No edema Male Genitalia Exam: No deferred Rectal Exam: deferred Neurologic: senior analyst programmer II-XII grossly intact Results Vital Signs: Vital Signs - 24 hr Temp Pulse Pulse Resp BP BP Pulse Ox 09/26/24 10:45 97.9 F 73 16 127/85 98 09/26/24 09:46 99 09/26/24 09:30 75 12 135/95 97 09/26/24 09:00 73 13 153/100 97 09/26/24 08:30 74 15 131/72 98 09/26/24 08:00 80 14 157/102 99 09/26/24 07:41 81 09/26/24 07:35 86 18 138/102 99 09/26/24 07:30 98.4 F 85 14 138/102 99 Pain Assessment - Last Documented Pain Intensity 0 Pain Scale Used 0-10 Pain Scale Intake and Output: Intake & Output 09/24/24 09/25/24 09/26/24 09/27/24 06:59 06:59 06:59 06:59 Intake Total 380 Balance 380 Weight 103.7 kg LAB: I have reviewed the Labs in [facility]. Troponins negative, BNP 72, mild transaminitis, glucose in the 400s Radiology Exams: Radiology Procedures Category Date Time Status CHEST 1 VIEW (PORTABLE) Stat Exams 09/26/24 08:00 Completed ECHO W/2D AND DOPPLER [US] Routine Exams 09/26/24 13:13 Ordered Tracing 1 Attestation: I have reviewed this EKG and interpreted as documented below. - ECHO Echo: pending Assessment & Plan (1) Chest pain, rule out acute myocardial infarction Current Visit: Yes Status: Acute Assessment & Plan: With normal EKG, negative troponins, this doesn't seem like an acute [place] to me Could still be angina, though pain seems somewhat atypical. For now I agree with getting an echocardiogram. I would also focus on BP control as this can also cause chest pain. Increase Carvedilol to 25 mg BID (both antianginal and anti hypertensive effects. Depending on results of echo and if symptoms continue despite BP control may need an ischemic evaluation, ie stress test or invasive angiography. He should also continue his baby aspirin 81 mg daily. Code(s): R07.9 - CHEST PAIN, UNSPECIFIED (2) HTN (hypertension) Current Visit: Yes Status: Acute Assessment & Plan: BP not very well controlled Takes Lisinopril 10 mg daily and Carvedilol 12.5 mg BID Increase Carvedilol to 25 mg BID Code(s): I10 - ESSENTIAL (PRIMARY) HYPERTENSION (3) HLD (hyperlipidemia) Current Visit: Yes Status: Acute Assessment & Plan: Reported history of coronary artery disease and hyperlipidemia. Should ideally be at least on moderate intensity statin Check lipid progfile When transaminitis resolves can start Atorvastatin 20 mg daily Code(s): E78.5 - HYPERLIPIDEMIA, UNSPECIFIED (4) Tobacco use Current Visit: Yes Status: Acute Assessment & Plan: Discussed cessation for 5 minutes Code(s): Z72.0 - TOBACCO USE (5) CAD (coronary artery disease) Current Visit: No Status: Chronic Qualifiers: Coronary Disease-Associated Artery/Lesion type: [place] artery [place] vs. transplanted heart: [place] heart Associated angina: with other forms of angina Qualified Code(s): I25.118 - Atherosclerotic heart disease of [place] coronary artery with other forms of angina pectoris Assessment & Plan: Evaluation as above (Echo, Aspirin, Statin when LFTs allow) Code(s): I25.10 - ATHSCL HEART DISEASE OF [place] CORONARY ARTERY W/O ANG PCTRS - Encounter Critical Care Time: No Encounter: "The entirety of this encounter was performed via Telemedicine using audio and visual "
[2024-09-26 16:15] LABS: Appearance Cloudy (Clear); Bacteria None Seen /HPF (None Seen); Bilirubin Negative (Negative); Blood Negative (Negative); Epithelial Cells None Seen /HPF (None Seen); Glucose, Urine >=1000 mg/dL (Negative); Hyaline Casts NONE SEEN /LPF (0-2); Ketones Negative (Negative); Leukocyte Esterase Negative (Negative); Nitrite Negative (Negative); Ph 7.5 (4.6-8.0); Protein,Urine Dip Negative (Negative); RBC 0-2 /HPF (0-5); Specific Gravity >=1.030 (1.005-1.030); Urobilinogen 0.2 mg/dL (0.2); WBC 0-2 /HPF (0-5)
[2024-09-26] MEDS: BUSPAR 5 MG PO SCH (21:42)
[2024-09-26] MEDS: COREG 12.5 MG PO SCH (21:42)
[2024-09-26] MEDS: COGENTIN 0.5 MG PO SCH (21:45)
[2024-09-26] MEDS ORDERED: LURASIDONE HCL 80 MG PO SCH (22:00)
[2024-09-26] MEDS ORDERED: COREG 12.5 MG PO SCH (22:00)
[2024-09-26 22:40] LABS: Amphetamine,Urine NEGATIVE (NEGATIVE); Benzodiazepine,Urine NEGATIVE (NEGATIVE); Cocaine,Urine NEGATIVE (NEGATIVE); Methadone,Urine NEGATIVE (NEGATIVE); Opiate,Urine POSITIVE (NEGATIVE); PCP,Urine NEGATIVE (NEGATIVE)
[2024-09-26 23:07] LABS: THC,Urine NEGATIVE (NEGATIVE)
[2024-09-27 00:20] LABS: Barbiturate,Urine NEGATIVE (NEGATIVE)
--- NOTE | 2024-09-27 05:10 | PCM.NOTE ---
Date and Time: 09/27/24 0509 Subjective Assessment: is a 44 year old male with a pmhx of tobacco abuse, CAD, DMII, HTN, HLD, pancreatitis, and neuropathy who presented to ED 09/26/24 for evaluation of chest pain. Patient reports the chest pain initially started yesterday but resolved. The pain returned this morning and woke him from sleep. He describes the pain as substernal with radiation to the back and shoulder. Pain is dull/aching in characteristic, similar to previous chest pain experienced in the past. Pain is aggravating with deep inhalation. Relieved when he raises his arms up. He has associated shortness of breath. Denies fever,cough, WHITE, dizziness, V/D. Patient states he has been non-compliant with diabetes medications as his machine is not working resulting in hyperglycemia. Upon arrival to ED, patient hypertensive otherwise stable vitals. EKG NS NORMAL AXIS, NORMAL INTERVALS, Non-specific ST Changes. CXR with no acute findings. Lab findings with leukocytosis, hyponatremia, and hyperglycemia. AST and Alk phos mildly elevated. Trops x 1 WNL. BNP at 72. Patient given aspirin, insulin, and morphine in ED. Admit patient for chest pain and hyperglycemia. Objective Data Vital Signs: Vital Signs - 24 hr Temp Pulse Pulse Resp BP BP Pulse Ox 09/27/24 03:44 78 09/26/24 23:40 97.9 F 85 18 124/71 96 09/26/24 19:56 98.8 F 97 H 17 129/73 96 09/26/24 16:00 97.8 F 89 16 136/91 97 09/26/24 15:54 98 09/26/24 10:45 97.9 F 73 16 127/85 98 09/26/24 09:46 99 09/26/24 09:30 75 12 135/95 97 09/26/24 09:00 73 13 153/100 97 09/26/24 08:30 74 15 131/72 98 09/26/24 08:00 80 14 157/102 99 09/26/24 07:41 81 09/26/24 07:35 86 18 138/102 99 09/26/24 07:30 98.4 F 85 14 138/102 99 Pain Assessment - Last Documented Pain Intensity 0 Pain Scale Used 0-10 Pain Scale Intake and Output: Intake & Output 09/24/24 09/25/24 09/26/24 09/27/24 11:59 11:59 11:59 11:59 Intake Total 500 Balance 500 Weight 103.7 kg Lab Results: Lab Results-Last 24 Hours 09/26/24 09/26/24 09/26/24 Range/Units 08:13 08:13 08:13 WBC 12.0 H (4.23-9.07) x10^3/uL RBC 5.16 (4.63-6.08) x10^6/uL Hgb 14.9 (13.7-17.5) g/dL Hct 42.8 (40.1-51.0) % MCV 82.9 (79.0-92.2) fL MCH 28.9 (25.7-32.2) pg MCHC 34.8 (32.3-36.5) g/dL RDW 12.2 (11.6-14.4) % Plt Count 231 (163-337) x10^3/uL MPV 11.4 (9.4-12.4) fL Gran % 69.5 H (34.0-67.9) % Immature Gran % (Auto) 0.5 H (0.001-0.429) % Nucleat RBC Rel Count 0.0 (0.00-0.2) % Eos # (Auto) 0.08 (0.04-0.54) x10^3/uL Immature Gran # (Auto) 0.06 H (0.001-0.031) x10^3u/L Absolute Lymphs (auto) 2.47 (1.32-3.57) x10^3/uL Absolute Monos (auto) 1.03 H (0.30-0.82) x10^3/uL Absolute Nucleated RBC 0.00 (0.00-0.012) x10^3u/L Lymphocytes % 20.6 L (21.8-53.1) % Monocytes % 8.6 (5.3-12.2) % Eosinophils % 0.7 L (0.8-7.0) % Basophils % 0.1 L (0.2-1.2) % Absolute Granulocytes 8.36 H (1.78-5.38) x10^3/uL Basophils # 0.01 (0.01-0.08) x10^3/uL D-Dimer < 0.19 (0.0-0.50) mg/L Sodium 130 L (135-145) mmol/L Potassium 4.5 (3.5-5.1) mmol/L Chloride 97 L (98-107) mmol/L Carbon Dioxide 23 (22-30) mmol/L Anion Gap 14.7 (5-15) MEQ/L BUN 14 (9-20) mg/dL Creatinine 0.61 L (0.66-1.25) mg/dL Estimated GFR 120.0 ML/MIN Glucose 466 H (74-106) mg/dL POC Glucometer (74 to 106) mg/dL Hemoglobin A1c (4.5-6.0) % Calcium 9.3 (8.4-10.2) mg/dL Total Bilirubin 0.60 (0.2-1.3) mg/dL AST 21 (17-59) U/L ALT 56 H (0-50) U/L Alkaline Phosphatase 139 H (38-126) U/L Troponin I (0.000-0.033) ng/mL NT-Pro-B Natriuret Pep (<300) pg/mL Serum Total Protein 6.7 (6.3-8.2) g/dL Albumin 4.3 (3.5-5.0) g/dL TSH 3rd Generation (0.470-4.680) mIU/L Urine Color (Yellow) Urine Appearance (Clear) Urine pH (4.6-8.0) Ur Specific [place] (1.005-1.030) Urine Protein (Negative) Urine Glucose (UA) (Negative) mg/dL Urine Ketones (Negative) Urine Blood (Negative) Urine Nitrite (Negative) Urine Bilirubin (Negative) Urine Urobilinogen (0.2) mg/dL Ur Leukocyte Esterase (Negative) U Hyaline Cast (Auto) (0-2) /LPF Urine Microscopic RBC (0-5) /HPF Urine Microscopic WBC (0-5) /HPF Ur Epithelial Cells (None Seen) /HPF Urine Bacteria (None Seen) /HPF Urine Culture Reflexed (NO) Urine Opiates Level (NEGATIVE) Ur Methadone (NEGATIVE) Urine Barbiturates (NEGATIVE) Ur Phencyclidine (PCP) (NEGATIVE) Urine Amphetamine (NEGATIVE) U Benzodiazepine Level (NEGATIVE) Urine Cocaine (NEGATIVE) Urine Marijuana (THC) (NEGATIVE) 09/26/24 09/26/24 09/26/24 Range/Units 08:13 11:27 12:10 WBC (4.23-9.07) x10^3/uL RBC (4.63-6.08) x10^6/uL Hgb (13.7-17.5) g/dL Hct (40.1-51.0) % MCV (79.0-92.2) fL MCH (25.7-32.2) pg MCHC (32.3-36.5) g/dL RDW (11.6-14.4) % Plt Count (163-337) x10^3/uL MPV (9.4-12.4) fL Gran % (34.0-67.9) % Immature Gran % (Auto) (0.001-0.429) % Nucleat RBC Rel Count (0.00-0.2) % Eos # (Auto) (0.04-0.54) x10^3/uL Immature Gran # (Auto) (0.001-0.031) x10^3u/L Absolute Lymphs (auto) (1.32-3.57) x10^3/uL Absolute Monos (auto) (0.30-0.82) x10^3/uL Absolute Nucleated RBC (0.00-0.012) x10^3u/L Lymphocytes % (21.8-53.1) % Monocytes % (5.3-12.2) % Eosinophils % (0.8-7.0) % Basophils % (0.2-1.2) % Absolute Granulocytes (1.78-5.38) x10^3/uL Basophils # (0.01-0.08) x10^3/uL D-Dimer (0.0-0.50) mg/L Sodium (135-145) mmol/L Potassium (3.5-5.1) mmol/L Chloride (98-107) mmol/L Carbon Dioxide (22-30) mmol/L Anion Gap (5-15) MEQ/L BUN (9-20) mg/dL Creatinine (0.66-1.25) mg/dL Estimated GFR ML/MIN Glucose (74-106) mg/dL POC Glucometer 401 H (74 to 106) mg/dL Hemoglobin A1c (4.5-6.0) % Calcium (8.4-10.2) mg/dL Total Bilirubin (0.2-1.3) mg/dL AST (17-59) U/L ALT (0-50) U/L Alkaline Phosphatase (38-126) U/L Troponin I < 0.012 < 0.012 (0.000-0.033) ng/mL NT-Pro-B Natriuret Pep 72.0 (<300) pg/mL Serum Total Protein (6.3-8.2) g/dL Albumin (3.5-5.0) g/dL TSH 3rd Generation (0.470-4.680) mIU/L Urine Color (Yellow) Urine Appearance (Clear) Urine pH (4.6-8.0) Ur Specific [place] (1.005-1.030) Urine Protein (Negative) Urine Glucose (UA) (Negative) mg/dL Urine Ketones (Negative) Urine Blood (Negative) Urine Nitrite (Negative) Urine Bilirubin (Negative) Urine Urobilinogen (0.2) mg/dL Ur Leukocyte Esterase (Negative) U Hyaline Cast (Auto) (0-2) /LPF Urine Microscopic RBC (0-5) /HPF Urine Microscopic WBC (0-5) /HPF Ur Epithelial Cells (None Seen) /HPF Urine Bacteria (None Seen) /HPF Urine Culture Reflexed (NO) Urine Opiates Level (NEGATIVE) Ur Methadone (NEGATIVE) Urine Barbiturates (NEGATIVE) Ur Phencyclidine (PCP) (NEGATIVE) Urine Amphetamine (NEGATIVE) U Benzodiazepine Level (NEGATIVE) Urine Cocaine (NEGATIVE) Urine Marijuana (THC) (NEGATIVE) 09/26/24 09/26/24 09/26/24 Range/Units 12:10 13:25 16:00 WBC (4.23-9.07) x10^3/uL RBC (4.63-6.08) x10^6/uL Hgb (13.7-17.5) g/dL Hct (40.1-51.0) % MCV (79.0-92.2) fL MCH (25.7-32.2) pg MCHC (32.3-36.5) g/dL RDW (11.6-14.4) % Plt Count (163-337) x10^3/uL MPV (9.4-12.4) fL Gran % (34.0-67.9) % Immature Gran % (Auto) (0.001-0.429) % Nucleat RBC Rel Count (0.00-0.2) % Eos # (Auto) (0.04-0.54) x10^3/uL Immature Gran # (Auto) (0.001-0.031) x10^3u/L Absolute Lymphs (auto) (1.32-3.57) x10^3/uL Absolute Monos (auto) (0.30-0.82) x10^3/uL Absolute Nucleated RBC (0.00-0.012) x10^3u/L Lymphocytes % (21.8-53.1) % Monocytes % (5.3-12.2) % Eosinophils % (0.8-7.0) % Basophils % (0.2-1.2) % Absolute Granulocytes (1.78-5.38) x10^3/uL Basophils # (0.01-0.08) x10^3/uL D-Dimer (0.0-0.50) mg/L Sodium (135-145) mmol/L Potassium (3.5-5.1) mmol/L Chloride (98-107) mmol/L Carbon Dioxide (22-30) mmol/L Anion Gap (5-15) MEQ/L BUN (9-20) mg/dL Creatinine (0.66-1.25) mg/dL Estimated GFR ML/MIN Glucose (74-106) mg/dL POC Glucometer (74 to 106) mg/dL Hemoglobin A1c 12.58 H (4.5-6.0) % Calcium (8.4-10.2) mg/dL Total Bilirubin (0.2-1.3) mg/dL AST (17-59) U/L ALT (0-50) U/L Alkaline Phosphatase (38-126) U/L Troponin I (0.000-0.033) ng/mL NT-Pro-B Natriuret Pep (<300) pg/mL Serum Total Protein (6.3-8.2) g/dL Albumin (3.5-5.0) g/dL TSH 3rd Generation 2.327 (0.470-4.680) mIU/L Urine Color Yellow (Yellow) Urine Appearance Cloudy A (Clear) Urine pH 7.5 (4.6-8.0) Ur Specific [place] >=1.030 A (1.005-1.030) Urine Protein Negative (Negative) Urine Glucose (UA) >=1000 A (Negative) mg/dL Urine Ketones Negative (Negative) Urine Blood Negative (Negative) Urine Nitrite Negative (Negative) Urine Bilirubin Negative (Negative) Urine Urobilinogen 0.2 (0.2) mg/dL Ur Leukocyte Esterase Negative (Negative) U Hyaline Cast (Auto) NONE SEEN (0-2) /LPF Urine Microscopic RBC 0-2 (0-5) /HPF Urine Microscopic WBC 0-2 (0-5) /HPF Ur Epithelial Cells None Seen (None Seen) /HPF Urine Bacteria None Seen (None Seen) /HPF Urine Culture Reflexed NO (NO) Urine Opiates Level (NEGATIVE) Ur Methadone (NEGATIVE) Urine Barbiturates (NEGATIVE) Ur Phencyclidine (PCP) (NEGATIVE) Urine Amphetamine (NEGATIVE) U Benzodiazepine Level (NEGATIVE) Urine Cocaine (NEGATIVE) Urine Marijuana (THC) (NEGATIVE) 09/26/24 09/26/24 09/26/24 Range/Units 16:00 16:16 16:20 WBC (4.23-9.07) x10^3/uL RBC (4.63-6.08) x10^6/uL Hgb (13.7-17.5) g/dL Hct (40.1-51.0) % MCV (79.0-92.2) fL MCH (25.7-32.2) pg MCHC (32.3-36.5) g/dL RDW (11.6-14.4) % Plt Count (163-337) x10^3/uL MPV (9.4-12.4) fL Gran % (34.0-67.9) % Immature Gran % (Auto) (0.001-0.429) % Nucleat RBC Rel Count (0.00-0.2) % Eos # (Auto) (0.04-0.54) x10^3/uL Immature Gran # (Auto) (0.001-0.031) x10^3u/L Absolute Lymphs (auto) (1.32-3.57) x10^3/uL Absolute Monos (auto) (0.30-0.82) x10^3/uL Absolute Nucleated RBC (0.00-0.012) x10^3u/L Lymphocytes % (21.8-53.1) % Monocytes % (5.3-12.2) % Eosinophils % (0.8-7.0) % Basophils % (0.2-1.2) % Absolute Granulocytes (1.78-5.38) x10^3/uL Basophils # (0.01-0.08) x10^3/uL D-Dimer (0.0-0.50) mg/L Sodium (135-145) mmol/L Potassium (3.5-5.1) mmol/L Chloride (98-107) mmol/L Carbon Dioxide (22-30) mmol/L Anion Gap (5-15) MEQ/L BUN (9-20) mg/dL Creatinine (0.66-1.25) mg/dL Estimated GFR ML/MIN Glucose (74-106) mg/dL POC Glucometer 356 H (74 to 106) mg/dL Hemoglobin A1c (4.5-6.0) % Calcium (8.4-10.2) mg/dL Total Bilirubin (0.2-1.3) mg/dL AST (17-59) U/L ALT (0-50) U/L Alkaline Phosphatase (38-126) U/L Troponin I < 0.012 (0.000-0.033) ng/mL NT-Pro-B Natriuret Pep (<300) pg/mL Serum Total Protein (6.3-8.2) g/dL Albumin (3.5-5.0) g/dL TSH 3rd Generation (0.470-4.680) mIU/L Urine Color (Yellow) Urine Appearance (Clear) Urine pH (4.6-8.0) Ur Specific [place] (1.005-1.030) Urine Protein (Negative) Urine Glucose (UA) (Negative) mg/dL Urine Ketones (Negative) Urine Blood (Negative) Urine Nitrite (Negative) Urine Bilirubin (Negative) Urine Urobilinogen (0.2) mg/dL Ur Leukocyte Esterase (Negative) U Hyaline Cast (Auto) (0-2) /LPF Urine Microscopic RBC (0-5) /HPF Urine Microscopic WBC (0-5) /HPF Ur Epithelial Cells (None Seen) /HPF Urine Bacteria (None Seen) /HPF Urine Culture Reflexed (NO) Urine Opiates Level POSITIVE A (NEGATIVE) Ur Methadone NEGATIVE (NEGATIVE) Urine Barbiturates NEGATIVE (NEGATIVE) Ur Phencyclidine (PCP) NEGATIVE (NEGATIVE) Urine Amphetamine NEGATIVE (NEGATIVE) U Benzodiazepine Level NEGATIVE (NEGATIVE) Urine Cocaine NEGATIVE (NEGATIVE) Urine Marijuana (THC) NEGATIVE (NEGATIVE) 09/26/24 Range/Units 20:46 WBC (4.23-9.07) x10^3/uL RBC (4.63-6.08) x10^6/uL Hgb (13.7-17.5) g/dL Hct (40.1-51.0) % MCV (79.0-92.2) fL MCH (25.7-32.2) pg MCHC (32.3-36.5) g/dL RDW (11.6-14.4) % Plt Count (163-337) x10^3/uL MPV (9.4-12.4) fL Gran % (34.0-67.9) % Immature Gran % (Auto) (0.001-0.429) % Nucleat RBC Rel Count (0.00-0.2) % Eos # (Auto) (0.04-0.54) x10^3/uL Immature Gran # (Auto) (0.001-0.031) x10^3u/L Absolute Lymphs (auto) (1.32-3.57) x10^3/uL Absolute Monos (auto) (0.30-0.82) x10^3/uL Absolute Nucleated RBC (0.00-0.012) x10^3u/L Lymphocytes % (21.8-53.1) % Monocytes % (5.3-12.2) % Eosinophils % (0.8-7.0) % Basophils % (0.2-1.2) % Absolute Granulocytes (1.78-5.38) x10^3/uL Basophils # (0.01-0.08) x10^3/uL D-Dimer (0.0-0.50) mg/L Sodium (135-145) mmol/L Potassium (3.5-5.1) mmol/L Chloride (98-107) mmol/L Carbon Dioxide (22-30) mmol/L Anion Gap (5-15) MEQ/L BUN (9-20) mg/dL Creatinine (0.66-1.25) mg/dL Estimated GFR ML/MIN Glucose (74-106) mg/dL POC Glucometer 346 H (74 to 106) mg/dL Hemoglobin A1c (4.5-6.0) % Calcium (8.4-10.2) mg/dL Total Bilirubin (0.2-1.3) mg/dL AST (17-59) U/L ALT (0-50) U/L Alkaline Phosphatase (38-126) U/L Troponin I (0.000-0.033) ng/mL NT-Pro-B Natriuret Pep (<300) pg/mL Serum Total Protein (6.3-8.2) g/dL Albumin (3.5-5.0) g/dL TSH 3rd Generation (0.470-4.680) mIU/L Urine Color (Yellow) Urine Appearance (Clear) Urine pH (4.6-8.0) Ur Specific [place] (1.005-1.030) Urine Protein (Negative) Urine Glucose (UA) (Negative) mg/dL Urine Ketones (Negative) Urine Blood (Negative) Urine Nitrite (Negative) Urine Bilirubin (Negative) Urine Urobilinogen (0.2) mg/dL Ur Leukocyte Esterase (Negative) U Hyaline Cast (Auto) (0-2) /LPF Urine Microscopic RBC (0-5) /HPF Urine Microscopic WBC (0-5) /HPF Ur Epithelial Cells (None Seen) /HPF Urine Bacteria (None Seen) /HPF Urine Culture Reflexed (NO) Urine Opiates Level (NEGATIVE) Ur Methadone (NEGATIVE) Urine Barbiturates (NEGATIVE) Ur Phencyclidine (PCP) (NEGATIVE) Urine Amphetamine (NEGATIVE) U Benzodiazepine Level (NEGATIVE) Urine Cocaine (NEGATIVE) Urine Marijuana (THC) (NEGATIVE) Radiology Exams: Radiology Procedures Category Date Time Status CHEST 1 VIEW (PORTABLE) Stat Exams 09/26/24 08:00 Completed ECHO W/2D AND DOPPLER [US] Routine Exams 09/26/24 13:13 Taken Assessment/Plan (1) Chest pain, rule out acute myocardial infarction Current Visit: Yes Status: Acute Assessment & Plan: -EKG with NS-NORMAL AXIS, NORMAL INTERVALS, Non-specific ST Changes. -CXR with no acute findings. -Trop neg x 1- continue series -Echo- most recent from 2021: EF 53% IMPRESSION: 1) MILD CONCENTRIC LEFT VENTRICULAR HYPERTROPHY WITH NORMAL LEFT VENTRICULAR SYSTOLIC FUNCTION. 2) MILD MITRAL VALVE PROLAPSE. 3) MILD MITRAL REGURGITATION. 4) MILD TRICUSPID REGURGITATION. -Obtain new echo -Patient states he has had recent stress test with Dr. Vance - will obtain -ASA given in ED -Nitro -tele -Cardiology consult 09/27: -trops x 3 negative -Cardiology consulted with rec for Echo as ordered, increase coreg to 25mg BID, ASA 81mg - lipid painel - when transaminitis resolves consider Atorvastatin 20mg -Echo pending Code(s): R07.9 - CHEST PAIN, UNSPECIFIED (2) Type 2 diabetes mellitus with hyperglycemia Current Visit: Yes Status: Acute Assessment & Plan: -Patient states he has been non-compliant with home meds -SSI HD -ADA diet -A1c 12.58 - poor control Code(s): E11.65 - TYPE 2 DIABETES MELLITUS WITH HYPERGLYCEMIA (3) HTN (hypertension) Current Visit: Yes Status: Acute Assessment & Plan: -continue home meds -monitor closely Code(s): I10 - ESSENTIAL (PRIMARY) HYPERTENSION (4) HLD (hyperlipidemia) Current Visit: Yes Status: Acute Assessment & Plan: -continue home statin Code(s): E78.5 - HYPERLIPIDEMIA, UNSPECIFIED (5) Neuropathy Current Visit: Yes Status: Acute Assessment & Plan: -continue gabapentin Code(s): G62.9 - POLYNEUROPATHY, UNSPECIFIED (6) Hyponatremia Current Visit: Yes Status: Acute Assessment & Plan: -Most likely secondary to hyperglycemia -IVF Code(s): E87.1 - HYPO-OSMOLALITY AND HYPONATREMIA (7) CAD (coronary artery disease) Current Visit: No Status: Chronic Qualifiers: Associated angina: without angina Assessment & Plan: -continue home meds -Pt follow with Dr. Vance Code(s): I25.10 - ATHSCL HEART DISEASE OF [place] CORONARY ARTERY W/O ANG PCTRS (8) Hx of pancreatitis Current Visit: No Status: Chronic Code(s): Z87.19 - PERSONAL HISTORY OF OTHER DISEASES OF THE DIGESTIVE SYSTEM (9) Leukocytosis Current Visit: No Status: Resolved Assessment & Plan: -No fever or obvious source of infection -UA -CXR with no acute findings -may be reactive- trend 09/27: -WBC reviewed and improved at 9.4 VTE: Lovenox PPI: omeprazole Dispo: 1-2 days Code(s): R07.9 - CHEST PAIN, UNSPECIFIED (2) Type 2 diabetes mellitus with hyperglycemia Current Visit: Yes Status: Acute Code(s): E11.65 - TYPE 2 DIABETES MELLITUS WITH HYPERGLYCEMIA (3) HTN (hypertension) Current Visit: Yes Status: Acute Code(s): I10 - ESSENTIAL (PRIMARY) HYPERTENSION (4) HLD (hyperlipidemia) Current Visit: Yes Status: Acute Code(s): E78.5 - HYPERLIPIDEMIA, UNSPECIFIED (5) Neuropathy Current Visit: Yes Status: Acute Code(s): G62.9 - POLYNEUROPATHY, UNSPECIFIED (6) Hyponatremia Current Visit: Yes Status: Acute Code(s): E87.1 - HYPO-OSMOLALITY AND HYPONATREMIA (7) CAD (coronary artery disease) Current Visit: No Status: Chronic Qualifiers: Coronary Disease-Associated Artery/Lesion type: [place] artery [place] vs. transplanted heart: [place] heart Associated angina: with other forms of angina Qualified Code(s): I25.118 - Atherosclerotic heart disease of [place] coronary artery with other forms of angina pectoris Code(s): I25.10 - ATHSCL HEART DISEASE OF [place] CORONARY ARTERY W/O ANG PCTRS (8) Hx of pancreatitis Current Visit: No Status: Chronic Code(s): Z87.19 - PERSONAL HISTORY OF OTHER DISEASES OF THE DIGESTIVE SYSTEM (9) Leukocytosis Current Visit: No Status: Resolved Code(s): D72.829 - ELEVATED WHITE BLOOD CELL COUNT, UNSPECIFIED
[2024-09-27 05:18] LABS: Absolute Neutrophil Ct (ANC) 5.87 x10^3/uL (1.78-5.38); BASOPHIL % 0.3 % (0.2-1.2); Basophil (Absolute #) 0.03 x10^3/uL (0.01-0.08); Eosinophil % 0.7 % (0.8-7.0); Eosinophil (Absolute #) 0.07 x10^3/uL (0.04-0.54); Hematocrit 40.3 % (40.1-51.0); Hemoglobin 14.1 g/dL (13.7-17.5); IMMATURE GRAN # 0.05 x10^3u/L (0.001-0.031); IMMATURE GRAN % 0.5 % (0.001-0.429); Lymphocyte (Absolute #) 2.72 x10^3/uL (1.32-3.57); Lymphocytes % 28.8 % (21.8-53.1); Mean Cell Volume 82.9 fL (79.0-92.2); Mean Platelet Volume 11.7 fL (9.4-12.4); Monocytes % 7.4 % (5.3-12.2); Neutrophil % 62.3 % (34.0-67.9); Platelet Count 180 x10^3/uL (163-337); Red Blood Count 4.86 x10^6/uL (4.63-6.08); Red Cell Distribution Width 12.6 % (11.6-14.4); White Blood Count 9.4 x10^3/uL (4.23-9.07)
[2024-09-27 05:56] LABS: ANION GAP 10.4 MEQ/L (5-15); BILIRUBIN,TOTAL 0.6 mg/dL (0.2-1.3); Calcium 8.7 mg/dL (8.4-10.2); Creatinine 1 0.53 mg/dL (0.66-1.25); EST GLOMERULAR FILTRATION RATE 125.2 ML/MIN; Potassium 4.2 mmol/L (3.5-5.1); Total Protein 6.6 g/dL (6.3-8.2)
[2024-09-27 07:04] VITALS: BP 124/85; PULSE 81; RESP 16; TEMP 97.8; O2SAT 99
--- NOTE | 2024-09-27 08:34 | PCM.NOTE ---
Date and Time: 09/27/24828 Subjective Assessment: This morning patient tells me that he feels well. Slept without issue. No chest pain. Breathing well. BP better this morning per nursing. Exam General:: no acute distress, mild distress HEENT: EOMI, EOMx6 Cardiovascular: Regular Rate & Rhythm, no murmurs,rubs,gallops, normal peripheral pulses, capillary refill 2-3 sec, No murmur, No edema Respiratory:: wheezes, No respiratory distress, No crackels, No rales O2 Delivery: Room Air Abdominal: soft, No tenderness, No distention Extremity Exam: normal inspection Neurologic: bead flipper II-XII grossly intact Objective Data Vital Signs: Vital Signs - 24 hr Temp Pulse Resp BP BP Pulse Ox 09/27/24 07:03 97.8 F 81 16 124/85 99 09/27/24 03:44 78 09/26/24 23:40 97.9 F 85 18 124/71 96 09/26/24 19:56 98.8 F 97 H 17 129/73 96 09/26/24 16:00 97.8 F 89 16 136/91 97 09/26/24 15:54 98 09/26/24 10:45 97.9 F 73 16 127/85 98 09/26/24 09:46 99 09/26/24 09:30 75 12 135/95 97 09/26/24 09:00 73 13 153/100 97 09/26/24 08:30 74 15 131/72 98 Pain Assessment - Last Documented Pain Intensity 0 Pain Scale Used 0-10 Pain Scale Intake and Output: Intake & Output 09/25/24 09/26/24 09/27/24 09/28/24 06:59 06:59 06:59 06:59 Intake Total 500 Balance 500 Weight 102.8 kg LAB: I have reviewed the Labs in [facility]. Lab Results: Lab Results-Last 24 Hours 09/26/24 09/26/24 09/26/24 Range/Units 08:13 08:13 08:13 WBC (4.23-9.07) x10^3/uL RBC (4.63-6.08) x10^6/uL Hgb (13.7-17.5) g/dL Hct (40.1-51.0) % MCV (79.0-92.2) fL MCH (25.7-32.2) pg MCHC (32.3-36.5) g/dL RDW (11.6-14.4) % Plt Count (163-337) x10^3/uL MPV (9.4-12.4) fL Gran % (34.0-67.9) % Immature Gran % (Auto) (0.001-0.429) % Nucleat RBC Rel Count (0.00-0.2) % Eos # (Auto) (0.04-0.54) x10^3/uL Immature Gran # (Auto) (0.001-0.031) x10^3u/L Absolute Lymphs (auto) (1.32-3.57) x10^3/uL Absolute Monos (auto) (0.30-0.82) x10^3/uL Absolute Nucleated RBC (0.00-0.012) x10^3u/L Lymphocytes % (21.8-53.1) % Monocytes % (5.3-12.2) % Eosinophils % (0.8-7.0) % Basophils % (0.2-1.2) % Absolute Granulocytes (1.78-5.38) x10^3/uL Basophils # (0.01-0.08) x10^3/uL D-Dimer < 0.19 (0.0-0.50) mg/L Sodium 130 L (135-145) mmol/L Potassium 4.5 (3.5-5.1) mmol/L Chloride 97 L (98-107) mmol/L Carbon Dioxide 23 (22-30) mmol/L Anion Gap 14.7 (5-15) MEQ/L BUN 14 (9-20) mg/dL Creatinine 0.61 L (0.66-1.25) mg/dL Estimated GFR 120.0 ML/MIN Glucose 466 H (74-106) mg/dL POC Glucometer (74 to 106) mg/dL Hemoglobin A1c (4.5-6.0) % Calcium 9.3 (8.4-10.2) mg/dL Total Bilirubin 0.60 (0.2-1.3) mg/dL AST 21 (17-59) U/L ALT 56 H (0-50) U/L Alkaline Phosphatase 139 H (38-126) U/L Troponin I < 0.012 (0.000-0.033) ng/mL NT-Pro-B Natriuret Pep 72.0 (<300) pg/mL Serum Total Protein 6.7 (6.3-8.2) g/dL Albumin 4.3 (3.5-5.0) g/dL Triglycerides (30-150) mg/dL Cholesterol (50-200) mg/dL LDL Cholesterol (30-100) mg/dL HDL Cholesterol (40-60) mg/dL Heart Disease Risk Ratio TSH 3rd Generation (0.470-4.680) mIU/L Urine Color (Yellow) Urine Appearance (Clear) Urine pH (4.6-8.0) Ur Specific [place] (1.005-1.030) Urine Protein (Negative) Urine Glucose (UA) (Negative) mg/dL Urine Ketones (Negative) Urine Blood (Negative) Urine Nitrite (Negative) Urine Bilirubin (Negative) Urine Urobilinogen (0.2) mg/dL Ur Leukocyte Esterase (Negative) U Hyaline Cast (Auto) (0-2) /LPF Urine Microscopic RBC (0-5) /HPF Urine Microscopic WBC (0-5) /HPF Ur Epithelial Cells (None Seen) /HPF Urine Bacteria (None Seen) /HPF Urine Culture Reflexed (NO) Urine Opiates Level (NEGATIVE) Ur Methadone (NEGATIVE) Urine Barbiturates (NEGATIVE) Ur Phencyclidine (PCP) (NEGATIVE) Urine Amphetamine (NEGATIVE) U Benzodiazepine Level (NEGATIVE) Urine Cocaine (NEGATIVE) Urine Marijuana (THC) (NEGATIVE) 09/26/24 09/26/24 09/26/24 Range/Units 11:27 12:10 12:10 WBC (4.23-9.07) x10^3/uL RBC (4.63-6.08) x10^6/uL Hgb (13.7-17.5) g/dL Hct (40.1-51.0) % MCV (79.0-92.2) fL MCH (25.7-32.2) pg MCHC (32.3-36.5) g/dL RDW (11.6-14.4) % Plt Count (163-337) x10^3/uL MPV (9.4-12.4) fL Gran % (34.0-67.9) % Immature Gran % (Auto) (0.001-0.429) % Nucleat RBC Rel Count (0.00-0.2) % Eos # (Auto) (0.04-0.54) x10^3/uL Immature Gran # (Auto) (0.001-0.031) x10^3u/L Absolute Lymphs (auto) (1.32-3.57) x10^3/uL Absolute Monos (auto) (0.30-0.82) x10^3/uL Absolute Nucleated RBC (0.00-0.012) x10^3u/L Lymphocytes % (21.8-53.1) % Monocytes % (5.3-12.2) % Eosinophils % (0.8-7.0) % Basophils % (0.2-1.2) % Absolute Granulocytes (1.78-5.38) x10^3/uL Basophils # (0.01-0.08) x10^3/uL D-Dimer (0.0-0.50) mg/L Sodium (135-145) mmol/L Potassium (3.5-5.1) mmol/L Chloride (98-107) mmol/L Carbon Dioxide (22-30) mmol/L Anion Gap (5-15) MEQ/L BUN (9-20) mg/dL Creatinine (0.66-1.25) mg/dL Estimated GFR ML/MIN Glucose (74-106) mg/dL POC Glucometer 401 H (74 to 106) mg/dL Hemoglobin A1c (4.5-6.0) % Calcium (8.4-10.2) mg/dL Total Bilirubin (0.2-1.3) mg/dL AST (17-59) U/L ALT (0-50) U/L Alkaline Phosphatase (38-126) U/L Troponin I < 0.012 (0.000-0.033) ng/mL NT-Pro-B Natriuret Pep (<300) pg/mL Serum Total Protein (6.3-8.2) g/dL Albumin (3.5-5.0) g/dL Triglycerides (30-150) mg/dL Cholesterol (50-200) mg/dL LDL Cholesterol (30-100) mg/dL HDL Cholesterol (40-60) mg/dL Heart Disease Risk Ratio TSH 3rd Generation 2.327 (0.470-4.680) mIU/L Urine Color (Yellow) Urine Appearance (Clear) Urine pH (4.6-8.0) Ur Specific [place] (1.005-1.030) Urine Protein (Negative) Urine Glucose (UA) (Negative) mg/dL Urine Ketones (Negative) Urine Blood (Negative) Urine Nitrite (Negative) Urine Bilirubin (Negative) Urine Urobilinogen (0.2) mg/dL Ur Leukocyte Esterase (Negative) U Hyaline Cast (Auto) (0-2) /LPF Urine Microscopic RBC (0-5) /HPF Urine Microscopic WBC (0-5) /HPF Ur Epithelial Cells (None Seen) /HPF Urine Bacteria (None Seen) /HPF Urine Culture Reflexed (NO) Urine Opiates Level (NEGATIVE) Ur Methadone (NEGATIVE) Urine Barbiturates (NEGATIVE) Ur Phencyclidine (PCP) (NEGATIVE) Urine Amphetamine (NEGATIVE) U Benzodiazepine Level (NEGATIVE) Urine Cocaine (NEGATIVE) Urine Marijuana (THC) (NEGATIVE) 09/26/24 09/26/24 09/26/24 Range/Units 13:25 16:00 16:00 WBC (4.23-9.07) x10^3/uL RBC (4.63-6.08) x10^6/uL Hgb (13.7-17.5) g/dL Hct (40.1-51.0) % MCV (79.0-92.2) fL MCH (25.7-32.2) pg MCHC (32.3-36.5) g/dL RDW (11.6-14.4) % Plt Count (163-337) x10^3/uL MPV (9.4-12.4) fL Gran % (34.0-67.9) % Immature Gran % (Auto) (0.001-0.429) % Nucleat RBC Rel Count (0.00-0.2) % Eos # (Auto) (0.04-0.54) x10^3/uL Immature Gran # (Auto) (0.001-0.031) x10^3u/L Absolute Lymphs (auto) (1.32-3.57) x10^3/uL Absolute Monos (auto) (0.30-0.82) x10^3/uL Absolute Nucleated RBC (0.00-0.012) x10^3u/L Lymphocytes % (21.8-53.1) % Monocytes % (5.3-12.2) % Eosinophils % (0.8-7.0) % Basophils % (0.2-1.2) % Absolute Granulocytes (1.78-5.38) x10^3/uL Basophils # (0.01-0.08) x10^3/uL D-Dimer (0.0-0.50) mg/L Sodium (135-145) mmol/L Potassium (3.5-5.1) mmol/L Chloride (98-107) mmol/L Carbon Dioxide (22-30) mmol/L Anion Gap (5-15) MEQ/L BUN (9-20) mg/dL Creatinine (0.66-1.25) mg/dL Estimated GFR ML/MIN Glucose (74-106) mg/dL POC Glucometer (74 to 106) mg/dL Hemoglobin A1c 12.58 H (4.5-6.0) % Calcium (8.4-10.2) mg/dL Total Bilirubin (0.2-1.3) mg/dL AST (17-59) U/L ALT (0-50) U/L Alkaline Phosphatase (38-126) U/L Troponin I (0.000-0.033) ng/mL NT-Pro-B Natriuret Pep (<300) pg/mL Serum Total Protein (6.3-8.2) g/dL Albumin (3.5-5.0) g/dL Triglycerides (30-150) mg/dL Cholesterol (50-200) mg/dL LDL Cholesterol (30-100) mg/dL HDL Cholesterol (40-60) mg/dL Heart Disease Risk Ratio TSH 3rd Generation (0.470-4.680) mIU/L Urine Color Yellow (Yellow) Urine Appearance Cloudy A (Clear) Urine pH 7.5 (4.6-8.0) Ur Specific [place] >=1.030 A (1.005-1.030) Urine Protein Negative (Negative) Urine Glucose (UA) >=1000 A (Negative) mg/dL Urine Ketones Negative (Negative) Urine Blood Negative (Negative) Urine Nitrite Negative (Negative) Urine Bilirubin Negative (Negative) Urine Urobilinogen 0.2 (0.2) mg/dL Ur Leukocyte Esterase Negative (Negative) U Hyaline Cast (Auto) NONE SEEN (0-2) /LPF Urine Microscopic RBC 0-2 (0-5) /HPF Urine Microscopic WBC 0-2 (0-5) /HPF Ur Epithelial Cells None Seen (None Seen) /HPF Urine Bacteria None Seen (None Seen) /HPF Urine Culture Reflexed NO (NO) Urine Opiates Level POSITIVE A (NEGATIVE) Ur Methadone NEGATIVE (NEGATIVE) Urine Barbiturates NEGATIVE (NEGATIVE) Ur Phencyclidine (PCP) NEGATIVE (NEGATIVE) Urine Amphetamine NEGATIVE (NEGATIVE) U Benzodiazepine Level NEGATIVE (NEGATIVE) Urine Cocaine NEGATIVE (NEGATIVE) Urine Marijuana (THC) NEGATIVE (NEGATIVE) 09/26/24 09/26/24 09/26/24 Range/Units 16:16 16:20 20:46 WBC (4.23-9.07) x10^3/uL RBC (4.63-6.08) x10^6/uL Hgb (13.7-17.5) g/dL Hct (40.1-51.0) % MCV (79.0-92.2) fL MCH (25.7-32.2) pg MCHC (32.3-36.5) g/dL RDW (11.6-14.4) % Plt Count (163-337) x10^3/uL MPV (9.4-12.4) fL Gran % (34.0-67.9) % Immature Gran % (Auto) (0.001-0.429) % Nucleat RBC Rel Count (0.00-0.2) % Eos # (Auto) (0.04-0.54) x10^3/uL Immature Gran # (Auto) (0.001-0.031) x10^3u/L Absolute Lymphs (auto) (1.32-3.57) x10^3/uL Absolute Monos (auto) (0.30-0.82) x10^3/uL Absolute Nucleated RBC (0.00-0.012) x10^3u/L Lymphocytes % (21.8-53.1) % Monocytes % (5.3-12.2) % Eosinophils % (0.8-7.0) % Basophils % (0.2-1.2) % Absolute Granulocytes (1.78-5.38) x10^3/uL Basophils # (0.01-0.08) x10^3/uL D-Dimer (0.0-0.50) mg/L Sodium (135-145) mmol/L Potassium (3.5-5.1) mmol/L Chloride (98-107) mmol/L Carbon Dioxide (22-30) mmol/L Anion Gap (5-15) MEQ/L BUN (9-20) mg/dL Creatinine (0.66-1.25) mg/dL Estimated GFR ML/MIN Glucose (74-106) mg/dL POC Glucometer 356 H 346 H (74 to 106) mg/dL Hemoglobin A1c (4.5-6.0) % Calcium (8.4-10.2) mg/dL Total Bilirubin (0.2-1.3) mg/dL AST (17-59) U/L ALT (0-50) U/L Alkaline Phosphatase (38-126) U/L Troponin I < 0.012 (0.000-0.033) ng/mL NT-Pro-B Natriuret Pep (<300) pg/mL Serum Total Protein (6.3-8.2) g/dL Albumin (3.5-5.0) g/dL Triglycerides (30-150) mg/dL Cholesterol (50-200) mg/dL LDL Cholesterol (30-100) mg/dL HDL Cholesterol (40-60) mg/dL Heart Disease Risk Ratio TSH 3rd Generation (0.470-4.680) mIU/L Urine Color (Yellow) Urine Appearance (Clear) Urine pH (4.6-8.0) Ur Specific [place] (1.005-1.030) Urine Protein (Negative) Urine Glucose (UA) (Negative) mg/dL Urine Ketones (Negative) Urine Blood (Negative) Urine Nitrite (Negative) Urine Bilirubin (Negative) Urine Urobilinogen (0.2) mg/dL Ur Leukocyte Esterase (Negative) U Hyaline Cast (Auto) (0-2) /LPF Urine Microscopic RBC (0-5) /HPF Urine Microscopic WBC (0-5) /HPF Ur Epithelial Cells (None Seen) /HPF Urine Bacteria (None Seen) /HPF Urine Culture Reflexed (NO) Urine Opiates Level (NEGATIVE) Ur Methadone (NEGATIVE) Urine Barbiturates (NEGATIVE) Ur Phencyclidine (PCP) (NEGATIVE) Urine Amphetamine (NEGATIVE) U Benzodiazepine Level (NEGATIVE) Urine Cocaine (NEGATIVE) Urine Marijuana (THC) (NEGATIVE) 09/27/24 09/27/24 09/27/24 Range/Units 05:12 05:12 07:14 WBC 9.4 H (4.23-9.07) x10^3/uL RBC 4.86 (4.63-6.08) x10^6/uL Hgb 14.1 (13.7-17.5) g/dL Hct 40.3 (40.1-51.0) % MCV 82.9 (79.0-92.2) fL MCH 29.0 (25.7-32.2) pg MCHC 35.0 (32.3-36.5) g/dL RDW 12.6 (11.6-14.4) % Plt Count 180 (163-337) x10^3/uL MPV 11.7 (9.4-12.4) fL Gran % 62.3 (34.0-67.9) % Immature Gran % (Auto) 0.5 H (0.001-0.429) % Nucleat RBC Rel Count 0.0 (0.00-0.2) % Eos # (Auto) 0.07 (0.04-0.54) x10^3/uL Immature Gran # (Auto) 0.05 H (0.001-0.031) x10^3u/L Absolute Lymphs (auto) 2.72 (1.32-3.57) x10^3/uL Absolute Monos (auto) 0.70 (0.30-0.82) x10^3/uL Absolute Nucleated RBC 0.00 (0.00-0.012) x10^3u/L Lymphocytes % 28.8 (21.8-53.1) % Monocytes % 7.4 (5.3-12.2) % Eosinophils % 0.7 L (0.8-7.0) % Basophils % 0.3 (0.2-1.2) % Absolute Granulocytes 5.87 H (1.78-5.38) x10^3/uL Basophils # 0.03 (0.01-0.08) x10^3/uL D-Dimer (0.0-0.50) mg/L Sodium (135-145) mmol/L Potassium (3.5-5.1) mmol/L Chloride (98-107) mmol/L Carbon Dioxide (22-30) mmol/L Anion Gap (5-15) MEQ/L BUN (9-20) mg/dL Creatinine (0.66-1.25) mg/dL Estimated GFR ML/MIN Glucose (74-106) mg/dL POC Glucometer 373 H (74 to 106) mg/dL Hemoglobin A1c (4.5-6.0) % Calcium (8.4-10.2) mg/dL Total Bilirubin (0.2-1.3) mg/dL AST (17-59) U/L ALT (0-50) U/L Alkaline Phosphatase (38-126) U/L Troponin I (0.000-0.033) ng/mL NT-Pro-B Natriuret Pep (<300) pg/mL Serum Total Protein (6.3-8.2) g/dL Albumin (3.5-5.0) g/dL Triglycerides 180 H (30-150) mg/dL Cholesterol 114 (50-200) mg/dL LDL Cholesterol 54 (30-100) mg/dL HDL Cholesterol 36 L (40-60) mg/dL Heart Disease Risk Ratio 3.0 TSH 3rd Generation (0.470-4.680) mIU/L Urine Color (Yellow) Urine Appearance (Clear) Urine pH (4.6-8.0) Ur Specific [place] (1.005-1.030) Urine Protein (Negative) Urine Glucose (UA) (Negative) mg/dL Urine Ketones (Negative) Urine Blood (Negative) Urine Nitrite (Negative) Urine Bilirubin (Negative) Urine Urobilinogen (0.2) mg/dL Ur Leukocyte Esterase (Negative) U Hyaline Cast (Auto) (0-2) /LPF Urine Microscopic RBC (0-5) /HPF Urine Microscopic WBC (0-5) /HPF Ur Epithelial Cells (None Seen) /HPF Urine Bacteria (None Seen) /HPF Urine Culture Reflexed (NO) Urine Opiates Level (NEGATIVE) Ur Methadone (NEGATIVE) Urine Barbiturates (NEGATIVE) Ur Phencyclidine (PCP) (NEGATIVE) Urine Amphetamine (NEGATIVE) U Benzodiazepine Level (NEGATIVE) Urine Cocaine (NEGATIVE) Urine Marijuana (THC) (NEGATIVE) Radiology Exams: Radiology Procedures Category Date Time Status CHEST 1 VIEW (PORTABLE) Stat Exams 09/26/24 08:00 Completed ECHO W/2D AND DOPPLER [US] Routine Exams 09/26/24 13:13 Taken - ECHO Echo: image reviewed by me (Normal LV function, no WMA) Assessment & Plan (1) Chest pain, rule out acute myocardial infarction Current Visit: Yes Status: Acute Assessment & Plan: Chest pain free at the moment. Negative troponins, no EKG changes, Echo unremarkable. Possible that this was related to hypertension Continue lisinopril and Carvedilol at increased doses Will also be on aspirin When LFTs better start Atorvastatin 20 mg daily for known non-obstructive CAD. His LDL this morning is 54. I explained that if chest pain recurs when BP is controlled, then he may need ischemic evaluation. 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 Code(s): R07.9 - CHEST PAIN, UNSPECIFIED (2) HTN (hypertension) Current Visit: Yes Status: Acute Qualifiers: Hypertension type: primary hypertension Qualified Code(s): I10 - Essential (primary) hypertension Assessment & Plan: Lisinopril and Carvedilol as above. Better controlled today. Code(s): I10 - ESSENTIAL (PRIMARY) HYPERTENSION (3) HLD (hyperlipidemia) Current Visit: Yes Status: Acute Qualifiers: Hyperlipidemia type: mixed hyperlipidemia Qualified Code(s): E78.2 - Mixed hyperlipidemia Assessment & Plan: LDL-C 54. Start atorvastatin 20 mg daily when LFTs normal. Can be started on discharge. Code(s): E78.5 - HYPERLIPIDEMIA, UNSPECIFIED (4) Tobacco use Current Visit: Yes Status: Acute Assessment & Plan: Again I brought up cessation. Discussed for 3 minutes. Code(s): Z72.0 - TOBACCO USE (5) CAD (coronary artery disease) Current Visit: No Status: Chronic Qualifiers: Coronary Disease-Associated Artery/Lesion type: [place] artery [place] vs. transplanted heart: [place] heart Associated angina: with other forms of angina Qualified Code(s): I25.118 - Atherosclerotic heart disease of [place] coronary artery with other forms of angina pectoris Assessment & Plan: Ruled out for Acute [place]. Aspirin, Carvedilol, statin as detailed above. Code(s): I25.10 - ATHSCL HEART DISEASE OF [place] CORONARY ARTERY W/O ANG PCTRS - Encounter Critical Care Time: No Encounter: "The entirety of this encounter was performed via Telemedicine using audio and visual "
[2024-09-27] MEDS: HUMALOG SQ PRN (08:57)
[2024-09-27] MEDS: Lantus Insulin SQ SCH (08:57)
[2024-09-27] MEDS: HUMALOG SQ SCH (08:57)
[2024-09-27] MEDS: ECOTRIN 81 MG PO SCH (08:58)
--- NOTE | 2024-09-27 10:31 | PCM.DS ---
Discharge Summary Date of Admission: 09/26/24 10:30 Date of Discharge: 09/27/24 Admitting Physician: YANIQUE STACY MD Consults: Consults on Case 09/26/24 07:39 [facility] Referral ONCE 09/26/24 13:18 Consult Cardiology ROUTINE Primary Care Provider: BOBBY NEWTON Allergies Allergies codeine Allergy (Severe, Verified 09/26/24 07:35) Nausea and Vomiting "severe vomiting for hours" pseudoephedrine [From Actifed] Allergy (Severe, Verified 09/26/24 07:35) Fainting " almost . went out cold and really hard to wake me up" triprolidine [From Actifed] Allergy (Severe, Verified 09/26/24 07:35) Fainting "about " diphenhydramine [From Benadryl] Adverse Reaction (Severe, Verified 09/26/24 07:35) Fainting "knocked me out and couldn't get me awake hardly" Hospital Summary - Hospital Course Hospital Course: is a 44 year old male with a pmhx of tobacco abuse, CAD, DMII, HTN, HLD, pancreatitis, and neuropathy who presented to ED 09/26/24 for evaluation of chest pain. Patient reports the chest pain initially started yesterday but resolved. The pain returned this morning and woke him from sleep. He describes the pain as substernal with radiation to the back and shoulder. Pain is dull/aching in characteristic, similar to previous chest pain experienced in the past. Pain is aggravating with deep inhalation. Relieved when he raises his arms up. He has associated shortness of breath. Denies fever,cough, WHITE, dizziness, V/D. Patient states he has been non-compliant with diabetes medications as his machine is not working resulting in hyperglycemia. Upon arrival to ED, patient hypertensive otherwise stable vitals. EKG NS NORMAL AXIS, NORMAL INTERVALS, Non- specific ST Changes. CXR with no acute findings. Lab findings with leukocytosis, hyponatremia, and hyperglycemia. AST and Alk phos mildly elevated. Trops x 1 WNL. BNP at 72. Patient given aspirin, insulin, and morphine in ED. Admit patient for chest pain and hyperglycemia. Cardiology consulted patient is chest pain free at the moment. Negative troponins, no EKG changes, Echo unremarkable. Recommendations that this is possibly related to hypertension and plan is to continue lisinopril and Carvedilol at increased doses. Atorvastatin at discharge. Patient adamant regarding discharge and threatened to leave AMA otherwise. Advised patient glucose levels are uncontrolled. Patient states he follows with Dr. Duarte as OP and is on insulin pump which is not currently working. - patient to follow up with Dr. Duarte as soon as possible. Will also be on aspirin. Patient instructed to take lispro insulin 8 units TIDWM in combination with HD SSI provided to patient with 20 units of lantus while pump is non functioning. Patient agreeable to plan. He will contact Dr. Duarte as office is closed today. Discharge Note New Diagnosis: New Medications: coreg, lisinopril, asa, lantus Follow Up: cardiology/PCP/endocrinology Latest Assessment & Plan (1) Chest pain, rule out acute myocardial infarction Current Visit: Yes Status: Acute Assessment & Plan: -EKG with NS-NORMAL AXIS, NORMAL INTERVALS, Non-specific ST Changes. -CXR with no acute findings. -Trop neg x 1- continue series -Echo- most recent from 2021: EF 53% IMPRESSION: 1) MILD CONCENTRIC LEFT VENTRICULAR HYPERTROPHY WITH NORMAL LEFT VENTRICULAR SYSTOLIC FUNCTION. 2) MILD MITRAL VALVE PROLAPSE. 3) MILD MITRAL REGURGITATION. 4) MILD TRICUSPID REGURGITATION. -Obtain new echo -Patient states he has had recent stress test with Dr. Vance - will obtain -ASA given in ED -Nitro -tele -Cardiology consult 09/27: -trops x 3 negative -Cardiology consulted with rec for Echo as ordered, increase coreg to 25mg BID, ASA 81mg - lipid painel - when transaminitis resolves consider Atorvastatin 20mg -Echo pending Code(s): R07.9 - CHEST PAIN, UNSPECIFIED (2) Type 2 diabetes mellitus with hyperglycemia Current Visit: Yes Status: Acute Assessment & Plan: -Patient states he has been non-compliant with home meds -SSI HD -ADA diet -A1c 12.58 - poor control - Code(s): E11.65 - TYPE 2 DIABETES MELLITUS WITH HYPERGLYCEMIA (3) HTN (hypertension) Current Visit: Yes Status: Acute Assessment & Plan: -continue home meds -monitor closely Code(s): I10 - ESSENTIAL (PRIMARY) HYPERTENSION (4) HLD (hyperlipidemia) Current Visit: Yes Status: Acute Assessment & Plan: -continue home statin Code(s): E78.5 - HYPERLIPIDEMIA, UNSPECIFIED (5) Neuropathy Current Visit: Yes Status: Acute Assessment & Plan: -continue gabapentin Code(s): G62.9 - POLYNEUROPATHY, UNSPECIFIED (6) Hyponatremia Current Visit: Yes Status: Acute Assessment & Plan: -Most likely secondary to hyperglycemia -IVF Code(s): E87.1 - HYPO-OSMOLALITY AND HYPONATREMIA (7) CAD (coronary artery disease) Current Visit: No Status: Chronic Qualifiers: Associated angina: without angina Assessment & Plan: -continue home meds -Pt follow with Dr. Vance Code(s): I25.10 - ATHSCL HEART DISEASE OF [place] CORONARY ARTERY W/O ANG PCTRS (8) Hx of pancreatitis Current Visit: No Status: Chronic Code(s): Z87.19 - PERSONAL HISTORY OF OTHER DISEASES OF THE DIGESTIVE SYSTEM (9) Leukocytosis Current Visit: No Status: Resolved Assessment & Plan: -No fever or obvious source of infection -UA -CXR with no acute findings -may be reactive- trend 09/27: -WBC reviewed and improved at 9.4 I spent 35 minutes [id number] with the patient on the day of discharge performing discharge exam, discussing hospital stay and discharge instructions with patient and caregivers, preparation of discharge records, prescriptions & referral forms and addressing any questions/concerns the patient had as documented above. - Vitals & Intake/Output Vital Signs: Vital Signs Temperature 97.8 F 09/27/24 07:03 Pulse Rate 81 09/27/24 07:03 Respiratory Rate 16 09/27/24 07:03 Blood Pressure 124/85 09/27/24 07:03 O2 Sat by Pulse Oximetry 99 09/27/24 07:03 Intake & Output: Intake & Output 09/24/24 09/25/24 09/26/24 09/27/24 11:59 11:59 11:59 11:59 Intake Total 1280 Balance 1280 Weight 103.7 kg 102.8 kg - Lab Result Diagrams: 09/27/24 05:12 09/26/24 08:13 Lab Results-Last 24 Hrs: Lab Results-Last 24 Hours 09/26/24 09/26/24 09/26/24 Range/Units 11:27 12:10 12:10 WBC (4.23-9.07) x10^3/uL RBC (4.63-6.08) x10^6/uL Hgb (13.7-17.5) g/dL Hct (40.1-51.0) % MCV (79.0-92.2) fL MCH (25.7-32.2) pg MCHC (32.3-36.5) g/dL RDW (11.6-14.4) % Plt Count (163-337) x10^3/uL MPV (9.4-12.4) fL Gran % (34.0-67.9) % Immature Gran % (Auto) (0.001-0.429) % Nucleat RBC Rel Count (0.00-0.2) % Eos # (Auto) (0.04-0.54) x10^3/uL Immature Gran # (Auto) (0.001-0.031) x10^3u/L Absolute Lymphs (auto) (1.32-3.57) x10^3/uL Absolute Monos (auto) (0.30-0.82) x10^3/uL Absolute Nucleated RBC (0.00-0.012) x10^3u/L Lymphocytes % (21.8-53.1) % Monocytes % (5.3-12.2) % Eosinophils % (0.8-7.0) % Basophils % (0.2-1.2) % Absolute Granulocytes (1.78-5.38) x10^3/uL Basophils # (0.01-0.08) x10^3/uL POC Glucometer 401 H (74 to 106) mg/dL Hemoglobin A1c (4.5-6.0) % Troponin I < 0.012 (0.000-0.033) ng/mL Triglycerides (30-150) mg/dL Cholesterol (50-200) mg/dL LDL Cholesterol (30-100) mg/dL HDL Cholesterol (40-60) mg/dL Heart Disease Risk Ratio TSH 3rd Generation 2.327 (0.470-4.680) mIU/L Urine Color (Yellow) Urine Appearance (Clear) Urine pH (4.6-8.0) Ur Specific [place] (1.005-1.030) Urine Protein (Negative) Urine Glucose (UA) (Negative) mg/dL Urine Ketones (Negative) Urine Blood (Negative) Urine Nitrite (Negative) Urine Bilirubin (Negative) Urine Urobilinogen (0.2) mg/dL Ur Leukocyte Esterase (Negative) U Hyaline Cast (Auto) (0-2) /LPF Urine Microscopic RBC (0-5) /HPF Urine Microscopic WBC (0-5) /HPF Ur Epithelial Cells (None Seen) /HPF Urine Bacteria (None Seen) /HPF Urine Culture Reflexed (NO) Urine Opiates Level (NEGATIVE) Ur Methadone (NEGATIVE) Urine Barbiturates (NEGATIVE) Ur Phencyclidine (PCP) (NEGATIVE) Urine Amphetamine (NEGATIVE) U Benzodiazepine Level (NEGATIVE) Urine Cocaine (NEGATIVE) Urine Marijuana (THC) (NEGATIVE) 09/26/24 09/26/24 09/26/24 Range/Units 13:25 16:00 16:00 WBC (4.23-9.07) x10^3/uL RBC (4.63-6.08) x10^6/uL Hgb (13.7-17.5) g/dL Hct (40.1-51.0) % MCV (79.0-92.2) fL MCH (25.7-32.2) pg MCHC (32.3-36.5) g/dL RDW (11.6-14.4) % Plt Count (163-337) x10^3/uL MPV (9.4-12.4) fL Gran % (34.0-67.9) % Immature Gran % (Auto) (0.001-0.429) % Nucleat RBC Rel Count (0.00-0.2) % Eos # (Auto) (0.04-0.54) x10^3/uL Immature Gran # (Auto) (0.001-0.031) x10^3u/L Absolute Lymphs (auto) (1.32-3.57) x10^3/uL Absolute Monos (auto) (0.30-0.82) x10^3/uL Absolute Nucleated RBC (0.00-0.012) x10^3u/L Lymphocytes % (21.8-53.1) % Monocytes % (5.3-12.2) % Eosinophils % (0.8-7.0) % Basophils % (0.2-1.2) % Absolute Granulocytes (1.78-5.38) x10^3/uL Basophils # (0.01-0.08) x10^3/uL POC Glucometer (74 to 106) mg/dL Hemoglobin A1c 12.58 H (4.5-6.0) % Troponin I (0.000-0.033) ng/mL Triglycerides (30-150) mg/dL Cholesterol (50-200) mg/dL LDL Cholesterol (30-100) mg/dL HDL Cholesterol (40-60) mg/dL Heart Disease Risk Ratio TSH 3rd Generation (0.470-4.680) mIU/L Urine Color Yellow (Yellow) Urine Appearance Cloudy A (Clear) Urine pH 7.5 (4.6-8.0) Ur Specific [place] >=1.030 A (1.005-1.030) Urine Protein Negative (Negative) Urine Glucose (UA) >=1000 A (Negative) mg/dL Urine Ketones Negative (Negative) Urine Blood Negative (Negative) Urine Nitrite Negative (Negative) Urine Bilirubin Negative (Negative) Urine Urobilinogen 0.2 (0.2) mg/dL Ur Leukocyte Esterase Negative (Negative) U Hyaline Cast (Auto) NONE SEEN (0-2) /LPF Urine Microscopic RBC 0-2 (0-5) /HPF Urine Microscopic WBC 0-2 (0-5) /HPF Ur Epithelial Cells None Seen (None Seen) /HPF Urine Bacteria None Seen (None Seen) /HPF Urine Culture Reflexed NO (NO) Urine Opiates Level POSITIVE A (NEGATIVE) Ur Methadone NEGATIVE (NEGATIVE) Urine Barbiturates NEGATIVE (NEGATIVE) Ur Phencyclidine (PCP) NEGATIVE (NEGATIVE) Urine Amphetamine NEGATIVE (NEGATIVE) U Benzodiazepine Level NEGATIVE (NEGATIVE) Urine Cocaine NEGATIVE (NEGATIVE) Urine Marijuana (THC) NEGATIVE (NEGATIVE) 09/26/24 09/26/24 09/26/24 Range/Units 16:16 16:20 20:46 WBC (4.23-9.07) x10^3/uL RBC (4.63-6.08) x10^6/uL Hgb (13.7-17.5) g/dL Hct (40.1-51.0) % MCV (79.0-92.2) fL MCH (25.7-32.2) pg MCHC (32.3-36.5) g/dL RDW (11.6-14.4) % Plt Count (163-337) x10^3/uL MPV (9.4-12.4) fL Gran % (34.0-67.9) % Immature Gran % (Auto) (0.001-0.429) % Nucleat RBC Rel Count (0.00-0.2) % Eos # (Auto) (0.04-0.54) x10^3/uL Immature Gran # (Auto) (0.001-0.031) x10^3u/L Absolute Lymphs (auto) (1.32-3.57) x10^3/uL Absolute Monos (auto) (0.30-0.82) x10^3/uL Absolute Nucleated RBC (0.00-0.012) x10^3u/L Lymphocytes % (21.8-53.1) % Monocytes % (5.3-12.2) % Eosinophils % (0.8-7.0) % Basophils % (0.2-1.2) % Absolute Granulocytes (1.78-5.38) x10^3/uL Basophils # (0.01-0.08) x10^3/uL POC Glucometer 356 H 346 H (74 to 106) mg/dL Hemoglobin A1c (4.5-6.0) % Troponin I < 0.012 (0.000-0.033) ng/mL Triglycerides (30-150) mg/dL Cholesterol (50-200) mg/dL LDL Cholesterol (30-100) mg/dL HDL Cholesterol (40-60) mg/dL Heart Disease Risk Ratio TSH 3rd Generation (0.470-4.680) mIU/L Urine Color (Yellow) Urine Appearance (Clear) Urine pH (4.6-8.0) Ur Specific [place] (1.005-1.030) Urine Protein (Negative) Urine Glucose (UA) (Negative) mg/dL Urine Ketones (Negative) Urine Blood (Negative) Urine Nitrite (Negative) Urine Bilirubin (Negative) Urine Urobilinogen (0.2) mg/dL Ur Leukocyte Esterase (Negative) U Hyaline Cast (Auto) (0-2) /LPF Urine Microscopic RBC (0-5) /HPF Urine Microscopic WBC (0-5) /HPF Ur Epithelial Cells (None Seen) /HPF Urine Bacteria (None Seen) /HPF Urine Culture Reflexed (NO) Urine Opiates Level (NEGATIVE) Ur Methadone (NEGATIVE) Urine Barbiturates (NEGATIVE) Ur Phencyclidine (PCP) (NEGATIVE) Urine Amphetamine (NEGATIVE) U Benzodiazepine Level (NEGATIVE) Urine Cocaine (NEGATIVE) Urine Marijuana (THC) (NEGATIVE) 09/27/24 09/27/24 09/27/24 Range/Units 05:12 05:12 07:14 WBC 9.4 H (4.23-9.07) x10^3/uL RBC 4.86 (4.63-6.08) x10^6/uL Hgb 14.1 (13.7-17.5) g/dL Hct 40.3 (40.1-51.0) % MCV 82.9 (79.0-92.2) fL MCH 29.0 (25.7-32.2) pg MCHC 35.0 (32.3-36.5) g/dL RDW 12.6 (11.6-14.4) % Plt Count 180 (163-337) x10^3/uL MPV 11.7 (9.4-12.4) fL Gran % 62.3 (34.0-67.9) % Immature Gran % (Auto) 0.5 H (0.001-0.429) % Nucleat RBC Rel Count 0.0 (0.00-0.2) % Eos # (Auto) 0.07 (0.04-0.54) x10^3/uL Immature Gran # (Auto) 0.05 H (0.001-0.031) x10^3u/L Absolute Lymphs (auto) 2.72 (1.32-3.57) x10^3/uL Absolute Monos (auto) 0.70 (0.30-0.82) x10^3/uL Absolute Nucleated RBC 0.00 (0.00-0.012) x10^3u/L Lymphocytes % 28.8 (21.8-53.1) % Monocytes % 7.4 (5.3-12.2) % Eosinophils % 0.7 L (0.8-7.0) % Basophils % 0.3 (0.2-1.2) % Absolute Granulocytes 5.87 H (1.78-5.38) x10^3/uL Basophils # 0.03 (0.01-0.08) x10^3/uL POC Glucometer 373 H (74 to 106) mg/dL Hemoglobin A1c (4.5-6.0) % Troponin I (0.000-0.033) ng/mL Triglycerides 180 H (30-150) mg/dL Cholesterol 114 (50-200) mg/dL LDL Cholesterol 54 (30-100) mg/dL HDL Cholesterol 36 L (40-60) mg/dL Heart Disease Risk Ratio 3.0 TSH 3rd Generation (0.470-4.680) mIU/L Urine Color (Yellow) Urine Appearance (Clear) Urine pH (4.6-8.0) Ur Specific [place] (1.005-1.030) Urine Protein (Negative) Urine Glucose (UA) (Negative) mg/dL Urine Ketones (Negative) Urine Blood (Negative) Urine Nitrite (Negative) Urine Bilirubin (Negative) Urine Urobilinogen (0.2) mg/dL Ur Leukocyte Esterase (Negative) U Hyaline Cast (Auto) (0-2) /LPF Urine Microscopic RBC (0-5) /HPF Urine Microscopic WBC (0-5) /HPF Ur Epithelial Cells (None Seen) /HPF Urine Bacteria (None Seen) /HPF Urine Culture Reflexed (NO) Urine Opiates Level (NEGATIVE) Ur Methadone (NEGATIVE) Urine Barbiturates (NEGATIVE) Ur Phencyclidine (PCP) (NEGATIVE) Urine Amphetamine (NEGATIVE) U Benzodiazepine Level (NEGATIVE) Urine Cocaine (NEGATIVE) Urine Marijuana (THC) (NEGATIVE) Micro Results-Entire Visit: Accuchecks Date 09/27/24 Date 09/26/24 Date 09/26/24 Date 09/26/24 Time 07:20 Time 20:45 Time 16:29 Time 12:36 - Radiology Exams Ordered Rad Exams-Entire Visit: Radiology Procedures Category Date Time Status CHEST 1 VIEW (PORTABLE) Stat Exams 09/26/24 08:00 Completed ECHO W/2D AND DOPPLER [US] Routine Exams 09/26/24 13:13 Taken - Procedures and Test Procedures and Tests throughout Hospitalization: Therapy Orders & Screens 09/26/24 13:12 EKG REPEAT IN AM Comment: Diagnosis: Chest pain rule out acute [place] Discharge Exam General Appearance: no apparent distress Neurologic Exam: alert, oriented x 3, cooperative Eye Exam: PERRL Ears, Nose, Throat Exam: normal ENT inspection Neck Exam: normal inspection Respiratory Exam: normal breath sounds, lungs clear Cardiovascular Exam: regular rate/rhythm, normal heart sounds Gastrointestinal/Abdomen Exam: soft, normal bowel sounds Male Genitalia Exam: deferred Rectal Exam: deferred Back Exam: normal inspection Extremity Exam: normal inspection Skin Exam: normal color Final Diagnosis/Problem List - Final Discharge Diagnosis/Problem (1) Chest pain, rule out acute myocardial infarction Current Visit: Yes Status: Acute Code(s): R07.9 - CHEST PAIN, UNSPECIFIED (2) Type 2 diabetes mellitus with hyperglycemia Current Visit: Yes Status: Acute Code(s): E11.65 - TYPE 2 DIABETES MELLITUS WITH HYPERGLYCEMIA (3) HTN (hypertension) Current Visit: Yes Status: Acute Code(s): I10 - ESSENTIAL (PRIMARY) HYPERT ENSION (4) HLD (hyperlipidemia) Current Visit: Yes Status: Acute Code(s): E78.5 - HYPERLIPIDEMIA, UNSPEC IFIED (5) Neuropathy Current Visit: Yes Status: Acute Code(s): G62.9 - POLYNEUROPATHY, UNSPECIFIED (6) Hyponatremia Current Visit: Yes Status: Acute Code(s): E87.1 - HYPO-OSMOLALITY AND HYPONATREMIA (7) CAD (coronary artery disease) Current Visit: No Status: Chronic Code(s): I25.10 - ATHSCL HEART DISEASE OF [place] CORONARY ARTERY W/O ANG PCTRS (8) Hx of pancreatitis Current Visit: No Status: Chronic Code(s): Z87.19 - PERSONAL HISTORY OF OTHER DISEASES OF THE DIGESTIVE SYSTEM (9) Leukocytosis Current Visit: No Status: Resolved Code(s): D72.829 - ELEVATED [place] BLOOD CELL COUNT, UNSPECIFIED - Discharge Discharge Date: 09/27/24 Disposition: Home, Self-Care Condition: Stable Prescriptions: New carvediloL [Carvedilol] 25 mg PO BID 30 Days #60 tablet Insulin Glargine,Hum.rec.anlog [Insulin Glargine Solostar] 20 unit SQ DAILY 30 Days #600 unit Continue Lisinopril 10 mg [Zestril 10 MG] 10 mg PO DAILY Ergocalciferol (Vitamin D2) [Vitamin D] 50,000 unit PO WEEKLY Gabapentin [Neurontin] 600 mg PO TID Lurasidone HCl [Latuda] 80 mg PO HS Fenofibrate Nanocrystallized [Fenofibrate] 1 ea PO DAILY Benztropine Mesylate 1 mg PO HS Prazosin HCl 1 mg PO TID Buspirone HCl 5 mg [Buspar 5 mg] 15 mg PO BID Omeprazole 40 mg PO DAILY Rosuvastatin Calcium 20 mg PO DAILY Aspirin EC 81 mg [Ecotrin 81 mg] 81 mg PO DAILY Changed Insulin Lispro [Humalog] 8 unit SQ UD #0 Discontinued Carvedilol 12.5 mg [Coreg 12.5 mg] 12.5 mg PO BID Follow up with: BOBBY NEWTON [Primary Care Provider] - 10/03/24 10:00 am JANE DUARTE [NON-STAFF PHY W/O PRIVILEGES] - Call for Appointment (Call Monday for appt)
[2024-10-02] MEDS ORDERED: VITAMIN D2 PO SCH (10:00)
== END 2024-09-27 11:02 | disposition home or self-care (01) ==
LOC: ED 07:29 → MED SURG 10:30
PROVIDERS: ADMIT Internal Medicine; ATTEND Internal Medicine
DX: R07.9 Chest pain, unspecified (principal); I10 Essential (primary) hypertension; Z59.811 Housing instability, housed, with risk of homelessness; Z59.19 Other inadequate housing; E11.65 Type 2 diabetes mellitus with hyperglycemia; E78.5 Hyperlipidemia, unspecified; I25.10 Atherosclerotic heart disease of native coronary artery without angina pectoris; D72.829 Elevated white blood cell count, unspecified; G62.9 Polyneuropathy, unspecified; E87.1 Hypo-osmolality and hyponatremia; Z79.899 Other long term (current) drug therapy; Z72.0 Tobacco use; Z91.148 Patient's other noncompliance with medication regimen for other reason; Z87.19 Personal history of other diseases of the digestive system
CPT/HCPCS: 36415; 71045; 80053; 80061; 80307; 81001; 82947; 83036; 83721; 83880; 84443; 84484; 85025; 85379; 93005; 93041; 93306; 96374; 96375; 99285; Q3014; 93268; J1650; J1815; J1817; J2270; J2405; A9270-GY; G0378

== ENCOUNTER 2024-09-30 09:42 | Emergency (ER) | payer OTHER ==
[2024-09-30 09:52] VITALS: TEMP 97
[2024-09-30] MEDS ORDERED: SUBLIMAZE 100 MCG/2 ML ONE (10:08)
[2024-09-30] MEDS ORDERED: Sodium Chloride 0.9% 1000 ML 1,000 ML ONE (10:08)
[2024-09-30] MEDS: SUBLIMAZE 100 MCG/2 ML IV ONE (10:10)
[2024-09-30] MEDS: Sodium Chloride 0.9% 1000 ML 1,000 ML IV STA (10:10)
--- NOTE | 2024-09-30 10:10 | ERPHSYRPT ---
- History of Present Illness Time Seen by Provider: 09/30/24 10:00 Source: patient Exam Limitations: clinical condition Patient Subjective Stated Complaint: Abdominal pain Triage Nursing Assessment: Patient brought into ED per EMS and transferred to bed per self. Patient A+O X3. Patient's skin pink, warm and dry. Patient complains of upper abdominal pain 910 that started this am with N/V. Patient states he has a bad gallbladder and needs it taken out. Abdomen soft and round with BS X 4. Timing/Duration: today Severity: mild Associated Symptoms: denies symptoms Allergies/Adverse Reactions: codeine Allergy (Severe, Verified 09/30/24 09:46) Nausea and Vomiting "severe vomiting for hours" pseudoephedrine [From Actifed] Allergy (Severe, Verified 09/30/24 09:46) Fainting " almost . went out cold and really hard to wake me up" triprolidine [From Actifed] Allergy (Severe, Verified 09/30/24 09:46) Fainting "about " diphenhydramine [From Benadryl] Adverse Reaction (Severe, Verified 09/30/24 09:46) Fainting "knocked me out and couldn't get me awake hardly" Home Medications: Lisinopril 10 mg [Zestril 10 MG] 10 mg PO DAILY 01/06/20 [History] Ergocalciferol (Vitamin D2) [Vitamin D] 50,000 unit PO WEEKLY 07/26/20 [History] Gabapentin [Neurontin] 600 mg PO TID 08/29/20 [History] Aspirin EC 81 mg [Ecotrin 81 mg] 81 mg PO DAILY 09/26/24 [History] Benztropine Mesylate 1 mg PO HS 09/26/24 [History] Buspirone HCl 5 mg [Buspar 5 mg] 15 mg PO BID 09/26/24 [History] Fenofibrate Nanocrystallized [Fenofibrate] 1 ea PO DAILY 09/26/24 [History] Lurasidone HCl [Latuda] 80 mg PO HS 09/26/24 [History] Omeprazole 40 mg PO DAILY 09/26/24 [History] Prazosin HCl 1 mg PO TID 09/26/24 [History] Rosuvastatin Calcium 20 mg PO DAILY 09/26/24 [History] Hx Tetanus, Diphtheria Vaccination/Date Given: Yes Hx Influenza Vaccination/Date Given: No Hx Pneumococcal Vaccination/Date Given: No Immunizations Up to Date: Yes Travel Risk - International Travel Have you traveled outside of the country in past 3 weeks: No - Emerging Infectious Disease Are you exhibiting symptoms associated with any current EIDs: No Symptoms: Headaches/Body Aches/, Vomitting Comment: Fatigue - Review of Systems Constitutional: No Symptoms Eyes: No Symptoms Ears, Nose, & Throat: No Symptoms Respiratory: No Symptoms Cardiac: No Symptoms Abdominal/Gastrointestinal: Abdominal Pain Genitourinary Symptoms: No Symptoms Musculoskeletal: No Symptoms - Past Medical History Pertinent Past Medical History: Yes Neurological History: No Pertinent History ENT History: No Pertinent History Cardiac History: Coronary Artery Disease, High Cholesterol, Hypertension Respiratory History: No Pertinent History Endocrine Medical History: Diabetes Type II Musculoskeletal History: No Pertinent History GI Medical History: Esophageal Disorder, Hemorrhoids, Pancreatitis, Ulcer History: Other Psycho-Social History: Depression Male Reproductive Disorders: No Pertinent History Other Medical History: 2015 Gastritis, kidney infection - Past Surgical History Past Surgical History: Yes Neuro Surgical History: No Pertinent History Cardiac: Cardiac Catheterization Respiratory: No Pertinent History Gastrointestinal: Hemorrhoidectomy, Rectal Surgery Genitourinary: No Pertinent History Musculoskeletal: No Pertinent History Male Surgical History: No Pertinent History Other Surgical History: 2020 Heart Cath (blockage x 2) Significant Family History: heart disease, cancer, diabetes, stroke - Social History Smoking Status: Current every day smoker How long have you smoked: years Exposure to second hand smoke: Yes Drug Use: none Patient Lives Alone: No - Social Determinants of Health Will the patient participate in the screening: Yes Do you worry about a steady place to live?: Yes Do you have any problems with any of the following?: No known problems In the past 12 months,have you had to go without utilities?: No Transportation Issues: No Has anyone in your support network made you feel unsafe?: No Have you or anyone in your house had to go without enough: No - Nursing Vital Signs Nursing Vital Signs: Initial Vital Signs Temperature 97.0 F 09/30/24 09:47 Pulse Rate 91 H 09/30/24 09:47 Respiratory Rate 20 09/30/24 09:47 Blood Pressure 176/108 09/30/24 09:47 O2 Sat by Pulse Oximetry 100 09/30/24 09:47 Pain Scale Pain Intensity 0 - Physical Exam General Appearance: no apparent distress Eye Exam: PERRL/EOMI Ears, Nose, Throat Exam: normal ENT inspection Neck Exam: normal inspection Respiratory Exam: normal breath sounds Cardiovascular Exam: regular rate/rhythm Gastrointestinal/Abdomen Exam: normal bowel sounds, tenderness (patient is tender in the epigastric region ) Extremity Exam: normal inspection Neurologic Exam: alert, oriented x 3, normal mood/affect Skin Exam: normal color SpO2 Interpretation: normal SpO2: 100 Ordered Tests: Active Orders 24 hr Category Date Time Status GALLBLADDER [US] Stat Exams 09/30/24 13:17 Completed CBC W DIFF Stat Lab 09/30/24 10:10 Completed CMP Stat Lab 09/30/24 10:10 Completed LIPASE Stat Lab 09/30/24 10:10 Completed Medication Summary Discontinued Medications Generic Name Dose Route Start Last Admin Trade Name Freq PRN Reason Stop Dose Admin Droperidol 1.25 mg 09/30/24 10:02 09/30/24 10:10 Droperidol 5 Mg/2 Ml Vial IV 09/30/24 10:03 1.25 mg STAT ONE Administration Droperidol Confirm 09/30/24 10:08 Droperidol 5 Mg/2 Ml Vial Administered 09/30/24 10:09 Dose 5 mg .ROUTE .STK-MED ONE Fentanyl Citrate 100 mcg 09/30/24 10:03 09/30/24 10:10 Fentanyl Citrate 100 Mcg/2 Ml* Vial IV 09/30/24 10:04 100 mcg STAT ONE Administration Fentanyl Citrate Confirm 09/30/24 10:08 Fentanyl Citrate 100 Mcg/2 Ml* Vial Administered 09/30/24 10:09 Dose 100 mcg .ROUTE .STK-MED ONE Sodium Chloride 1,000 mls @ 999 mls/hr 09/30/24 10:02 09/30/24 11:14 Sodium Chloride 0.9% 1000 Ml IV 09/30/24 11:02 Infused .Q1H1M STA Infusion Sodium Chloride Confirm 09/30/24 10:08 Sodium Chloride 0.9% 1000 Ml Administered 09/30/24 10:09 Dose 1,000 mls @ ud .ROUTE .STK-MED ONE Lab/Rad Data: Laboratory Result Diagrams 09/30/24 10:10 09/30/24 10:10 Laboratory Results 09/30/24 09/30/24 Range/Units 10:10 10:10 WBC 14.2 H (4.23-9.07) x10^3/uL RBC 5.58 (4.63-6.08) x10^6/uL Hgb 16.0 (13.7-17.5) g/dL Hct 46.0 (40.1-51.0) % MCV 82.4 (79.0-92.2) fL MCH 28.7 (25.7-32.2) pg MCHC 34.8 (32.3-36.5) g/dL RDW 12.2 (11.6-14.4) % Plt Count 381 H (163-337) x10^3/uL MPV 10.3 (9.4-12.4) fL Gran % 78.4 H (34.0-67.9) % Immature Gran % (Auto) 0.6 H (0.001-0.429) % Nucleat RBC Rel Count 0.0 (0.00-0.2) % Eos # (Auto) 0.02 L (0.04-0.54) x10^3/uL Immature Gran # (Auto) 0.08 H (0.001-0.031) x10^3u/L Absolute Lymphs (auto) 2.29 (1.32-3.57) x10^3/uL Absolute Monos (auto) 0.65 (0.30-0.82) x10^3/uL Absolute Nucleated RBC 0.00 (0.00-0.012) x10^3u/L Lymphocytes % 16.1 L (21.8-53.1) % Monocytes % 4.6 L (5.3-12.2) % Eosinophils % 0.1 L (0.8-7.0) % Basophils % 0.2 (0.2-1.2) % Absolute Granulocytes 11.13 H (1.78-5.38) x10^3/uL Basophils # 0.03 (0.01-0.08) x10^3/uL Sodium 130 L (135-145) mmol/L Potassium 4.7 (3.5-5.1) mmol/L Chloride 92 L (98-107) mmol/L Carbon Dioxide 20 L (22-30) mmol/L Anion Gap 22.8 H (5-15) MEQ/L BUN 19 (9-20) mg/dL Creatinine 0.68 (0.66-1.25) mg/dL Estimated GFR 116.1 ML/MIN Glucose 356 H (74-106) mg/dL Calcium 9.8 (8.4-10.2) mg/dL Total Bilirubin 1.10 (0.2-1.3) mg/dL AST 33 (17-59) U/L ALT 37 (0-50) U/L Alkaline Phosphatase 130 H (38-126) U/L Serum Total Protein 7.6 (6.3-8.2) g/dL Albumin 5.0 (3.5-5.0) g/dL Lipase 115 (23-300) U/L - Progress Progress Note: patient seen for evaluation of abdominal pain - labs were ordered - I spoke to the surgeon ultrasonic solderer he recommends repeat gallbladder us and if no signs of cholecystitis he wants the patient to go home - us was ordered and this reveals Impression: Excessive bowel gas limits exam. Nonvisualization pancreas. Again fatty liver and gallbladder sludge. Continued negative for cholelithiasis/cholecystitis. patient was updated with the results and informed of the need for follow up 09/30/24 15:35 Medical Desision Making - Discussion of managment Care discussed with:: specialist Agreed on:: need for follow-up Will see patient: In office - Departure Departure Disposition: Home Clinical Impression: Chronic abdominal pain, Cholelithiasis Condition: Stable Critical Care Time: No Referrals: BOBBY NEWTON [Primary Care Provider] - Follow up/PCP as directed
[2024-09-30 10:22] LABS: Absolute Neutrophil Ct (ANC) 11.13 x10^3/uL (1.78-5.38); BASOPHIL % 0.2 % (0.2-1.2); Basophil (Absolute #) 0.03 x10^3/uL (0.01-0.08); Eosinophil % 0.1 % (0.8-7.0); Eosinophil (Absolute #) 0.02 x10^3/uL (0.04-0.54); IMMATURE GRAN # 0.08 x10^3u/L (0.001-0.031); IMMATURE GRAN % 0.6 % (0.001-0.429); Lymphocyte (Absolute #) 2.29 x10^3/uL (1.32-3.57); Lymphocytes % 16.1 % (21.8-53.1); Mean Cell Volume 82.4 fL (79.0-92.2); Mean Corpuscular Hemoglobin 28.7 pg (25.7-32.2); Mean Corpuscular Hgb Concent. 34.8 g/dL (32.3-36.5); Mean Platelet Volume 10.3 fL (9.4-12.4); Monocyte (Absolute #) 0.65 x10^3/uL (0.30-0.82); Monocytes % 4.6 % (5.3-12.2); Neutrophil % 78.4 % (34.0-67.9); Platelet Count 381 x10^3/uL (163-337); Red Blood Count 5.58 x10^6/uL (4.63-6.08); Red Cell Distribution Width 12.2 % (11.6-14.4); White Blood Count 14.2 x10^3/uL (4.23-9.07)
[2024-09-30 10:36] LABS: ANION GAP 22.8 MEQ/L (5-15); BILIRUBIN,TOTAL 1.1 mg/dL (0.2-1.3); Calcium 9.8 mg/dL (8.4-10.2); Creatinine 1 0.68 mg/dL (0.66-1.25); EST GLOMERULAR FILTRATION RATE 116.1 ML/MIN; Potassium 4.7 mmol/L (3.5-5.1); Total Protein 7.6 g/dL (6.3-8.2)
[2024-09-30 15:17] VITALS: PULSE 92
--- NOTE | 2024-09-30 15:18 | XRAY ---
Indication: Abdominal pain. Two-dimensional gallbladder sonogram performed. Comparison: August 30, 2024 Contracts Advisor notes limited exam due to excessive bowel gas. Pancreas obscured. Visualized gallbladder normally distended again with minimal sludge. No gallstones, abnormal wall thickening, or pericholecystic fluid. Common bile duct measures 3.6 mm. No intrahepatic biliary distention. Visualized liver again demonstrates fatty echogenicity. No hepatomegaly or ascites. Right kidney measures 11.8 cm in length and again sonographically normal. Impression: Excessive bowel gas limits exam. Nonvisualization pancreas. Again fatty liver and gallbladder sludge. Continued negative for cholelithiasis/cholecystitis.
[2024-09-30 15:37] VITALS: O2SAT 100
[2024-09-30 16:01] VITALS: BP 104/70; RESP 16
== END 2024-09-30 16:16 | disposition home or self-care (01) ==
LOC: ED 09:42
DX: G89.29 Other chronic pain (principal); R10.9 Unspecified abdominal pain; K80.20 Calculus of gallbladder without cholecystitis without obstruction; E78.5 Hyperlipidemia, unspecified; I10 Essential (primary) hypertension; E11.9 Type 2 diabetes mellitus without complications; Z79.899 Other long term (current) drug therapy; Z72.0 Tobacco use; Z59.819 Housing instability, housed unspecified
CPT/HCPCS: 36415; 76705; 80053; 83690; 85025; 96374; 96375; 99284; J3010

== ENCOUNTER 2024-12-01 12:40 | Observation (INO) | payer OTHER ==
--- NOTE | 2024-12-01 12:44 | ERPHSYRPT ---
- History of Present Illness Time Seen by Provider: 12/01/24 12:43 Historian: patient, family Exam Limitations: no limitations Physician History: This is a 44-year-old white male patient who arrives by private vehicle accompanied by his and is a patient Dr. Luna with recurrent abdominal pain and vomiting symptoms. This most recent episode began 4 days ago. He has been avoiding fatty greasy spicy foods. Patient has had [address] scans of the abdomen pelvis without contrast since late July 2024 and 2 negative gallbladder ultrasounds since August 2024. The gallbladder ultrasounds were negative for cholelithiasis. Patient has an appointment to see a general surgeon tomorrow, 12/02/2024. Patient denies chest pain and patient denies shortness of breath. Patient is a daily smoker of tobacco cigarettes. He has a history of hypertension, diabetes, depression, hyperlipidemia and coronary artery disease. Timing/Duration: day(s) (4) Activities at Onset: none Quality: aching, sharpness Abdominal Pain Onset Location: RUQ Pain Radiation: no radiation Severity of Pain-Max: moderate Severity of Pain-Current: moderate Modifying Factors: Improves With: vomiting Associated Symptoms: loss of appetite, nausea, vomiting, weakness, No chest pain, No shortness of breath Previous symptoms: same symptoms as today, no recent treatment Allergies/Adverse Reactions: codeine Allergy (Severe, Verified 12/01/24 12:55) Nausea and Vomiting "severe vomiting for hours" pseudoephedrine [From Actifed] Allergy (Severe, Verified 12/01/24 12:55) Fainting " almost . went out cold and really hard to wake me up" triprolidine [From Actifed] Allergy (Severe, Verified 12/01/24 12:55) Fainting "about " diphenhydramine [From Benadryl] Adverse Reaction (Severe, Verified 12/01/24 12:55) Fainting "knocked me out and couldn't get me awake hardly" Home Medications: Lisinopril 10 mg [Zestril 10 MG] 10 mg PO DAILY 01/06/20 [History] Ergocalciferol (Vitamin D2) [Vitamin D] 50,000 unit PO WEEKLY 07/26/20 [History] Gabapentin [Neurontin] 600 mg PO TID 08/29/20 [History] Aspirin EC 81 mg [Ecotrin 81 mg] 81 mg PO DAILY 09/26/24 [History] Benztropine Mesylate 1 mg PO HS 09/26/24 [History] Buspirone HCl 5 mg [Buspar 5 mg] 15 mg PO BID 09/26/24 [History] Fenofibrate Nanocrystallized [Fenofibrate] 1 ea PO DAILY 09/26/24 [History] Lurasidone HCl [Latuda] 80 mg PO HS 09/26/24 [History] Omeprazole 40 mg PO DAILY 09/26/24 [History] Prazosin HCl 1 mg PO TID 09/26/24 [History] Rosuvastatin Calcium 20 mg PO DAILY 09/26/24 [History] Hx Tetanus, Diphtheria Vaccination/Date Given: Yes Hx Influenza Vaccination/Date Given: No Hx Pneumococcal Vaccination/Date Given: No Travel Risk - International Travel Have you traveled outside of the country in past 3 weeks: No - Emerging Infectious Disease Are you exhibiting symptoms associated with any current EIDs: No Symptoms: Headaches/Body Aches/, Vomitting Comment: Fatigue - Review of Systems Constitutional: Weakness Eyes: No Symptoms Ears, Nose, & Throat: No Symptoms Respiratory: No Symptoms Cardiac: No Symptoms Abdominal/Gastrointestinal: Abdominal Pain, Nausea, Vomiting, Appetite Changes Musculoskeletal: No Symptoms Skin: No Symptoms Neurological: No Symptoms Psychological: No Symptoms Endocrine: No Symptoms Hematologic/Lymphatic: No Symptoms Immunological/Allergic: No Symptoms All Other Systems: Reviewed and Negative - Past Medical History Pertinent Past Medical History: Yes Neurological History: No Pertinent History ENT History: No Pertinent History Cardiac History: Coronary Artery Disease, High Cholesterol, Hypertension Respiratory History: No Pertinent History Endocrine Medical History: Diabetes Type II Musculoskeletal History: No Pertinent History GI Medical History: Esophageal Disorder, Hemorrhoids, Pancreatitis, Ulcer History: Other Psycho-Social History: Depression Male Reproductive Disorders: No Pertinent History Other Medical History: 2015 Gastritis, kidney infection - Past Surgical History Past Surgical History: Yes Neuro Surgical History: No Pertinent History Cardiac: Cardiac Catheterization Respiratory: No Pertinent History Gastrointestinal: Hemorrhoidectomy, Rectal Surgery Genitourinary: No Pertinent History Musculoskeletal: No Pertinent History Male Surgical History: No Pertinent History Other Surgical History: 2020 Heart Cath (blockage x 2) Significant Family History: heart disease, cancer, diabetes, stroke - Social History Smoking Status: Current every day smoker How long have you smoked: years Exposure to second hand smoke: Yes Drug Use: none Patient Lives Alone: No - Social Determinants of Health Transportation Issues: No Have you or anyone in your house had to go w/o enough food: No - Nursing Vital Signs Nursing Vital Signs: Initial Vital Signs Temperature 98.0 F 12/01/24 12:47 Pulse Rate 94 H 12/01/24 12:47 Respiratory Rate 15 12/01/24 12:47 Blood Pressure 122/84 12/01/24 12:47 O2 Sat by Pulse Oximetry 98 12/01/24 12:47 Pain Scale Pain Intensity 4 - Physical Exam General Appearance: no apparent distress, alert, anxiety, thin Eye Exam: PERRL/EOMI, eyes nml inspection Ears, Nose, Throat Exam: normal ENT inspection, moist mucous membranes Neck Exam: normal inspection, non-tender, supple, full range of motion Respiratory Exam: normal breath sounds, lungs clear, airway intact, No chest tenderness, No respiratory distress Cardiovascular Exam: regular rate/rhythm, normal heart sounds, normal peripheral pulses Gastrointestinal/Abdomen Exam: soft, normal bowel sounds, tenderness (Mild right upper quadrant tenderness), No guarding, No rebound Rectal Exam: not done Back Exam: normal inspection, normal range of motion, No CVA tenderness, No vertebral tenderness Extremity Exam: normal inspection, normal range of motion, pelvis stable Neurologic Exam: alert, oriented x 3, cooperative, barmaid II-XII nml as tested, nml cerebellar function, nml station & gait, sensation nml Skin Exam: normal color, warm, dry Lymphatic Exam: No adenopathy SpO2 Interpretation: normal O2 Delivery: Room Air - Course Nursing assessment & vital signs reviewed: Yes EKG Interpreted by Me: RATE (77), Sinus Rhythm, NORMAL AXIS, NORMAL QRS, Other (Prolonged VT interval. QTc is 433. No evidence of acute ischemia on today's twelve-lead EKG.) Ordered Tests: Active Orders 24 hr Category Date Time Status EKG-ER Only STAT Care 12/01/24 13:03 Active IV Insertion STAT Care 12/01/24 13:03 Active AMYLASE Stat Lab 12/01/24 13:00 Completed CBC W DIFF Stat Lab 12/01/24 13:00 Completed CMP Stat Lab 12/01/24 13:00 Completed LIPASE Stat Lab 12/01/24 13:00 Completed Lactic Acid Stat Lab 12/01/24 13:03 Completed TROPONIN Q4H Lab 12/01/24 13:00 Completed TROPONIN Q4H Lab 12/01/24 17:15 Ordered TROPONIN Q4H Lab 12/01/24 21:15 Ordered UA W/RFX UR CULTURE Stat Lab 12/01/24 13:03 Completed Medication Summary Discontinued Medications Generic Name Dose Route Start Last Admin Trade Name Bryantq PRN Reason Stop Dose Admin Hydromorphone HCl 1 mg 12/01/24 13:03 12/01/24 13:15 Hydromorphone 1 Mg/1ml Inj IV 12/01/24 13:04 1 mg STAT ONE Administration Hydromorphone HCl Confirm 12/01/24 13:07 Hydromorphone 1 Mg/1ml Inj Administered 12/01/24 13:08 Dose 1 mg .ROUTE .STK-MED ONE Hydromorphone HCl 1 mg 12/01/24 16:10 12/01/24 16:25 Hydromorphone 1 Mg/1ml Inj IV 12/01/24 16:11 1 mg STAT ONE Administration Hydromorphone HCl Confirm 12/01/24 16:23 Hydromorphone 1 Mg/1ml Inj Administered 12/01/24 16:24 Dose 1 mg .ROUTE .STK-MED ONE Sodium Chloride 1,000 mls @ 999 mls/hr 12/01/24 13:03 12/01/24 14:41 Sodium Chloride 0.9% 1000 Ml IV 12/01/24 14:03 Infused .Q1H1M STA Infusion Sodium Chloride Confirm 12/01/24 13:07 Sodium Chloride 0.9% 1000 Ml Administered 12/01/24 13:08 Dose 1,000 mls @ ud .ROUTE .STK-MED ONE Sodium Chloride 500 mls @ 500 mls/hr 12/01/24 14:11 12/01/24 16:28 Sodium Chloride 0.9% 500 Ml IV 12/01/24 15:10 Infused .Q1H ONE Infusion Sodium Chloride Confirm 12/01/24 14:25 Sodium Chloride 0.9% 500 Ml Administered 12/01/24 14:26 Dose 500 mls @ ud IV .STK-MED ONE Insulin Human Regular 5 unit 12/01/24 16:33 Insulin Regular, Human 1 Unit IV 12/01/24 16:34 STAT ONE Ondansetron HCl 4 mg 12/01/24 13:03 12/01/24 13:14 Ondansetron Hcl 4 Mg/2 Ml Vial IV 12/01/24 13:04 4 mg STAT ONE Administration Ondansetron HCl Confirm 12/01/24 13:06 Ondansetron Hcl 4 Mg/2 Ml Vial Administered 12/01/24 13:07 Dose 4 mg .ROUTE .STK-MED ONE Pantoprazole Sodium 40 mg 12/01/24 13:03 12/01/24 13:13 Pantoprazole 40 Mg Vial IV 12/01/24 13:04 40 mg STAT ONE Administration Pantoprazole Sodium Confirm 12/01/24 13:06 Pantoprazole 40 Mg Vial Administered 12/01/24 13:07 Dose 40 mg IV .STK-MED ONE Lab/Rad Data: Laboratory Result Diagrams 12/01/24 13:00 12/01/24 13:00 Laboratory Results 12/01/24 12/01/24 12/01/24 Range/Units 13:03 13:03 13:00 WBC (4.23-9.07) x10^3/uL RBC (4.63-6.08) x10^6/uL Hgb (13.7-17.5) g/dL Hct (40.1-51.0) % MCV (79.0-92.2) fL MCH (25.7-32.2) pg MCHC (32.3-36.5) g/dL RDW (11.6-14.4) % Plt Count (163-337) x10^3/uL MPV (9.4-12.4) fL Gran % (34.0-67.9) % Immature Gran % (Auto) (0.001-0.429) % Nucleat RBC Rel Count (0.00-0.2) % Eos # (Auto) (0.04-0.54) x10^3/uL Immature Gran # (Auto) (0.001-0.031) x10^3u/L Absolute Lymphs (auto) (1.32-3.57) x10^3/uL Absolute Monos (auto) (0.30-0.82) x10^3/uL Absolute Nucleated RBC (0.00-0.012) x10^3u/L Lymphocytes % (21.8-53.1) % Monocytes % (5.3-12.2) % Eosinophils % (0.8-7.0) % Basophils % (0.2-1.2) % Absolute Granulocytes (1.78-5.38) x10^3/uL Basophils # (0.01-0.08) x10^3/uL Sodium (135-145) mmol/L Potassium (3.5-5.1) mmol/L Chloride (98-107) mmol/L Carbon Dioxide (22-30) mmol/L Anion Gap (5-15) MEQ/L BUN (9-20) mg/dL Creatinine (0.66-1.25) mg/dL Estimated GFR ML/MIN Glucose (74-106) mg/dL Lactic Acid 1.5 (0.4-2.0) Calcium (8.4-10.2) mg/dL Total Bilirubin (0.2-1.3) mg/dL AST (17-59) U/L ALT (0-50) U/L Alkaline Phosphatase (38-126) U/L Troponin I < 0.012 (0.000-0.033) ng/mL Serum Total Protein (6.3-8.2) g/dL Albumin (3.5-5.0) g/dL Amylase (30-110) U/L Lipase (23-300) U/L Urine Color Yellow (Yellow) Urine Appearance Clear (Clear) Urine pH 5.5 (4.6-8.0) Ur Specific Flynn >=1.030 A (1.005-1.030) Urine Protein Negative (Negative) Urine Glucose (UA) >=1000 A (Negative) mg/dL Urine Ketones 80 A (Negative) Urine Blood Negative (Negative) Urine Nitrite Negative (Negative) Urine Bilirubin Negative (Negative) Urine Urobilinogen 1.0 A (0.2) mg/dL Ur Leukocyte Esterase Negative (Negative) U Hyaline Cast (Auto) NONE SEEN (0-2) /LPF Urine Microscopic RBC 0-2 (0-5) /HPF Urine Microscopic WBC 0-2 (0-5) /HPF Ur Epithelial Cells None Seen (None Seen) /HPF Urine Bacteria None Seen (None Seen) /HPF Urine Culture Reflexed NO (NO) 12/01/24 12/01/24 Range/Units 13:00 13:00 WBC 11.8 H (4.23-9.07) x10^3/uL RBC 5.75 (4.63-6.08) x10^6/uL Hgb 16.8 (13.7-17.5) g/dL Hct 47.2 (40.1-51.0) % MCV 82.1 (79.0-92.2) fL MCH 29.2 (25.7-32.2) pg MCHC 35.6 (32.3-36.5) g/dL RDW 12.2 (11.6-14.4) % Plt Count 307 (163-337) x10^3/uL MPV 10.4 (9.4-12.4) fL Gran % 69.3 H (34.0-67.9) % Immature Gran % (Auto) 0.5 H (0.001-0.429) % Nucleat RBC Rel Count 0.0 (0.00-0.2) % Eos # (Auto) 0.03 L (0.04-0.54) x10^3/uL Immature Gran # (Auto) 0.06 H (0.001-0.031) x10^3u/L Absolute Lymphs (auto) 2.85 (1.32-3.57) x10^3/uL Absolute Monos (auto) 0.63 (0.30-0.82) x10^3/uL Absolute Nucleated RBC 0.00 (0.00-0.012) x10^3u/L Lymphocytes % 24.3 (21.8-53.1) % Monocytes % 5.4 (5.3-12.2) % Eosinophils % 0.3 L (0.8-7.0) % Basophils % 0.2 (0.2-1.2) % Absolute Granulocytes 8.16 H (1.78-5.38) x10^3/uL Basophils # 0.02 (0.01-0.08) x10^3/uL Sodium 131 L (135-145) mmol/L Potassium 3.6 (3.5-5.1) mmol/L Chloride 94 L (98-107) mmol/L Carbon Dioxide 23 (22-30) mmol/L Anion Gap 17.1 H (5-15) MEQ/L BUN 11 (9-20) mg/dL Creatinine 0.58 L (0.66-1.25) mg/dL Estimated GFR 121.8 ML/MIN Glucose 415 H (74-106) mg/dL Lactic Acid (0.4-2.0) Calcium 9.4 (8.4-10.2) mg/dL Total Bilirubin 1.10 (0.2-1.3) mg/dL AST 19 (17-59) U/L ALT 21 (0-50) U/L Alkaline Phosphatase 121 (38-126) U/L Troponin I (0.000-0.033) ng/mL Serum Total Protein 7.4 (6.3-8.2) g/dL Albumin 4.8 (3.5-5.0) g/dL Amylase 44 (30-110) U/L Lipase 87 (23-300) U/L Urine Color (Yellow) Urine Appearance (Clear) Urine pH (4.6-8.0) Ur Specific Flynn (1.005-1.030) Urine Protein (Negative) Urine Glucose (UA) (Negative) mg/dL Urine Ketones (Negative) Urine Blood (Negative) Urine Nitrite (Negative) Urine Bilirubin (Negative) Urine Urobilinogen (0.2) mg/dL Ur Leukocyte Esterase (Negative) U Hyaline Cast (Auto) (0-2) /LPF Urine Microscopic RBC (0-5) /HPF Urine Microscopic WBC (0-5) /HPF Ur Epithelial Cells (None Seen) /HPF Urine Bacteria (None Seen) /HPF Urine Culture Reflexed (NO) - Progress Progress: improved, pain not gone completely Progress Note: 12/01/24 13:05 My medical decision making and the assignment of moderate complexity of this patient's medical issue is based on review of the patient's past medical history, review the patient's medication list, reviewed patient drug allergy list, history present illness and physical findings on examination. The workup of this patient includes CBC, CMP, amylase, lipase, urinalysis, placement of intravenous line and infusion of intravenous crystalloid, intravenous Dilaudid, intravenous Zofran, intravenous Protonix. I do not feel the patient needs a repeat CAT scan as he has had 2 CAT scans of his abdomen and pelvis since late July 2024 and they both were negative. In addition, I do not feel the patient requires a repeat gallbladder ultrasound as the patient has had 2 negative gallbladder ultrasound performed since August 2024. Differential diagnosis includes but is not limited to pancreatitis, cholecystitis, gastritis, bowel obstruction 12/01/24 14:12 I interpreted the laboratory data results that have returned at this time. The urinalysis is pending and we will follow-up as soon as that result has returned. Currently, the patient appears to have a mild leukocytosis, likely secondary to vomiting. He also has hyperglycemia with a blood sugar of 415. 12/01/24 16:30 The urinalysis shows significant glucosuria as well as significant ketones in his urine. Combining the patient's clinical picture and the laboratory data results, it appears the patient has diabetic ketoacidosis. I reexamined him and had a disc ussion with him regarding this diagnosis. He states he has mildly improved. He has an appointment to see a general surgeon tomorrow. However, I think managing his DKA in the hospital setting takes precedence over his outpatient visit with general surgery. I will place a call to the telehospitalist. In addition, I will write an order for a general surgery consultation with the same general [facility] to see the patient while he is in the hospital if possible. 12/01/24 16:44 I spoke with the telehospitalist, Dr. Mabry. I reviewed the patient history, presenting complaint, physical findings on examination, workup results and patient response to our intervention. He agrees to place this patient in observation and provide him with sliding scale insulin, intravenous fluids, antiemetic and pain medication. We will also order a general surgical consultation with the [facility]. He has an appointment to see them tomorrow but it is more prudent that he has his DKA managed. 12/01/24 16:47 It is my opinion that the patient does not require an insulin drip at this time. Counseled pt/family regarding: lab results, diagnosis, need for follow-up Medical Desision Making - Independent Historian Additional History obtained from: Spouse - Diagnostic Testing Diagnostic test were ordered, analyzed, and reviewed by me: Yes - Risk of complications The pt has a high risk of morbidity or mortality based on: Decision regarding hospitilization or escalation of hosp level of care - Departure Departure Disposition: Observation Clinical Impression: Abdominal pain, Vomiting, DKA (diabetic ketoacidosis), Hypertension Condition: Stable Critical Care Time: Yes Critical Care Time(excluding separately billable procedures): Critical 30-74 mins (50) Referrals: BOBBY LUNA [Primary Care Provider] - Follow up/PCP as directed
[2024-12-01] MEDS ORDERED: Zofran 4 MG/2 ML VIAL ONE (13:06)
[2024-12-01] MEDS ORDERED: PROTONIX 40 MG IV IV ONE (13:06)
[2024-12-01] MEDS ORDERED: Hydromorphone 1 mg/ml Injection ONE ×2 (13:07→16:23)
[2024-12-01] MEDS ORDERED: Sodium Chloride 0.9% 1000 ML 1,000 ML ONE (13:07)
[2024-12-01 13:08] LABS: Absolute Neutrophil Ct (ANC) 8.16 x10^3/uL (1.78-5.38); BASOPHIL % 0.2 % (0.2-1.2); Basophil (Absolute #) 0.02 x10^3/uL (0.01-0.08); Eosinophil % 0.3 % (0.8-7.0); Eosinophil (Absolute #) 0.03 x10^3/uL (0.04-0.54); Hematocrit 47.2 % (40.1-51.0); Hemoglobin 16.8 g/dL (13.7-17.5); IMMATURE GRAN # 0.06 x10^3u/L (0.001-0.031); IMMATURE GRAN % 0.5 % (0.001-0.429); Lymphocyte (Absolute #) 2.85 x10^3/uL (1.32-3.57); Lymphocytes % 24.3 % (21.8-53.1); Mean Cell Volume 82.1 fL (79.0-92.2); Mean Corpuscular Hemoglobin 29.2 pg (25.7-32.2); Mean Corpuscular Hgb Concent. 35.6 g/dL (32.3-36.5); Mean Platelet Volume 10.4 fL (9.4-12.4); Monocyte (Absolute #) 0.63 x10^3/uL (0.30-0.82); Monocytes % 5.4 % (5.3-12.2); Neutrophil % 69.3 % (34.0-67.9); Platelet Count 307 x10^3/uL (163-337); Red Blood Count 5.75 x10^6/uL (4.63-6.08); Red Cell Distribution Width 12.2 % (11.6-14.4); White Blood Count 11.8 x10^3/uL (4.23-9.07)
[2024-12-01] MEDS: PROTONIX 40 MG IV IV ONE (13:13)
[2024-12-01] MEDS: Zofran 4 MG/2 ML VIAL IV ONE (13:14)
[2024-12-01] MEDS: Hydromorphone 1 mg/ml Injection IV ONE ×2 (13:15→16:25)
[2024-12-01] MEDS: Sodium Chloride 0.9% 1000 ML 1,000 ML IV STA (13:16)
[2024-12-01 13:19] LABS: ALBUMIN 4.8 g/dL (3.5-5.0); ANION GAP 17.1 MEQ/L (5-15); BILIRUBIN,TOTAL 1.1 mg/dL (0.2-1.3); Calcium 9.4 mg/dL (8.4-10.2); Creatinine 1 0.58 mg/dL (0.66-1.25); EST GLOMERULAR FILTRATION RATE 121.8 ML/MIN; Potassium 3.6 mmol/L (3.5-5.1); Total Protein 7.4 g/dL (6.3-8.2)
[2024-12-01] MEDS ORDERED: Sodium Chloride 0.9% 500 ML 500 ML IV ONE (14:25)
[2024-12-01] MEDS: Sodium Chloride 0.9% 500 ML 500 ML IV ONE (14:29)
[2024-12-01 16:08] LABS: Appearance Clear (Clear); Bacteria None Seen /HPF (None Seen); Bilirubin Negative (Negative); Blood Negative (Negative); Epithelial Cells None Seen /HPF (None Seen); Glucose, Urine >=1000 mg/dL (Negative); Hyaline Casts NONE SEEN /LPF (0-2); Ketones 80 (Negative); Leukocyte Esterase Negative (Negative); Nitrite Negative (Negative); Ph 5.5 (4.6-8.0); Protein,Urine Dip Negative (Negative); RBC 0-2 /HPF (0-5); Specific Gravity >=1.030 (1.005-1.030); WBC 0-2 /HPF (0-5)
[2024-12-01] MEDS ORDERED: ENALAPRILAT 2.5 MG INJECTION IV ONE (16:55)
[2024-12-01] MEDS ORDERED: HUMULIN R ONE (16:57)
[2024-12-01] MEDS: HUMULIN R IV ONE (17:00)
[2024-12-01] MEDS: ENALAPRILAT 2.5 MG INJECTION IV ONE (17:00)
[2024-12-01] MEDS ORDERED: HUMULIN R SQ PRN (17:15)
[2024-12-01] MEDS ORDERED: Zofran 4 MG/2 ML VIAL IV PRN (17:15)
--- NOTE | 2024-12-01 17:24 | PCM.HP ---
History of Present Illness - Chief Complaint Chief Complaint: DKA Date: 12/01/24 History of Present Illness: is a 44-year-old male with a past medical history of hypertension, diabetes mellitus, depression, hyperlipidemia, coronary artery disease, and daily tobacco use. He presented to the emergency department with recurrent abdominal pain and vomiting, with the most recent episode beginning four days ago. He reports avoiding fatty, greasy, and spicy foods. The patient noted that he has had two recent negative CT scans of the abdomen and pelvis without contrast since late July 2024, as well as two negative gallbladder ultrasounds since August 2024. However, the most recent ultrasound from August 2024 did show sludge in the gallbladder. He had a scheduled appointment with a general surgeon for 12/02/2024, but the surgical team was contacted, and a consultation was requested during this inpatient admission. A CT abdomen/pelvis with IV contrast was ordered. In the ER, the patient had a blood glucose of 415 and was treated with insulin and IV fluids. Urinalysis revealed glucose >1000 and positive ketones. On arrival to the floor, his glucose was 264. Due to concern for diabetic ketoacidosis (DKA), an arterial blood gas (ABG) was ordered to assess pH, along with labs including phosphorus, magnesium, and a repeat comprehensive metabolic panel (CMP). The patient received Vasotec in the ER for elevated blood pressure, which has since improved. Zofran and Compazine were ordered PRN for nausea. The patient also reported chest pressure; two troponins were negative, and an EKG was reviewed with no acute findings. His abdominal pain is localized to the epigastric region and right upper quadrant and is currently rated at 4/10 after receiving IV Dilaudid. He states that the pain is at a tolerable level at this time. - Review of Systems Constitutional: No Fever, No Chills Eyes: No Symptoms Ears, Nose, & Throat: No Symptoms Respiratory: No Cough, No Short Of Breath Cardiac: No Chest Pain, No Edema, No Syncope Abdominal/Gastrointestinal: Abdominal Pain, Nausea, Vomiting, No Diarrhea Genitourinary Symptoms: No Dysuria Musculoskeletal: No Back Pain, No Neck Pain Skin: No Rash Neurological: No Dizziness, No Focal Weakness, No Sensory Changes Psychological: No Symptoms Endocrine: No Symptoms Hematologic/Lymphatic: No Symptoms Immunological/Allergic: No Symptoms Medications & Allergies Home Medications: Home Medication List Lisinopril 10 mg [Zestril 10 MG] 10 mg PO DAILY 01/06/20 [History Confirmed 12/01/24] Ergocalciferol (Vitamin D2) [Vitamin D] 50,000 unit PO WEEKLY 07/26/20 [History Confirmed 12/01/24] Gabapentin [Neurontin] 600 mg PO TID 08/29/20 [History Confirmed 12/01/24] Aspirin EC 81 mg [Ecotrin 81 mg] 81 mg PO DAILY 09/26/24 [History Confirmed 12/01/24] Benztropine Mesylate 1 mg PO HS 09/26/24 [History Confirmed 12/01/24] Buspirone HCl 5 mg [Buspar 5 mg] 15 mg PO BID 09/26/24 [History Confirmed 12/01/24] Fenofibrate Nanocrystallized [Fenofibrate] 48 mg PO DAILY 09/26/24 [History Confirmed 12/01/24] Lurasidone HCl [Latuda] 80 mg PO HS 09/26/24 [History Confirmed 12/01/24] Omeprazole 40 mg PO DAILY 09/26/24 [History Confirmed 12/01/24] Prazosin HCl 1 mg PO TID 09/26/24 [History Confirmed 12/01/24] Rosuvastatin Calcium 20 mg PO DAILY 09/26/24 [History Confirmed 12/01/24] Insulin Glargine [Lantus Insulin] 20 unit SQ DAILY 30 Days unit 09/27/24 [Rx Confirmed 12/01/24] Insulin Lispro [Humalog] 8 unit SQ UD #0 09/27/24 [Rx Confirmed 12/01/24] carvediloL [Carvedilol] 25 mg PO BID 30 Days #60 tablet 09/27/24 [Rx Confirmed 12/01/24] Allergies/Adverse Reactions: Allergies Allergy/AdvReac Type Severity Reaction Status Date / Time codeine Allergy Severe Nausea and Verified 12/01/24 17:16 Vomiting pseudoephedrine Allergy Severe Fainting Verified 12/01/24 17:16 [From Actifed] triprolidine [From Actifed] Allergy Severe Fainting Verified 12/01/24 17:16 diphenhydramine AdvReac Severe Fainting Verified 12/01/24 17:16 [From [facility]] - Past Medical History Past Medical History: Yes Neurological History: No Pertinent History ENT History: No Pertinent History Cardiac History: Coronary Artery Disease, High Cholesterol, Hypertension Respiratory History: No Pertinent History Endocrine Medical History: Diabetes Type II Musculoskelatal History: No Pertinent History GI Medical History: Esophageal Disorder, Hemorrhoids, Pancreatitis, Ulcer History: Other Pyscho-Social History: Depression Male Reproductive Disorders: No Pertinent History Comment: 2015 Gastritis, kidney infection - Past Surgical History Past Surgical History: Yes Neuro Surgical History: No Pertinent History Cardiac History: Cardiac Catheterization Respiratory Surgery: No Pertinent History GI Surgical History: Hemorrhoidectomy, Rectal Surgery Genitourinary Surgical Hx: No Pertinent History Musculskeletal Surgical Hx: No Pertinent History Male Surgical History: No Pertinent History Other Surgical History: 2020 Heart Cath (blockage x 2) Significant Family History: heart disease, cancer, diabetes, stroke - Social History Smoking Status: Current every day smoker How long have you smoked: years Exposure to second hand smoke: Yes Alcohol: None Drug Use: none - Social Determinants of Health Will the patient participate in the screening: Yes Do you worry about a steady place to live?: No Do you have any problems with any of the following?: No known problems In the past 12 months,have you had to go without utilities?: No Have you or anyone in your house had to go without enough: No Transportation Issues: No Has anyone in your support network made you feel unsafe?: No Does the patient want assistance with any of the above?: No - Physical Exam Vital Signs: Vital Signs - 24 hr Temp Pulse Resp BP BP Pulse Ox 12/01/24 17:00 83 17 175/129 96 12/01/24 16:30 92 H 15 168/106 12/01/24 16:00 91 H 15 183/118 97 12/01/24 15:30 78 11 L 153/92 98 12/01/24 15:00 72 11 L 156/95 97 12/01/24 14:30 74 14 137/88 96 12/01/24 14:00 75 11 L 140/85 96 12/01/24 13:30 77 12 155/88 97 12/01/24 13:00 81 15 142/92 95 12/01/24 12:47 98.0 F 94 H 15 122/84 98 General Appearance: no apparent distress, alert Neurologic Exam: alert, oriented x 3, cooperative, normal mood/affect, nml cerebellar function, nml station & gait, sensation nml, No motor deficits Eye Exam: PERRL/EOMI, eyes nml inspection Ears, Nose, Throat Exam: normal ENT inspection, TMs normal, pharynx normal, moist mucous membranes Neck Exam: normal inspection, non-tender, supple, full range of motion Respiratory Exam: normal breath sounds, lungs clear, No respiratory distress Cardiovascular Exam: regular rate/rhythm, normal heart sounds, normal peripheral pulses Gastrointestinal/Abdomen Exam: soft, normal bowel sounds, tenderness, No mass Back Exam: normal inspection, normal range of motion, No CVA tenderness, No vertebral tenderness Extremity Exam: normal inspection, normal range of motion, pelvis stable Skin Exam: normal color, warm, dry, No rash Lymphatic Exam: No adenopathy Results - Labs Lab/Micro Results: Lab Results-Last 24 Hours 12/01/24 12/01/24 12/01/24 Range/Units 13:00 13:00 13:00 WBC 11.8 H (4.23-9.07) x10^3/uL RBC 5.75 (4.63-6.08) x10^6/uL Hgb 16.8 (13.7-17.5) g/dL Hct 47.2 (40.1-51.0) % MCV 82.1 (79.0-92.2) fL MCH 29.2 (25.7-32.2) pg MCHC 35.6 (32.3-36.5) g/dL RDW 12.2 (11.6-14.4) % Plt Count 307 (163-337) x10^3/uL MPV 10.4 (9.4-12.4) fL Gran % 69.3 H (34.0-67.9) % Immature Gran % (Auto) 0.5 H (0.001-0.429) % Nucleat RBC Rel Count 0.0 (0.00-0.2) % Eos # (Auto) 0.03 L (0.04-0.54) x10^3/uL Immature Gran # (Auto) 0.06 H (0.001-0.031) x10^3u/L Absolute Lymphs (auto) 2.85 (1.32-3.57) x10^3/uL Absolute Monos (auto) 0.63 (0.30-0.82) x10^3/uL Absolute Nucleated RBC 0.00 (0.00-0.012) x10^3u/L Lymphocytes % 24.3 (21.8-53.1) % Monocytes % 5.4 (5.3-12.2) % Eosinophils % 0.3 L (0.8-7.0) % Basophils % 0.2 (0.2-1.2) % Absolute Granulocytes 8.16 H (1.78-5.38) x10^3/uL Basophils # 0.02 (0.01-0.08) x10^3/uL Sodium 131 L (135-145) mmol/L Potassium 3.6 (3.5-5.1) mmol/L Chloride 94 L (98-107) mmol/L Carbon Dioxide 23 (22-30) mmol/L Anion Gap 17.1 H (5-15) MEQ/L BUN 11 (9-20) mg/dL Creatinine 0.58 L (0.66-1.25) mg/dL Estimated GFR 121.8 ML/MIN Glucose 415 H (74-106) mg/dL Lactic Acid (0.4-2.0) Calcium 9.4 (8.4-10.2) mg/dL Total Bilirubin 1.10 (0.2-1.3) mg/dL AST 19 (17-59) U/L ALT 21 (0-50) U/L Alkaline Phosphatase 121 (38-126) U/L Troponin I < 0.012 (0.000-0.033) ng/mL Serum Total Protein 7.4 (6.3-8.2) g/dL Albumin 4.8 (3.5-5.0) g/dL Amylase 44 (30-110) U/L Lipase 87 (23-300) U/L Urine Color (Yellow) Urine Appearance (Clear) Urine pH (4.6-8.0) Ur Specific [place] (1.005-1.030) Urine Protein (Negative) Urine Glucose (UA) (Negative) mg/dL Urine Ketones (Negative) Urine Blood (Negative) Urine Nitrite (Negative) Urine Bilirubin (Negative) Urine Urobilinogen (0.2) mg/dL Ur Leukocyte Esterase (Negative) U Hyaline Cast (Auto) (0-2) /LPF Urine Microscopic RBC (0-5) /HPF Urine Microscopic WBC (0-5) /HPF Ur Epithelial Cells (None Seen) /HPF Urine Bacteria (None Seen) /HPF Urine Culture Reflexed (NO) 12/01/24 12/01/24 Range/Units 13:03 13:03 WBC (4.23-9.07) x10^3/uL RBC (4.63-6.08) x10^6/uL Hgb (13.7-17.5) g/dL Hct (40.1-51.0) % MCV (79.0-92.2) fL MCH (25.7-32.2) pg MCHC (32.3-36.5) g/dL RDW (11.6-14.4) % Plt Count (163-337) x10^3/uL MPV (9.4-12.4) fL Gran % (34.0-67.9) % Immature Gran % (Auto) (0.001-0.429) % Nucleat RBC Rel Count (0.00-0.2) % Eos # (Auto) (0.04-0.54) x10^3/uL Immature Gran # (Auto) (0.001-0.031) x10^3u/L Absolute Lymphs (auto) (1.32-3.57) x10^3/uL Absolute Monos (auto) (0.30-0.82) x10^3/uL Absolute Nucleated RBC (0.00-0.012) x10^3u/L Lymphocytes % (21.8-53.1) % Monocytes % (5.3-12.2) % Eosinophils % (0.8-7.0) % Basophils % (0.2-1.2) % Absolute Granulocytes (1.78-5.38) x10^3/uL Basophils # (0.01-0.08) x10^3/uL Sodium (135-145) mmol/L Potassium (3.5-5.1) mmol/L Chloride (98-107) mmol/L Carbon Dioxide (22-30) mmol/L Anion Gap (5-15) MEQ/L BUN (9-20) mg/dL Creatinine (0.66-1.25) mg/dL Estimated GFR ML/MIN Glucose (74-106) mg/dL Lactic Acid 1.5 (0.4-2.0) Calcium (8.4-10.2) mg/dL Total Bilirubin (0.2-1.3) mg/dL AST (17-59) U/L ALT (0-50) U/L Alkaline Phosphatase (38-126) U/L Troponin I (0.000-0.033) ng/mL Serum Total Protein (6.3-8.2) g/dL Albumin (3.5-5.0) g/dL Amylase (30-110) U/L Lipase (23-300) U/L Urine Color Yellow (Yellow) Urine Appearance Clear (Clear) Urine pH 5.5 (4.6-8.0) Ur Specific [place] >=1.030 A (1.005-1.030) Urine Protein Negative (Negative) Urine Glucose (UA) >=1000 A (Negative) mg/dL Urine Ketones 80 A (Negative) Urine Blood Negative (Negative) Urine Nitrite Negative (Negative) Urine Bilirubin Negative (Negative) Urine Urobilinogen 1.0 A (0.2) mg/dL Ur Leukocyte Esterase Negative (Negative) U Hyaline Cast (Auto) NONE SEEN (0-2) /LPF Urine Microscopic RBC 0-2 (0-5) /HPF Urine Microscopic WBC 0-2 (0-5) /HPF Ur Epithelial Cells None Seen (None Seen) /HPF Urine Bacteria None Seen (None Seen) /HPF Urine Culture Reflexed NO (NO) Assessment/Plan (1) Chronic abdominal pain Current Visit: No Status: Acute Assessment & Plan: - 08/30/24 Gallbladder US: Impression: Excessive bowel gas limits exam. Nonvisualization pancreas. Again fatty liver and gallbladder sludge. Continued negative for cholelithiasis/cholecystitis. - Had an OP appointment with GS tomorrow.- - General surgery consult IP. - Dilaudid Q4 PRN for pain - Antiemetics - CBC, CMP reviewed - IVF - CT abd/pelvis ordered by Code(s): R10.9 - UNSPECIFIED ABDOMINAL PAIN; G89.29 - OTHER CHRONIC PAIN (2) Type 2 diabetes mellitus with hyperglycemia Current Visit: No Status: Acute Assessment & Plan: - Repeat glucose on admission to ACU 264 - Accuchecks Ac/HS - Insulin S/S. Code(s): E11.65 - TYPE 2 DIABETES MELLITUS WITH HYPERGLYCEMIA (3) Hyponatremia Current Visit: Yes Status: Acute Assessment & Plan: - Mild 131- repeat lab 133- trend - 2:2 Vomiting - IVF decreased to NS @ 100 Code(s): E87.1 - HYPO-OSMOLALITY AND HYPONATREMIA (4) Chest pressure Current Visit: Yes Status: Acute Assessment & Plan: - Trop x2 negative- trend - EKG - TELE - TSH - CXR pending Code(s): R07.89 - OTHER CHEST PAIN (5) HTN (hypertension) Current Visit: Yes Status: Acute Qualifiers: Assessment & Plan: - Resume home BP meds - Vasotec gave in the ER and BP improved on admission Code(s): I10 - ESSENTIAL (PRIMARY) HYPERTENSION (6) Vomiting Current Visit: Yes Status: Acute Assessment & Plan: - Zofran PRN - Compazine PRN Code(s): R11.10 - VOMITING, UNSPECIFIED (7) Leukocytosis Current Visit: No Status: Resolved Assessment & Plan: - WBC 11.8- trend - IVF - Reviewed most recent radiology results - 2:2 Vomiting and cholecystitis Code(s): D72.829 - ELEVATED WHITE BLOOD CELL COUNT, UNSPECIFIED (8) DKA (diabetic ketoacidoses) Current Visit: Yes Status: Resolved Qualifiers: Diabetes mellitus type: type 2 Diabetes mellitus complication detail: without coma Qualified Code(s): E11.10 - Type 2 diabetes mellitus with ketoacidosis without coma Assessment & Plan: - 2:2 Vomiting/ abd pain - ABG- cancelled per RT- - PH 7.44 at 1pm per RT per venous lab - CMP reviewed- anion gap 17.1 - Repeat glucose on unit 264 - Phos, Mg+ ordered - Serum os ordered - + leukocytosis - IVF and insulin gave in ER - 09/26/24 A1C 12.58- uncontrolled type II DM - Resolved since admission - Has not been using insulin pump or taking meds at home- education provided on good glycemic control to prevent [employer] side effects. - Accuchecks and insulin ordered - Cont IVF * Resolved Code(s): E11.10 - TYPE 2 DIABETES MELLITUS WITH KETOACIDOSIS WITHOUT COMA (9) Dehydration Current Visit: Yes Status: Resolved Assessment & Plan: - Anion gap 17.1 in ER- resolved with IVF per repeat labs - 2:2 vomiting Code(s): E86.0 - DEHYDRATION (10) HLD (hyperlipidemia) Current Visit: No Status: Chronic Qualifiers: Hyperlipidemia type: mixed hyperlipidemia Qualified Code(s): E78.2 - Mixed hyperlipidemia Assessment & Plan: - Hold PO meds for now as NPO Code(s): E78.5 - HYPERLIPIDEMIA, UNSPECIFIED (11) CAD (coronary artery disease) Current Visit: No Status: Chronic Qualifiers: Coronary Disease-Associated Artery/Lesion type: [place] artery [place] vs. transplanted heart: [place] heart Associated angina: with other forms of angina Qualified Code(s): I25.118 - Atherosclerotic heart disease of [place] coronary artery with other forms of angina pectoris Assessment & Plan: - Continue home meds Code(s): I25.10 - ATHSCL HEART DISEASE OF [place] CORONARY ARTERY W/O ANG PCTRS (12) Tobacco use Current Visit: No Status: Chronic Assessment & Plan: - Advised cessation - Nicotine patch- refused VTE: SCD'S PPi: omeprazole Next of KIN: Spouse D/C plan: 1-2 days Code status: Full Code(s): Z72.0 - TOBACCO USE Telemedicine Encounter - Telemedicine Encounter Telemedicine Encounter: "The entirety of this encounter was performed via Telemedicine" This visit was performed using real-time audio and video connection between my location and thepatients locationwith the assistance of a surrogateat the patients location. Written or verbal consent was obtained from the patient/guardian to perform this visit [facility]. Any patient questions regarding the telemedicine interaction were answered.
[2024-12-01 17:36] LABS: ALBUMIN 4.2 g/dL (3.5-5.0); BILIRUBIN,TOTAL 0.8 mg/dL (0.2-1.3); Calcium 8.5 mg/dL (8.4-10.2); Creatinine 1 0.51 mg/dL (0.66-1.25); EST GLOMERULAR FILTRATION RATE 126.6 ML/MIN; MAGNESIUM 1.8 mg/dL (1.6-2.3); PHOSPHOROUS 3.1 mg/dL (2.5-4.5); Potassium 3.5 mmol/L (3.5-5.1); Total Protein 6.5 g/dL (6.3-8.2)
[2024-12-01 17:38] LABS: VBG BASE EXCESS 3.8 (-2.0-2.0); VBG HCO3- 28.5 meq/L (22-28); VBG HEMOGLOBIN 17.5; VBG POTASSIUM 3.7 (3.5-5.1); VBG pH 7.44 (7.32-7.42)
[2024-12-01 17:40] LABS: VBG CARBOXYHEMOGLOBIN 9.4 % T HGB (0.0-6.9)
[2024-12-01] MEDS: ENALAPRILAT 2.5 MG INJECTION IV SCH (17:46)
[2024-12-01] MEDS: PROTONIX 40 MG IV IV SCH (17:56)
[2024-12-01] MEDS: Sodium Chloride 0.9% 1000 ML 1,000 ML IV SCH (18:14)
[2024-12-01] MEDS ORDERED: Glutose 15 GM ORAL GEL PO PRN (18:23)
[2024-12-01] MEDS ORDERED: D50W 50 ml Abboject IV PRN (18:23)
[2024-12-01] MEDS: Zestril 10 MG PO SCH (18:53)
--- NOTE | 2024-12-01 19:33 | XRAY ---
Indication: Chest pain. Comparison: September 26, 2024 Portable chest again demonstrates normal heart and lungs with incidental right lung calcified granulomas. Bony thorax intact. No new/acute findings.
[2024-12-01] MEDS: HUMALOG SQ PRN (20:15)
[2024-12-01] MEDS: Hydromorphone 1 mg/ml Injection IV PRN (20:15)
[2024-12-01] MEDS: APRESOLINE 20 MG/ML INJ IV PRN (20:15)
[2024-12-01] MEDS: Compazine 10 MG/2 ML IV PRN (20:18)
--- NOTE | 2024-12-01 20:45 | XRAY ---
CLINICAL HISTORY: abd pain n/v COMPARISON: 08/08/2024 CT; US 09/30/2024 was reviewed. TECHNIQUE: CT of the abdomen and pelvis was performed, with the following protocol: axial images, and reconstructed coronal and sagittal images. Intravenous contrast was administered. One of the following dose reduction techniques was utilized for this exam: Automated exposure control, adjustment of the mA and/or kV according to patient size, and use of iterative reconstruction. FINDINGS: Sections of lower thorax show a stable 12 mm calcified nodule in right lower lobe. Abdomen: Liver: Normal in size, and density. No focal lesions, cysts, or masses were identified. Tiny calcific foci in liver. Gallbladder and Biliary System: The gallbladder is normal in size and shape. No wall thickening, pericholecystic fluid, or gallstones were identified. Pancreas: Pancreatic head, body, and tail are visualized and appear normal in size and density. No pancreatic masses or calcifications were noted. Spleen: Normal in size, shape, and density. Old calcified granulomas. Kidneys and Adrenal Glands: Both kidneys are normal in size, shape, and position. No renal calculi or hydronephrosis. Tiny renal cortical cysts Adrenal glands are unremarkable. Pelvis: Urinary Bladder: Partially distended. Prostate appears unremarkable. Peritoneal and Retroperitoneal Structures: No free fluid or abnormal fluid collections were identified within the abdomen or pelvis. Subcentimetric non-specific mesenteric nodes. Superior mesenteric vein is swirling around the SMA. Bowel: The visualized bowel loops are normal in caliber and appearance. No evidence of bowel obstruction or wall thickening. Appendix appears unremarkable. Bones and Soft Tissues: Degenerative changes in lumbar spine with minimal levoscoliosis centered at the L3 vertebral body. Minimal retrolisthesis of L5 over S1 with posterior disc osteophyte complex at this level indenting ventral thecal sac. IMPRESSION: 1. No definite acute abnormality detected in CT abdomen and pelvis at present. 2. No significant interval changes since previous study. Electronically Signed by: Luciano Francis MD. (12/01/2024 20:41:04 EDT)
[2024-12-01] MEDS: BUSPAR 5 MG PO SCH (21:28)
[2024-12-01] MEDS: COREG 12.5 MG PO SCH (21:28)
[2024-12-01] MEDS: NEURONTIN PO SCH (21:28)
[2024-12-01] MEDS: LURASIDONE HCL 80 MG PO SCH (21:49)
[2024-12-01] MEDS: BENZTROPINE MESYLATE 1 MG PO SCH (21:49)
[2024-12-01] MEDS: PRAZOSIN HCL PO SCH (21:50)
[2024-12-01] MEDS ORDERED: NON-FORMULARY ITEM (Carvedilol [Carvedilol] 25 MG Tablet) PO SCH (22:00)
--- NOTE | 2024-12-02 05:14 | PCM.NOTE ---
Date and Time: 12/02/24 0508 Subjective Assessment: Mr. Harper is a 44-year-old male with a history of hypertension, type 2 diabetes mellitus, coronary artery disease, hyperlipidemia, depression, and daily tobacco use who presented to ED 12/01/24 with recurrent episodes of abdominal pain and vomiting, most recently ongoing for four days. Pain is localized to the epigastric and right upper quadrant region, and imaging to date has shown gallbladder sludge without cholelithiasis or cholecystitis. A general surgery consult was requested during this admission, and a CT abdomen/pelvis with IV contrast was ordered for further evaluation. On presentation, the patient had significant hyperglycemia (glucose 415) with ketonuria and glucosuria, concerning for diabetic ketoacidosis, which has since resolved with insulin and IV fluids. Labs also revealed mild hyponatremia likely related to hyperglycemia, vomiting and dehydration, both of which have improved with supportive care. He reported chest pressure; however, workup including EKG and serial troponins was negative for acute coronary syndrome. Blood pressure has normalized following ED management. Of note, the patient has not been adherent to his diabetes medications or insulin pump at home, and his A1C of 12.58% reflects longstanding poor glycemic control. Education was provided, and inpatient glucose management has been initiated. 12/02/24: Met with patient bedside. Endorses continued abdominal pain 8/10 on numerical pain scale. Discussed blood glucose levels and the importance of glycemic c ontrol. Patient states he has all meds/supplies at home to care for his diabetes but he has just been non-compliant. 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 Surgery has scheduled a HIDA scan today. Surgical intervention pending results. - Review of Systems Constitutional: No Symptoms Eyes: No Symptoms Ears, Nose, & Throat: No Symptoms Respiratory: No Symptoms Cardiac: No Symptoms Abdominal/Gastrointestinal: Abdominal Pain Genitourinary Symptoms: No Symptoms Musculoskeletal: No Symptoms Skin: No Symptoms Neurological: No Symptoms Psychological: No Symptoms Endocrine: No Symptoms Hematologic/Lymphatic: No Symptoms Immunological/Allergic: No Symptoms Objective Exam General Appearance: no apparent distress Neurologic Exam: alert, oriented x 3, cooperative Skin Exam: normal color Eye Exam: PERRL Ears, Nose, Throat Exam: normal ENT inspection Neck Exam: normal inspection Respiratory Exam: normal breath sounds, lungs clear Cardiovascular Exam: regular rate/rhythm, normal heart sounds Gastrointestinal/Abdomen Exam: soft, normal bowel sounds, tenderness (TTP RUQ) Extremity Exam: normal inspection Back Exam: normal inspection Male Genitalia Exam: deferred Objective Data Vital Signs: Vital Signs - 24 hr Temp Pulse Resp BP BP Pulse Ox 12/02/24 04:00 97.9 F 67 18 121/77 95 12/02/24 00:00 97.9 F 75 18 144/86 98 12/01/24 20:50 145/81 12/01/24 20:00 98.3 F 72 16 182/96 98 12/01/24 17:31 96.7 F 77 16 142/89 96 12/01/24 17:00 83 17 175/129 96 12/01/24 16:30 92 H 15 168/106 12/01/24 16:00 91 H 15 183/118 97 12/01/24 15:30 78 11 L 153/92 98 12/01/24 15:00 72 11 L 156/95 97 12/01/24 14:30 74 14 137/88 96 12/01/24 14:00 75 11 L 140/85 96 12/01/24 13:30 77 12 155/88 97 12/01/24 13:00 81 15 142/92 95 12/01/24 12:47 98.0 F 94 H 15 122/84 98 Pain Assessment - Last Documented Pain Intensity 4 Pain Scale Used 0-10 Pain Scale Intake and Output: Intake & Output 11/29/24 11/30/24 12/01/24 12/02/24 11:59 11:59 11:59 11:59 Intake Total 0 Output Total 1100 Balance -1100 Weight 96.7 kg Lab Results: Lab Results-Last 24 Hours 12/01/24 12/01/24 12/01/24 Range/Units 13:00 13:00 13:00 WBC 11.8 H (4.23-9.07) x10^3/uL RBC 5.75 (4.63-6.08) x10^6/uL Hgb 16.8 (13.7-17.5) g/dL Hct 47.2 (40.1-51.0) % MCV 82.1 (79.0-92.2) fL MCH 29.2 (25.7-32.2) pg MCHC 35.6 (32.3-36.5) g/dL RDW 12.2 (11.6-14.4) % Plt Count 307 (163-337) x10^3/uL MPV 10.4 (9.4-12.4) fL Gran % 69.3 H (34.0-67.9) % Immature Gran % (Auto) 0.5 H (0.001-0.429) % Nucleat RBC Rel Count 0.0 (0.00-0.2) % Eos # (Auto) 0.03 L (0.04-0.54) x10^3/uL Immature Gran # (Auto) 0.06 H (0.001-0.031) x10^3u/L Absolute Lymphs (auto) 2.85 (1.32-3.57) x10^3/uL Absolute Monos (auto) 0.63 (0.30-0.82) x10^3/uL Absolute Nucleated RBC 0.00 (0.00-0.012) x10^3u/L Lymphocytes % 24.3 (21.8-53.1) % Monocytes % 5.4 (5.3-12.2) % Eosinophils % 0.3 L (0.8-7.0) % Basophils % 0.2 (0.2-1.2) % Absolute Granulocytes 8.16 H (1.78-5.38) x10^3/uL Basophils # 0.02 (0.01-0.08) x10^3/uL pO2/FiO2 Ratio % VBG pH (7.32-7.42) VBG pCO2 at Pat Temp (42-55) mm/Hg VBG pO2 at Pat Temp (25-40) mm/Hg VBG HCO3 (22-28) meq/L VBG O2 Sat (Alessandra) (95-100) VBG Base Excess (-2.0-2.0) VBG Hemoglobin VBG Carboxyhemoglobin (0.0-6.9) % T HGB POC Potassium (3.5-5.1) Sodium 131 L (135-145) mmol/L Potassium 3.6 (3.5-5.1) mmol/L Chloride 94 L (98-107) mmol/L Carbon Dioxide 23 (22-30) mmol/L Anion Gap 17.1 H (5-15) MEQ/L BUN 11 (9-20) mg/dL Creatinine 0.58 L (0.66-1.25) mg/dL Estimated GFR 121.8 ML/MIN Glucose 415 H (74-106) mg/dL POC Glucometer (74 to 106) mg/dL Lactic Acid (0.4-2.0) Calcium 9.4 (8.4-10.2) mg/dL Phosphorus (2.5-4.5) mg/dL Magnesium (1.6-2.3) mg/dL Total Bilirubin 1.10 (0.2-1.3) mg/dL AST 19 (17-59) U/L ALT 21 (0-50) U/L Alkaline Phosphatase 121 (38-126) U/L Troponin I < 0.012 (0.000-0.033) ng/mL Serum Total Protein 7.4 (6.3-8.2) g/dL Albumin 4.8 (3.5-5.0) g/dL Amylase 44 (30-110) U/L Lipase 87 (23-300) U/L TSH 3rd Generation (0.470-4.680) mIU/L Urine Color (Yellow) Urine Appearance (Clear) Urine pH (4.6-8.0) Ur Specific [place] (1.005-1.030) Urine Protein (Negative) Urine Glucose (UA) (Negative) mg/dL Urine Ketones (Negative) Urine Blood (Negative) Urine Nitrite (Negative) Urine Bilirubin (Negative) Urine Urobilinogen (0.2) mg/dL Ur Leukocyte Esterase (Negative) U Hyaline Cast (Auto) (0-2) /LPF Urine Microscopic RBC (0-5) /HPF Urine Microscopic WBC (0-5) /HPF Ur Epithelial Cells (None Seen) /HPF Urine Bacteria (None Seen) /HPF Urine Culture Reflexed (NO) 12/01/24 12/01/24 12/01/24 Range/Units 13:00 13:03 13:03 WBC (4.23-9.07) x10^3/uL RBC (4.63-6.08) x10^6/uL Hgb (13.7-17.5) g/dL Hct (40.1-51.0) % MCV (79.0-92.2) fL MCH (25.7-32.2) pg MCHC (32.3-36.5) g/dL RDW (11.6-14.4) % Plt Count (163-337) x10^3/uL MPV (9.4-12.4) fL Gran % (34.0-67.9) % Immature Gran % (Auto) (0.001-0.429) % Nucleat RBC Rel Count (0.00-0.2) % Eos # (Auto) (0.04-0.54) x10^3/uL Immature Gran # (Auto) (0.001-0.031) x10^3u/L Absolute Lymphs (auto) (1.32-3.57) x10^3/uL Absolute Monos (auto) (0.30-0.82) x10^3/uL Absolute Nucleated RBC (0.00-0.012) x10^3u/L Lymphocytes % (21.8-53.1) % Monocytes % (5.3-12.2) % Eosinophils % (0.8-7.0) % Basophils % (0.2-1.2) % Absolute Granulocytes (1.78-5.38) x10^3/uL Basophils # (0.01-0.08) x10^3/uL pO2/FiO2 Ratio 21.0 % VBG pH 7.44 H (7.32-7.42) VBG pCO2 at Pat Temp 42 (42-55) mm/Hg VBG pO2 at Pat Temp 42 H (25-40) mm/Hg VBG HCO3 28.5 H (22-28) meq/L VBG O2 Sat (Alessandra) 80.0 L (95-100) VBG Base Excess 3.8 H (-2.0-2.0) VBG Hemoglobin 17.5 VBG Carboxyhemoglobin 9.4 H* (0.0-6.9) % T HGB POC Potassium 3.7 (3.5-5.1) Sodium (135-145) mmol/L Potassium (3.5-5.1) mmol/L Chloride (98-107) mmol/L Carbon Dioxide (22-30) mmol/L Anion Gap (5-15) MEQ/L BUN (9-20) mg/dL Creatinine (0.66-1.25) mg/dL Estimated GFR ML/MIN Glucose (74-106) mg/dL POC Glucometer (74 to 106) mg/dL Lactic Acid 1.5 (0.4-2.0) Calcium (8.4-10.2) mg/dL Phosphorus (2.5-4.5) mg/dL Magnesium (1.6-2.3) mg/dL Total Bilirubin (0.2-1.3) mg/dL AST (17-59) U/L ALT (0-50) U/L Alkaline Phosphatase (38-126) U/L Troponin I (0.000-0.033) ng/mL Serum Total Protein (6.3-8.2) g/dL Albumin (3.5-5.0) g/dL Amylase (30-110) U/L Lipase (23-300) U/L TSH 3rd Generation (0.470-4.680) mIU/L Urine Color Yellow (Yellow) Urine Appearance Clear (Clear) Urine pH 5.5 (4.6-8.0) Ur Specific [place] >=1.030 A (1.005-1.030) Urine Protein Negative (Negative) Urine Glucose (UA) >=1000 A (Negative) mg/dL Urine Ketones 80 A (Negative) Urine Blood Negative (Negative) Urine Nitrite Negative (Negative) Urine Bilirubin Negative (Negative) Urine Urobilinogen 1.0 A (0.2) mg/dL Ur Leukocyte Esterase Negative (Negative) U Hyaline Cast (Auto) NONE SEEN (0-2) /LPF Urine Microscopic RBC 0-2 (0-5) /HPF Urine Microscopic WBC 0-2 (0-5) /HPF Ur Epithelial Cells None Seen (None Seen) /HPF Urine Bacteria None Seen (None Seen) /HPF Urine Culture Reflexed NO (NO) 12/01/24 12/01/24 12/01/24 Range/Units 17:00 17:05 17:05 WBC (4.23-9.07) x10^3/uL RBC (4.63-6.08) x10^6/uL Hgb (13.7-17.5) g/dL Hct (40.1-51.0) % MCV (79.0-92.2) fL MCH (25.7-32.2) pg MCHC (32.3-36.5) g/dL RDW (11.6-14.4) % Plt Count (163-337) x10^3/uL MPV (9.4-12.4) fL Gran % (34.0-67.9) % Immature Gran % (Auto) (0.001-0.429) % Nucleat RBC Rel Count (0.00-0.2) % Eos # (Auto) (0.04-0.54) x10^3/uL Immature Gran # (Auto) (0.001-0.031) x10^3u/L Absolute Lymphs (auto) (1.32-3.57) x10^3/uL Absolute Monos (auto) (0.30-0.82) x10^3/uL Absolute Nucleated RBC (0.00-0.012) x10^3u/L Lymphocytes % (21.8-53.1) % Monocytes % (5.3-12.2) % Eosinophils % (0.8-7.0) % Basophils % (0.2-1.2) % Absolute Granulocytes (1.78-5.38) x10^3/uL Basophils # (0.01-0.08) x10^3/uL pO2/FiO2 Ratio % VBG pH (7.32-7.42) VBG pCO2 at Pat Temp (42-55) mm/Hg VBG pO2 at Pat Temp (25-40) mm/Hg VBG HCO3 (22-28) meq/L VBG O2 Sat (Alessandra) (95-100) VBG Base Excess (-2.0-2.0) VBG Hemoglobin VBG Carboxyhemoglobin (0.0-6.9) % T HGB POC Potassium (3.5-5.1) Sodium 133 L (135-145) mmol/L Potassium 3.5 (3.5-5.1) mmol/L Chloride 98 (98-107) mmol/L Carbon Dioxide 23 (22-30) mmol/L Anion Gap 15.0 (5-15) MEQ/L BUN 9 (9-20) mg/dL Creatinine 0.51 L (0.66-1.25) mg/dL Estimated GFR 126.6 ML/MIN Glucose 265 H (74-106) mg/dL POC Glucometer (74 to 106) mg/dL Lactic Acid (0.4-2.0) Calcium 8.5 (8.4-10.2) mg/dL Phosphorus 3.1 (2.5-4.5) mg/dL Magnesium 1.8 (1.6-2.3) mg/dL Total Bilirubin 0.80 (0.2-1.3) mg/dL AST 18 (17-59) U/L ALT 18 (0-50) U/L Alkaline Phosphatase 100 (38-126) U/L Troponin I < 0.012 (0.000-0.033) ng/mL Serum Total Protein 6.5 (6.3-8.2) g/dL Albumin 4.2 (3.5-5.0) g/dL Amylase (30-110) U/L Lipase (23-300) U/L TSH 3rd Generation 0.797 (0.470-4.680) mIU/L Urine Color (Yellow) Urine Appearance (Clear) Urine pH (4.6-8.0) Ur Specific [place] (1.005-1.030) Urine Protein (Negative) Urine Glucose (UA) (Negative) mg/dL Urine Ketones (Negative) Urine Blood (Negative) Urine Nitrite (Negative) Urine Bilirubin (Negative) Urine Urobilinogen (0.2) mg/dL Ur Leukocyte Esterase (Negative) U Hyaline Cast (Auto) (0-2) /LPF Urine Microscopic RBC (0-5) /HPF Urine Microscopic WBC (0-5) /HPF Ur Epithelial Cells (None Seen) /HPF Urine Bacteria (None Seen) /HPF Urine Culture Reflexed (NO) 12/01/24 12/01/24 12/01/24 Range/Units 17:20 20:00 21:25 WBC (4.23-9.07) x10^3/uL RBC (4.63-6.08) x10^6/uL Hgb (13.7-17.5) g/dL Hct (40.1-51.0) % MCV (79.0-92.2) fL MCH (25.7-32.2) pg MCHC (32.3-36.5) g/dL RDW (11.6-14.4) % Plt Count (163-337) x10^3/uL MPV (9.4-12.4) fL Gran % (34.0-67.9) % Immature Gran % (Auto) (0.001-0.429) % Nucleat RBC Rel Count (0.00-0.2) % Eos # (Auto) (0.04-0.54) x10^3/uL Immature Gran # (Auto) (0.001-0.031) x10^3u/L Absolute Lymphs (auto) (1.32-3.57) x10^3/uL Absolute Monos (auto) (0.30-0.82) x10^3/uL Absolute Nucleated RBC (0.00-0.012) x10^3u/L Lymphocytes % (21.8-53.1) % Monocytes % (5.3-12.2) % Eosinophils % (0.8-7.0) % Basophils % (0.2-1.2) % Absolute Granulocytes (1.78-5.38) x10^3/uL Basophils # (0.01-0.08) x10^3/uL pO2/FiO2 Ratio % VBG pH (7.32-7.42) VBG pCO2 at Pat Temp (42-55) mm/Hg VBG pO2 at Pat Temp (25-40) mm/Hg VBG HCO3 (22-28) meq/L VBG O2 Sat (Alessandra) (95-100) VBG Base Excess (-2.0-2.0) VBG Hemoglobin VBG Carboxyhemoglobin (0.0-6.9) % T HGB POC Potassium (3.5-5.1) Sodium (135-145) mmol/L Potassium (3.5-5.1) mmol/L Chloride (98-107) mmol/L Carbon Dioxide (22-30) mmol/L Anion Gap (5-15) MEQ/L BUN (9-20) mg/dL Creatinine (0.66-1.25) mg/dL Estimated GFR ML/MIN Glucose (74-106) mg/dL POC Glucometer 264 H 234 H (74 to 106) mg/dL Lactic Acid (0.4-2.0) Calcium (8.4-10.2) mg/dL Phosphorus (2.5-4.5) mg/dL Magnesium (1.6-2.3) mg/dL Total Bilirubin (0.2-1.3) mg/dL AST (17-59) U/L ALT (0-50) U/L Alkaline Phosphatase (38-126) U/L Troponin I < 0.012 (0.000-0.033) ng/mL Serum Total Protein (6.3-8.2) g/dL Albumin (3.5-5.0) g/dL Amylase (30-110) U/L Lipase (23-300) U/L TSH 3rd Generation (0.470-4.680) mIU/L Urine Color (Yellow) Urine Appearance (Clear) Urine pH (4.6-8.0) Ur Specific [place] (1.005-1.030) Urine Protein (Negative) Urine Glucose (UA) (Negative) mg/dL Urine Ketones (Negative) Urine Blood (Negative) Urine Nitrite (Negative) Urine Bilirubin (Negative) Urine Urobilinogen (0.2) mg/dL Ur Leukocyte Esterase (Negative) U Hyaline Cast (Auto) (0-2) /LPF Urine Microscopic RBC (0-5) /HPF Urine Microscopic WBC (0-5) /HPF Ur Epithelial Cells (None Seen) /HPF Urine Bacteria (None Seen) /HPF Urine Culture Reflexed (NO) 12/01/24 12/02/24 Range/Units 23:52 04:06 WBC (4.23-9.07) x10^3/uL RBC (4.63-6.08) x10^6/uL Hgb (13.7-17.5) g/dL Hct (40.1-51.0) % MCV (79.0-92.2) fL MCH (25.7-32.2) pg MCHC (32.3-36.5) g/dL RDW (11.6-14.4) % Plt Count (163-337) x10^3/uL MPV (9.4-12.4) fL Gran % (34.0-67.9) % Immature Gran % (Auto) (0.001-0.429) % Nucleat RBC Rel Count (0.00-0.2) % Eos # (Auto) (0.04-0.54) x10^3/uL Immature Gran # (Auto) (0.001-0.031) x10^3u/L Absolute Lymphs (auto) (1.32-3.57) x10^3/uL Absolute Monos (auto) (0.30-0.82) x10^3/uL Absolute Nucleated RBC (0.00-0.012) x10^3u/L Lymphocytes % (21.8-53.1) % Monocytes % (5.3-12.2) % Eosinophils % (0.8-7.0) % Basophils % (0.2-1.2) % Absolute Granulocytes (1.78-5.38) x10^3/uL Basophils # (0.01-0.08) x10^3/uL pO2/FiO2 Ratio % VBG pH (7.32-7.42) VBG pCO2 at Pat Temp (42-55) mm/Hg VBG pO2 at Pat Temp (25-40) mm/Hg VBG HCO3 (22-28) meq/L VBG O2 Sat (Alessandra) (95-100) VBG Base Excess (-2.0-2.0) VBG Hemoglobin VBG Carboxyhemoglobin (0.0-6.9) % T HGB POC Potassium (3.5-5.1) Sodium (135-145) mmol/L Potassium (3.5-5.1) mmol/L Chloride (98-107) mmol/L Carbon Dioxide (22-30) mmol/L Anion Gap (5-15) MEQ/L BUN (9-20) mg/dL Creatinine (0.66-1.25) mg/dL Estimated GFR ML/MIN Glucose (74-106) mg/dL POC Glucometer 207 H 210 H (74 to 106) mg/dL Lactic Acid (0.4-2.0) Calcium (8.4-10.2) mg/dL Phosphorus (2.5-4.5) mg/dL Magnesium (1.6-2.3) mg/dL Total Bilirubin (0.2-1.3) mg/dL AST (17-59) U/L ALT (0-50) U/L Alkaline Phosphatase (38-126) U/L Troponin I (0.000-0.033) ng/mL Serum Total Protein (6.3-8.2) g/dL Albumin (3.5-5.0) g/dL Amylase (30-110) U/L Lipase (23-300) U/L TSH 3rd Generation (0.470-4.680) mIU/L Urine Color (Yellow) Urine Appearance (Clear) Urine pH (4.6-8.0) Ur Specific [place] (1.005-1.030) Urine Protein (Negative) Urine Glucose (UA) (Negative) mg/dL Urine Ketones (Negative) Urine Blood (Negative) Urine Nitrite (Negative) Urine Bilirubin (Negative) Urine Urobilinogen (0.2) mg/dL Ur Leukocyte Esterase (Negative) U Hyaline Cast (Auto) (0-2) /LPF Urine Microscopic RBC (0-5) /HPF Urine Microscopic WBC (0-5) /HPF Ur Epithelial Cells (None Seen) /HPF Urine Bacteria (None Seen) /HPF Urine Culture Reflexed (NO) Radiology Exams: Radiology Procedures Category Date Time Status ABDOMEN AND PELVIS W CONTRAST [CT] Stat Exams 12/01/24 18:34 Completed CHEST 1 VIEW (PORTABLE) Routine Exams 12/01/24 18:34 Completed Medications: Medications Generic Name Dose Route Start Last Admin Trade Name Freq PRN Reason Stop Dose Admin Acetaminophen 650 mg 12/01/24 17:15 Acetaminophen 325 Mg Tablet PO 12/31/24 17:14 Q4H PRN PRN PAIN, FEVER, HEADACHE Buspirone HCl 15 mg 12/01/24 22:00 12/01/24 21:28 Buspirone Hcl 5 Mg Tablet PO 12/31/24 21:59 15 mg BID NARESH Administration Carvedilol 25 mg 12/01/24 22:00 12/01/24 21:28 Carvedilol 12.5 Mg Tablet PO 12/31/24 21:59 25 mg BID NARESH Administration Dextrose 25 ml 12/01/24 18:23 Dextrose 50%-Water 50 Ml Abboject IV 12/31/24 18:22 PRN PRN HYPOGLYCEMIA Gabapentin 600 mg 12/01/24 22:00 12/01/24 21:28 Gabapentin 300 Mg Capsule PO 12/31/24 21:59 600 mg TID NARESH Administration Glucose 15 gm 12/01/24 18:23 Dextrose 15 Gm Gel PO 12/31/24 18:22 PRN PRN HYPOGLYCEMIA Hydralazine HCl 10 mg 12/01/24 18:24 12/01/24 20:15 Hydralazine Hcl 20 Mg/Ml Vial IV 12/31/24 18:23 10 mg Q4H PRN PRN Administration HYPERTENSION Hydromorphone HCl 1 mg 12/01/24 17:15 12/02/24 00:20 Hydromorphone 1 Mg/1ml Inj IV 12/06/24 17:14 1 mg Q4H PRN PRN Administration PAIN Sodium Chloride 1,000 mls @ 100 mls/hr 12/01/24 17:15 12/02/24 04:01 Sodium Chloride 0.9% 1000 Ml IV 12/31/24 17:14 100 mls/hr .Q10H NARESH Administration Insulin Human Lispro 0 unit 12/01/24 18:22 12/02/24 04:10 Insulin Lispro 1 Unit SQ 12/31/24 18:21 5 unit UD PRN Administration HYPERGLYCEMIA Lisinopril 10 mg 12/01/24 18:21 12/01/24 18:53 Lisinopril 10 Mg Tablet PO 12/31/24 18:20 10 mg DAILY NARESH Administration Non-Formulary Medication 1 mg 12/01/24 22:00 12/01/24 21:49 Benztropine Mesylate [Benztropine Mesylate] PO 12/31/24 21:59 Not Given HS NARESH Non-Formulary Medication 80 mg 12/01/24 22:00 12/01/24 21:49 Lurasidone Hcl [Latuda] PO 12/31/24 21:59 Not Given HS NARESH Non-Formulary Medication 40 mg 12/02/24 10:00 Omeprazole [Omeprazole] PO 01/01/25 09:59 DAILY NARESH Non-Formulary Medication 1 mg 12/01/24 22:00 12/01/24 21:50 Prazosin Hcl [Prazosin Hcl] PO 12/31/24 21:59 Not Given TID NARESH Ondansetron HCl 4 mg 12/01/24 17:15 Ondansetron Hcl 4 Mg/2 Ml Vial IV 12/31/24 17:14 Q6H PRN PRN NAUSEA/VOMITING Pantoprazole Sodium 40 mg 12/01/24 17:15 12/01/24 17:56 Pantoprazole 40 Mg Vial IV 12/31/24 17:14 Not Given Q24H NARESH Prochlorperazine Edisylate 10 mg 12/01/24 17:43 12/01/24 20:18 Prochlorperazine Edisylate 10 Mg/2 Ml Vial IV 12/31/24 17:42 10 mg Q6H PRN PRN Administration NAUSEA/VOMITING Discontinued Medications Generic Name Dose Route Start Last Admin Trade Name Freq PRN Reason Stop Dose Admin Enalaprilat 0.625 mg 12/01/24 16:47 12/01/24 17:00 Enalaprilat 2.5 Mg Injection IV 12/01/24 16:48 0.625 mg STAT ONE Administration Enalaprilat 1.25 mg 12/01/24 17:00 12/01/24 17:46 Enalaprilat 2.5 Mg Injection IV 12/31/24 16:59 Not Given Q6H NARESH Enalaprilat Confirm 12/01/24 16:55 Enalaprilat 2.5 Mg Injection Administered 12/01/24 16:56 Dose 2.5 mg IV .STK-MED ONE Hydromorphone HCl 1 mg 12/01/24 13:03 12/01/24 13:15 Hydromorphone 1 Mg/1ml Inj IV 12/01/24 13:04 1 mg STAT ONE Administration Hydromorphone HCl Confirm 12/01/24 13:07 Hydromorphone 1 Mg/1ml Inj Administered 12/01/24 13:08 Dose 1 mg .ROUTE .STK-MED ONE Hydromorphone HCl 1 mg 12/01/24 16:10 12/01/24 16:25 Hydromorphone 1 Mg/1ml Inj IV 12/01/24 16:11 1 mg STAT ONE Administration Hydromorphone HCl Confirm 12/01/24 16:23 Hydromorphone 1 Mg/1ml Inj Administered 12/01/24 16:24 Dose 1 mg .ROUTE .STK-MED ONE Sodium Chloride 1,000 mls @ 999 mls/hr 12/01/24 13:03 12/01/24 14:41 Sodium Chloride 0.9% 1000 Ml IV 12/01/24 14:03 Infused .Q1H1M STA Infusion Sodium Chloride Confirm 12/01/24 13:07 Sodium Chloride 0.9% 1000 Ml Administered 12/01/24 13:08 Dose 1,000 mls @ ud .ROUTE .STK-MED ONE Sodium Chloride 500 mls @ 500 mls/hr 12/01/24 14:11 12/01/24 16:28 Sodium Chloride 0.9% 500 Ml IV 12/01/24 15:10 Infused .Q1H ONE Infusion Sodium Chloride Confirm 12/01/24 14:25 Sodium Chloride 0.9% 500 Ml Administered 12/01/24 14:26 Dose 500 mls @ ud IV .STK-MED ONE Insulin Human Regular 5 unit 12/01/24 16:33 12/01/24 17:00 Insulin Regular, Human 1 Unit IV 12/01/24 16:34 5 unit STAT ONE Administration Insulin Human Regular Confirm 12/01/24 16:57 Insulin Regular, Human 1 Unit Administered 12/01/24 16:58 Dose 5 unit .ROUTE .STK-MED ONE Insulin Human Regular 0 unit 12/01/24 17:15 Insulin Regular, Human 1 Unit SQ 12/31/24 17:14 UD PRN HYPERGLYCEMIA Non-Formulary Medication 25 mg 12/01/24 22:00 Carvedilol [Carvedilol] PO 12/31/24 21:59 BID NARESH Ondansetron HCl 4 mg 12/01/24 13:03 12/01/24 13:14 Ondansetron Hcl 4 Mg/2 Ml Vial IV 12/01/24 13:04 4 mg STAT ONE Administration Ondansetron HCl Confirm 12/01/24 13:06 Ondansetron Hcl 4 Mg/2 Ml Vial Administered 12/01/24 13:07 Dose 4 mg .ROUTE .STK-MED ONE Pantoprazole Sodium 40 mg 12/01/24 13:03 12/01/24 13:13 Pantoprazole 40 Mg Vial IV 12/01/24 13:04 40 mg STAT ONE Administration Pantoprazole Sodium Confirm 12/01/24 13:06 Pantoprazole 40 Mg Vial Administered 12/01/24 13:07 Dose 40 mg IV .STK-MED ONE Assessment/Plan (1) Chronic abdominal pain Current Visit: No Status: Acute Assessment & Plan: - 08/30/24 Gallbladder US: Impression: Excessive bowel gas limits exam. Nonvisualization pancreas. Again fatty liver and gallbladder sludge. Continued negative for cholelithiasis/cholecystitis. - General surgery consult IP recommended CT abd/pelvis Which was unremarkable. HIDA scan scheduled for today- pending further recommendations based on these findings - Dilaudid Q4 PRN for pain - Antiemetics - CBC, CMP reviewed - IVF Code(s): R10.9 - UNSPECIFIED ABDOMINAL PAIN; G89.29 - OTHER CHRONIC PAIN (2) Chest pressure Current Visit: Yes Status: Acute Assessment & Plan: - Trop x 3 negative- - EKG - TELE - TSH WNL - CXR with no acute findings -Pain has resolved Code(s): R07.89 - OTHER CHEST PAIN (3) Hyponatremia Current Visit: Yes Status: Acute Assessment & Plan: - Likely secondary to hyperglycemia - IVF decreased to NS @ 100 -Sodium levels reviewed and now WNL -Resolved Code(s): E87.1 - HYPO-OSMOLALITY AND HYPONATREMIA (4) Vomiting Current Visit: Yes Status: Acute Assessment & Plan: - Zofran PRN - Compazine PRN Code(s): R11.10 - VOMITING, UNSPECIFIED (5) DKA (diabetic ketoacidoses) Current Visit: Yes Status: Resolved Qualifiers: Diabetes mellitus type: type 2 Diabetes mellitus complication detail: without coma Qualified Code(s): E11.10 - Type 2 diabetes mellitus with ketoacidosis without coma Assessment & Plan: - 2:2 Vomiting/ abd pain -Has not been using insulin pump or taking meds at home- education provided on good glycemic control 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 - Resolved since admission - ABG- cancelled per RT- - PH 7.44 at 1pm per RT per venous lab - CMP reviewed- anion gap 17.1 - Repeat glucose on unit 264 - IVF and insulin in ER - 09/26/24 A1C 12.58- uncontrolled type II DM - Accuchecks -SSI - Cont IVF Code(s): E11.10 - TYPE 2 DIABETES MELLITUS WITH KETOACIDOSIS WITHOUT COMA (6) Dehydration Current Visit: Yes Status: Resolved Assessment & Plan: - Resolved Code(s): E86.0 - DEHYDRATION (7) Type 2 diabetes mellitus with hyperglycemia Current Visit: No Status: Acute Assessment & Plan: - Accuchecks Ac/HS - Insulin S/S. -SEE DKA -noncompliant with home meds- will schedule appt with Dr. Duarte as OP Code(s): E11.65 - TYPE 2 DIABETES MELLITUS WITH HYPERGLYCEMIA (8) CAD (coronary artery disease) Current Visit: No Status: Chronic Qualifiers: Coronary Disease-Associated Artery/Lesion type: [place] artery [place] vs. transplanted heart: [place] heart Associated angina: with other forms of angina Qualified Code(s): I25.118 - Atherosclerotic heart disease of [place] coronary artery with other forms of angina pectoris Assessment & Plan: - Continue home meds Code(s): I25.10 - ATHSCL HEART DISEASE OF [place] CORONARY ARTERY W/O ANG PCTRS (9) HLD (hyperlipidemia) Current Visit: No Status: Chronic Qualifiers: Hyperlipidemia type: mixed hyperlipidemia Qualified Code(s): E78.2 - Mixed hyperlipidemia Assessment & Plan: - Hold PO meds for now as NPO Code(s): E78.5 - HYPERLIPIDEMIA, UNSPECIFIED (10) Tobacco use Current Visit: No Status: Chronic Assessment & Plan: - Advised cessation - Nicotine patch- refused Code(s): Z72.0 - TOBACCO USE (11) Leukocytosis Current Visit: No Status: Resolved Assessment & Plan: - WBC 11.8 reviewed on admission- trend - IVF - Reviewed most recent radiology results - 2:2 Vomiting and cholecystitis Code(s): D72.829 - ELEVATED WHITE BLOOD CELL COUNT, UNSPECIFIED (12) HTN (hypertension) Current Visit: Yes Status: Acute Qualifiers: Assessment & Plan: - Resume home BP meds VTE: SCD'S PPi: omeprazole Next of KIN: Spouse D/C plan: 1-2 days Code status: Full Code(s): I10 - ESSENTIAL (PRIMARY) HYPERTENSION (13) Hypokalemia due to excessive gastrointestinal loss of potassium Current Visit: Yes Status: Acute Assessment & Plan: -Potassium reviewed at 3.1-replenished per potassium protocol- repeat potassium wnl -Continue to monitor renal/lytes -Tele Code(s): E87.6 - HYPOKALEMIA
[2024-12-02 06:00] LABS: Absolute Neutrophil Ct (ANC) 6.34 x10^3/uL (1.78-5.38); BASOPHIL % 0.3 % (0.2-1.2); Basophil (Absolute #) 0.03 x10^3/uL (0.01-0.08); Eosinophil % 0.8 % (0.8-7.0); Eosinophil (Absolute #) 0.09 x10^3/uL (0.04-0.54); Hematocrit 43.2 % (40.1-51.0); Hemoglobin 14.9 g/dL (13.7-17.5); IMMATURE GRAN # 0.04 x10^3u/L (0.001-0.031); IMMATURE GRAN % 0.4 % (0.001-0.429); Lymphocytes % 35.3 % (21.8-53.1); Mean Cell Volume 83.9 fL (79.0-92.2); Mean Corpuscular Hemoglobin 28.9 pg (25.7-32.2); Mean Corpuscular Hgb Concent. 34.5 g/dL (32.3-36.5); Mean Platelet Volume 10.5 fL (9.4-12.4); Monocyte (Absolute #) 0.82 x10^3/uL (0.30-0.82); Monocytes % 7.2 % (5.3-12.2); Platelet Count 240 x10^3/uL (163-337); Red Blood Count 5.15 x10^6/uL (4.63-6.08); Red Cell Distribution Width 12.3 % (11.6-14.4); White Blood Count 11.3 x10^3/uL (4.23-9.07)
[2024-12-02] MEDS ORDERED: MEDICATION INTERVENTION MC SCH ×2 (07:00→07:15)
[2024-12-02 07:12] LABS: ALBUMIN 3.6 g/dL (3.5-5.0); BILIRUBIN,TOTAL 0.7 mg/dL (0.2-1.3); Calcium 8.8 mg/dL (8.4-10.2); Creatinine 1 0.46 mg/dL (0.66-1.25); EST GLOMERULAR FILTRATION RATE 130.6 ML/MIN; Potassium 3.1 mmol/L (3.5-5.1); Total Protein 5.8 g/dL (6.3-8.2)
[2024-12-02] MEDS: POTASSIUM CHLORIDE 20 mEq IN WATER 100ML 100 ML IV SCH (09:44)
[2024-12-02] MEDS: Protonix 40MG Tablet PO SCH (09:45)
[2024-12-02] MEDS ORDERED: NON-FORMULARY ITEM (Omeprazole [Omeprazole] 40 MG Capsule.Dr) PO SCH (10:00)
[2024-12-02] MEDS: TORAdol 30 mg Injection IV PRN (10:10)
--- NOTE | 2024-12-02 16:16 | XRAY ---
Indication: Abdomen pain. Gallbladder sludge on sonogram September 30, 2024. Comparison: April 09, 2020. Patient received 5.2 mCi technetium 99 Choletec. Immediate anterior planar imaging was performed for 60 minutes. Normal hepatic activity on first image. Normal biliary, gallbladder, and biliary to bowel activity within 20 minutes. Patient then received 1.9 µg of CCK slowly. Ejection fraction calculated 73%, normal. Impression: Again normal HIDA scan with normal ejection fraction.
[2024-12-02] MEDS ORDERED: propofoL IV ONE (16:55)
[2024-12-02] MEDS ORDERED: Xylocaine-Mpf 2% 5 Ml Vial ONE (16:55)
[2024-12-02] MEDS: COGENTIN 0.5 MG PO SCH (21:17)
[2024-12-03 04:33] LABS: Absolute Neutrophil Ct (ANC) 5.46 x10^3/uL (1.78-5.38); BASOPHIL % 0.2 % (0.2-1.2); Basophil (Absolute #) 0.02 x10^3/uL (0.01-0.08); Eosinophil % 0.6 % (0.8-7.0); Eosinophil (Absolute #) 0.06 x10^3/uL (0.04-0.54); Hematocrit 43.7 % (40.1-51.0); Hemoglobin 15.2 g/dL (13.7-17.5); IMMATURE GRAN # 0.06 x10^3u/L (0.001-0.031); IMMATURE GRAN % 0.6 % (0.001-0.429); Lymphocyte (Absolute #) 2.99 x10^3/uL (1.32-3.57); Lymphocytes % 32.2 % (21.8-53.1); Mean Cell Volume 83.9 fL (79.0-92.2); Mean Corpuscular Hemoglobin 29.2 pg (25.7-32.2); Mean Corpuscular Hgb Concent. 34.8 g/dL (32.3-36.5); Mean Platelet Volume 10.4 fL (9.4-12.4); Monocytes % 7.5 % (5.3-12.2); Neutrophil % 58.9 % (34.0-67.9); Platelet Count 243 x10^3/uL (163-337); Red Blood Count 5.21 x10^6/uL (4.63-6.08); Red Cell Distribution Width 12.4 % (11.6-14.4); White Blood Count 9.3 x10^3/uL (4.23-9.07)
[2024-12-03 04:49] LABS: ALBUMIN 3.8 g/dL (3.5-5.0); ANION GAP 13.1 MEQ/L (5-15); BILIRUBIN,TOTAL 1.1 mg/dL (0.2-1.3); Calcium 8.9 mg/dL (8.4-10.2); Creatinine 1 0.54 mg/dL (0.66-1.25); EST GLOMERULAR FILTRATION RATE 124.5 ML/MIN; Potassium 3.3 mmol/L (3.5-5.1); Total Protein 5.9 g/dL (6.3-8.2)
[2024-12-03] MEDS ORDERED: HUMALOG SQ SCH (06:45)
[2024-12-03] MEDS ORDERED: NON-FORMULARY ITEM (Insulin Lispro 1 UNIT Ml) SQ SCH (06:45)
[2024-12-03 07:25] VITALS: RESP 20
[2024-12-03] MEDS: TYLENOL 325 MG PO PRN (07:30)
[2024-12-03] MEDS: HUMALOG SQ SCH (07:37)
[2024-12-03] MEDS: Klor Con PO ONE ×2 (07:52→10:23)
--- NOTE | 2024-12-03 08:35 | PCM.DS ---
Discharge Summary Date of Admission: 12/01/24 17:14 Date of Discharge: 12/03/24 Admitting Physician: YANIQUE STACY MD Consults: Consults on Case 12/01/24 17:15 Consult Surgery ROUTINE 12/01/24 18:23 Notify Physician ROUTINE Primary Care Provider: BOBBY NEWTON Allergies Allergies codeine Allergy (Severe, Verified 12/01/24 17:16) Nausea and Vomiting "severe vomiting for hours" pseudoephedrine [From Actifed] Allergy (Severe, Verified 12/01/24 17:16) Fainting " almost . went out cold and really hard to wake me up" triprolidine [From Actifed] Allergy (Severe, Verified 12/01/24 17:16) Fainting "about " diphenhydramine [From Benadryl] Adverse Reaction (Severe, Verified 12/01/24 17:16) Fainting "knocked me out and couldn't get me awake hardly" Hospital Summary - Hospital Course Hospital Course: Mr. Harper is a 44-year-old male with a history of poorly controlled type 2 diabetes mellitus (A1C 12.58%), hypertension, coronary artery disease, hyperlipidemia, depression, and daily tobacco use who was admitted on 12/01/24 with four days of recurrent epigastric and right upper quadrant abdominal pain associated with vomiting. On presentation, he was found to be in diabetic ketoacidosis with significant hyperglycemia (glucose 415), ketonuria, and glucosuria. DKA was attributed to medication nonadherence, including inconsistent use of his insulin pump, and resolved with IV fluids and insulin therapy. Workup for abdominal pain included RUQ ultrasound, CT abdomen/pelvis, and HIDA scan, which showed gallbladder sludge but no evidence of cholelithiasis or cholecystitis. A subsequent EGD revealed mild gastritis and distal esophagitis; biopsies were obtained and are pending. During the admission, the patient also experienced chest pressure; however, evaluation with EKG, troponins, and CXR was negative for acute coronary syndrome, and symptoms resolved. Laboratory abnormalities included mild hyponatremia and hypokalemia, both likely secondary to vomiting/hyperglycemia and resolved with supportive care. Dehydration also resolved with IVF. His hypertension stabilized and home antihypertensives were resumed. The patient declined nicotine replacement therapy but was advised on smoking cessation. He has been counseled extensively on diabetes management and expressed readiness to resume his insulin pump at home. Discharge medications include protonix and carafate, and follow-up is arranged with endocrinology (Dr. Duarte), gastroenterology, and surgery. Patient has been advised by surgery to hold aspirin and NSAIDs Discharge Note New Medications: Protonix/carafate Follow Up: Endocrinology/Surgery/ GI Results pending: Biopsy I spent 35 minutes [id number] with the patient on the day of discharge performing discharge exam, discussing hospital stay and discharge instructions with patient and caregivers, preparation of discharge records, prescriptions & referral forms and addressing any questions/concerns the patient had as documented above. - Vitals & Intake/Output Vital Signs: Vital Signs Temperature 97.9 F 12/03/24 07:25 Pulse Rate 71 12/03/24 07:25 Respiratory Rate 20 12/03/24 07:25 Blood Pressure 142/86 12/03/24 07:25 O2 Sat by Pulse Oximetry 99 12/03/24 07:25 Intake & Output: Intake & Output 11/30/24 12/01/24 12/02/24 12/03/24 11:59 11:59 11:59 11:59 Intake Total 1456 1454 Output Total 1100 800 Balance 356 654 Weight 96.7 kg 96.7 kg - Lab Result Diagrams: 12/03/24 04:29 12/03/24 09:32 Lab Results-Last 24 Hrs: Lab Results-Last 24 Hours 12/02/24 12/02/24 12/02/24 Range/Units 05:55 11:11 13:28 WBC (4.23-9.07) x10^3/uL RBC (4.63-6.08) x10^6/uL Hgb (13.7-17.5) g/dL Hct (40.1-51.0) % MCV (79.0-92.2) fL MCH (25.7-32.2) pg MCHC (32.3-36.5) g/dL RDW (11.6-14.4) % Plt Count (163-337) x10^3/uL MPV (9.4-12.4) fL Gran % (34.0-67.9) % Immature Gran % (Auto) (0.001-0.429) % Nucleat RBC Rel Count (0.00-0.2) % Eos # (Auto) (0.04-0.54) x10^3/uL Immature Gran # (Auto) (0.001-0.031) x10^3u/L Absolute Lymphs (auto) (1.32-3.57) x10^3/uL Absolute Monos (auto) (0.30-0.82) x10^3/uL Absolute Nucleated RBC (0.00-0.012) x10^3u/L Lymphocytes % (21.8-53.1) % Monocytes % (5.3-12.2) % Eosinophils % (0.8-7.0) % Basophils % (0.2-1.2) % Absolute Granulocytes (1.78-5.38) x10^3/uL Basophils # (0.01-0.08) x10^3/uL Sodium (135-145) mmol/L Potassium 4.0 D (3.5-5.1) mmol/L Chloride (98-107) mmol/L Carbon Dioxide (22-30) mmol/L Anion Gap (5-15) MEQ/L BUN (9-20) mg/dL Creatinine (0.66-1.25) mg/dL Estimated GFR ML/MIN Glucose (74-106) mg/dL POC Glucometer 222 H (74 to 106) mg/dL Calcium (8.4-10.2) mg/dL Magnesium 1.9 (1.6-2.3) mg/dL Total Bilirubin (0.2-1.3) mg/dL AST (17-59) U/L ALT (0-50) U/L Alkaline Phosphatase (38-126) U/L Serum Total Protein (6.3-8.2) g/dL Albumin (3.5-5.0) g/dL 12/02/24 12/03/24 12/03/24 Range/Units 21:16 04:29 04:29 WBC 9.3 H (4.23-9.07) x10^3/uL RBC 5.21 (4.63-6.08) x10^6/uL Hgb 15.2 (13.7-17.5) g/dL Hct 43.7 (40.1-51.0) % MCV 83.9 (79.0-92.2) fL MCH 29.2 (25.7-32.2) pg MCHC 34.8 (32.3-36.5) g/dL RDW 12.4 (11.6-14.4) % Plt Count 243 (163-337) x10^3/uL MPV 10.4 (9.4-12.4) fL Gran % 58.9 (34.0-67.9) % Immature Gran % (Auto) 0.6 H (0.001-0.429) % Nucleat RBC Rel Count 0.0 (0.00-0.2) % Eos # (Auto) 0.06 (0.04-0.54) x10^3/uL Immature Gran # (Auto) 0.06 H (0.001-0.031) x10^3u/L Absolute Lymphs (auto) 2.99 (1.32-3.57) x10^3/uL Absolute Monos (auto) 0.70 (0.30-0.82) x10^3/uL Absolute Nucleated RBC 0.00 (0.00-0.012) x10^3u/L Lymphocytes % 32.2 (21.8-53.1) % Monocytes % 7.5 (5.3-12.2) % Eosinophils % 0.6 L (0.8-7.0) % Basophils % 0.2 (0.2-1.2) % Absolute Granulocytes 5.46 H (1.78-5.38) x10^3/uL Basophils # 0.02 (0.01-0.08) x10^3/uL Sodium 135 (135-145) mmol/L Potassium 3.3 L (3.5-5.1) mmol/L Chloride 101 (98-107) mmol/L Carbon Dioxide 25 (22-30) mmol/L Anion Gap 13.1 (5-15) MEQ/L BUN 7 L (9-20) mg/dL Creatinine 0.54 L (0.66-1.25) mg/dL Estimated GFR 124.5 ML/MIN Glucose 186 H (74-106) mg/dL POC Glucometer 230 H (74 to 106) mg/dL Calcium 8.9 (8.4-10.2) mg/dL Magnesium (1.6-2.3) mg/dL Total Bilirubin 1.10 (0.2-1.3) mg/dL AST 18 (17-59) U/L ALT 16 (0-50) U/L Alkaline Phosphatase 87 (38-126) U/L Serum Total Protein 5.9 L (6.3-8.2) g/dL Albumin 3.8 (3.5-5.0) g/dL 12/03/24 Range/Units 07:12 WBC (4.23-9.07) x10^3/uL RBC (4.63-6.08) x10^6/uL Hgb (13.7-17.5) g/dL Hct (40.1-51.0) % MCV (79.0-92.2) fL MCH (25.7-32.2) pg MCHC (32.3-36.5) g/dL RDW (11.6-14.4) % Plt Count (163-337) x10^3/uL MPV (9.4-12.4) fL Gran % (34.0-67.9) % Immature Gran % (Auto) (0.001-0.429) % Nucleat RBC Rel Count (0.00-0.2) % Eos # (Auto) (0.04-0.54) x10^3/uL Immature Gran # (Auto) (0.001-0.031) x10^3u/L Absolute Lymphs (auto) (1.32-3.57) x10^3/uL Absolute Monos (auto) (0.30-0.82) x10^3/uL Absolute Nucleated RBC (0.00-0.012) x10^3u/L Lymphocytes % (21.8-53.1) % Monocytes % (5.3-12.2) % Eosinophils % (0.8-7.0) % Basophils % (0.2-1.2) % Absolute Granulocytes (1.78-5.38) x10^3/uL Basophils # (0.01-0.08) x10^3/uL Sodium (135-145) mmol/L Potassium (3.5-5.1) mmol/L Chloride (98-107) mmol/L Carbon Dioxide (22-30) mmol/L Anion Gap (5-15) MEQ/L BUN (9-20) mg/dL Creatinine (0.66-1.25) mg/dL Estimated GFR ML/MIN Glucose (74-106) mg/dL POC Glucometer 195 H (74 to 106) mg/dL Calcium (8.4-10.2) mg/dL Magnesium (1.6-2.3) mg/dL Total Bilirubin (0.2-1.3) mg/dL AST (17-59) U/L ALT (0-50) U/L Alkaline Phosphatase (38-126) U/L Serum Total Protein (6.3-8.2) g/dL Albumin (3.5-5.0) g/dL Micro Results-Entire Visit: Accuchecks Date 12/03/24 Date 12/02/24 Date 12/02/24 Time 22:00 - Radiology Exams Ordered Rad Exams-Entire Visit: Radiology Procedures Category Date Time Status ABDOMEN AND PELVIS W CONTRAST [CT] Stat Exams 12/01/24 18:34 Completed CHEST 1 VIEW (PORTABLE) Routine Exams 12/01/24 18:34 Completed HEPATOBILIARY W/CCK [NUCMED] Urgent Exams 12/02/24 13:30 Completed - Procedures and Test Procedures and Tests throughout Hospitalization: Therapy Orders & Screens 12/01/24 17:44 Smoking Cessation Education ONCE Comment: Diagnosis: DKA Smoking Status: Current every day smoker How long have you smoked: years Have you smoked in the past 12 months: Yes Approximately how many cigarettes per day: 7 Do you dip or chew tobacco: No Discharge Exam General Appearance: no apparent distress Neurologic Exam: alert, oriented x 3, cooperative Eye Exam: PERRL Ears, Nose, Throat Exam: normal ENT inspection Neck Exam: normal inspection Respiratory Exam: normal breath sounds, lungs clear Cardiovascular Exam: regular rate/rhythm, normal heart sounds Gastrointestinal/Abdomen Exam: soft, normal bowel sounds, tenderness Male Genitalia Exam: deferred Rectal Exam: deferred Back Exam: normal inspection Extremity Exam: normal inspection Skin Exam: normal color Final Diagnosis/Problem List - Final Discharge Diagnosis/Problem (1) Chronic abdominal pain Current Visit: No Status: Chronic Code(s): R10.9 - UNSPECIFIED ABDOMINAL PAIN; G89.29 - OTHER CHRONIC PAIN (2) Chest pressure Current Visit: Yes Status: Resolved Code(s): R07.89 - OTHER CHEST PAIN (3) Hyponatremia Current Visit: Yes Status: Resolved Code(s): E87.1 - HYPO-OSMOLALITY AND HYPONATREMIA (4) Vomiting Current Visit: Yes Status: Resolved Code(s): R11.10 - VOMITING, UNSPECIFIED (5) DKA (diabetic ketoacidoses) Current Visit: Yes Status: Resolved Code(s): E11.10 - TYPE 2 DIABETES MELLITUS WITH KETOACIDOSIS WITHOUT COMA (6) Dehydration Current Visit: Yes Status: Resolved Code(s): E86.0 - DEHYDRATION (7) Type 2 diabetes mellitus with hyperglycemia Current Visit: No Status: Acute Code(s): E11.65 - TYPE 2 DIABETES MELLITUS WITH HYPERGLYCEMIA (8) CAD (coronary artery disease) Current Visit: No Status: Chronic Code(s): I25.10 - ATHSCL HEART DISEASE OF [place] CORONARY ARTERY W/O ANG PCTRS (9) HLD (hyperlipidemia) Current Visit: No Status: Chronic Code(s): E78.5 - HYPERLIPIDEMIA, UNSPECIFIED (10) Tobacco use Current Visit: No Status: Chronic Code(s): Z72.0 - TOBACCO USE (11) Leukocytosis Current Visit: No Status: Resolved Code(s): D72.829 - ELEVATED WHITE BLOOD CELL COUNT, UNSPECIFIED (12) HTN (hypertension) Current Visit: Yes Status: Chronic Code(s): I10 - ESSENTIAL (PRIMARY) HYPERTENSION (13) Hypokalemia due to excessive gastrointestinal loss of potassium Current Visit: Yes Status: Resolved Code(s): E87.6 - HYPOKALEMIA - Discharge Discharge Date: 12/03/24 Disposition: Home, Self-Care Condition: Stable Prescriptions: New Sucralfate 1 gm [Carafate 1 GM] 1 g PO ACHS 30 Days #120 tablet Ondansetron ODT 4 MG [Zofran Odt 4 mg] 4 mg PO Q6H PRN PRN #10 tablet PRN Reason: Nausea Continue Lisinopril 10 mg [Zestril 10 MG] 10 mg PO DAILY Ergocalciferol (Vitamin D2) [Vitamin D] 50,000 unit PO WEEKLY Gabapentin [Neurontin] 600 mg PO TID Lurasidone HCl [Latuda] 80 mg PO HS Fenofibrate Nanocrystallized [Fenofibrate] 48 mg PO DAILY Benztropine Mesylate 1 mg PO HS Prazosin HCl 1 mg PO TID Buspirone HCl 5 mg [Buspar 5 mg] 15 mg PO BID Rosuvastatin Calcium 20 mg PO DAILY carvediloL [Carvedilol] 25 mg PO BID 30 Days #60 tablet Insulin Lispro [Humalog] 8 unit SQ UD #0 Insulin Glargine [Lantus Insulin] 20 unit SQ DAILY 30 Days unit Omeprazole 40 mg PO DAILY 30 Days #30 cap Discontinued Aspirin EC 81 mg [Ecotrin 81 mg] 81 mg PO DAILY Additional Instructions: THE NEXT DIABETIC EDUCATION CLASS AT [facility] IS TUESDAY 12/05 FROM 1-3 PM, CALL [phone] TO REGISTER IF YOU WISH TO ATTEND OR ARE INTERESTED IN OTHER DATES Hold Aspirin and Ibuprofen until you follow up with GI/surgery Follow up with: BOBBY NEWTON [Primary Care Provider] - 12/09/24 1:00 pm () CHASE DIAZ FNP [NON-STAFF PHY W/O PRIVILEGES] - 04/28/25 8:30 am SAI CRUZ [NON-STAFF PHY W/O PRIVILEGES] - 12/20/24 8:15 am
[2024-12-03] MEDS: Lantus Insulin SQ SCH (09:20)
[2024-12-03] MEDS: ZOCOR 20MG PO SCH (09:25)
[2024-12-03] MEDS: Tricor 145 MG PO SCH (09:37)
[2024-12-03] MEDS ORDERED: NON-FORMULARY ITEM (Fenofibrate Nanocrystallized [Fenofibrate] 48 MG Tablet) PO SCH (10:00)
[2024-12-03] MEDS ORDERED: NON-FORMULARY ITEM (Rosuvastatin Calcium [Rosuvastatin Calcium] 20 MG Tablet) PO SCH (10:00)
[2024-12-03 11:13] VITALS: BP 159/100; PULSE 67; TEMP 97.5; O2SAT 97
[2024-12-03] MEDS: NORCO 5/325 MG PO PRN (11:21)
--- NOTE | 2024-12-03 11:22 | CONS ---
HISTORY OF PRESENT ILLNESS: The patient is seen for Dr. Víctor Solano who was consulted yesterday. He is a 44-year-old who had some upper abdominal pain, nausea and vomiting. It has been going on for some while He has not had a recent EGD. He did have a past history of an ultrasound that did not show any gallstones. He may have a tiny bit of sludge. Otherwise, he came in and they ordered a CAT scan that reportedly did not show too much yesterday. PAST MEDICAL HISTORY: He has diabetes. He apparently had a hemoglobin A1c of 12-something. He has had blood sugars in the 400 range. Coronary artery disease, cancer, stroke, hyperlipidemia, hypertension, type 2 diabetes. He has had some pancreatitis in the past. Had some ulcers in the past. Some depression in the past. HOME MEDICATIONS: Lisinopril, ergocalciferol, gabapentin, aspirin, benztropine, buspirone, fenofibrate, trazodone, omeprazole, prazosin, rosuvastatin, glargine, lispro. ALLERGIES: Codeine, Actifed, diphenhydramine. PAST SURGICAL HISTORY: He had a hemorrhoid procedure and has had a scope years ago. He has not had a recent upper endoscope. He denied prior upper abdominal surgery. He had a heart cath in the past. He denied upper abdominal surgery. SOCIAL HISTORY: History of smoking, every day smoker. No alcohol abuse. FAMILY HISTORY: Negative with regard to this specific problem. REVIEW OF SYSTEMS: Twelve systems reviewed. Negative or noncontributory as above and per my assessment review of history and physical. PHYSICAL EXAMINATION: GENERAL: No acute distress. VITAL SIGNS: He is afebrile, blood pressure 142/92, pulse is in the 70s to 80s. HEENT: Sclerae nonicteric. NECK: No JVD. CARDIOVASCULAR: Regular rate and rhythm and pulse. RESPIRATORY: Equal excursion, nonlabored breathing. ABDOMEN: Soft. Some mild tenderness in epigastrium. No peritoneal signs. EXTREMITIES: No cyanosis. NEUROLOGIC: Alert. PSYCHIATRIC: Appropriate mood and affect. LABORATORY DATA AND TESTS: Again, they consulted Dr. Víctor Solano yesterday. CT scan reportedly did not show too much. He has not had a HIDA scan. He does have a HIDA scan pending here in a few minutes. ASSESSMENT: Some upper abdominal aches and pains and nausea and vomiting. Could be anything from biliary colic. He does not have any stones on a recent ultrasound. CT scan was fairly unremarkable. He does have a HIDA scan pending. Other differential could include gastroparesis, chronic pancreas problems, gastritis, peptic ulcer disease, or other etiology. I feel he would benefit from a HIDA. If abnormal, suggest a cholecystectomy. Risks of laparoscopic cholecystectomy, possible open, including but not limited to bleeding, infection, risk of trocar injury, hernia, risk of bowel, bladder, or blood vessel injury, risk of bile leak, bile duct injury, retained stone or sludge possibly requiring further procedure, either open or ERCP, general risk of anesthesia, DVT, PE, WA, perioperative risk of aches, pains, bloating, constipation, and/or loose stools, but not limited to. If the HIDA is negative, suggest considering an EGD to evaluate for gastritis, peptic ulcer disease. He understands the general risks of bleeding, infection, risk of bowel injury or perforation, but not limited to, risks of sedation. He understands and agrees to planned procedure. We will await HIDA at this time.
--- NOTE | 2024-12-03 11:23 | OP ---
SURGERY DATE/TIME: 12/02/2024 [id number] PREOPERATIVE DIAGNOSES: 1) Upper abdominal pain, nausea, vomiting, unclear etiology. History of normal HIDA scan. Ultrasound showing no gallstones. 2) Need for upper endoscopy to evaluate for gastritis, peptic ulcer disease, esophagitis, or other etiology. 3) ASA 3E. POSTOPERATIVE DIAGNOSES: 1) Minimal to mild gastritis without any evidence of any ulceration. 2) Grossly unremarkable duodenum on endoscopic view. 3) Short segment of 3 mm of salmon-pink mucosa extending up the distal esophagus. Evaluate for early esophagitis, short segment, with pathology pending. PROCEDURES: 1) Esophagogastroduodenoscopy with cold biopsy of the small bowel, evaluate for celiac sprue. 2) Cold biopsy of the antrum as well as gastric body to evaluate for inflammation and Helicobacter pylori. 3) Cold biopsy of distal esophagus to evaluate for early distal esophagitis. SURGEON: Jacinto Hahn MD ANESTHESIA: MAC. ESTIMATED BLOOD LOSS: Minimal. INDICATIONS: Consent was obtained. DESCRIPTION OF PROCEDURE AND FINDINGS: Patient was taken to the endoscopy room. MAC anesthesia was induced. After official time-out, no disagreement in planned procedure, bite block positioned. Video gastroscope passed down the esophagus through the patent pylorus through the junction of the third and fourth portions of the duodenum. The duodenum was fairly unremarkable mucosal line. No signs of any ulcers. A cold biopsy was taken to evaluate for celiac disease. Good hemostasis was noted. Scope was pulled back into the stomach. He had some gastric erythema, signs of some minimal to mild gastritis. No evidence of any ulceration. No evidence of any gross masses. Cold biopsy was taken in the antrum as well as the gastric body to evaluate for H pylori. On retroflex, the GE junction was snug against the scope. There were no signs of any hiatal hernia on endoscopic view. The scope was straightened. The GE junction was about 44 cm. There was a small sliver of some salmon-pink mucosa extending up towards the esophagus, about 2.5 to 3 mm at the most short segment. Cold biopsy was taken to evaluate for early esophagitis. Otherwise, no signs of any obvious masses in the remainder of the esophagus. The mucosa looked fairly normal. The scope was withdrawn. Patient tolerated the procedure well. Findings were discussed with the family out in the waiting area. There were no immediate complications. Could continue to monitor on proton pump inhibitor, and I will see him back in the office regarding the biopsy results. Otherwise, if he has persistent problems long-term, he may need referral to GI for other medical workup.
[2024-12-09] MEDS ORDERED: VITAMIN D2 PO SCH (10:00)
== END 2024-12-03 13:26 | disposition home or self-care (01) ==
LOC: ED 12:40 → MED SURG 17:14
PROVIDERS: ADMIT Internal Medicine; ATTEND Internal Medicine
DX: R10.11 Right upper quadrant pain (principal); E11.10 Type 2 diabetes mellitus with ketoacidosis without coma; K29.70 Gastritis, unspecified, without bleeding; R11.2 Nausea with vomiting, unspecified; G89.29 Other chronic pain; E87.6 Hypokalemia; R07.89 Other chest pain; I10 Essential (primary) hypertension; E87.1 Hypo-osmolality and hyponatremia; E86.0 Dehydration; E11.65 Type 2 diabetes mellitus with hyperglycemia; I25.10 Atherosclerotic heart disease of native coronary artery without angina pectoris; E78.5 Hyperlipidemia, unspecified; Z72.0 Tobacco use; Z79.899 Other long term (current) drug therapy; D72.829 Elevated white blood cell count, unspecified
CPT/HCPCS: 00731; 36415; 43239; 71045; 74177; 78227; 80053; 81001; 82150; 82805; 82947; 83605; 83690; 83735; 83930; 84100; 84132; 84443; 84484; 85025; 93005; 93268; 96374; 96375; 96376; 99140; 99285; A9537; G0378; Q3014; 99291; J0360; J1171; J1815; J1817; J1885; J2405; J2704; J2805; J3480; A9270-GY

== ENCOUNTER 2024-12-10 12:45 | Observation (INO) | payer OTHER ==
[2024-12-10 13:13] LABS: BASOPHIL % 0.2 % (0.2-1.2); Basophil (Absolute #) 0.03 x10^3/uL (0.01-0.08); Eosinophil % 0.3 % (0.8-7.0); Eosinophil (Absolute #) 0.04 x10^3/uL (0.04-0.54); Hematocrit 45.5 % (40.1-51.0); Hemoglobin 15.8 g/dL (13.7-17.5); IMMATURE GRAN # 0.05 x10^3u/L (0.001-0.031); IMMATURE GRAN % 0.4 % (0.001-0.429); Lymphocytes % 18.8 % (21.8-53.1); Mean Corpuscular Hemoglobin 28.8 pg (25.7-32.2); Mean Corpuscular Hgb Concent. 34.7 g/dL (32.3-36.5); Mean Platelet Volume 10.5 fL (9.4-12.4); Monocyte (Absolute #) 0.73 x10^3/uL (0.30-0.82); Neutrophil % 74.3 % (34.0-67.9); Platelet Count 293 x10^3/uL (163-337); Red Blood Count 5.48 x10^6/uL (4.63-6.08); Red Cell Distribution Width 12.4 % (11.6-14.4); White Blood Count 12.3 x10^3/uL (4.23-9.07)
--- NOTE | 2024-12-10 13:17 | ERPHSYRPT ---
- History of Present Illness Time Seen by Provider: 12/10/24 13:00 Source: patient Exam Limitations: no limitations Patient Subjective Stated Complaint: C/O abdominal pain, N/V, abnormal stools X 3 days Triage Nursing Assessment: Patient brought back to ER in a W/C. He is alert and oriented; anxious and tearful. Patient is showing s/s of pain; crying and gaurding. Diaphoretic. Blood sugar per ER glucometer is 316 at 12:52. Physician History: 44-year-old male with history of diabetes presents to our emergency department for evaluation of nausea vomiting and abdominal pain. Abdominal pain is generalized. Symptoms have been ongoing for the past 3 days. No trauma no fever. Patient advises a history of gastroparesis and feel he is experiencing another episode. No diarrhea no rash no trauma. Patient otherwise feels well. He voices no other complaints or concerns at this time. Portions of this note were created with voice recognition technology. There may be grammatical, spelling, punctuation or sound alike errors Timing/Duration: day(s) Severity: moderate (3 days) Modifying Factors: Improves With: nothing Associated Symptoms: denies symptoms Allergies/Adverse Reactions: codeine Allergy (Severe, Verified 12/10/24 12:51) Nausea and Vomiting "severe vomiting for hours" pseudoephedrine [From Actifed] Allergy (Severe, Verified 12/10/24 12:51) Fainting " almost . went out cold and really hard to wake me up" triprolidine [From Actifed] Allergy (Severe, Verified 12/10/24 12:51) Fainting "about " diphenhydramine [From Benadryl] Adverse Reaction (Severe, Verified 12/10/24 12:51) Fainting "knocked me out and couldn't get me awake hardly" Home Medications: Lisinopril 10 mg [Zestril 10 MG] 10 mg PO DAILY 01/06/20 [History] Ergocalciferol (Vitamin D2) [Vitamin D] 50,000 unit PO WEEKLY 07/26/20 [History] Gabapentin [Neurontin] 600 mg PO TID 08/29/20 [History] Benztropine Mesylate 1 mg PO HS 09/26/24 [History] Buspirone HCl 5 mg [Buspar 5 mg] 15 mg PO BID 09/26/24 [History] Fenofibrate Nanocrystallized [Fenofibrate] 48 mg PO DAILY 09/26/24 [History] Lurasidone HCl [Latuda] 80 mg PO HS 09/26/24 [History] Prazosin HCl 1 mg PO TID 09/26/24 [History] Rosuvastatin Calcium 20 mg PO DAILY 09/26/24 [History] cephALEXin [Cephalexin] 500 mg PO TID 12/10/24 [History] Hx Tetanus, Diphtheria Vaccination/Date Given: Yes Hx Influenza Vaccination/Date Given: No Hx Pneumococcal Vaccination/Date Given: No Immunizations Up to Date: Yes Travel Risk - International Travel Have you traveled outside of the country in past 3 weeks: No - Emerging Infectious Disease Are you exhibiting symptoms associated with any current EIDs: Yes Symptoms: Abdominal Pain, Diarrhea, Vomitting Comment: states stools are "slimey" - Review of Systems Constitutional: No Symptoms, No Fever, No Chills Eyes: No Symptoms Ears, Nose, & Throat: No Symptoms Respiratory: No Symptoms, No Cough, No Dyspnea Cardiac: No Symptoms, No Chest Pain, No Edema, No Syncope Abdominal/Gastrointestinal: No Symptoms, No Abdominal Pain, No Nausea, No Vomiting, No Diarrhea Genitourinary Symptoms: No Symptoms, No Dysuria Musculoskeletal: No Symptoms, No Back Pain, No Neck Pain Skin: No Symptoms, No Rash Neurological: No Symptoms, No Dizziness, No Focal Weakness, No Sensory Changes Psychological: No Symptoms Endocrine: No Symptoms Hematologic/Lymphatic: No Symptoms Immunological/Allergic: No Symptoms All Other Systems: Reviewed and Negative - Past Medical History Pertinent Past Medical History: Yes Neurological History: No Pertinent History ENT History: No Pertinent History Cardiac History: Coronary Artery Disease, High Cholesterol, Hypertension Respiratory History: No Pertinent History Endocrine Medical History: Diabetes Type II Musculoskeletal History: No Pertinent History GI Medical History: Esophageal Disorder, GERD, Gallbladder Disease, Hemorrhoids, Pancreatitis, Ulcer, Other History: Other Psycho-Social History: Depression Male Reproductive Disorders: No Pertinent History Other Medical History: kidney infection, GASTROPARESIS - Past Surgical History Past Surgical History: Yes Neuro Surgical History: No Pertinent History Cardiac: Cardiac Catheterization Respiratory: No Pertinent History Gastrointestinal: Hemorrhoidectomy, Rectal Surgery Genitourinary: No Pertinent History Musculoskeletal: No Pertinent History Male Surgical History: No Pertinent History Other Surgical History: 2020 Heart Cath (blockage x 2) Significant Family History: heart disease, cancer, diabetes, stroke - Social History Smoking Status: Current every day smoker How long have you smoked: years Exposure to second hand smoke: Yes Drug Use: none - Social Determinants of Health Will the patient participate in the screening: Yes Do you worry about a steady place to live?: No Do you have any problems with any of the following?: No known problems In the past 12 months,have you had to go without utilities?: No Transportation Issues: No Has anyone in your support network made you feel unsafe?: No Have you or anyone in your house had to go w/o enough food: No - Nursing Vital Signs Nursing Vital Signs: Initial Vital Signs Temperature 97.7 F 12/10/24 12:50 Pulse Rate 110 H 12/10/24 12:50 Respiratory Rate 24 12/10/24 12:50 Blood Pressure 154/88 12/10/24 12:50 O2 Sat by Pulse Oximetry 98 12/10/24 12:50 Pain Scale Pain Intensity 6 - Physical Exam General Appearance: no apparent distress, alert Eye Exam: PERRL/EOMI, eyes nml inspection Ears, Nose, Throat Exam: normal ENT inspection, moist mucous membranes Neck Exam: normal inspection, full range of motion Respiratory Exam: normal breath sounds, lungs clear, No respiratory distress Cardiovascular Exam: regular rate/rhythm, normal heart sounds, normal peripheral pulses Gastrointestinal/Abdomen Exam: soft, normal bowel sounds, No tenderness, No mass Back Exam: normal inspection, normal range of motion, No CVA tenderness, No vertebral tenderness Extremity Exam: normal inspection, normal range of motion, pelvis stable Neurologic Exam: alert, oriented x 3, cooperative, normal mood/affect, sensation nml, No motor deficits Skin Exam: normal color, warm, dry, No rash Lymphatic Exam: No adenopathy SpO2 Interpretation: normal SpO2: 98 O2 Delivery: Room Air - Course Nursing assessment & vital signs reviewed: Yes EKG Interpreted by Me: RATE (78), Sinus Rhythm, NORMAL AXIS, NORMAL INTERVALS, NORMAL QRS - CT Exams Abdomen/Pelvis CT Interpretation: Tele-radiologist Report (No acute findings) Ordered Tests: Active Orders 24 hr Category Date Time Status Clear Liquid Diet 12/11/24 Breakfast Active Medication Summary Generic Name Dose Route Start Last Admin Trade Name Freq PRN Reason Stop Dose Admin Benztropine Mesylate 1 mg 12/11/24 22:00 12/11/24 21:27 Benztropine Mesylate 0.5 Mg Tablet PO 01/10/25 21:59 1 mg HS NARESH Administration Buspirone HCl 15 mg 12/11/24 10:00 12/11/24 10:34 Buspirone Hcl 5 Mg Tablet PO 01/10/25 09:59 15 mg BID NARESH Administration Carvedilol 25 mg 12/11/24 10:00 12/11/24 21:25 Carvedilol 12.5 Mg Tablet PO 01/10/25 09:59 25 mg BID NARESH Administration Enoxaparin Sodium 40 mg 12/11/24 10:00 12/11/24 10:34 Enoxaparin Sodium 40 Mg/0.4 Ml Syringe SQ 01/10/25 09:59 40 mg DAILY NARESH Administration Fenofibrate 72.5 mg 12/11/24 10:00 12/11/24 10:34 Fenofibrate,Micronized 145 Mg Tablet PO 01/10/25 09:59 72.5 mg DAILY NARESH Administration Gabapentin 600 mg 12/11/24 10:00 12/11/24 16:49 Gabapentin 300 Mg Capsule PO 01/10/25 09:59 600 mg TID NARESH Administration Hydralazine HCl 10 mg 12/10/24 23:17 Hydralazine Hcl 20 Mg/Ml Vial IV 01/09/25 23:16 Q4H PRN PRN HYPERTENSION Lactated Ringer's 1,000 mls @ 100 mls/hr 12/10/24 23:30 12/11/24 20:06 Lactated Ringers IV 01/09/25 23:29 100 mls/hr .Q10H NARESH Administration Insulin Glargine 20 unit 12/11/24 10:00 12/11/24 09:25 Insulin Glargine 1 Unit SQ 01/10/25 09:59 20 unit DAILY NARESH Administration Insulin Human Lispro 0 unit 12/10/24 23:19 12/11/24 23:57 Insulin Lispro 1 Unit SQ 01/09/25 23:18 5 unit UD PRN Administration HYPERGLYCEMIA Lisinopril 10 mg 12/11/24 10:00 12/11/24 10:34 Lisinopril 10 Mg Tablet PO 01/10/25 09:59 10 mg DAILY NARESH Administration Metoclopramide HCl 10 mg 12/11/24 07:30 12/11/24 21:28 Metoclopramide Hcl 10 Mg/2 Ml Vial IV 01/10/25 07:29 10 mg ACHS NARESH Administration Miscellaneous Information 1 each 12/11/24 07:15 Medication Intervention 1 Each Each 01/10/25 07:14 .RN TO CHECK NARESH Morphine Sulfate 2 mg 12/10/24 23:18 12/12/24 05:05 Morphine Sulfate 2 Mg/Ml Inj IV 12/14/24 23:17 2 mg Q4H PRN PRN Administration SEVERE PAIN Ondansetron HCl 4 mg 12/10/24 23:18 12/12/24 05:05 Ondansetron Hcl 4 Mg/2 Ml Vial IV 01/09/25 23:17 4 mg Q6H PRN PRN Administration NAUSEA/VOMITING Pantoprazole Sodium 40 mg 12/11/24 22:00 12/11/24 21:28 Pantoprazole 40 Mg Vial IV 01/09/25 23:29 40 mg QPM NARESH Administration Polyethylene Glycol 17 gm 12/11/24 09:02 12/11/24 09:25 Polyethylene Glycol 3350 17 Gm Packet PO 01/10/25 09:01 17 gm QDP PRN Administration CONSTIPATION Simvastatin 40 mg 12/11/24 10:00 12/11/24 10:34 Simvastatin 20 Mg Tablet PO 01/10/25 09:59 40 mg DAILY NARESH Administration Sucralfate 1 g 12/11/24 07:30 12/11/24 16:49 Sucralfate 1 G Tablet PO 01/10/25 07:29 1 g ACHS NARESH Administration Discontinued Medications Generic Name Dose Route Start Last Admin Trade Name Freq PRN Reason Stop Dose Admin Bisacodyl 10 mg 12/11/24 07:31 12/11/24 09:07 Bisacodyl 10 Mg Supp.Rect LA 12/11/24 07:32 Not Given STAT ONE Carvedilol Confirm 12/11/24 00:30 Carvedilol 12.5 Mg Tablet Administered 12/11/24 00:31 Dose 25 mg .ROUTE .STK-MED ONE Hydromorphone HCl 0.5 mg 12/10/24 13:21 12/10/24 13:28 Hydromorphone 1 Mg/1ml Inj IV 12/10/24 13:22 0.5 mg STAT ONE Administration Hydromorphone HCl Confirm 12/10/24 13:24 Hydromorphone 1 Mg/1ml Inj Administered 12/10/24 13:25 Dose 1 mg .ROUTE .STK-MED ONE Hydromorphone HCl 0.5 mg 12/10/24 16:38 12/10/24 16:42 Hydromorphone 1 Mg/1ml Inj IV 12/10/24 16:39 0.5 mg STAT ONE Administration Hydromorphone HCl Confirm 12/10/24 16:40 Hydromorphone 1 Mg/1ml Inj Administered 12/10/24 16:41 Dose 1 mg .ROUTE .STK-MED ONE Hydromorphone HCl 0.5 mg 12/10/24 20:19 12/10/24 20:27 Hydromorphone 1 Mg/1ml Inj IV 12/10/24 20:20 0.5 mg STAT ONE Administration Hydromorphone HCl Confirm 12/10/24 20:25 Hydromorphone 1 Mg/1ml Inj Administered 12/10/24 20:26 Dose 1 mg .ROUTE .STK-MED ONE Sodium Chloride 1,000 mls @ 999 mls/hr 12/10/24 12:52 12/10/24 14:28 Sodium Chloride 0.9% 1000 Ml IV 12/10/24 13:52 Infused .Q1H1M STA Infusion Sodium Chloride Confirm 12/10/24 13:24 Sodium Chloride 0.9% 1000 Ml Administered 12/10/24 13:25 Dose 1,000 mls @ ud .ROUTE .STK-MED ONE Lactated Ringer's 1,000 mls @ 999 mls/hr 12/10/24 16:44 12/10/24 18:37 Lactated Ringers IV 12/10/24 17:44 Infused .Q1H1M ONE Infusion Lactated Ringer's Confirm 12/10/24 17:30 Lactated Ringers Administered 12/10/24 17:31 Dose 1,000 mls @ ud IV .STK-MED ONE Insulin Human Regular 4 unit 12/10/24 16:45 12/10/24 17:31 Insulin Regular, Human 1 Unit IV 12/10/24 16:46 4 unit STAT ONE Administration Insulin Human Regular Confirm 12/10/24 17:29 Insulin Regular, Human 1 Unit Administered 12/10/24 17:30 Dose 4 unit .ROUTE .STK-MED ONE Insulin Human Regular Confirm 12/11/24 06:44 Insulin Regular, Human 1 Unit Administered 12/11/24 06:45 Dose 8 unit .ROUTE .STK-MED ONE Non-Formulary Medication 25 mg 12/11/24 10:00 12/11/24 11:15 Carvedilol [Carvedilol] PO 01/10/25 09:59 Not Given BID [facility] Ondansetron HCl 4 mg 12/10/24 16:38 12/10/24 16:42 Ondansetron Hcl 4 Mg/2 Ml Vial IV 12/10/24 16:39 4 mg STAT ONE Administration Ondansetron HCl Confirm 12/10/24 16:40 Ondansetron Hcl 4 Mg/2 Ml Vial Administered 12/10/24 16:41 Dose 4 mg .ROUTE .STK-MED ONE Ondansetron HCl 4 mg 12/10/24 20:19 12/10/24 20:27 Ondansetron Hcl 4 Mg/2 Ml Vial IV 12/10/24 20:20 4 mg STAT ONE Administration Ondansetron HCl Confirm 12/10/24 20:25 Ondansetron Hcl 4 Mg/2 Ml Vial Administered 12/10/24 20:26 Dose 4 mg .ROUTE .STK-MED ONE Pantoprazole Sodium 40 mg 12/10/24 23:30 12/11/24 00:39 Pantoprazole 40 Mg Vial IV 01/09/25 23:29 40 mg Q24H NARESH Administration Lab/Rad Data: Laboratory Result Diagrams 12/10/24 13:00 12/10/24 17:30 Laboratory Results 12/10/24 12/10/24 12/10/24 Range/Units 20:37 17:30 17:20 WBC (4.23-9.07) x10^3/uL RBC (4.63-6.08) x10^6/uL Hgb (13.7-17.5) g/dL Hct (40.1-51.0) % MCV (79.0-92.2) fL MCH (25.7-32.2) pg MCHC (32.3-36.5) g/dL RDW (11.6-14.4) % Plt Count (163-337) x10^3/uL MPV (9.4-12.4) fL Gran % (34.0-67.9) % Immature Gran % (Auto) (0.001-0.429) % Nucleat RBC Rel Count (0.00-0.2) % Eos # (Auto) (0.04-0.54) x10^3/uL Immature Gran # (Auto) (0.001-0.031) x10^3u/L Absolute Lymphs (auto) (1.32-3.57) x10^3/uL Absolute Monos (auto) (0.30-0.82) x10^3/uL Absolute Nucleated RBC (0.00-0.012) x10^3u/L Lymphocytes % (21.8-53.1) % Monocytes % (5.3-12.2) % Eosinophils % (0.8-7.0) % Basophils % (0.2-1.2) % Absolute Granulocytes (1.78-5.38) x10^3/uL Basophils # (0.01-0.08) x10^3/uL Sodium 135 (135-145) mmol/L Potassium 4.2 (3.5-5.1) mmol/L Chloride 100 (98-107) mmol/L Carbon Dioxide 25 (22-30) mmol/L Anion Gap 13.6 (5-15) MEQ/L BUN 8 L (9-20) mg/dL Creatinine 0.46 L (0.66-1.25) mg/dL Estimated GFR 130.6 ML/MIN Glucose 250 H (74-106) mg/dL POC Glucometer (74 to 106) mg/dL Calcium 9.1 (8.4-10.2) mg/dL Total Bilirubin 0.60 (0.2-1.3) mg/dL AST 18 (17-59) U/L ALT 16 (0-50) U/L Alkaline Phosphatase 105 (38-126) U/L Troponin I < 0.012 (0.000-0.033) ng/mL Serum Total Protein 6.1 L (6.3-8.2) g/dL Albumin 3.9 (3.5-5.0) g/dL Lipase (23-300) U/L Urine Color Yellow (Yellow) Urine Appearance Clear (Clear) Urine pH 6.5 (4.6-8.0) Ur Specific [place] >=1.030 A (1.005-1.030) Urine Protein Trace A (Negative) Urine Glucose (UA) >=1000 A (Negative) mg/dL Urine Ketones 40 A (Negative) Urine Blood Negative (Negative) Urine Nitrite Negative (Negative) Urine Bilirubin Negative (Negative) Urine Urobilinogen 1.0 A (0.2) mg/dL Ur Leukocyte Esterase Negative (Negative) U Hyaline Cast (Auto) NONE SEEN (0-2) /LPF Urine Microscopic RBC 0-2 (0-5) /HPF Urine Microscopic WBC 0-2 (0-5) /HPF Ur Epithelial Cells None Seen (None Seen) /HPF Urine Bacteria None Seen (None Seen) /HPF Urine Culture Reflexed NO (NO) 12/10/24 12/10/24 12/10/24 Range/Units 13:00 13:00 13:00 WBC 12.3 H (4.23-9.07) x10^3/uL RBC 5.48 (4.63-6.08) x10^6/uL Hgb 15.8 (13.7-17.5) g/dL Hct 45.5 (40.1-51.0) % MCV 83.0 (79.0-92.2) fL MCH 28.8 (25.7-32.2) pg MCHC 34.7 (32.3-36.5) g/dL RDW 12.4 (11.6-14.4) % Plt Count 293 (163-337) x10^3/uL MPV 10.5 (9.4-12.4) fL Gran % 74.3 H (34.0-67.9) % Immature Gran % (Auto) 0.4 (0.001-0.429) % Nucleat RBC Rel Count 0.0 (0.00-0.2) % Eos # (Auto) 0.04 (0.04-0.54) x10^3/uL Immature Gran # (Auto) 0.05 H (0.001-0.031) x10^3u/L Absolute Lymphs (auto) 2.30 (1.32-3.57) x10^3/uL Absolute Monos (auto) 0.73 (0.30-0.82) x10^3/uL Absolute Nucleated RBC 0.00 (0.00-0.012) x10^3u/L Lymphocytes % 18.8 L (21.8-53.1) % Monocytes % 6.0 (5.3-12.2) % Eosinophils % 0.3 L (0.8-7.0) % Basophils % 0.2 (0.2-1.2) % Absolute Granulocytes 9.10 H (1.78-5.38) x10^3/uL Basophils # 0.03 (0.01-0.08) x10^3/uL Sodium 136 (135-145) mmol/L Potassium 4.4 (3.5-5.1) mmol/L Chloride 98 (98-107) mmol/L Carbon Dioxide 23 (22-30) mmol/L Anion Gap 19.9 H (5-15) MEQ/L BUN 8 L (9-20) mg/dL Creatinine 0.50 L (0.66-1.25) mg/dL Estimated GFR 127.4 ML/MIN Glucose 307 H (74-106) mg/dL POC Glucometer (74 to 106) mg/dL Calcium 9.9 (8.4-10.2) mg/dL Total Bilirubin 0.90 (0.2-1.3) mg/dL AST 21 (17-59) U/L ALT 22 (0-50) U/L Alkaline Phosphatase 112 (38-126) U/L Troponin I < 0.012 (0.000-0.033) ng/mL Serum Total Protein 7.0 (6.3-8.2) g/dL Albumin 4.6 (3.5-5.0) g/dL Lipase 67 (23-300) U/L Urine Color (Yellow) Urine Appearance (Clear) Urine pH (4.6-8.0) Ur Specific [place] (1.005-1.030) Urine Protein (Negative) Urine Glucose (UA) (Negative) mg/dL Urine Ketones (Negative) Urine Blood (Negative) Urine Nitrite (Negative) Urine Bilirubin (Negative) Urine Urobilinogen (0.2) mg/dL Ur Leukocyte Esterase (Negative) U Hyaline Cast (Auto) (0-2) /LPF Urine Microscopic RBC (0-5) /HPF Urine Microscopic WBC (0-5) /HPF Ur Epithelial Cells (None Seen) /HPF Urine Bacteria (None Seen) /HPF Urine Culture Reflexed (NO) 12/10/24 Range/Units 12:52 WBC (4.23-9.07) x10^3/uL RBC (4.63-6.08) x10^6/uL Hgb (13.7-17.5) g/dL Hct (40.1-51.0) % MCV (79.0-92.2) fL MCH (25.7-32.2) pg MCHC (32.3-36.5) g/dL RDW (11.6-14.4) % Plt Count (163-337) x10^3/uL MPV (9.4-12.4) fL Gran % (34.0-67.9) % Immature Gran % (Auto) (0.001-0.429) % Nucleat RBC Rel Count (0.00-0.2) % Eos # (Auto) (0.04-0.54) x10^3/uL Immature Gran # (Auto) (0.001-0.031) x10^3u/L Absolute Lymphs (auto) (1.32-3.57) x10^3/uL Absolute Monos (auto) (0.30-0.82) x10^3/uL Absolute Nucleated RBC (0.00-0.012) x10^3u/L Lymphocytes % (21.8-53.1) % Monocytes % (5.3-12.2) % Eosinophils % (0.8-7.0) % Basophils % (0.2-1.2) % Absolute Granulocytes (1.78-5.38) x10^3/uL Basophils # (0.01-0.08) x10^3/uL Sodium (135-145) mmol/L Potassium (3.5-5.1) mmol/L Chloride (98-107) mmol/L Carbon Dioxide (22-30) mmol/L Anion Gap (5-15) MEQ/L BUN (9-20) mg/dL Creatinine (0.66-1.25) mg/dL Estimated GFR ML/MIN Glucose (74-106) mg/dL POC Glucometer 316 H (74 to 106) mg/dL Calcium (8.4-10.2) mg/dL Total Bilirubin (0.2-1.3) mg/dL AST (17-59) U/L ALT (0-50) U/L Alkaline Phosphatase (38-126) U/L Troponin I (0.000-0.033) ng/mL Serum Total Protein (6.3-8.2) g/dL Albumin (3.5-5.0) g/dL Lipase (23-300) U/L Urine Color (Yellow) Urine Appearance (Clear) Urine pH (4.6-8.0) Ur Specific [place] (1.005-1.030) Urine Protein (Negative) Urine Glucose (UA) (Negative) mg/dL Urine Ketones (Negative) Urine Blood (Negative) Urine Nitrite (Negative) Urine Bilirubin (Negative) Urine Urobilinogen (0.2) mg/dL Ur Leukocyte Esterase (Negative) U Hyaline Cast (Auto) (0-2) /LPF Urine Microscopic RBC (0-5) /HPF Urine Microscopic WBC (0-5) /HPF Ur Epithelial Cells (None Seen) /HPF Urine Bacteria (None Seen) /HPF Urine Culture Reflexed (NO) - Progress Progress: improved Progress Note: I spoke to the ER physician at [facility] who declined transfer as they do not have GI services available. I spoke to at 3pm 12/10/24 15:03 I consulted with gastroenterology from [facility] who states he would be willing to see patient in consult pending acceptance from the hospitalist. I spoke to gastroenterology 4:07 PM 12/10/24 16:[address] Graves hospitalist who advised repeating BMP secondary to an anion gap of 19 12/10/24 16:44 44-year-old male history of diabetes presents to our ED for evaluation of intractable nausea and vomiting. Patient was in our ED for the same. Physical exam reveals mild diffuse abdominal tenderness. Physical exam otherwise nonremarkable. Laboratory workup shows a leukocytosis of 12.3. Glucose at 307. Anion gap of 19. Patient received 4 units regular insulin a liter of normal saline liter of lactated ringer. Repeat anion gap was 13. [facility] reports that they currently do not have any beds available. Therefore patient will be admitted to our hospital until transfer can be arranged. Case discussed with Dr. Link who accepts transfer at 8:41 PM. Plan of care discussed with patient. She agrees to admission at [facility] for further evaluation and treatment. Portions of this note were created with voice recognition technology. There may be grammatical, spelling, punctuation or sound alike errors Complexity of problem addressed is moderate acute complicated. No critical care time. Complexity of data reviewed and analyzed as extensive. Test ordered chest reviewed results analyzed and correlated clinically with history and physical exam. Management discussed with ER physician at [facility], chief station engineer from as well as hospitalist from . Management discussed with our hospitalist as well. Risk of complication and or risk of morbidity/mortality of patient management is high. Patient requires hospitalization for further evaluation and treatment. Vital stable. Time spent to admit patient is approximately 30 minutes. Plan of care established for shared decision making. No social determinants of health present to impede follow-up. Portions of this note were created with voice recognition technology. There may be grammatical, spelling, punctuation or sound alike errors 12/10/24 21:07 Patient accepted by at 8 PM. 12/10/24 22:31 Counseled pt/family regarding: diagnosis, need for follow-up, rad results - Departure Departure Disposition: Transfer Clinical Impression: Intractable nausea and vomiting, Diabetic gastroparesis Condition: Stable Critical Care Time: No
[2024-12-10] MEDS ORDERED: Sodium Chloride 0.9% 1000 ML 1,000 ML ONE (13:24)
[2024-12-10] MEDS ORDERED: Hydromorphone 1 mg/ml Injection ONE ×3 (13:24→20:25)
[2024-12-10] MEDS: Sodium Chloride 0.9% 1000 ML 1,000 ML IV STA (13:26)
[2024-12-10] MEDS: Hydromorphone 1 mg/ml Injection IV ONE ×3 (13:28→20:27)
[2024-12-10 13:29] LABS: ALBUMIN 4.6 g/dL (3.5-5.0); ANION GAP 19.9 MEQ/L (5-15); BILIRUBIN,TOTAL 0.9 mg/dL (0.2-1.3); Calcium 9.9 mg/dL (8.4-10.2); Creatinine 1 0.5 mg/dL (0.66-1.25); EST GLOMERULAR FILTRATION RATE 127.4 ML/MIN; Potassium 4.4 mmol/L (3.5-5.1)
--- NOTE | 2024-12-10 14:23 | XRAY ---
Indication: Pain. Multiple contiguous axial images obtained through the abdomen and pelvis without contrast. Comparison: December 01, 2024 Lung bases remain clear again with incidental right lower lobe calcified granuloma. Heart not enlarged. Noncontrasted stomach and bowel loops appear nonobstructed again with normal appendix. New mild diffuse scattered colonic fecal debris throughout. Again a few tiny hepatic/splenic calcified granulomas. No free fluid/air. Remaining liver, gallbladder, pancreas, spleen, adrenal glands, kidneys, ureters, bladder, and aorta are unremarkable for noncontrast exam. Impression: Compared to CT exam 9 days ago, there is new mild diffuse fecal stasis. Again incidental old granulomatous disease. Remaining CT abdomen/pelvis without contrast exam continues to be normal.
[2024-12-10] MEDS ORDERED: Zofran 4 MG/2 ML VIAL ONE ×2 (16:40→20:25)
[2024-12-10] MEDS: Zofran 4 MG/2 ML VIAL IV ONE ×2 (16:42→20:27)
[2024-12-10] MEDS ORDERED: HUMULIN R ONE (17:29)
[2024-12-10] MEDS ORDERED: Lactated Ringers 1,000 ML IV ONE (17:30)
[2024-12-10] MEDS: HUMULIN R IV ONE (17:31)
[2024-12-10] MEDS: Lactated Ringers 1,000 ML IV ONE (17:32)
[2024-12-10 18:45] LABS: ALBUMIN 3.9 g/dL (3.5-5.0); ANION GAP 13.6 MEQ/L (5-15); BILIRUBIN,TOTAL 0.6 mg/dL (0.2-1.3); Calcium 9.1 mg/dL (8.4-10.2); Creatinine 1 0.46 mg/dL (0.66-1.25); EST GLOMERULAR FILTRATION RATE 130.6 ML/MIN; Potassium 4.2 mmol/L (3.5-5.1); Total Protein 6.1 g/dL (6.3-8.2)
[2024-12-10 20:48] LABS: Appearance Clear (Clear); Bacteria None Seen /HPF (None Seen); Bilirubin Negative (Negative); Blood Negative (Negative); Epithelial Cells None Seen /HPF (None Seen); Glucose, Urine >=1000 mg/dL (Negative); Hyaline Casts NONE SEEN /LPF (0-2); Ketones 40 (Negative); Leukocyte Esterase Negative (Negative); Nitrite Negative (Negative); Ph 6.5 (4.6-8.0); Protein,Urine Dip Trace (Negative); RBC 0-2 /HPF (0-5); Specific Gravity >=1.030 (1.005-1.030); WBC 0-2 /HPF (0-5)
[2024-12-10] MEDS ORDERED: APRESOLINE 20 MG/ML INJ IV PRN (23:17)
[2024-12-11] MEDS ORDERED: COREG 12.5 MG ONE (00:30)
--- NOTE | 2024-12-11 00:33 | PCM.HP ---
History of Present Illness - Chief Complaint Chief Complaint: Intractable Nausea and vomiting, Diabetic gastroparesis Date: 12/10/24 History of Present Illness: 44 years old very pleasant male with past medical history significant for diabetes mellitus poorly controlled last HbA1c 12.5, hypertension, coronary artery disease, hyperlipidemia, active smoker, depression, gastroparesis, who recently discharged on 01/02 after getting treated for almost same symptoms. He underwent extensive workup including EGD that remained essentially negative except gastritis. Patient discharged home on Protonix sucralfate, with instruction to closely monitor blood sugar and follow-up with surgeon GI and senior solutions consultant. He only seems to get discharged his symptoms did not get any better. He was not even able to tolerate pantoprazole and sucralfate. He was not eating any of his meds at home. He did complain of right lower quadrant pain. He came back to the hospital due to inability to keep nothing down. In the ER vital signs are pretty stable and so does all blood workup. LFTs lipase unremarkable. CT abdomen pelvis remained negative. Patient is admitted for symptom management hopefully will be transferred in the morning to other hospital. - Review of Systems All Other Systems: Reviewed and Negative (14 systems reviewed and marked ve except mentioned in [place]) Medications & Allergies Home Medications: Home Medication List Lisinopril 10 mg [Zestril 10 MG] 10 mg PO DAILY 01/06/20 [History Confirmed 12/10/24] Ergocalciferol (Vitamin D2) [Vitamin D] 50,000 unit PO WEEKLY 07/26/20 [History Confirmed 12/10/24] Gabapentin [Neurontin] 600 mg PO TID 08/29/20 [History Confirmed 12/10/24] Benztropine Mesylate 1 mg PO HS 09/26/24 [History Confirmed 12/10/24] Buspirone HCl 5 mg [Buspar 5 mg] 15 mg PO BID 09/26/24 [History Confirmed 12/10/24] Fenofibrate Nanocrystallized [Fenofibrate] 48 mg PO DAILY 09/26/24 [History Confirmed 12/10/24] Lurasidone HCl [Latuda] 80 mg PO HS 09/26/24 [History Confirmed 12/10/24] Prazosin HCl 1 mg PO TID 09/26/24 [History Confirmed 12/10/24] Rosuvastatin Calcium 20 mg PO DAILY 09/26/24 [History Confirmed 12/10/24] Insulin Glargine [Lantus Insulin] 20 unit SQ DAILY 30 Days unit 09/27/24 [Rx Confirmed 12/10/24] Insulin Lispro [Humalog] 8 unit SQ UD #0 09/27/24 [Rx Confirmed 12/10/24] carvediloL [Carvedilol] 25 mg PO BID 30 Days #60 tablet 09/27/24 [Rx Confirmed 12/10/24] Omeprazole 40 mg PO DAILY 30 Days #30 cap 12/03/24 [Rx Confirmed 12/10/24] Ondansetron ODT 4 MG [Zofran Odt 4 mg] 4 mg PO Q6H PRN PRN #10 tablet [Rx Confirmed 12/10/24] Sucralfate 1 gm [Carafate 1 GM] 1 g PO ACHS 30 Days #120 tablet 12/03/24 [Rx Confirmed 12/10/24] cephALEXin [Cephalexin] 500 mg PO TID 12/10/24 [History Confirmed 12/10/24] Allergies/Adverse Reactions: Allergies Allergy/AdvReac Type Severity Reaction Status Date / Time codeine Allergy Severe Nausea and Verified 12/10/24 12:51 Vomiting pseudoephedrine Allergy Severe Fainting Verified 12/10/24 12:51 [From Actifed] triprolidine [From Actifed] Allergy Severe Fainting Verified 12/10/24 12:51 diphenhydramine AdvReac Severe Fainting Verified 12/10/24 12:51 [From Benadryl] - Past Medical History Past Medical History: Yes Neurological History: No Pertinent History ENT History: No Pertinent History Cardiac History: Coronary Artery Disease, High Cholesterol, Hypertension Respiratory History: No Pertinent History Endocrine Medical History: Diabetes Type II Musculoskelatal History: No Pertinent History GI Medical History: Esophageal Disorder, GERD, Gallbladder Disease, Hemorrhoids, Pancreatitis, Ulcer, Other History: Other Pyscho-Social History: Depression Male Reproductive Disorders: No Pertinent History Comment: kidney infection, GASTROPARESIS - Past Surgical History Past Surgical History: Yes Neuro Surgical History: No Pertinent History Cardiac History: Cardiac Catheterization Respiratory Surgery: No Pertinent History GI Surgical History: Hemorrhoidectomy, Rectal Surgery Genitourinary Surgical Hx: No Pertinent History Musculskeletal Surgical Hx: No Pertinent History Male Surgical History: No Pertinent History Other Surgical History: 2020 Heart Cath (blockage x 2) Significant Family History: no pertinent family hx (No family history pertaining to this admission reported), heart disease, cancer, diabetes, stroke - Social History Smoking Status: Current every day smoker How long have you smoked: 10 Exposure to second hand smoke: Yes Alcohol: None Drug Use: none - Social Determinants of Health Will the patient participate in the screening: Yes Do you worry about a steady place to live?: No Do you have any problems with any of the following?: No known problems In the past 12 months,have you had to go without utilities?: No Have you or anyone in your house had to go without enough: No Transportation Issues: No Has anyone in your support network made you feel unsafe?: No Does the patient want assistance with any of the above?: No - Physical Exam Vital Signs: Vital Signs - 24 hr Temp Pulse Resp BP BP Pulse Ox 12/10/24 22:57 69 12/10/24 22:32 98 12/10/24 22:00 69 18 135/77 96 12/10/24 21:30 145/80 96 12/10/24 21:00 97 H 18 142/81 96 12/10/24 20:30 143/91 97 12/10/24 20:00 71 18 133/80 97 12/10/24 19:30 144/85 97 12/10/24 19:00 123/77 97 12/10/24 18:30 70 138/81 97 12/10/24 18:00 128/80 96 12/10/24 17:30 132/79 97 12/10/24 17:00 155/101 96 12/10/24 16:30 154/103 96 12/10/24 16:00 149/93 97 12/10/24 15:30 149/95 96 12/10/24 15:00 73 18 151/93 96 12/10/24 14:30 138/77 12/10/24 14:00 76 17 141/82 97 12/10/24 13:30 70 17 147/95 97 12/10/24 13:29 97 12/10/24 13:20 98 12/10/24 13:10 97 12/10/24 13:09 97 12/10/24 12:52 96 12/10/24 12:50 97.7 F 110 H 24 154/88 98 Additional Findings: 12/11/24 00:30 HEENT Young aged, average built in no distress NECK Supple,no thyromegaly, CVS S1+S2 + 0, no murmers RESP Bilateral equal air entry without Crepts/Wheezes heard GIT Soft non tender,non distended Skin, No rah, no Bruises LEGS No Edema PSYCH Normal,mood, judgement and insight NEURO AOX3, no focal deficit Results - Labs Lab/Micro Results: Lab Results-Last 24 Hours 12/10/24 12/10/24 12/10/24 Range/Units 12:52 13:00 13:00 WBC 12.3 H (4.23-9.07) x10^3/uL RBC 5.48 (4.63-6.08) x10^6/uL Hgb 15.8 (13.7-17.5) g/dL Hct 45.5 (40.1-51.0) % MCV 83.0 (79.0-92.2) fL MCH 28.8 (25.7-32.2) pg MCHC 34.7 (32.3-36.5) g/dL RDW 12.4 (11.6-14.4) % Plt Count 293 (163-337) x10^3/uL MPV 10.5 (9.4-12.4) fL Gran % 74.3 H (34.0-67.9) % Immature Gran % (Auto) 0.4 (0.001-0.429) % Nucleat RBC Rel Count 0.0 (0.00-0.2) % Eos # (Auto) 0.04 (0.04-0.54) x10^3/uL Immature Gran # (Auto) 0.05 H (0.001-0.031) x10^3u/L Absolute Lymphs (auto) 2.30 (1.32-3.57) x10^3/uL Absolute Monos (auto) 0.73 (0.30-0.82) x10^3/uL Absolute Nucleated RBC 0.00 (0.00-0.012) x10^3u/L Lymphocytes % 18.8 L (21.8-53.1) % Monocytes % 6.0 (5.3-12.2) % Eosinophils % 0.3 L (0.8-7.0) % Basophils % 0.2 (0.2-1.2) % Absolute Granulocytes 9.10 H (1.78-5.38) x10^3/uL Basophils # 0.03 (0.01-0.08) x10^3/uL Sodium 136 (135-145) mmol/L Potassium 4.4 (3.5-5.1) mmol/L Chloride 98 (98-107) mmol/L Carbon Dioxide 23 (22-30) mmol/L Anion Gap 19.9 H (5-15) MEQ/L BUN 8 L (9-20) mg/dL Creatinine 0.50 L (0.66-1.25) mg/dL Estimated GFR 127.4 ML/MIN Glucose 307 H (74-106) mg/dL POC Glucometer 316 H (74 to 106) mg/dL Calcium 9.9 (8.4-10.2) mg/dL Total Bilirubin 0.90 (0.2-1.3) mg/dL AST 21 (17-59) U/L ALT 22 (0-50) U/L Alkaline Phosphatase 112 (38-126) U/L Troponin I (0.000-0.033) ng/mL Serum Total Protein 7.0 (6.3-8.2) g/dL Albumin 4.6 (3.5-5.0) g/dL Lipase 67 (23-300) U/L Urine Color (Yellow) Urine Appearance (Clear) Urine pH (4.6-8.0) Ur Specific [place] (1.005-1.030) Urine Protein (Negative) Urine Glucose (UA) (Negative) mg/dL Urine Ketones (Negative) Urine Blood (Negative) Urine Nitrite (Negative) Urine Bilirubin (Negative) Urine Urobilinogen (0.2) mg/dL Ur Leukocyte Esterase (Negative) U Hyaline Cast (Auto) (0-2) /LPF Urine Microscopic RBC (0-5) /HPF Urine Microscopic WBC (0-5) /HPF Ur Epithelial Cells (None Seen) /HPF Urine Bacteria (None Seen) /HPF Urine Culture Reflexed (NO) 12/10/24 12/10/24 12/10/24 Range/Units 13:00 17:20 17:30 WBC (4.23-9.07) x10^3/uL RBC (4.63-6.08) x10^6/uL Hgb (13.7-17.5) g/dL Hct (40.1-51.0) % MCV (79.0-92.2) fL MCH (25.7-32.2) pg MCHC (32.3-36.5) g/dL RDW (11.6-14.4) % Plt Count (163-337) x10^3/uL MPV (9.4-12.4) fL Gran % (34.0-67.9) % Immature Gran % (Auto) (0.001-0.429) % Nucleat RBC Rel Count (0.00-0.2) % Eos # (Auto) (0.04-0.54) x10^3/uL Immature Gran # (Auto) (0.001-0.031) x10^3u/L Absolute Lymphs (auto) (1.32-3.57) x10^3/uL Absolute Monos (auto) (0.30-0.82) x10^3/uL Absolute Nucleated RBC (0.00-0.012) x10^3u/L Lymphocytes % (21.8-53.1) % Monocytes % (5.3-12.2) % Eosinophils % (0.8-7.0) % Basophils % (0.2-1.2) % Absolute Granulocytes (1.78-5.38) x10^3/uL Basophils # (0.01-0.08) x10^3/uL Sodium 135 (135-145) mmol/L Potassium 4.2 (3.5-5.1) mmol/L Chloride 100 (98-107) mmol/L Carbon Dioxide 25 (22-30) mmol/L Anion Gap 13.6 (5-15) MEQ/L BUN 8 L (9-20) mg/dL Creatinine 0.46 L (0.66-1.25) mg/dL Estimated GFR 130.6 ML/MIN Glucose 250 H (74-106) mg/dL POC Glucometer (74 to 106) mg/dL Calcium 9.1 (8.4-10.2) mg/dL Total Bilirubin 0.60 (0.2-1.3) mg/dL AST 18 (17-59) U/L ALT 16 (0-50) U/L Alkaline Phosphatase 105 (38-126) U/L Troponin I < 0.012 < 0.012 (0.000-0.033) ng/mL Serum Total Protein 6.1 L (6.3-8.2) g/dL Albumin 3.9 (3.5-5.0) g/dL Lipase (23-300) U/L Urine Color (Yellow) Urine Appearance (Clear) Urine pH (4.6-8.0) Ur Specific [place] (1.005-1.030) Urine Protein (Negative) Urine Glucose (UA) (Negative) mg/dL Urine Ketones (Negative) Urine Blood (Negative) Urine Nitrite (Negative) Urine Bilirubin (Negative) Urine Urobilinogen (0.2) mg/dL Ur Leukocyte Esterase (Negative) U Hyaline Cast (Auto) (0-2) /LPF Urine Microscopic RBC (0-5) /HPF Urine Microscopic WBC (0-5) /HPF Ur Epithelial Cells (None Seen) /HPF Urine Bacteria (None Seen) /HPF Urine Culture Reflexed (NO) 12/10/24 Range/Units 20:37 WBC (4.23-9.07) x10^3/uL RBC (4.63-6.08) x10^6/uL Hgb (13.7-17.5) g/dL Hct (40.1-51.0) % MCV (79.0-92.2) fL MCH (25.7-32.2) pg MCHC (32.3-36.5) g/dL RDW (11.6-14.4) % Plt Count (163-337) x10^3/uL MPV (9.4-12.4) fL Gran % (34.0-67.9) % Immature Gran % (Auto) (0.001-0.429) % Nucleat RBC Rel Count (0.00-0.2) % Eos # (Auto) (0.04-0.54) x10^3/uL Immature Gran # (Auto) (0.001-0.031) x10^3u/L Absolute Lymphs (auto) (1.32-3.57) x10^3/uL Absolute Monos (auto) (0.30-0.82) x10^3/uL Absolute Nucleated RBC (0.00-0.012) x10^3u/L Lymphocytes % (21.8-53.1) % Monocytes % (5.3-12.2) % Eosinophils % (0.8-7.0) % Basophils % (0.2-1.2) % Absolute Granulocytes (1.78-5.38) x10^3/uL Basophils # (0.01-0.08) x10^3/uL Sodium (135-145) mmol/L Potassium (3.5-5.1) mmol/L Chloride (98-107) mmol/L Carbon Dioxide (22-30) mmol/L Anion Gap (5-15) MEQ/L BUN (9-20) mg/dL Creatinine (0.66-1.25) mg/dL Estimated GFR ML/MIN Glucose (74-106) mg/dL POC Glucometer (74 to 106) mg/dL Calcium (8.4-10.2) mg/dL Total Bilirubin (0.2-1.3) mg/dL AST (17-59) U/L ALT (0-50) U/L Alkaline Phosphatase (38-126) U/L Troponin I (0.000-0.033) ng/mL Serum Total Protein (6.3-8.2) g/dL Albumin (3.5-5.0) g/dL Lipase (23-300) U/L Urine Color Yellow (Yellow) Urine Appearance Clear (Clear) Urine pH 6.5 (4.6-8.0) Ur Specific [place] >=1.030 A (1.005-1.030) Urine Protein Trace A (Negative) Urine Glucose (UA) >=1000 A (Negative) mg/dL Urine Ketones 40 A (Negative) Urine Blood Negative (Negative) Urine Nitrite Negative (Negative) Urine Bilirubin Negative (Negative) Urine Urobilinogen 1.0 A (0.2) mg/dL Ur Leukocyte Esterase Negative (Negative) U Hyaline Cast (Auto) NONE SEEN (0-2) /LPF Urine Microscopic RBC 0-2 (0-5) /HPF Urine Microscopic WBC 0-2 (0-5) /HPF Ur Epithelial Cells None Seen (None Seen) /HPF Urine Bacteria None Seen (None Seen) /HPF Urine Culture Reflexed NO (NO) - Radiology Impressions Radiology Exams & Impressions: Radiology Procedures Category Date Time Status ABDOMEN AND PELVIS W/0 CONTRAS [CT] Stat Exams 12/10/24 12:53 Completed - Other Procedures and Tests Respiratory Therapy 12/10/24 23:34 Smoking Cessation Education ONCE Assessment/Plan (1) Intractable nausea and vomiting Current Visit: Yes Status: Acute Code(s): R11.2 - NAUSEA WITH VOMITING, UNSPECIFIED (2) Abdominal pain Current Visit: No Status: Acute Code(s): R10.9 - UNSPECIFIED ABDOMINAL PAIN (3) Diabetic gastroparesis Current Visit: Yes Status: Acute Code(s): E11.43 - TYPE 2 DIABETES W DI ABETIC AUTONOMIC (POLY)NEUROPATHY; K31.84 - GASTROPARESIS Telemedicine Encounter - Telemedicine Encounter Telemedicine Encounter: The entirety of this encounter was performed via TelemedicineThis visit was performed using real-time audio and video connection between my location and thepatients locationwith the assistance of a surrogateat the patients location. Written or verbal consent was obtained from the patient/guardian to perform this visit using[employer] technology. Any patient questions regarding the telemedicine interaction were answered. Intractable nausea vomiting Due to flare of gastroparesis symptom Will keep clears with diet Continue IV fluids Continue Protonix Continue Zofran/Phenergan Will start Reglan 5 mg AC and at bedtime NOTE----> patient recently underwent EGD almost 7 days ago that remained essentially negative except for gastritis He got accepted by [facility] Hernandez at [facility], pending bed availability Acute on chronic abdominal pain LFTs lipase unremarkable CT abdomen pelvis negative Supportive therapy with pain medicines IV morphine 2 mg every 4 hours as needed Diabetes mellitus type 2 Poorly controlled with hyperglycemia Latest HbA1c more than 12 Continue sliding scale coverage and Lantus Carb consistent diet Coronary artery disease Denied having any chest pain or shortness of breath Will resume home meds Hyperlipidemia Resume home statins Depression Resume home meds Active smoker Advised to quit smoking Offered nicotine patch DVT prophylaxis SCD/Lovenox GI prophylaxis Protonix Code Status full Discharge planning pending clinical stability. I have reviewed patient lab vitals and imaging in detail question and concerns were addressed
[2024-12-11] MEDS: MORPHINE SULFATE 2 MG INJ IV PRN (00:36)
[2024-12-11] MEDS: NEURONTIN PO SCH (00:37)
[2024-12-11] MEDS: Carafate 1 GM PO SCH (00:38)
[2024-12-11] MEDS: BUSPAR 5 MG PO SCH (00:38)
[2024-12-11] MEDS: PROTONIX 40 MG IV IV SCH ×2 (00:39→21:28)
[2024-12-11] MEDS: NON-FORMULARY ITEM (Carvedilol [Carvedilol] 25 MG Tablet) PO SCH (00:43)
[2024-12-11] MEDS: Lactated Ringers 1,000 ML IV SCH (00:44)
[2024-12-11] MEDS: Zofran 4 MG/2 ML VIAL IV PRN (00:51)
[2024-12-11 05:38] LABS: Hematocrit 42.3 % (40.1-51.0); Hemoglobin 14.3 g/dL (13.7-17.5); Mean Cell Volume 85.3 fL (79.0-92.2); Mean Corpuscular Hemoglobin 28.8 pg (25.7-32.2); Mean Corpuscular Hgb Concent. 33.8 g/dL (32.3-36.5); Mean Platelet Volume 10.7 fL (9.4-12.4); Platelet Count 257 x10^3/uL (163-337); Red Blood Count 4.96 x10^6/uL (4.63-6.08); Red Cell Distribution Width 12.7 % (11.6-14.4); White Blood Count 10.3 x10^3/uL (4.23-9.07)
[2024-12-11 06:02] LABS: ANION GAP 13.8 MEQ/L (5-15); Calcium 8.9 mg/dL (8.4-10.2); Creatinine 1 0.52 mg/dL (0.66-1.25); EST GLOMERULAR FILTRATION RATE 125.9 ML/MIN; Potassium 4.1 mmol/L (3.5-5.1)
[2024-12-11] MEDS ORDERED: HUMULIN R ONE (06:44)
[2024-12-11] MEDS: HUMALOG SQ PRN (06:48)
[2024-12-11] MEDS ORDERED: MEDICATION INTERVENTION MC SCH (07:15)
[2024-12-11] MEDS: Dulcolax 10 MG SUPP PR ONE (09:07)
[2024-12-11] MEDS: Miralax Powder 17GM PACKET PO PRN (09:25)
[2024-12-11] MEDS: Lantus Insulin SQ SCH (09:25)
[2024-12-11] MEDS: Reglan 10 MG/2 ML IV SCH (09:26)
[2024-12-11] MEDS: Tricor 145 MG PO SCH (10:34)
[2024-12-11] MEDS: ZOCOR 20MG PO SCH (10:34)
[2024-12-11] MEDS: Zestril 10 MG PO SCH (10:34)
[2024-12-11] MEDS: COREG 12.5 MG PO SCH (10:34)
[2024-12-11] MEDS: ENOXAPARIN SODIUM SQ SCH (10:34)
[2024-12-11] MEDS: COGENTIN 0.5 MG PO SCH (21:27)
[2024-12-11] MEDS ORDERED: LURASIDONE HCL 80 MG PO SCH (22:00)
[2024-12-12 05:32] LABS: Hematocrit 40.1 % (40.1-51.0); Hemoglobin 13.6 g/dL (13.7-17.5); Mean Cell Volume 84.8 fL (79.0-92.2); Mean Corpuscular Hemoglobin 28.8 pg (25.7-32.2); Mean Corpuscular Hgb Concent. 33.9 g/dL (32.3-36.5); Mean Platelet Volume 10.5 fL (9.4-12.4); Platelet Count 246 x10^3/uL (163-337); Red Blood Count 4.73 x10^6/uL (4.63-6.08); Red Cell Distribution Width 12.6 % (11.6-14.4); White Blood Count 8.7 x10^3/uL (4.23-9.07)
[2024-12-12 06:45] LABS: ALBUMIN 3.6 g/dL (3.5-5.0); ANION GAP 13.2 MEQ/L (5-15); BILIRUBIN,TOTAL 0.5 mg/dL (0.2-1.3); Calcium 8.9 mg/dL (8.4-10.2); Creatinine 1 0.56 mg/dL (0.66-1.25); EST GLOMERULAR FILTRATION RATE 123.1 ML/MIN; Potassium 3.4 mmol/L (3.5-5.1); Total Protein 5.7 g/dL (6.3-8.2)
[2024-12-12 07:43] VITALS: BP 128/78; PULSE 68; RESP 17; TEMP 98; O2SAT 97
[2024-12-12] MEDS: POTASSIUM CHLORIDE 20 mEq IN WATER 100ML 100 ML IV SCH (08:16)
--- NOTE | 2024-12-12 09:09 | PCM.DS ---
Discharge Summary Date of Admission: 12/10/24 22:56 Date of Discharge: 12/12/24 Admitting Physician: DANNY PATTON MD Primary Care Provider: BOBBY NEWTON Allergies Allergies codeine Allergy (Severe, Verified 12/10/24 12:51) Nausea and Vomiting "severe vomiting for hours" pseudoephedrine [From Actifed] Allergy (Severe, Verified 12/10/24 12:51) Fainting " almost . went out cold and really hard to wake me up" triprolidine [From Actifed] Allergy (Severe, Verified 12/10/24 12:51) Fainting "about " diphenhydramine [From Benadryl] Adverse Reaction (Severe, Verified 12/10/24 12:51) Fainting "knocked me out and couldn't get me awake hardly" Hospital Summary - Hospital Course Hospital Course: 12/12/24 The patient is a 44-year-old male with a past medical history significant for poorly controlled diabetes mellitus (last HbA1c 12.5), hypertension, coronary artery disease, hyperlipidemia, active tobacco use, depression, and gastroparesis. He was recently discharged on 01/02 after evaluation and treatment for similar symptoms. During that admission, he underwent an extensive workup, including an EGD, which was essentially unremarkable except for mild gastritis. He was discharged on pantoprazole (Protonix) and sucralfate, with instructions to closely monitor his blood glucose and follow up with surgery, GI, and endocrinology. Despite this, the patient reported no improvement in symptoms following discharge. He was unable to tolerate pantoprazole or sucralfate and had not been taking any of his home medications. He returned to the hospital with persistent symptoms, including inability to tolerate oral intake and right lower quadrant abdominal pain. In the emergency department, his vital signs and laboratory workup, including liver function tests and lipase, were stable and unremarkable. A CT of the abdomen and pelvis was negative for acute pathology but did reveal constipation. He was admitted for symptom management and is currently awaiting transfer to [facility]. His potassium was noted to be low at 3.4 and was repleted. Since admission, he has shown clinical improvement, is tolerating a diet without issues, and has expressed interest in discharge. He was counseled on maintaining a soft diet while avoiding greasy or fatty foods. He will be discharged with ondansetron (Zofran) as needed for nausea to help ensure tolerance of his home medications and prevent further admissions. He has been advised to follow up with GI as an outpatient and to take stool softeners as needed. He currently denies any additional concerns. - Vitals & Intake/Output Vital Signs: Vital Signs Temperature 98 F 12/12/24 07:43 Pulse Rate 68 12/12/24 07:43 Respiratory Rate 17 12/12/24 07:43 Blood Pressure 128/78 12/12/24 07:43 O2 Sat by Pulse Oximetry 97 12/12/24 07:43 Intake & Output: Intake & Output 12/09/24 12/10/24 12/11/24 12/12/24 11:59 11:59 11:59 11:59 Intake Total 906 4665 Output Total 700 Balance 206 4665 Weight 97 kg - Lab Result Diagrams: 12/12/24 05:00 12/12/24 05:00 Lab Results-Last 24 Hrs: Lab Results-Last 24 Hours 12/11/24 12/11/24 12/11/24 Range/Units 11:38 16:23 22:10 WBC (4.23-9.07) x10^3/uL RBC (4.63-6.08) x10^6/uL Hgb (13.7-17.5) g/dL Hct (40.1-51.0) % MCV (79.0-92.2) fL MCH (25.7-32.2) pg MCHC (32.3-36.5) g/dL RDW (11.6-14.4) % Plt Count (163-337) x10^3/uL MPV (9.4-12.4) fL Sodium (135-145) mmol/L Potassium (3.5-5.1) mmol/L Chloride (98-107) mmol/L Carbon Dioxide (22-30) mmol/L Anion Gap (5-15) MEQ/L BUN (9-20) mg/dL Creatinine (0.66-1.25) mg/dL Estimated GFR ML/MIN Glucose (74-106) mg/dL POC Glucometer 223 H 146 H 207 H (74 to 106) mg/dL Calcium (8.4-10.2) mg/dL Total Bilirubin (0.2-1.3) mg/dL AST (17-59) U/L ALT (0-50) U/L Alkaline Phosphatase (38-126) U/L Serum Total Protein (6.3-8.2) g/dL Albumin (3.5-5.0) g/dL 12/12/24 12/12/24 12/12/24 Range/Units 05:00 05:00 07:27 WBC 8.7 (4.23-9.07) x10^3/uL RBC 4.73 (4.63-6.08) x10^6/uL Hgb 13.6 L (13.7-17.5) g/dL Hct 40.1 (40.1-51.0) % MCV 84.8 (79.0-92.2) fL MCH 28.8 (25.7-32.2) pg MCHC 33.9 (32.3-36.5) g/dL RDW 12.6 (11.6-14.4) % Plt Count 246 (163-337) x10^3/uL MPV 10.5 (9.4-12.4) fL Sodium 136 (135-145) mmol/L Potassium 3.4 L (3.5-5.1) mmol/L Chloride 102 (98-107) mmol/L Carbon Dioxide 24 (22-30) mmol/L Anion Gap 13.2 (5-15) MEQ/L BUN 6 L (9-20) mg/dL Creatinine 0.56 L (0.66-1.25) mg/dL Estimated GFR 123.1 ML/MIN Glucose 148 H (74-106) mg/dL POC Glucometer 169 H (74 to 106) mg/dL Calcium 8.9 (8.4-10.2) mg/dL Total Bilirubin 0.50 (0.2-1.3) mg/dL AST 22 (17-59) U/L ALT 15 (0-50) U/L Alkaline Phosphatase 85 (38-126) U/L Serum Total Protein 5.7 L (6.3-8.2) g/dL Albumin 3.6 (3.5-5.0) g/dL Micro Results-Entire Visit: Accuchecks Date 12/12/24 Date 12/11/24 Date 12/11/24 Date 12/11/24 Time 07:43 Time 16:28 Time 16:28 Time 11:51 - Radiology Exams Ordered Rad Exams-Entire Visit: Radiology Procedures Category Date Time Status ABDOMEN AND PELVIS W/0 CONTRAS [CT] Stat Exams 12/10/24 12:53 Completed - Procedures and Test Procedures and Tests throughout Hospitalization: Therapy Orders & Screens 12/10/24 23:34 Smoking Cessation Education ONCE Comment: Diagnosis: Intractable Nausea and vomiting, Diabetic gastroparesis Smoking Status: Current every day smoker How long have you smoked: 10 Have you smoked in the past 12 months: Yes Approximately how many cigarettes per day: 7 Do you dip or chew tobacco: No Discharge Exam General Appearance: no apparent distress, alert Neurologic Exam: alert, oriented x 3, cooperative, normal mood/affect, nml cerebellar function, sensation nml, No motor deficits Eye Exam: PERRL, EOMI, eyes nml inspection Ears, Nose, Throat Exam: normal ENT inspection, pharynx normal, moist mucous membranes Neck Exam: normal inspection, non-tender, supple, full range of motion Respiratory Exam: normal breath sounds, lungs clear, No respiratory distress Cardiovascular Exam: regular rate/rhythm, normal heart sounds Gastrointestinal/Abdomen Exam: soft, No tenderness, No mass Male Genitalia Exam: deferred Rectal Exam: deferred Back Exam: normal inspection, normal range of motion, No CVA tenderness, No vertebral tenderness Extremity Exam: normal inspection, normal range of motion Skin Exam: normal color, warm, dry Final Diagnosis/Problem List - Final Discharge Diagnosis/Problem (1) Diabetic gastroparesis Current Visit: Yes Status: Acute Assessment & Plan: - Will need OP f/u with GI Code(s): E11.43 - TYPE 2 DIABETES W DIABETIC AUTONOMIC (POLY)NEUROPATHY; K31.84 - GASTROPARESIS (2) Abdominal pain Current Visit: No Status: Resolved Assessment & Plan: - Resolved Code(s): R10.9 - UNSPECIFIED ABDOMINAL PAIN (3) Intractable nausea and vomiting Current Visit: Yes Status: Resolved Assessment & Plan: - Resolved - Will d/c with Zofran ODT Code(s): R11.2 - NAUSEA WITH VOMITING, UNSPECIFIED (4) Depression Current Visit: Yes Status: Chronic Assessment & Plan: - Resume home meds Code(s): F32.A - DEPRESSION, UNSPECIFIED (5) Smoker Current Visit: Yes Status: Chronic Assessment & Plan: - Advised cessation -Offered nicotine patch Code(s): F17.200 - NICOTINE DEPENDENCE, UNSPECIFIED, UNCOMPLICATED (6) DM2 (diabetes mellitus, type 2) Current Visit: No Status: Chronic Assessment & Plan: -Poorly controlled with hyperglycemia -Latest HbA1c more than 12 -Continue sliding scale coverage and Lantus -Carb consistent diet (7) HLD (hyperlipidemia) Current Visit: No Status: Chronic Assessment & Plan: -Resume home statins Code(s): E78.5 - HYPERLIPIDEMIA, UNSPECIFIED - Discharge Discharge Date: 12/12/24 Disposition: Home, Self-Care Condition: Stable Prescriptions: Continue Lisinopril 10 mg [Zestril 10 MG] 10 mg PO DAILY Ergocalciferol (Vitamin D2) [Vitamin D] 50,000 unit PO WEEKLY Gabapentin [Neurontin] 600 mg PO TID Lurasidone HCl [Latuda] 80 mg PO HS Fenofibrate Nanocrystallized [Fenofibrate] 48 mg PO DAILY Benztropine Mesylate 1 mg PO HS Prazosin HCl 1 mg PO TID Buspirone HCl 5 mg [Buspar 5 mg] 15 mg PO BID Rosuvastatin Calcium 20 mg PO DAILY carvediloL [Carvedilol] 25 mg PO BID 30 Days #60 tablet Insulin Lispro [Humalog] 8 unit SQ UD #0 Insulin Glargine [Lantus Insulin] 20 unit SQ DAILY 30 Days unit Sucralfate 1 gm [Carafate 1 GM] 1 g PO ACHS 30 Days #120 tablet Ondansetron ODT 4 MG [Zofran Odt 4 mg] 4 mg PO Q6H PRN PRN #10 tablet PRN Reason: Nausea Omeprazole 40 mg PO DAILY 30 Days #30 cap cephALEXin [Cephalexin] 500 mg PO TID Follow up with: BOBBY NEWTON [Primary Care Provider, [facility]]
== END 2024-12-12 10:26 | disposition home or self-care (01) ==
LOC: ED 12:45 → MED SURG 22:56
PROVIDERS: ADMIT Internal Medicine; ATTEND Internal Medicine
DX: E11.43 Type 2 diabetes mellitus with diabetic autonomic (poly)neuropathy (principal); K31.84 Gastroparesis; R10.9 Unspecified abdominal pain; R11.2 Nausea with vomiting, unspecified; F32.A Depression, unspecified; F17.200 Nicotine dependence, unspecified, uncomplicated; E78.5 Hyperlipidemia, unspecified; I10 Essential (primary) hypertension; I25.10 Atherosclerotic heart disease of native coronary artery without angina pectoris; Z79.899 Other long term (current) drug therapy
CPT/HCPCS: 36415; 74176; 80048; 80053; 81001; 82947; 83690; 84484; 85025; 85027; 93005; 93041; 93268; 94760; 96374; 96375; 96376; 99285; J1171; J1650; J1815; J1817; J2270; J2405; J3480; Q3014; A9270-GY; G0378

== ENCOUNTER 2024-12-13 12:54 | Emergency (ER) | payer OTHER ==
[2024-12-13 13:05] VITALS: TEMP 97.2
[2024-12-13] MEDS ORDERED: Hydromorphone 1 mg/ml Injection ONE ×2 (13:18→14:17)
[2024-12-13] MEDS ORDERED: Zofran 4 MG/2 ML VIAL ONE (13:18)
[2024-12-13] MEDS: Zofran 4 MG/2 ML VIAL IV ONE (13:20)
[2024-12-13] MEDS: Hydromorphone 1 mg/ml Injection IV ONE ×2 (13:21→14:18)
--- NOTE | 2024-12-13 13:23 | ERPHSYRPT ---
- History of Present Illness Historian: patient Exam Limitations: no limitations Physician History: Patient was just recently discharged for same symptoms. He has a history of gastroparesis. It is intermittent.He was discharged yesterday. The symptoms have not really improved. He is back again today. He was here for about 3 days.He has history of diabetes coronary vascular disease he is a smoker hypertension multiple medical problems.He has been having abdominal pain pretty consistently. He says it is always there but becomes more intense. He describes it as cramping and sharp and stabbing. It doubles him over. He does not have any nausea or vomiting. He does not have any fever or chills at this time. He is still having bowel movements. The pain is been pretty bad for like the last 4 hours. He said it started around 9 AM. He had a bowel movement at 6 or 7 AM. He said it was normal.Nothing makes his symptoms better or worse. Allergies/Adverse Reactions: codeine Allergy (Severe, Verified 12/13/24 13:02) Nausea and Vomiting "severe vomiting for hours" pseudoephedrine [From Actifed] Allergy (Severe, Verified 12/13/24 13:02) Fainting " almost . went out cold and really hard to wake me up" triprolidine [From Actifed] Allergy (Severe, Verified 12/13/24 13:02) Fainting "about " diphenhydramine [From Benadryl] Adverse Reaction (Severe, Verified 12/13/24 13:02) Fainting "knocked me out and couldn't get me awake hardly" Home Medications: Lisinopril 10 mg [Zestril 10 MG] 10 mg PO DAILY 01/06/20 [History] Ergocalciferol (Vitamin D2) [Vitamin D] 50,000 unit PO WEEKLY 07/26/20 [History] Gabapentin [Neurontin] 600 mg PO TID 08/29/20 [History] Benztropine Mesylate 1 mg PO HS 09/26/24 [History] Buspirone HCl 5 mg [Buspar 5 mg] 15 mg PO BID 09/26/24 [History] Fenofibrate Nanocrystallized [Fenofibrate] 48 mg PO DAILY 09/26/24 [History] Lurasidone HCl [Latuda] 80 mg PO HS 09/26/24 [History] Prazosin HCl 1 mg PO TID 09/26/24 [History] Rosuvastatin Calcium 20 mg PO DAILY 09/26/24 [History] cephALEXin [Cephalexin] 500 mg PO TID 12/10/24 [History] Hx Tetanus, Diphtheria Vaccination/Date Given: Yes Hx Influenza Vaccination/Date Given: No Hx Pneumococcal Vaccination/Date Given: No Travel Risk - Emerging Infectious Disease Are you exhibiting symptoms associated with any current EIDs: Yes Symptoms: Abdominal Pain, Diarrhea, Vomitting Comment: states stools are "slimey" - Review of Systems Constitutional: No Symptoms Eyes: No Symptoms Respiratory: No Symptoms Abdominal/Gastrointestinal: Abdominal Pain, Nausea, No Vomiting, No Diarrhea, No Constipation Genitourinary Symptoms: No Symptoms Skin: No Symptoms All Other Systems: Reviewed and Negative - Past Medical History Pertinent Past Medical History: Yes Neurological History: No Pertinent History ENT History: No Pertinent History Cardiac History: Coronary Artery Disease, High Cholesterol, Hypertension Respiratory History: No Pertinent History Endocrine Medical History: Diabetes Type II Musculoskeletal History: No Pertinent History GI Medical History: Esophageal Disorder, GERD, Gallbladder Disease, Hemorrhoids, Pancreatitis, Ulcer, Other History: Other Psycho-Social History: Depression Male Reproductive Disorders: No Pertinent History Other Medical History: kidney infection, GASTROPARESIS - Past Surgical History Past Surgical History: Yes Neuro Surgical History: No Pertinent History Cardiac: Cardiac Catheterization Respiratory: No Pertinent History Gastrointestinal: Hemorrhoidectomy, Rectal Surgery Genitourinary: No Pertinent History Musculoskeletal: No Pertinent History Male Surgical History: No Pertinent History Other Surgical History: 2020 Heart Cath (blockage x 2) Significant Family History: heart disease, cancer, diabetes, stroke - Social History Smoking Status: Current every day smoker How long have you smoked: years Exposure to second hand smoke: Yes Drug Use: none - Social Determinants of Health Will the patient participate in the screening: Yes Do you worry about a steady place to live?: No In the past 12 months,have you had to go without utilities?: No Transportation Issues: No Has anyone in your support network made you feel unsafe?: No Have you or anyone in your house had to go w/o enough food: No - Nursing Vital Signs Nursing Vital Signs: Initial Vital Signs Blood Pressure 165/96 12/13/24 13:00 O2 Sat by Pulse Oximetry 100 12/13/24 13:00 Pain Scale Pain Intensity 5 - Physical Exam General Appearance: no apparent distress Eye Exam: PERRL/EOMI Cardiovascular Exam: regular rate/rhythm Gastrointestinal/Abdomen Exam: soft, tenderness, No distention, No mass Rectal Exam: deferred Extremity Exam: normal inspection Neurologic Exam: alert, oriented x 3, cooperative Skin Exam: normal color, warm, dry SpO2: 100 Ordered Tests: Active Orders 24 hr Category Date Time Status CBC W DIFF Stat Lab 12/13/24 13:35 Completed CMP Stat Lab 12/13/24 13:35 Completed LIPASE Stat Lab 12/13/24 13:35 Completed Medication Summary Discontinued Medications Generic Name Dose Route Start Last Admin Trade Name Freq PRN Reason Stop Dose Admin Hydromorphone HCl 1 mg 12/13/24 13:15 12/13/24 13:21 Hydromorphone 1 Mg/1ml Inj IV 12/13/24 13:16 1 mg STAT ONE Administration Hydromorphone HCl Confirm 12/13/24 13:18 Hydromorphone 1 Mg/1ml Inj Administered 12/13/24 13:19 Dose 1 mg .ROUTE .STK-MED ONE Hydromorphone HCl 1 mg 12/13/24 14:14 12/13/24 14:18 Hydromorphone 1 Mg/1ml Inj IV 12/13/24 14:15 1 mg STAT ONE Administration Hydromorphone HCl Confirm 12/13/24 14:17 Hydromorphone 1 Mg/1ml Inj Administered 12/13/24 14:18 Dose 1 mg .ROUTE .STK-MED ONE Ondansetron HCl 4 mg 12/13/24 13:15 12/13/24 13:20 Ondansetron Hcl 4 Mg/2 Ml Vial IV 12/13/24 13:16 4 mg STAT ONE Administration Ondansetron HCl Confirm 12/13/24 13:18 Ondansetron Hcl 4 Mg/2 Ml Vial Administered 12/13/24 13:19 Dose 4 mg .ROUTE .STK-MED ONE Lab/Rad Data: Laboratory Result Diagrams 12/13/24 13:35 12/13/24 13:35 Laboratory Results 12/13/24 12/13/24 Range/Units 13:35 13:35 WBC 15.3 H (4.23-9.07) x10^3/uL RBC 5.15 (4.63-6.08) x10^6/uL Hgb 15.1 (13.7-17.5) g/dL Hct 43.9 (40.1-51.0) % MCV 85.2 (79.0-92.2) fL MCH 29.3 (25.7-32.2) pg MCHC 34.4 (32.3-36.5) g/dL RDW 12.5 (11.6-14.4) % Plt Count 272 (163-337) x10^3/uL MPV 10.3 (9.4-12.4) fL Gran % 75.9 H (34.0-67.9) % Immature Gran % (Auto) 0.5 H (0.001-0.429) % Nucleat RBC Rel Count 0.0 (0.00-0.2) % Eos # (Auto) 0.06 (0.04-0.54) x10^3/uL Immature Gran # (Auto) 0.08 H (0.001-0.031) x10^3u/L Absolute Lymphs (auto) 2.53 (1.32-3.57) x10^3/uL Absolute Monos (auto) 0.97 H (0.30-0.82) x10^3/uL Absolute Nucleated RBC 0.00 (0.00-0.012) x10^3u/L Lymphocytes % 16.6 L (21.8-53.1) % Monocytes % 6.4 (5.3-12.2) % Eosinophils % 0.4 L (0.8-7.0) % Basophils % 0.2 (0.2-1.2) % Absolute Granulocytes 11.58 H (1.78-5.38) x10^3/uL Basophils # 0.03 (0.01-0.08) x10^3/uL Sodium 136 (135-145) mmol/L Potassium 4.2 D (3.5-5.1) mmol/L Chloride 100 (98-107) mmol/L Carbon Dioxide 21 L (22-30) mmol/L Anion Gap 18.5 H (5-15) MEQ/L BUN 11 (9-20) mg/dL Creatinine 0.58 L (0.66-1.25) mg/dL Estimated GFR 121.8 ML/MIN Glucose 299 H (74-106) mg/dL Calcium 9.4 (8.4-10.2) mg/dL Total Bilirubin 0.70 (0.2-1.3) mg/dL AST 18 (17-59) U/L ALT 19 (0-50) U/L Alkaline Phosphatase 99 (38-126) U/L Serum Total Protein 6.7 (6.3-8.2) g/dL Albumin 4.3 (3.5-5.0) g/dL Lipase 67 (23-300) U/L - Progress Progress: improved Progress Note: Was stable throughout stay. He required to 1 mg doses of Dilaudid and then his pain went away. He is pain-free for the rest of his visit. His lab work all look good. I think his abdominal pain is resolved. We watched him for 3 hours 12/13/24 15:56 Medical Desision Making - Social Determinants of Health Pt's dx & treatment plan are significantly limited by SDOH: Unemployed Limited access to: transportation - Diagnostic Testing Diagnostic test were ordered, analyzed, and reviewed by me: Yes - Risk of complications Low Risk: Low risk of morbidity from additional dx testing or treatment - Departure Departure Disposition: Home Clinical Impression: Diabetic gastroparesis Condition: Stable Critical Care Time: No Referrals: BOBBY NEWTON [Primary Care Provider, [facility]] - Follow up/PCP as directed Instructions: Severe Abdominal Pain, Adult (DC)
[2024-12-13 13:41] LABS: Absolute Neutrophil Ct (ANC) 11.58 x10^3/uL (1.78-5.38); BASOPHIL % 0.2 % (0.2-1.2); Basophil (Absolute #) 0.03 x10^3/uL (0.01-0.08); Eosinophil % 0.4 % (0.8-7.0); Eosinophil (Absolute #) 0.06 x10^3/uL (0.04-0.54); Hematocrit 43.9 % (40.1-51.0); Hemoglobin 15.1 g/dL (13.7-17.5); IMMATURE GRAN # 0.08 x10^3u/L (0.001-0.031); IMMATURE GRAN % 0.5 % (0.001-0.429); Lymphocyte (Absolute #) 2.53 x10^3/uL (1.32-3.57); Lymphocytes % 16.6 % (21.8-53.1); Mean Cell Volume 85.2 fL (79.0-92.2); Mean Corpuscular Hemoglobin 29.3 pg (25.7-32.2); Mean Corpuscular Hgb Concent. 34.4 g/dL (32.3-36.5); Mean Platelet Volume 10.3 fL (9.4-12.4); Monocyte (Absolute #) 0.97 x10^3/uL (0.30-0.82); Monocytes % 6.4 % (5.3-12.2); Neutrophil % 75.9 % (34.0-67.9); Platelet Count 272 x10^3/uL (163-337); Red Blood Count 5.15 x10^6/uL (4.63-6.08); Red Cell Distribution Width 12.5 % (11.6-14.4); White Blood Count 15.3 x10^3/uL (4.23-9.07)
[2024-12-13 13:56] LABS: ALBUMIN 4.3 g/dL (3.5-5.0); ANION GAP 18.5 MEQ/L (5-15); BILIRUBIN,TOTAL 0.7 mg/dL (0.2-1.3); Calcium 9.4 mg/dL (8.4-10.2); Creatinine 1 0.58 mg/dL (0.66-1.25); EST GLOMERULAR FILTRATION RATE 121.8 ML/MIN; Potassium 4.2 mmol/L (3.5-5.1); Total Protein 6.7 g/dL (6.3-8.2)
[2024-12-13 17:08] VITALS: BP 128/70; PULSE 70; RESP 16; O2SAT 97
== END 2024-12-13 17:00 | disposition home or self-care (01) ==
LOC: ED 12:54
DX: E11.43 Type 2 diabetes mellitus with diabetic autonomic (poly)neuropathy (principal); K31.84 Gastroparesis; R10.9 Unspecified abdominal pain; E78.5 Hyperlipidemia, unspecified; I10 Essential (primary) hypertension; Z79.899 Other long term (current) drug therapy; Z72.0 Tobacco use
CPT/HCPCS: 36415; 80053; 82947; 83690; 85025; 96374; 96375; 96376; 99283; 99284; J1171; J2405

== ENCOUNTER 2024-12-31 18:39 | Emergency (ER) | payer OTHER ==
[2024-12-31 18:57] VITALS: TEMP 97.6
[2024-12-31] MEDS ORDERED: Zofran 4 MG/2 ML VIAL ONE (19:21)
[2024-12-31] MEDS ORDERED: TORAdol 30 mg Injection ONE (19:21)
[2024-12-31] MEDS ORDERED: Protonix 40MG Tablet ONE (19:22)
[2024-12-31] MEDS ORDERED: Sodium Chloride 0.9% 1000 ML 1,000 ML ONE (19:22)
[2024-12-31] MEDS: Sodium Chloride 0.9% 1000 ML 1,000 ML IV STA (19:24)
[2024-12-31] MEDS: Zofran 4 MG/2 ML VIAL IV ONE (19:26)
[2024-12-31] MEDS: Protonix 40MG Tablet PO ONE (19:27)
[2024-12-31] MEDS: TORAdol 30 mg Injection IV ONE (19:27)
[2024-12-31 19:32] LABS: Absolute Neutrophil Ct (ANC) 7.38 x10^3/uL (1.78-5.38); BASOPHIL % 0.2 % (0.2-1.2); Basophil (Absolute #) 0.02 x10^3/uL (0.01-0.08); Eosinophil % 0.8 % (0.8-7.0); Eosinophil (Absolute #) 0.09 x10^3/uL (0.04-0.54); Hematocrit 43.7 % (40.1-51.0); Hemoglobin 15.8 g/dL (13.7-17.5); IMMATURE GRAN # 0.04 x10^3u/L (0.001-0.031); IMMATURE GRAN % 0.4 % (0.001-0.429); Lymphocyte (Absolute #) 2.74 x10^3/uL (1.32-3.57); Mean Cell Volume 81.7 fL (79.0-92.2); Mean Corpuscular Hemoglobin 29.5 pg (25.7-32.2); Mean Corpuscular Hgb Concent. 36.2 g/dL (32.3-36.5); Mean Platelet Volume 10.5 fL (9.4-12.4); Monocyte (Absolute #) 0.69 x10^3/uL (0.30-0.82); Monocytes % 6.3 % (5.3-12.2); Neutrophil % 67.3 % (34.0-67.9); Platelet Count 246 x10^3/uL (163-337); Red Blood Count 5.35 x10^6/uL (4.63-6.08); Red Cell Distribution Width 12.5 % (11.6-14.4)
--- NOTE | 2024-12-31 19:35 | ERPHSYRPT ---
- History of Present Illness Time Seen by Provider: 12/31/24 18:55 Historian: patient Exam Limitations: no limitations Patient Subjective Stated Complaint: left lower chronic abdominal pain, going on for a month, stabbing pain, constant, concerned with patient's mental health, patient denies any suicidal ideation Triage Nursing Assessment: Patient walked into ED with complaints of abdominal pain, patient guarding abdomen upon arrival, abdomen soft/nondistended, tender upon palpation to lower portion of abdomen, pain rated at a 5/10, constant/stabbing pain Physician History: 44-year-old male history of diabetes diabetic gastroparesis, history of recurrent abdominal pain and vomiting presents to our ED for evaluation of abdominal pain. Patient describes pain as a stabbing sensation. No trauma no fever. No associated chest pain or shortness of breath. Symptoms are mild to moderate in intensity. No specific worsening or improving factors. Patient voices no other complaints or concerns at this time. Portions of this note were created with voice recognition technology. There may be grammatical, spelling, punctuation or sound alike errors Timing/Duration: today Activities at Onset: none Quality: aching Abdominal Pain Onset Location: epigastric Pain Radiation: no radiation Severity of Pain-Max: moderate Severity of Pain-Current: mild Associated Symptoms: denies symptoms Previous symptoms: same symptoms as today Allergies/Adverse Reactions: codeine Allergy (Severe, Verified 12/31/24 18:54) Nausea and Vomiting "severe vomiting for hours" pseudoephedrine [From Actifed] Allergy (Severe, Verified 12/31/24 18:54) Fainting " almost . went out cold and really hard to wake me up" triprolidine [From Actifed] Allergy (Severe, Verified 12/31/24 18:54) Fainting "about " diphenhydramine [From Benadryl] Adverse Reaction (Severe, Verified 12/31/24 18:54) Fainting "knocked me out and couldn't get me awake hardly" Home Medications: Lisinopril 10 mg [Zestril 10 MG] 10 mg PO DAILY 01/06/20 [History] Ergocalciferol (Vitamin D2) [Vitamin D] 50,000 unit PO WEEKLY 07/26/20 [History] Gabapentin [Neurontin] 600 mg PO TID 08/29/20 [History] Benztropine Mesylate 1 mg PO HS 09/26/24 [History] Buspirone HCl 5 mg [Buspar 5 mg] 15 mg PO BID 09/26/24 [History] Fenofibrate Nanocrystallized [Fenofibrate] 48 mg PO DAILY 09/26/24 [History] Lurasidone HCl [Latuda] 80 mg PO HS 09/26/24 [History] Prazosin HCl 1 mg PO TID 09/26/24 [History] Rosuvastatin Calcium 20 mg PO DAILY 09/26/24 [History] Hx Tetanus, Diphtheria Vaccination/Date Given: Yes Hx Influenza Vaccination/Date Given: No Hx Pneumococcal Vaccination/Date Given: No Travel Risk - International Travel Have you traveled outside of the country in past 3 weeks: No - Emerging Infectious Disease Are you exhibiting symptoms associated with any current EIDs: Yes Symptoms: Abdominal Pain Comment: normal formed stools, nausea, vomited yesterday - Review of Systems Constitutional: No Symptoms, No Fever, No Chills Eyes: No Symptoms Ears, Nose, & Throat: No Symptoms Respiratory: No Symptoms, No Cough, No Dyspnea Cardiac: No Symptoms, No Chest Pain, No Edema, No Syncope Abdominal/Gastrointestinal: No Symptoms, No Abdominal Pain, No Nausea, No Vomiting, No Diarrhea Genitourinary Symptoms: No Symptoms, No Dysuria Musculoskeletal: No Symptoms, No Back Pain, No Neck Pain Skin: No Symptoms, No Rash Neurological: No Symptoms, No Dizziness, No Focal Weakness, No Sensory Changes Psychological: No Symptoms Endocrine: No Symptoms Hematologic/Lymphatic: No Symptoms Immunological/Allergic: No Symptoms All Other Systems: Reviewed and Negative - Past Medical History Pertinent Past Medical History: Yes Neurological History: No Pertinent History ENT History: No Pertinent History Cardiac History: Coronary Artery Disease, High Cholesterol, Hypertension Respiratory History: No Pertinent History Endocrine Medical History: Diabetes Type II Musculoskeletal History: No Pertinent History GI Medical History: Esophageal Disorder, GERD, Gallbladder Disease, Hemorrhoids, Pancreatitis, Ulcer, Other History: Other Psycho-Social History: Depression Male Reproductive Disorders: No Pertinent History Other Medical History: kidney infection, GASTROPARESIS - Past Surgical History Past Surgical History: Yes Neuro Surgical History: No Pertinent History Cardiac: Cardiac Catheterization Respiratory: No Pertinent History Gastrointestinal: Hemorrhoidectomy, Rectal Surgery Genitourinary: No Pertinent History Musculoskeletal: No Pertinent History Male Surgical History: No Pertinent History Other Surgical History: 2020 Heart Cath (blockage x 2) Significant Family History: heart disease, cancer, diabetes, stroke - Social History Smoking Status: Current every day smoker How long have you smoked: years Exposure to second hand smoke: Yes Drug Use: none - Social Determinants of Health Will the patient participate in the screening: Yes Do you worry about a steady place to live?: No Do you have any problems with any of the following?: No known problems In the past 12 months,have you had to go without utilities?: No Transportation Issues: No Has anyone in your support network made you feel unsafe?: No Have you or anyone in your house had to go w/o enough food: No - Nursing Vital Signs Nursing Vital Signs: Initial Vital Signs Temperature 97.6 F 12/31/24 18:46 Pulse Rate 99 H 12/31/24 18:46 Respiratory Rate 18 12/31/24 18:46 Blood Pressure 122/99 12/31/24 18:46 O2 Sat by Pulse Oximetry 98 12/31/24 18:46 Pain Scale Pain Intensity 6 - Physical Exam General Appearance: no apparent distress, alert Eye Exam: PERRL/EOMI, eyes nml inspection Ears, Nose, Throat Exam: normal ENT inspection, pharynx normal, moist mucous membranes Neck Exam: normal inspection, full range of motion Respiratory Exam: normal breath sounds, lungs clear, airway intact, No respiratory distress Cardiovascular Exam: regular rate/rhythm, normal heart sounds Gastrointestinal/Abdomen Exam: soft, tenderness, other (Epigastric abdominal tenderness), No mass Back Exam: normal inspection, normal range of motion, No CVA tenderness, No vertebral tenderness Extremity Exam: normal inspection, normal range of motion, pelvis stable Neurologic Exam: alert, oriented x 3, cooperative, normal mood/affect, nml cerebellar function, sensation nml, No motor deficits Skin Exam: normal color, warm, dry Lymphatic Exam: No adenopathy SpO2 Interpretation: normal SpO2: 98 O2 Delivery: Room Air - Course Nursing assessment & vital signs reviewed: Yes Ordered Tests: Active Orders 24 hr Category Date Time Status IV Insertion STAT Care 12/31/24 19:17 Active ABDOMEN AND PELVIS W CONTRAST [CT] Stat Exams 12/31/24 19:18 Taken CBC W DIFF Stat Lab 12/31/24 19:30 Completed CMP Stat Lab 12/31/24 19:36 Completed CULTURE,URINE Stat Lab 12/31/24 20:04 Received LIPASE Stat Lab 12/31/24 19:36 Completed TROPONIN Q4H Lab 12/31/24 19:36 Completed TROPONIN Q4H Lab 12/31/24 23:30 Ordered TROPONIN Q4H Lab 01/01/25 03:30 Ordered UA W/RFX UR CULTURE Stat Lab 12/31/24 20:04 Completed Medication Summary Discontinued Medications Generic Name Dose Route Start Last Admin Trade Name Juan José PRN Reason Stop Dose Admin Sodium Chloride 1,000 mls @ 999 mls/hr 12/31/24 19:17 12/31/24 20:52 Sodium Chloride 0.9% 1000 Ml IV 12/31/24 20:17 Infused .Q1H1M STA Infusion Sodium Chloride Confirm 12/31/24 19:22 Sodium Chloride 0.9% 1000 Ml Administered 12/31/24 19:23 Dose 1,000 mls @ ud .ROUTE .STK-MED ONE Ketorolac Tromethamine 30 mg 12/31/24 19:17 12/31/24 19:27 Ketorolac Tromethamine 30 Mg/Ml Inj IV 12/31/24 19:18 30 mg STAT ONE Administration Ketorolac Tromethamine Confirm 12/31/24 19:21 Ketorolac Tromethamine 30 Mg/Ml Inj Administered 12/31/24 19:22 Dose 30 mg .ROUTE .STK-MED ONE Levofloxacin 500 mg 12/31/24 21:48 12/31/24 21:54 Levofloxacin 500 Mg Tablet PO 12/31/24 21:49 500 mg STAT ONE Administration Levofloxacin Confirm 12/31/24 21:52 Levofloxacin 500 Mg Tablet Administered 12/31/24 21:53 Dose 500 mg .ROUTE .STK-MED ONE Ondansetron HCl 4 mg 12/31/24 19:17 12/31/24 19:26 Ondansetron Hcl 4 Mg/2 Ml Vial IV 12/31/24 19:18 4 mg STAT ONE Administration Ondansetron HCl Confirm 12/31/24 19:21 Ondansetron Hcl 4 Mg/2 Ml Vial Administered 12/31/24 19:22 Dose 4 mg .ROUTE .STK-MED ONE Pantoprazole Sodium 40 mg 12/31/24 19:17 12/31/24 19:27 Protonix (Pantoprazole) 40 Mg Tablet PO 12/31/24 19:18 40 mg STAT ONE Administration Pantoprazole Sodium Confirm 12/31/24 19:22 Protonix (Pantoprazole) 40 Mg Tablet Administered 12/31/24 19:23 Dose 40 mg .ROUTE .K-MED ONE Lab/Rad Data: Laboratory Result Diagrams 12/31/24 19:30 12/31/24 19:36 Laboratory Results 12/31/24 12/31/24 12/31/24 Range/Units 20:04 19:36 19:36 WBC (4.23-9.07) x10^3/uL RBC (4.63-6.08) x10^6/uL Hgb (13.7-17.5) g/dL Hct (40.1-51.0) % MCV (79.0-92.2) fL MCH (25.7-32.2) pg MCHC (32.3-36.5) g/dL RDW (11.6-14.4) % Plt Count (163-337) x10^3/uL MPV (9.4-12.4) fL Gran % (34.0-67.9) % Immature Gran % (Auto) (0.001-0.429) % Nucleat RBC Rel Count (0.00-0.2) % Eos # (Auto) (0.04-0.54) x10^3/uL Immature Gran # (Auto) (0.001-0.031) x10^3u/L Absolute Lymphs (auto) (1.32-3.57) x10^3/uL Absolute Monos (auto) (0.30-0.82) x10^3/uL Absolute Nucleated RBC (0.00-0.012) x10^3u/L Lymphocytes % (21.8-53.1) % Monocytes % (5.3-12.2) % Eosinophils % (0.8-7.0) % Basophils % (0.2-1.2) % Absolute Granulocytes (1.78-5.38) x10^3/uL Basophils # (0.01-0.08) x10^3/uL Sodium 137 (135-145) mmol/L Potassium 4.0 (3.5-5.1) mmol/L Chloride 101 (98-107) mmol/L Carbon Dioxide 23 (22-30) mmol/L Anion Gap 17.1 H (5-15) MEQ/L BUN 14 (9-20) mg/dL Creatinine 0.55 L (0.66-1.25) mg/dL Estimated GFR 123.8 ML/MIN Glucose 293 H (74-106) mg/dL Calcium 10.0 (8.4-10.2) mg/dL Total Bilirubin 1.10 (0.2-1.3) mg/dL AST 26 (17-59) U/L ALT 32 (0-50) U/L Alkaline Phosphatase 101 (38-126) U/L Troponin I < 0.012 (0.000-0.033) ng/mL Serum Total Protein 7.3 (6.3-8.2) g/dL Albumin 4.8 (3.5-5.0) g/dL Lipase 119 (23-300) U/L Urine Color Dark Yellow (Yellow) Urine Appearance Clear (Clear) Urine pH 5.0 (4.6-8.0) Ur Specific [place] >=1.030 A (1.005-1.030) Urine Protein 100 A (Negative) Urine Glucose (UA) >=1000 A (Negative) mg/dL Urine Ketones 15 A (Negative) Urine Blood Moderate A (Negative) Urine Nitrite Negative (Negative) Urine Bilirubin Negative (Negative) Urine Urobilinogen 1.0 A (0.2) mg/dL Ur Leukocyte Esterase Negative (Negative) U Hyaline Cast (Auto) 6-10 A (0-2) /LPF Urine Microscopic RBC 11-20 A (0-5) /HPF Urine Microscopic WBC 6-10 A (0-5) /HPF Ur Epithelial Cells Few (None Seen) /HPF Urine Bacteria None Seen (None Seen) /HPF Urine Culture Reflexed YES (NO) 12/31/24 Range/Units 19:30 WBC 11.0 H (4.23-9.07) x10^3/uL RBC 5.35 (4.63-6.08) x10^6/uL Hgb 15.8 (13.7-17.5) g/dL Hct 43.7 (40.1-51.0) % MCV 81.7 (79.0-92.2) fL MCH 29.5 (25.7-32.2) pg MCHC 36.2 (32.3-36.5) g/dL RDW 12.5 (11.6-14.4) % Plt Count 246 (163-337) x10^3/uL MPV 10.5 (9.4-12.4) fL Gran % 67.3 (34.0-67.9) % Immature Gran % (Auto) 0.4 (0.001-0.429) % Nucleat RBC Rel Count 0.0 (0.00-0.2) % Eos # (Auto) 0.09 (0.04-0.54) x10^3/uL Immature Gran # (Auto) 0.04 H (0.001-0.031) x10^3u/L Absolute Lymphs (auto) 2.74 (1.32-3.57) x10^3/uL Absolute Monos (auto) 0.69 (0.30-0.82) x10^3/uL Absolute Nucleated RBC 0.00 (0.00-0.012) x10^3u/L Lymphocytes % 25.0 (21.8-53.1) % Monocytes % 6.3 (5.3-12.2) % Eosinophils % 0.8 (0.8-7.0) % Basophils % 0.2 (0.2-1.2) % Absolute Granulocytes 7.38 H (1.78-5.38) x10^3/uL Basophils # 0.02 (0.01-0.08) x10^3/uL Sodium (135-145) mmol/L Potassium (3.5-5.1) mmol/L Chloride (98-107) mmol/L Carbon Dioxide (22-30) mmol/L Anion Gap (5-15) MEQ/L BUN (9-20) mg/dL Creatinine (0.66-1.25) mg/dL Estimated GFR ML/MIN Glucose (74-106) mg/dL Calcium (8.4-10.2) mg/dL Total Bilirubin (0.2-1.3) mg/dL AST (17-59) U/L ALT (0-50) U/L Alkaline Phosphatase (38-126) U/L Troponin I (0.000-0.033) ng/mL Serum Total Protein (6.3-8.2) g/dL Albumin (3.5-5.0) g/dL Lipase (23-300) U/L Urine Color (Yellow) Urine Appearance (Clear) Urine pH (4.6-8.0) Ur Specific Nap[place] (1.005-1.030) Urine Protein (Negative) Urine Glucose (UA) (Negative) mg/dL Urine Ketones (Negative) Urine Blood (Negative) Urine Nitrite (Negative) Urine Bilirubin (Negative) Urine Urobilinogen (0.2) mg/dL Ur Leukocyte Esterase (Negative) U Hyaline Cast (Auto) (0-2) /LPF Urine Microscopic RBC (0-5) /HPF Urine Microscopic WBC (0-5) /HPF Ur Epithelial Cells (None Seen) /HPF Urine Bacteria (None Seen) /HPF Urine Culture Reflexed (NO) - Progress Progress: improved Progress Note: 44-year-old male presents to our emergency department for evaluation of chronic abdominal pain. CT scan reveals fecal stasis otherwise no acute findings. Laboratory workup reveals a slight leukocytosis. UA significant for UTI. Patient received an oral dose of Levaquin in our ED. A prescription for ciprofloxacin forwarded to patient's pharmacy. Patient reassessed. Abdominal pain resolved. IV fluids infused. No indication for further workup at this time. Will discharge home. Patient agrees to follow-up with his primary care doctor within 48 hours for reevaluation. Portions of this note were created with voice recognition technology. There may be grammatical, spelling, punctuation or sound alike errors Complexity of problem addressed is moderate acute complicated. No critical care time. Complexity of data reviewed and analyzed as moderate. Test ordered test reviewed results analyzed and correlated clinically with history and physical exam. Risk of complication and or risk of morbidity/mortality of patient management is moderate. A prescription for ciprofloxacin forwarded to patient's pharmacy. Vital stable. Time spent to discharge patient is approximately 15 minutes. Plan of care established for shared decision making. No social determinants of health present to impede follow-up. Portions of this note were created with voice recognition technology. There may be grammatical, spelling, punctuation or sound alike errors 12/31/24 21:58 Counseled pt/family regarding: lab results, diagnosis, need for follow-up, rad results - Departure Departure Disposition: Home Clinical Impression: Abdominal pain, UTI (urinary tract infection) Condition: Stable Critical Care Time: No Referrals: BOBBY NEWTON [Primary Care Provider, [facility]] - Follow up/PCP as directed Additional Instructions: Discharge/Care Plan ZARINA FATIMA was seen on 12/31/24 in the Emergency Room. The patient was counseled regarding Diagnosis,Lab results, Imaging studies, need for follow up and when to return to the Emergency Room. Prescriptions given: Discharge Note I have spoken with the patient and/or caregivers. I have explained the patient's condition, diagnosis and treatment plan based on the information available to me at this time. I have answered the patient's and/or caregiver's questions and addressed any concerns. The patient and/or caregivers have as good understanding of the patient's diagnosis, condition and treatment plan as can be expected at this point. The vital signs have been stable. The patient's condition is stable and appropriate for discharge from the emergency department. The patient will pursue further outpatient evaluation with the primary care physician or other designated or consulting physician as outlined in the discharge instructions. The patient and/or caregivers are agreeable to this plan of care and follow-up instructions have been explained in detail. The patient and/or caregivers have received these instruction. The patient/and or caregivers are aware that any significant change in condition or worsening of symptoms should prompt an immediate return to this or the closest emergency department or call 911. Prescriptions: Ciprofloxacin [Cipro 500 MG] 500 mg PO BID #14 tablet
[2024-12-31 19:45] LABS: ALBUMIN 4.8 g/dL (3.5-5.0); ANION GAP 17.1 MEQ/L (5-15); BILIRUBIN,TOTAL 1.1 mg/dL (0.2-1.3); Creatinine 1 0.55 mg/dL (0.66-1.25); EST GLOMERULAR FILTRATION RATE 123.8 ML/MIN; Total Protein 7.3 g/dL (6.3-8.2)
[2024-12-31 20:15] LABS: Appearance Clear (Clear); Bacteria None Seen /HPF (None Seen); Bilirubin Negative (Negative); Blood Moderate (Negative); Epithelial Cells Few /HPF (None Seen); Glucose, Urine >=1000 mg/dL (Negative); Ketones 15 (Negative); Leukocyte Esterase Negative (Negative); Nitrite Negative (Negative); Protein,Urine Dip 100 (Negative); Specific Gravity >=1.030 (1.005-1.030)
[2024-12-31 21:02] VITALS: BP 130/91; PULSE 80; RESP 18
[2024-12-31] MEDS ORDERED: Levofloxacin 500 MG Tablet ONE (21:52)
[2024-12-31] MEDS: Levofloxacin 500 MG Tablet PO ONE (21:54)
[2024-12-31 22:01] VITALS: O2SAT 98
--- NOTE | 2024-12-31 22:20 | XRAY ---
Indication: Pain. Multiple contiguous axial images obtained through the abdomen and pelvis using 80 cc Isovue 370 contrast. Comparison: December 10, 2024 Lung bases remain clear with incidental right lower lobe calcified granuloma. Heart not enlarged. Noncontrasted stomach and bowel loops nonobstructed again with normal appendix. There remains moderate diffuse scatter colonic fecal debris throughout. Again incidental tiny hepatic/splenic calcified granulomas. No free fluid/air. Remaining liver, gallbladder, pancreas, spleen, adrenal glands, kidneys, ureters, bladder, and aorta are normal in CT appearance and attenuation. No pathologic retroperitoneal lymphadenopathy. Osseous structures intact. Impression: Again diffuse fecal stasis and evidence for old granulomatous disease. No new/acute findings on this contrasted exam.
== END 2024-12-31 22:13 | disposition home or self-care (01) ==
LOC: ED 18:39
DX: N39.0 Urinary tract infection, site not specified (principal); R10.9 Unspecified abdominal pain; E78.5 Hyperlipidemia, unspecified; I10 Essential (primary) hypertension; E11.9 Type 2 diabetes mellitus without complications; Z79.899 Other long term (current) drug therapy; Z72.0 Tobacco use
CPT/HCPCS: 36415; 74177; 80053; 81001; 83690; 84484; 85025; 87086; 96361; 96374; 96375; 99284; 99285; J1885; J2405; A9270-GY

== ENCOUNTER 2025-05-05 00:39 | Emergency (ER) | payer OTHER ==
[2025-05-05 00:50] VITALS: TEMP 98.4
[2025-05-05] MEDS ORDERED: Zofran 4 MG/2 ML VIAL ONE (00:56)
[2025-05-05] MEDS ORDERED: Hydromorphone 1 mg/ml Injection ONE (00:56)
[2025-05-05] MEDS ORDERED: PROTONIX 40 MG IV IV ONE (00:56)
--- NOTE | 2025-05-05 00:56 | ERPHSYRPT ---
- History of Present Illness Time Seen by Provider: 05/05/25 00:43 Source: patient Exam Limitations: no limitations Patient Subjective Stated Complaint: pt reports abdominal pain for 4 days. states he has barely eaten in 5 days. reports longstanding issue with abdominal pain and vomiting. states he is scheduled to see a GI specialist on 05/27. pt also reports cough and pain with inspiration. Triage Nursing Assessment: pt is aox3, pt appears in pain, pupils perrl, afebrile, resps easy and non labored, cap refill < 3 seconds, radial pulses strong and equal, abd soft, tender diffusely, bowel sounds present, pt skin pink warm dry. Physician History: 45-year-old male presents to the emergency room with pain in his epigastric area that is worse upon deep inspiration patient reports he is having trouble eating over the past 4 to 5 days he is supposed to see a GI doctor at [place] on May 27 denies any fevers or chills reports he is get a cough he is a chronic smoker about a third a pack a day reports some nausea and vomiting denies some diarrhea denies any rash patient is now in ED for further eval Timing/Duration: day(s) (4) Severity: mild Associated Symptoms: nausea, vomiting, abdominal pain, cough, No diaphoresis, No fever, No headaches, No loss of appetite Allergies/Adverse Reactions: codeine Allergy (Severe, Verified 05/05/25 00:50) Nausea and Vomiting "severe vomiting for hours" pseudoephedrine [From Actifed] Allergy (Severe, Verified 05/05/25 00:50) Fainting " almost . went out cold and really hard to wake me up" triprolidine [From Actifed] Allergy (Severe, Verified 05/05/25 00:50) Fainting "about " diphenhydramine [From Benadryl] Adverse Reaction (Severe, Verified 05/05/25 00:50) Fainting "knocked me out and couldn't get me awake hardly" Home Medications: Lisinopril 10 mg [Zestril 10 MG] 10 mg PO DAILY 01/06/20 [History] Ergocalciferol (Vitamin D2) [Vitamin D] 50,000 unit PO WEEKLY 07/26/20 [History] Gabapentin [Neurontin] 600 mg PO TID 08/29/20 [History] Benztropine Mesylate 1 mg PO HS 09/26/24 [History] Buspirone HCl 5 mg [Buspar 5 mg] 15 mg PO BID 09/26/24 [History] Fenofibrate Nanocrystallized [Fenofibrate] 48 mg PO DAILY 09/26/24 [History] Lurasidone HCl [Latuda] 80 mg PO HS 09/26/24 [History] Prazosin HCl 1 mg PO TID 09/26/24 [History] Rosuvastatin Calcium 20 mg PO DAILY 09/26/24 [History] Insulin Glargine [Lantus Insulin] 20 unit SQ HS 05/05/25 [History] Hx Tetanus, Diphtheria Vaccination/Date Given: Yes Hx Influenza Vaccination/Date Given: No Hx Pneumococcal Vaccination/Date Given: No Immunizations Up to Date: No Travel Risk - International Travel Have you traveled outside of the country in past 3 weeks: No - Emerging Infectious Disease Are you exhibiting symptoms associated with any current EIDs: No Symptoms: Abdominal Pain, Vomitting Comment: normal formed stools, nausea, vomited yesterday - Review of Systems Constitutional: No Fever, No Chills Eyes: No Symptoms Ears, Nose, & Throat: No Symptoms Respiratory: Cough, No Dyspnea Cardiac: No Edema, No Syncope Abdominal/Gastrointestinal: Abdominal Pain, Nausea, Vomiting, No Diarrhea Genitourinary Symptoms: No Dysuria Musculoskeletal: No Back Pain, No Neck Pain Skin: No Rash Neurological: No Dizziness, No Focal Weakness, No Sensory Changes Psychological: No Symptoms Endocrine: No Symptoms All Other Systems: Reviewed and Negative - Past Medical History Pertinent Past Medical History: Yes Neurological History: No Pertinent History ENT History: No Pertinent History Cardiac History: Coronary Artery Disease, High Cholesterol, Hypertension Respiratory History: No Pertinent History Endocrine Medical History: Diabetes Type II Musculoskeletal History: No Pertinent History GI Medical History: Esophageal Disorder, GERD, Gallbladder Disease, Hemorrhoids, Pancreatitis, Ulcer, Other History: Other Psycho-Social History: Depression Male Reproductive Disorders: No Pertinent History Other Medical History: kidney infection, GASTROPARESIS - Past Surgical History Past Surgical History: Yes Neuro Surgical History: No Pertinent History Cardiac: Cardiac Catheterization Respiratory: No Pertinent History Gastrointestinal: Hemorrhoidectomy, Rectal Surgery Genitourinary: No Pertinent History Musculoskeletal: No Pertinent History Male Surgical History: No Pertinent History Other Surgical History: 2019 Heart Cath (blockage x 2) Significant Family History: heart disease, cancer, diabetes, stroke - Social History Smoking Status: Current every day smoker How long have you smoked: years Exposure to second hand smoke: Yes Drug Use: none - Social Determinants of Health Will the patient participate in the screening: Yes Do you worry about a steady place to live?: No Do you have any problems with any of the following?: No known problems In the past 12 months,have you had to go without utilities?: No Transportation Issues: No Has anyone in your support network made you feel unsafe?: No Have you or anyone in your house had to go w/o enough food: No - Nursing Vital Signs Nursing Vital Signs: Initial Vital Signs Temperature 98.4 F 05/05/25 00:42 Pulse Rate 88 05/05/25 00:42 Respiratory Rate 20 05/05/25 00:42 Blood Pressure 161/103 05/05/25 00:42 O2 Sat by Pulse Oximetry 99 05/05/25 00:42 Pain Scale Pain Intensity 4 - Physical Exam General Appearance: no apparent distress, alert Eye Exam: PERRL/EOMI, eyes nml inspection Ears, Nose, Throat Exam: normal ENT inspection, TMs normal, pharynx normal, moist mucous membranes Neck Exam: normal inspection, non-tender, supple, full range of motion Respiratory Exam: normal breath sounds, lungs clear, No respiratory distress Cardiovascular Exam: regular rate/rhythm, normal heart sounds, normal peripheral pulses Gastrointestinal/Abdomen Exam: soft, normal bowel sounds, No tenderness, No mass Back Exam: normal inspection, normal range of motion, No CVA tenderness, No vertebral tenderness Extremity Exam: normal inspection, normal range of motion, pelvis stable Neurologic Exam: alert, oriented x 3, cooperative, normal mood/affect, nml cerebellar function, nml station & gait, sensation nml, No motor deficits Skin Exam: normal color, warm, dry, No rash Lymphatic Exam: No adenopathy SpO2: 99 - Course Nursing assessment & vital signs reviewed: Yes EKG Interpreted by Me: RATE (79), Sinus Rhythm, Non-specific ST Changes, Other (no STEMI) Ordered Tests: Active Orders 24 hr Category Date Time Status EKG-ER Only STAT Care 05/05/25 00:50 Active IV Insertion STAT Care 05/05/25 00:50 Active CHEST 2 VIEWS (PA AND LAT) Stat Exams 05/05/25 00:51 Taken CBC W DIFF Stat Lab 05/05/25 01:11 Completed CMP Stat Lab 05/05/25 01:11 Completed CULTURE,URINE Stat Lab 05/05/25 02:22 Received LIPASE Stat Lab 05/05/25 01:11 Completed Lactic Acid Stat Lab 05/05/25 00:50 Completed TROPONIN Q3H Lab 05/05/25 01:11 Completed UA W/RFX UR CULTURE Stat Lab 05/05/25 02:22 Completed VENOUS BLOOD GAS Stat Lab 05/05/25 00:54 Completed Respiratory Therapy Assessment DAILY RT 05/05/25 01:49 Active Medication Summary Discontinued Medications Generic Name Dose Route Start Last Admin Trade Name Freq PRN Reason Stop Dose Admin Albuterol Sulfate 2.5 mg 05/05/25 00:52 05/05/25 01:03 Albuterol Sulfate 2.5 Mg/3 Ml Neb IH 05/05/25 00:53 2.5 mg STAT ONE Administration Albuterol Sulfate Confirm 05/05/25 01:17 Albuterol Sulfate 2.5 Mg/3 Ml Neb Administered 05/05/25 01:18 Dose 2.5 mg IH .STK-MED ONE Hydromorphone HCl 1 mg 05/05/25 00:50 05/05/25 01:03 Hydromorphone 1 Mg/1ml Inj IV 05/05/25 00:51 1 mg STAT ONE Administration Hydromorphone HCl Confirm 05/05/25 00:56 Hydromorphone 1 Mg/1ml Inj Administered 05/05/25 00:57 Dose 1 mg .ROUTE .STK-MED ONE Sodium Chloride 1,000 mls @ 999 mls/hr 05/05/25 00:50 05/05/25 02:03 Sodium Chloride 0.9% 1000 Ml IV 05/05/25 01:50 Infused .Q1H1M STA Infusion Sodium Chloride Confirm 05/05/25 00:56 Sodium Chloride 0.9% 1000 Ml Administered 05/05/25 00:57 Dose 1,000 mls @ ud .ROUTE .STK-MED ONE Sodium Chloride 1,000 mls @ 999 mls/hr 05/05/25 02:21 05/05/25 02:29 Sodium Chloride 0.9% 1000 Ml IV 05/05/25 03:21 Not Given .Q1H1M STA Ondansetron HCl 4 mg 05/05/25 00:50 05/05/25 01:02 Ondansetron Hcl 4 Mg/2 Ml Vial IV 05/05/25 00:51 4 mg STAT ONE Administration Ondansetron HCl Confirm 05/05/25 00:56 Ondansetron Hcl 4 Mg/2 Ml Vial Administered 05/05/25 00:57 Dose 4 mg .ROUTE .STK-MED ONE Pantoprazole Sodium 40 mg 05/05/25 00:50 05/05/25 01:02 Pantoprazole 40 Mg Vial IV 05/05/25 00:51 40 mg STAT ONE Administration Pantoprazole Sodium Confirm 05/05/25 00:56 Pantoprazole 40 Mg Vial Administered 05/05/25 00:57 Dose 40 mg IV .STK-MED ONE Lab/Rad Data: Laboratory Result Diagrams 05/05/25 01:11 05/05/25 01:11 Laboratory Results 05/05/25 05/05/25 05/05/25 Range/Units 02:22 01:11 01:11 WBC (4.23-9.07) x10^3/uL RBC (4.63-6.08) x10^6/uL Hgb (13.7-17.5) g/dL Hct (40.1-51.0) % MCV (79.0-92.2) fL MCH (25.7-32.2) pg MCHC (32.3-36.5) g/dL RDW (11.6-14.4) % Plt Count (163-337) x10^3/uL MPV (9.4-12.4) fL Gran % (34.0-67.9) % Immature Gran % (Auto) (0.001-0.429) % Nucleat RBC Rel Count (0.00-0.2) % Eos # (Auto) (0.04-0.54) x10^3/uL Immature Gran # (Auto) (0.001-0.031) x10^3u/L Absolute Lymphs (auto) (1.32-3.57) x10^3/uL Absolute Monos (auto) (0.30-0.82) x10^3/uL Absolute Nucleated RBC (0.00-0.012) x10^3u/L Lymphocytes % (21.8-53.1) % Monocytes % (5.3-12.2) % Eosinophils % (0.8-7.0) % Basophils % (0.2-1.2) % Absolute Granulocytes (1.78-5.38) x10^3/uL Basophils # (0.01-0.08) x10^3/uL pO2/FiO2 Ratio % VBG pH (7.32-7.42) VBG pCO2 at Pat Temp (42-55) mm/Hg VBG pO2 at Pat Temp (25-40) mm/Hg VBG HCO3 (22-28) meq/L VBG O2 Sat (Alessandra) (95-100) VBG Base Excess (-2.0-2.0) VBG Hemoglobin VBG Carboxyhemoglobin (0.0-6.9) % T HGB POC Potassium (3.5-5.1) Sodium (135-145) mmol/L Potassium (3.5-5.1) mmol/L Chloride (98-107) mmol/L Carbon Dioxide (22-30) mmol/L Anion Gap (5-15) MEQ/L BUN (9-20) mg/dL Creatinine (0.66-1.25) mg/dL Estimated GFR ML/MIN Glucose (74-106) mg/dL Lactic Acid (0.4-2.0) Calcium (8.4-10.2) mg/dL Total Bilirubin (0.2-1.3) mg/dL AST (17-59) U/L ALT (0-50) U/L Alkaline Phosphatase (38-126) U/L Troponin I < 0.012 (0.000-0.033) ng/mL Serum Total Protein (6.3-8.2) g/dL Albumin (3.5-5.0) g/dL Lipase (23-300) U/L Urine Color Dark Yellow (Yellow) Urine Appearance Clear (Clear) Urine pH 6.0 (4.6-8.0) Ur Specific Stinnett >=1.030 A (1.005-1.030) Urine Protein 30 (Negative) Urine Glucose (UA) 100 A (Negative) mg/dL Urine Ketones 40 A (Negative) Urine Blood Negative (Negative) Urine Nitrite Negative (Negative) Urine Bilirubin Small A (Negative) Urine Urobilinogen 1.0 A (0.2) mg/dL Ur Leukocyte Esterase Trace A (Negative) U Hyaline Cast (Auto) NONE SEEN (0-2) /LPF Urine Microscopic RBC 0-2 (0-5) /HPF Urine Microscopic WBC 3-5 (0-5) /HPF Ur Epithelial Cells None Seen (None Seen) /HPF Urine Bacteria None Seen (None Seen) /HPF Urine Culture Reflexed YES (NO) Influenza Type A Ag NEGATIVE (NEGATIVE) Influenza Type B Ag NEGATIVE (NEGATIVE) RSV (PCR) NEGATIVE (NEGATIVE) SARS-CoV-2 (PCR) NEGATIVE (NEGATIVE) 05/05/25 05/05/25 05/05/25 Range/Units 01:11 01:11 00:54 WBC 14.1 H (4.23-9.07) x10^3/uL RBC 5.25 (4.63-6.08) x10^6/uL Hgb 15.5 (13.7-17.5) g/dL Hct 44.4 (40.1-51.0) % MCV 84.6 (79.0-92.2) fL MCH 29.5 (25.7-32.2) pg MCHC 34.9 (32.3-36.5) g/dL RDW 12.3 (11.6-14.4) % Plt Count 302 (163-337) x10^3/uL MPV 10.4 (9.4-12.4) fL Gran % 70.5 H (34.0-67.9) % Immature Gran % (Auto) 0.6 H (0.001-0.429) % Nucleat RBC Rel Count 0.0 (0.00-0.2) % Eos # (Auto) 0.03 L (0.04-0.54) x10^3/uL Immature Gran # (Auto) 0.09 H (0.001-0.031) x10^3u/L Absolute Lymphs (auto) 3.07 (1.32-3.57) x10^3/uL Absolute Monos (auto) 0.95 H (0.30-0.82) x10^3/uL Absolute Nucleated RBC 0.00 (0.00-0.012) x10^3u/L Lymphocytes % 21.8 (21.8-53.1) % Monocytes % 6.7 (5.3-12.2) % Eosinophils % 0.2 L (0.8-7.0) % Basophils % 0.2 (0.2-1.2) % Absolute Granulocytes 9.92 H (1.78-5.38) x10^3/uL Basophils # 0.03 (0.01-0.08) x10^3/uL pO2/FiO2 Ratio 21.0 % VBG pH 7.46 H (7.32-7.42) VBG pCO2 at Pat Temp 41 L (42-55) mm/Hg VBG pO2 at Pat Temp 64 H (25-40) mm/Hg VBG HCO3 29.2 H* (22-28) meq/L VBG O2 Sat (Alessandra) 95.4 (95-100) VBG Base Excess 4.8 H (-2.0-2.0) VBG Hemoglobin 16.0 VBG Carboxyhemoglobin 10.9 H* (0.0-6.9) % T HGB POC Potassium 3.7 (3.5-5.1) Sodium 135 (135-145) mmol/L Potassium 3.8 (3.5-5.1) mmol/L Chloride 97 L (98-107) mmol/L Carbon Dioxide 28 (22-30) mmol/L Anion Gap 14.2 (5-15) MEQ/L BUN 15 (9-20) mg/dL Creatinine 0.62 L (0.66-1.25) mg/dL Estimated GFR 118.6 ML/MIN Glucose 225 H (74-106) mg/dL Lactic Acid (0.4-2.0) Calcium 10.0 (8.4-10.2) mg/dL Total Bilirubin 1.00 (0.2-1.3) mg/dL AST 16 L (17-59) U/L ALT 16 (0-50) U/L Alkaline Phosphatase 91 (38-126) U/L Troponin I (0.000-0.033) ng/mL Serum Total Protein 7.3 (6.3-8.2) g/dL Albumin 4.8 (3.5-5.0) g/dL Lipase 60 (23-300) U/L Urine Color (Yellow) Urine Appearance (Clear) Urine pH (4.6-8.0) Ur Specific Stinnett (1.005-1.030) Urine Protein (Negative) Urine Glucose (UA) (Negative) mg/dL Urine Ketones (Negative) Urine Blood (Negative) Urine Nitrite (Negative) Urine Bilirubin (Negative) Urine Urobilinogen (0.2) mg/dL Ur Leukocyte Esterase (Negative) U Hyaline Cast (Auto) (0-2) /LPF Urine Microscopic RBC (0-5) /HPF Urine Microscopic WBC (0-5) /HPF Ur Epithelial Cells (None Seen) /HPF Urine Bacteria (None Seen) /HPF Urine Culture Reflexed (NO) Influenza Type A Ag (NEGATIVE) Influenza Type B Ag (NEGATIVE) RSV (PCR) (NEGATIVE) SARS-CoV-2 (PCR) (NEGATIVE) 05/05/25 Range/Units 00:50 WBC (4.23-9.07) x10^3/uL RBC (4.63-6.08) x10^6/uL Hgb (13.7-17.5) g/dL Hct (40.1-51.0) % MCV (79.0-92.2) fL MCH (25.7-32.2) pg MCHC (32.3-36.5) g/dL RDW (11.6-14.4) % Plt Count (163-337) x10^3/uL MPV (9.4-12.4) fL Gran % (34.0-67.9) % Immature Gran % (Auto) (0.001-0.429) % Nucleat RBC Rel Count (0.00-0.2) % Eos # (Auto) (0.04-0.54) x10^3/uL Immature Gran # (Auto) (0.001-0.031) x10^3u/L Absolute Lymphs (auto) (1.32-3.57) x10^3/uL Absolute Monos (auto) (0.30-0.82) x10^3/uL Absolute Nucleated RBC (0.00-0.012) x10^3u/L Lymphocytes % (21.8-53.1) % Monocytes % (5.3-12.2) % Eosinophils % (0.8-7.0) % Basophils % (0.2-1.2) % Absolute Granulocytes (1.78-5.38) x10^3/uL Basophils # (0.01-0.08) x10^3/uL pO2/FiO2 Ratio % VBG pH (7.32-7.42) VBG pCO2 at Pat Temp (42-55) mm/Hg VBG pO2 at Pat Temp (25-40) mm/Hg VBG HCO3 (22-28) meq/L VBG O2 Sat (Alessandra) (95-100) VBG Base Excess (-2.0-2.0) VBG Hemoglobin VBG Carboxyhemoglobin (0.0-6.9) % T HGB POC Potassium (3.5-5.1) Sodium (135-145) mmol/L Potassium (3.5-5.1) mmol/L Chloride (98-107) mmol/L Carbon Dioxide (22-30) mmol/L Anion Gap (5-15) MEQ/L BUN (9-20) mg/dL Creatinine (0.66-1.25) mg/dL Estimated GFR ML/MIN Glucose (74-106) mg/dL Lactic Acid 1.3 (0.4-2.0) Calcium (8.4-10.2) mg/dL Total Bilirubin (0.2-1.3) mg/dL AST (17-59) U/L ALT (0-50) U/L Alkaline Phosphatase (38-126) U/L Troponin I (0.000-0.033) ng/mL Serum Total Protein (6.3-8.2) g/dL Albumin (3.5-5.0) g/dL Lipase (23-300) U/L Urine Color (Yellow) Urine Appearance (Clear) Urine pH (4.6-8.0) Ur Specific Stinnett (1.005-1.030) Urine Protein (Negative) Urine Glucose (UA) (Negative) mg/dL Urine Ketones (Negative) Urine Blood (Negative) Urine Nitrite (Negative) Urine Bilirubin (Negative) Urine Urobilinogen (0.2) mg/dL Ur Leukocyte Esterase (Negative) U Hyaline Cast (Auto) (0-2) /LPF Urine Microscopic RBC (0-5) /HPF Urine Microscopic WBC (0-5) /HPF Ur Epithelial Cells (None Seen) /HPF Urine Bacteria (None Seen) /HPF Urine Culture Reflexed (NO) Influenza Type A Ag (NEGATIVE) Influenza Type B Ag (NEGATIVE) RSV (PCR) (NEGATIVE) SARS-CoV-2 (PCR) (NEGATIVE) - Progress Progress Note: 05/05/25 02:36 Patient feels improved while in the ED patient's white count 14,000 patient received a liter of fluids x-ray shows no acute disease patient will be sent home with a short course of Zofran as well as Pepcid recommended to keep his appointment time for GI 05/05/25 02:36 - Departure Departure Disposition: Home Clinical Impression: Gastritis Qualifiers: Gastritis type: unspecified gastritis Chronicity: unspecified Gastritis bleeding: without bleeding Qualified Code(s): K29.70 - Gastritis, unspecified, without bleeding Abdominal pain Qualifiers: Abdominal location: unspecified location Qualified Code(s): R10.9 - Unspecified abdominal pain Condition: Stable Critical Care Time: No Referrals: [facility] [Primary Care Provider, [facility]] - Follow up/PCP as directed Instructions: Gastritis, Abdominal pain Prescriptions: Ondansetron ODT 4 MG [Zofran Odt 4 mg] 4 mg PO Q6H PRN PRN #10 tablet PRN Reason: Nausea Famotidine 20 mg [Pepcid 20 MG] 20 mg PO BID #20 tablet
[2025-05-05] MEDS: Zofran 4 MG/2 ML VIAL IV ONE (01:02)
[2025-05-05] MEDS: PROTONIX 40 MG IV IV ONE (01:02)
[2025-05-05] MEDS: Hydromorphone 1 mg/ml Injection IV ONE (01:03)
[2025-05-05] MEDS: PROVENTIL 2.5 MG/3 ML NEB IH ONE (01:03)
[2025-05-05 01:16] LABS: BASOPHIL % 0.2 % (0.2-1.2); Basophil (Absolute #) 0.03 x10^3/uL (0.01-0.08); Eosinophil (Absolute #) 0.03 x10^3/uL (0.04-0.54); Hematocrit 44.4 % (40.1-51.0); Hemoglobin 15.5 g/dL (13.7-17.5); IMMATURE GRAN # 0.09 x10^3u/L (0.001-0.031); IMMATURE GRAN % 0.6 % (0.001-0.429); Lymphocyte (Absolute #) 3.07 x10^3/uL (1.32-3.57); Mean Corpuscular Hemoglobin 29.5 pg (25.7-32.2); Mean Corpuscular Hgb Concent. 34.9 g/dL (32.3-36.5); Monocyte (Absolute #) 0.95 x10^3/uL (0.30-0.82); NUCLEATED RBC # 0.00 x10^3u/L (0.00-0.012); NUCLEATED RBC % 0.0 % (0.00-0.2); Platelet Count 302 x10^3/uL (163-337); Red Blood Count 5.25 x10^6/uL (4.63-6.08); White Blood Count 14.1 x10^3/uL (4.23-9.07)
[2025-05-05] MEDS ORDERED: PROVENTIL 2.5 MG/3 ML NEB IH ONE (01:17)
[2025-05-05 01:22] LABS: Calcium 10.0 mg/dL (8.4-10.2); Carbon Dioxide 28.0 mmol/L (22-30); Creatinine 1 0.62 mg/dL (0.66-1.25); EST GLOMERULAR FILTRATION RATE 118.6 ML/MIN; Glucose 225.0 mg/dL (74-106); Potassium 3.8 mmol/L (3.5-5.1); SGOT/AST 16.0 U/L (17-59); SGPT/ALT 16.0 U/L (0-50); Total Protein 7.3 g/dL (6.3-8.2)
[2025-05-05 01:35] LABS: VBG BASE EXCESS 4.8 (-2.0-2.0); VBG FIO2 21.0 %; VBG HCO3- 29.2 meq/L (22-28); VBG HEMOGLOBIN 16.0; VBG O2 SATURATION 95.4 (95-100); VBG PCO2 41.0 mm/Hg (42-55); VBG PO2 64.0 mm/Hg (25-40); VBG POTASSIUM 3.7 (3.5-5.1)
[2025-05-05 01:36] LABS: VBG CARBOXYHEMOGLOBIN 10.9 % T HGB (0.0-6.9)
[2025-05-05 01:52] LABS: INFLUENZA A NEGATIVE (NEGATIVE); INFLUENZA B NEGATIVE (NEGATIVE); RESPIRATORY SYNCTIAL VIRUS NEGATIVE (NEGATIVE); SARS-CoV-2 Xpert Express NEGATIVE (NEGATIVE)
[2025-05-05 02:11] VITALS: PULSE 87; RESP 17
[2025-05-05 02:32] LABS: Glucose, Urine 100 mg/dL (Negative); Protein,Urine Dip 30 (Negative); RBC 0-2 /HPF (0-5)
[2025-05-05 02:59] VITALS: BP 122/83; O2SAT 95
--- NOTE | 2025-05-05 08:55 | XRAY ---
Indication: Cough. Comparison: December 01, 2024 PA/lateral chest unchanged again hyperinflated and clear with incidental right lung calcified granulomas. Heart not enlarged. Bony thorax intact. No new/acute findings.
== END 2025-05-05 03:05 | disposition home or self-care (01) ==
LOC: ED 00:39
DX: K29.70 Gastritis, unspecified, without bleeding (principal); R10.9 Unspecified abdominal pain; R10.13 Epigastric pain; I10 Essential (primary) hypertension; E11.9 Type 2 diabetes mellitus without complications; Z79.4 Long term (current) use of insulin; Z79.899 Other long term (current) drug therapy; Z72.0 Tobacco use

== ENCOUNTER 2025-05-05 23:34 | Emergency (ER) | payer MEDICAID ==
[2025-05-05 23:42] VITALS: TEMP 96.8
[2025-05-06] MEDS ORDERED: PROTONIX 40 MG IV IV ONE (00:33)
[2025-05-06] MEDS ORDERED: Zofran 4 MG/2 ML VIAL ONE (00:33)
[2025-05-06] MEDS ORDERED: MORPHINE SULFATE 2 MG INJ ONE (00:34)
--- NOTE | 2025-05-06 00:34 | ERPHSYRPT ---
- History of Present Illness Time Seen by Provider: 05/06/25 00:26 Historian: patient Exam Limitations: no limitations Patient Subjective Stated Complaint: "I've been hurting bad and my stomach is all messed up for the past 5 years. Heck, I even lost over 100lbs over the past few years. I was just here earlier and you guys helped me with the pain and stuff. I've been taking the medications you guys sent in for me but still having a lot of pain so I decided to come back". Triage Nursing Assessment: Pt presents to ER with complaints of upper diffused abdominal pain for the past few days to a week, states has had chronic abdominal issues for the past 5 years with issues including pancreatitis, coltitis, ect. Pt was seen earlier this morning in our ER and treated for similiar issues. Pt had picked up his Rx medications and stated the pain has been persistant since he got home. He arrived to our ER by [facility]. Pt is alert and oriented x 3. Skin is pink, warm, and dry. Respirations are easy. Complains of pain 8/10 scale. Pt states pain is in upper abdomen and a constant ache. Pt states he has not vomiting today and does not know when the last time he's had a bowel movement was. Physician History: ' Patient is a 45-year-old male history of diabetes hypertension hyperlipidemia coronary artery disease, pancreatitis, gastric ulcer current smoker presents to our ED via EMS for evaluation of diffuse abdominal pain. Abdominal pain is more intense at the epigastrium region. Patient is nauseous no vomiting. No diarrhea. No rash no fever. No chest pain or shortness of breath. Abdominal pain rated 8 out of 10. Patient reports that he was here yesterday morning. Patient was worked up and subsequently discharged. Was discharged home with a diagnosis of gastritis. Patient states abdominal pain has been present for a few weeks. Patient picked up his Zofran medication and states that his symptoms have not improved. Patient voices no other complaints or concerns at this time. Portions of this note were created with voice recognition technology. There may be grammatical, spelling, punctuation or sound alike errors Timing/Duration: week(s) (4 weeks) Activities at Onset: none Quality: aching Abdominal Pain Onset Location: generalized abdomen (Generalized but worse at the epigastrium.) Pain Radiation: no radiation Severity of Pain-Max: moderate Severity of Pain-Current: mild Modifying Factors: Improves With: palpation Associated Symptoms: nausea Previous symptoms: same symptoms as today Allergies/Adverse Reactions: codeine Allergy (Severe, Verified 05/05/25 23:43) Nausea and Vomiting "severe vomiting for hours" pseudoephedrine [From Actifed] Allergy (Severe, Verified 05/05/25 23:43) Fainting " almost . went out cold and really hard to wake me up" triprolidine [From Actifed] Allergy (Severe, Verified 05/05/25 23:43) Fainting "about " diphenhydramine [From Benadryl] Adverse Reaction (Severe, Verified 05/05/25 23:43) Fainting "knocked me out and couldn't get me awake hardly" morphine Adverse Reaction (Mild, Verified 05/06/25 00:46) Vomiting Home Medications: Lisinopril 10 mg [Zestril 10 MG] 10 mg PO DAILY 01/06/20 [History] Ergocalciferol (Vitamin D2) [Vitamin D] 50,000 unit PO WEEKLY 07/26/20 [History] Gabapentin [Neurontin] 600 mg PO TID 08/29/20 [History] Benztropine Mesylate 1 mg PO HS 09/26/24 [History] Buspirone HCl 5 mg [Buspar 5 mg] 15 mg PO BID 09/26/24 [History] Fenofibrate Nanocrystallized [Fenofibrate] 48 mg PO DAILY 09/26/24 [History] Lurasidone HCl [Latuda] 80 mg PO HS 09/26/24 [History] Prazosin HCl 1 mg PO TID 09/26/24 [History] Rosuvastatin Calcium 20 mg PO DAILY 09/26/24 [History] Insulin Glargine [Lantus Insulin] 20 unit SQ HS 05/05/25 [History] Hx Tetanus, Diphtheria Vaccination/Date Given: Yes Hx Influenza Vaccination/Date Given: No Hx Pneumococcal Vaccination/Date Given: No Travel Risk - International Travel Have you traveled outside of the country in past 3 weeks: No - Emerging Infectious Disease Are you exhibiting symptoms associated with any current EIDs: No Symptoms: Abdominal Pain, Vomitting Comment: normal formed stools, nausea, vomited yesterday - Review of Systems All Other Systems: Reviewed and Negative - Past Medical History Pertinent Past Medical History: Yes Neurological History: No Pertinent History ENT History: No Pertinent History Cardiac History: Coronary Artery Disease, High Cholesterol, Hypertension Respiratory History: No Pertinent History Endocrine Medical History: Diabetes Type II Musculoskeletal History: No Pertinent History GI Medical History: Esophageal Disorder, GERD, Gallbladder Disease, Hemorrhoids, Pancreatitis, Ulcer, Other History: Other Psycho-Social History: Depression Male Reproductive Disorders: No Pertinent History Other Medical History: kidney infection, GASTROPARESIS - Past Surgical History Past Surgical History: Yes Neuro Surgical History: No Pertinent History Cardiac: Cardiac Catheterization Respiratory: No Pertinent History Gastrointestinal: Hemorrhoidectomy, Rectal Surgery Genitourinary: No Pertinent History Musculoskeletal: No Pertinent History Male Surgical History: No Pertinent History Other Surgical History: 2020 Heart Cath (blockage x 2) Significant Family History: heart disease, cancer, diabetes, stroke - Social History Smoking Status: Current every day smoker How long have you smoked: years Exposure to second hand smoke: Yes Drug Use: none - Social Determinants of Health Will the patient participate in the screening: Yes Do you worry about a steady place to live?: No Do you have any problems with any of the following?: No known problems In the past 12 months,have you had to go without utilities?: No Transportation Issues: No Has anyone in your support network made you feel unsafe?: No Have you or anyone in your house had to go w/o enough food: No - Nursing Vital Signs Nursing Vital Signs: Initial Vital Signs Pulse Rate 74 05/05/25 23:38 Respiratory Rate 14 05/05/25 23:38 Blood Pressure 159/91 05/05/25 23:38 O2 Sat by Pulse Oximetry 98 05/05/25 23:38 Pain Scale Pain Intensity 4 - Physical Exam General Appearance: no apparent distress, alert Ears, Nose, Throat Exam: normal ENT inspection, moist mucous membranes Neck Exam: normal inspection, full range of motion Respiratory Exam: normal breath sounds, lungs clear, airway intact, No respiratory distress Cardiovascular Exam: regular rate/rhythm, normal heart sounds Gastrointestinal/Abdomen Exam: soft, tenderness, No mass Back Exam: normal inspection, normal range of motion, No CVA tenderness, No vertebral tenderness Extremity Exam: normal inspection, normal range of motion, pelvis stable Neurologic Exam: alert, oriented x 3, cooperative, normal mood/affect, sensation nml, No motor deficits Skin Exam: normal color, warm, dry SpO2 Interpretation: normal SpO2: 98 O2 Delivery: Room Air - Course Nursing assessment & vital signs reviewed: Yes - CT Exams Abdomen/Pelvis CT Interpretation: Tele-radiologist Report (No acute intra abdominal pathology. No interval change. Gastritis and large prostate) Ordered Tests: Active Orders 24 hr Category Date Time Status IV Insertion STAT Care 05/06/25 00:23 Active ABDOMEN AND PELVIS W CONTRAST [CT] Stat Exams 05/06/25 00:24 Completed CBC W DIFF Stat Lab 05/06/25 00:05 Completed CMP Stat Lab 05/06/25 00:05 Completed LIPASE Stat Lab 05/06/25 00:05 Completed TROPONIN Q4H Lab 05/06/25 00:05 Completed TROPONIN Q4H Lab 05/06/25 04:30 Ordered TROPONIN Q4H Lab 05/06/25 08:30 Ordered UA W/RFX UR CULTURE Stat Lab 05/06/25 00:46 Completed Medication Summary Generic Name Dose Route Start Last Admin Trade Name Freq PRN Reason Stop Dose Admin Sodium Chloride 1,000 mls @ 100 mls/hr 05/06/25 00:30 05/06/25 00:36 Sodium Chloride 0.9% 1000 Ml IV 06/05/25 00:29 100 mls/hr .Q10H NARESH Administration Discontinued Medications Generic Name Dose Route Start Last Admin Trade Name Freq PRN Reason Stop Dose Admin Droperidol 1.25 mg 05/06/25 00:49 05/06/25 01:17 Droperidol 5 Mg/2 Ml Vial IV 05/06/25 00:50 1.25 mg STAT ONE Administration Droperidol Confirm 05/06/25 01:17 Droperidol 5 Mg/2 Ml Vial Administered 05/06/25 01:18 Dose 5 mg .ROUTE .STK-MED ONE Morphine Sulfate 2 mg 05/06/25 00:23 05/06/25 00:46 Morphine Sulfate 2 Mg/Ml Inj IV 05/06/25 00:24 Not Given STAT ONE Morphine Sulfate Confirm 05/06/25 00:34 Morphine Sulfate 2 Mg/Ml Inj Administered 05/06/25 00:35 Dose 2 mg .ROUTE .STK-MED ONE Ondansetron HCl 4 mg 05/06/25 00:23 05/06/25 00:38 Ondansetron Hcl 4 Mg/2 Ml Vial IV 05/06/25 00:24 4 mg STAT ONE Administration Ondansetron HCl Confirm 05/06/25 00:33 Ondansetron Hcl 4 Mg/2 Ml Vial Administered 05/06/25 00:34 Dose 4 mg .ROUTE .STK-MED ONE Pantoprazole Sodium 40 mg 05/06/25 00:23 05/06/25 00:37 Pantoprazole 40 Mg Vial IV 05/06/25 00:24 40 mg STAT ONE Administration Pantoprazole Sodium Confirm 05/06/25 00:33 Pantoprazole 40 Mg Vial Administered 05/06/25 00:34 Dose 40 mg IV .STK-MED ONE Lab/Rad Data: Laboratory Result Diagrams 05/06/25 00:05 05/06/25 00:05 Laboratory Results 05/06/25 05/06/25 05/06/25 Range/Units 00:46 00:05 00:05 WBC (4.23-9.07) x10^3/uL RBC (4.63-6.08) x10^6/uL Hgb (13.7-17.5) g/dL Hct (40.1-51.0) % MCV (79.0-92.2) fL MCH (25.7-32.2) pg MCHC (32.3-36.5) g/dL RDW (11.6-14.4) % Plt Count (163-337) x10^3/uL MPV (9.4-12.4) fL Gran % (34.0-67.9) % Immature Gran % (Auto) (0.001-0.429) % Nucleat RBC Rel Count (0.00-0.2) % Eos # (Auto) (0.04-0.54) x10^3/uL Immature Gran # (Auto) (0.001-0.031) x10^3u/L Absolute Lymphs (auto) (1.32-3.57) x10^3/uL Absolute Monos (auto) (0.30-0.82) x10^3/uL Absolute Nucleated RBC (0.00-0.012) x10^3u/L Lymphocytes % (21.8-53.1) % Monocytes % (5.3-12.2) % Eosinophils % (0.8-7.0) % Basophils % (0.2-1.2) % Absolute Granulocytes (1.78-5.38) x10^3/uL Basophils # (0.01-0.08) x10^3/uL Sodium 133 L (135-145) mmol/L Potassium 3.8 (3.5-5.1) mmol/L Chloride 97 L (98-107) mmol/L Carbon Dioxide 28 (22-30) mmol/L Anion Gap 12.0 (5-15) MEQ/L BUN 13 (9-20) mg/dL Creatinine 0.58 L (0.66-1.25) mg/dL Estimated GFR 121.1 ML/MIN Glucose 168 H (74-106) mg/dL Calcium 9.4 (8.4-10.2) mg/dL Total Bilirubin 0.90 (0.2-1.3) mg/dL AST 15 L (17-59) U/L ALT 14 (0-50) U/L Alkaline Phosphatase 81 (38-126) U/L Troponin I < 0.012 (0.000-0.033) ng/mL Serum Total Protein 6.6 (6.3-8.2) g/dL Albumin 4.3 (3.5-5.0) g/dL Lipase 49 (23-300) U/L Urine Color Dark Yellow (Yellow) Urine Appearance Clear (Clear) Urine pH 6.0 (4.6-8.0) Ur Specific [place] >=1.030 A (1.005-1.030) Urine Protein Trace A (Negative) Urine Glucose (UA) Negative (Negative) mg/dL Urine Ketones 15 A (Negative) Urine Blood Negative (Negative) Urine Nitrite Negative (Negative) Urine Bilirubin Negative (Negative) Urine Urobilinogen 4.0 A (0.2) mg/dL Ur Leukocyte Esterase Negative (Negative) U Hyaline Cast (Auto) NONE SEEN (0-2) /LPF Urine Microscopic RBC 0-2 (0-5) /HPF Urine Microscopic WBC 0-2 (0-5) /HPF Ur Epithelial Cells None Seen (None Seen) /HPF Urine Bacteria None Seen (None Seen) /HPF Urine Culture Reflexed NO (NO) 05/06/25 Range/Units 00:05 WBC 12.3 H (4.23-9.07) x10^3/uL RBC 4.69 (4.63-6.08) x10^6/uL Hgb 13.9 (13.7-17.5) g/dL Hct 39.2 L (40.1-51.0) % MCV 83.6 (79.0-92.2) fL MCH 29.6 (25.7-32.2) pg MCHC 35.5 (32.3-36.5) g/dL RDW 12.6 (11.6-14.4) % Plt Count 274 (163-337) x10^3/uL MPV 11.2 (9.4-12.4) fL Gran % 63.0 (34.0-67.9) % Immature Gran % (Auto) 0.3 (0.001-0.429) % Nucleat RBC Rel Count 0.0 (0.00-0.2) % Eos # (Auto) 0.10 (0.04-0.54) x10^3/uL Immature Gran # (Auto) 0.04 H (0.001-0.031) x10^3u/L Absolute Lymphs (auto) 3.44 (1.32-3.57) x10^3/uL Absolute Monos (auto) 0.96 H (0.30-0.82) x10^3/uL Absolute Nucleated RBC 0.00 (0.00-0.012) x10^3u/L Lymphocytes % 27.9 (21.8-53.1) % Monocytes % 7.8 (5.3-12.2) % Eosinophils % 0.8 (0.8-7.0) % Basophils % 0.2 (0.2-1.2) % Absolute Granulocytes 7.75 H (1.78-5.38) x10^3/uL Basophils # 0.02 (0.01-0.08) x10^3/uL Sodium (135-145) mmol/L Potassium (3.5-5.1) mmol/L Chloride (98-107) mmol/L Carbon Dioxide (22-30) mmol/L Anion Gap (5-15) MEQ/L BUN (9-20) mg/dL Creatinine (0.66-1.25) mg/dL Estimated GFR ML/MIN Glucose (74-106) mg/dL Calcium (8.4-10.2) mg/dL Total Bilirubin (0.2-1.3) mg/dL AST (17-59) U/L ALT (0-50) U/L Alkaline Phosphatase (38-126) U/L Troponin I (0.000-0.033) ng/mL Serum Total Protein (6.3-8.2) g/dL Albumin (3.5-5.0) g/dL Lipase (23-300) U/L Urine Color (Yellow) Urine Appearance (Clear) Urine pH (4.6-8.0) Ur Specific [place] (1.005-1.030) Urine Protein (Negative) Urine Glucose (UA) (Negative) mg/dL Urine Ketones (Negative) Urine Blood (Negative) Urine Nitrite (Negative) Urine Bilirubin (Negative) Urine Urobilinogen (0.2) mg/dL Ur Leukocyte Esterase (Negative) U Hyaline Cast (Auto) (0-2) /LPF Urine Microscopic RBC (0-5) /HPF Urine Microscopic WBC (0-5) /HPF Ur Epithelial Cells (None Seen) /HPF Urine Bacteria (None Seen) /HPF Urine Culture Reflexed (NO) - Progress Progress: improved Progress Note: Patient is a 45-year-old male history of diabetes hypertension hyperlipidemia coronary artery disease, pancreatitis, gastric ulcer current smoker presents to our ED via EMS for evaluation of diffuse abdominal pain. Abdominal pain is more intense at the epigastrium region. Patient is nauseous no vomiting. Physical exam significant for epigastric tenderness to palpation. CT scan suggestive of gastritis otherwise no acute intra-abdominal pathology observed. Laboratory workup shows a leukocytosis however this is downtrending as compared to yesterday. WBC is 12 versus 14 yesterday. Laboratory workup shows dehydration based on BUN/creatinine ratio and urine specific gravity. Patient received 1 L IV fluid bolus. Nausea/pain medication administered. Patient resting comfortably. No indication for further workup at this time. Vitals are stable. Will discharge home. History obtained from patient and EMS. Patient already has Zofran and Protonix at home. No indication for additional medications. Differential diagnoses gastritis, colitis, esophagitis, pancreatitis Complexity of problems addressed is moderate acute complicated. No critical care time. Complexity of data reviewed and analyzed is moderate. Test ordered chest reviewed results analyzed and correlated clinically with history and physical exam. Risk of complication and or risk of morbidity/mortality of patient management is low. Vital stable. Time spent to discharge patient is approximately 15 minutes. Plan of care established for shared decision making. No social determinants of health present to impede follow-up. Portions of this note were created with voice recognition technology. There may be grammatical, spelling, punctuation or sound alike errors 05/06/25 02:52 05/06/25 02:52 Counseled pt/family regarding: lab results, diagnosis - Departure Departure Disposition: Home Clinical Impression: Gastritis, Dehydration, Lung nodule, Hiatal hernia, Enlarged prostate Condition: Stable Critical Care Time: No Referrals: BOBBY NEWTON [Primary Care Provider, [facility]] - Follow up/PCP as directed Additional Instructions: Discharge/Care Plan ZARINA FATIMA PINA was seen on 05/06/25 in the Emergency Room. The patient was counseled regarding Diagnosis,Lab results, Imaging studies, need for follow up and when to return to the Emergency Room. Prescriptions given: Discharge Note I have spoken with the patient and/or caregivers. I have explained the patient's condition, diagnosis and treatment plan based on the information available to me at this time. I have answered the patient's and/or caregiver's questions and addressed any concerns. The patient and/or caregivers have as good understanding of the patient's diagnosis, condition and treatment plan as can be expected at this point. The vital signs have been stable. The patient's condition is stable and appropriate for discharge from the emergency department. The patient will pursue further outpatient evaluation with the primary care physician or other designated or consulting physician as outlined in the discharge instructions. The patient and/or caregivers are agreeable to this plan of care and follow-up instructions have been explained in detail. The patient and/or caregivers have received these instruction. The patient/and or caregivers are aware that any significant change in condition or worsening of symptoms should prompt an immediate return to this or the closest emergency department or call 911.
[2025-05-06] MEDS: PROTONIX 40 MG IV IV ONE (00:37)
[2025-05-06] MEDS: Zofran 4 MG/2 ML VIAL IV ONE (00:38)
[2025-05-06 00:43] LABS: BASOPHIL % 0.2 % (0.2-1.2); Basophil (Absolute #) 0.02 x10^3/uL (0.01-0.08); Eosinophil (Absolute #) 0.10 x10^3/uL (0.04-0.54); Hematocrit 39.2 % (40.1-51.0); Hemoglobin 13.9 g/dL (13.7-17.5); IMMATURE GRAN # 0.04 x10^3u/L (0.001-0.031); IMMATURE GRAN % 0.3 % (0.001-0.429); Lymphocyte (Absolute #) 3.44 x10^3/uL (1.32-3.57); Mean Corpuscular Hemoglobin 29.6 pg (25.7-32.2); Mean Corpuscular Hgb Concent. 35.5 g/dL (32.3-36.5); Monocyte (Absolute #) 0.96 x10^3/uL (0.30-0.82); NUCLEATED RBC # 0.00 x10^3u/L (0.00-0.012); NUCLEATED RBC % 0.0 % (0.00-0.2); Platelet Count 274 x10^3/uL (163-337); Red Blood Count 4.69 x10^6/uL (4.63-6.08); White Blood Count 12.3 x10^3/uL (4.23-9.07)
[2025-05-06] MEDS: MORPHINE SULFATE 2 MG INJ IV ONE (00:46)
[2025-05-06 00:55] LABS: Calcium 9.4 mg/dL (8.4-10.2); Carbon Dioxide 28.0 mmol/L (22-30); Creatinine 1 0.58 mg/dL (0.66-1.25); EST GLOMERULAR FILTRATION RATE 121.1 ML/MIN; Glucose 168.0 mg/dL (74-106); Potassium 3.8 mmol/L (3.5-5.1); SGOT/AST 15.0 U/L (17-59); SGPT/ALT 14.0 U/L (0-50); Total Protein 6.6 g/dL (6.3-8.2)
[2025-05-06 00:56] LABS: Glucose, Urine Negative (Negative); Protein,Urine Dip Trace (Negative); RBC 0-2 /HPF (0-5); WBC 0-2 /HPF (0-5)
[2025-05-06] MEDS ORDERED: Inapsine 5 MG/2 ML ONE (01:17)
[2025-05-06] MEDS: Inapsine 5 MG/2 ML IV ONE (01:17)
--- NOTE | 2025-05-06 02:28 | XRAY ---
CLINICAL HISTORY: pain COMPARISON: Prior CT December 31, 2024. TECHNIQUE: Contrast-enhanced CT of the abdomen and pelvis was performed, with the following protocol: Axial images and reconstructed coronal and sagittal images were obtained. Intravenous contrast 80 cc Isovue 370 was administered. One of the following dose reduction techniques was utilized for this exam: Automated exposure control, adjustment of the mA and/or kV according to patient size, and use of iterative reconstruction. FINDINGS: Stable right lower lobe lateral segment 12 mm calcified nodule (Image no.8 Abdomen and pelvis sequence). Abdomen: Liver: Normal in size, shape, and density. A few small calcifications are seen. No focal lesions, cysts, or masses are identified. Hepatic vasculature and biliary ducts are unremarkable. Gallbladder and Biliary System: The gallbladder is normal in size and shape. No wall thickening, pericholecystic fluid, or gallstones are identified. The common bile duct is normal in caliber without dilation. Pancreas: The pancreatic head, body, and tail are visualized and appear normal in size and density. No pancreatic masses or calcifications are noted. The pancreatic duct is not dilated. Spleen: Normal in size, shape, and density. A few small calcifications are seen. No splenic lesions or masses are identified. Appendix: The appendix is normal in size without periappendiceal fat stranding and without an appendicolith. No evidence of appendiceal abscess or perforation. Kidneys and Adrenal Glands: Tiny cortical renal cysts are present. Both kidneys are normal in size, shape, and position. Cortical thickness is within normal limits. No renal calculi or hydronephrosis is seen. Adrenal glands are unremarkable, with no evidence of masses or hyperplasia. Pelvis: Urinary Bladder: Collapsed. Prostate: Mildly enlarged with a few small calcifications. Seminal Vesicles: Normal in size and appearance. No abnormalities are noted. Rectum and Sigmoid Colon: Normal wall thickness with no evidence of mass. Peritoneal and Retroperitoneal Structures: Subcentimetric, non-specific mesenteric nodes are present. The superior mesenteric vein is swirling around the SMA. No free fluid or abnormal fluid collections are identified within the abdomen or pelvis. Bowel: Small diaphragmatic hiatal hernia. The visualized bowel loops are normal in caliber and appearance. No evidence of bowel obstruction or wall thickening is seen. Bones and Soft Tissues: Degenerative changes are seen in the lumbar spine with minimal levoscoliosis centered at the L3 vertebral body. Minimal retrolisthesis of L5 over S1, with a posterior disc osteophyte complex at this level, indents the ventral thecal sac. IMPRESSION: 1. No acute intra-abdominal pathology. 2. No interval changes. 3. The constellation of hepatic and splenic calcifications, as well as a right basal calcified pulmonary nodule, may raise the possibility of an old granulomatous disease sequela. 4. Mild diffuse gastric circumferential mural thickening, likely inflammatory (gastritis). Clinical correlation and, if indicated, endoscopy are advised. 5. Small diaphragmatic hiatal hernia. 6. Mildly enlarged prostate. 7. Clinical correlation is advised. Electronically Signed by: Rich Garcia MD. (05/06/2025 02:27:46 EDT)
[2025-05-06 03:04] VITALS: BP 156/91; PULSE 82; RESP 14
[2025-05-06 03:07] VITALS: O2SAT 98
== END 2025-05-06 03:50 | disposition home or self-care (01) ==
LOC: ED 23:34
DX: K29.70 Gastritis, unspecified, without bleeding (principal); K44.9 Diaphragmatic hernia without obstruction or gangrene; E86.0 Dehydration; N40.0 Benign prostatic hyperplasia without lower urinary tract symptoms; R91.1 Solitary pulmonary nodule; R10.84 Generalized abdominal pain; I10 Essential (primary) hypertension; E11.9 Type 2 diabetes mellitus without complications; Z79.4 Long term (current) use of insulin; Z79.899 Other long term (current) drug therapy; Z72.0 Tobacco use